=== PATIENT | female | born 1970 | race Caucasian/White ===

== ENCOUNTER 2018-06-03 12:01 | Emergency (ER) | payer MEDICAID ==
[2018-06-03] MEDS ORDERED: DEXALANT (12:20)
[2018-06-03] MEDS ORDERED: FLUO-177 PO (12:24)
[2018-06-03] MEDS ORDERED: GABA-549 PO (12:24)
[2018-06-03] MEDS ORDERED: TIZA2CAP3 PO (12:24)
[2018-06-03] MEDS ORDERED: PROM-110 PO (12:24)
[2018-06-03] MEDS ORDERED: ONDA4TAB9 PO (12:24)
[2018-06-03] MEDS ORDERED: SUMA50TA35 PO (12:24)
[2018-06-03] MEDS ORDERED: ABILIF5PT PO (12:24)
[2018-06-03] MEDS ORDERED: PRAV20TA65 PO (12:24)
[2018-06-03] MEDS ORDERED: ROPI0.2530 PO (12:24)
[2018-06-03] MEDS ORDERED: TRIA-20 PO (12:24)
[2018-06-03] MEDS ORDERED: KETOROLAC 15 MG/ML VIAL IVP ONE (12:25)
[2018-06-03] MEDS ORDERED: METOCLOPRAMIDE 10 MG/2 ML SDV IVP ONE (12:25)
[2018-06-03] MEDS ORDERED: diphenhydrAMINE 50 MG/ML VIAL IVP ONE (12:25)
--- NOTE | 2018-06-03 12:26 | ER Report ---
History and Physical Time Seen By MD: 12:22 Hx. of Stated Complaint: PT WOKE UP WITH MIGRAINE, NAUSEA, SUMATRIPTAN NOT HELPING HPI/ROS CHIEF COMPLAINT: Headache with nausea. HISTORY OF PRESENT ILLNESS: Patient is a 48-year-old female who presents emergency Department with migraine began this morning. She took her prescribed sumatriptan and now feels worse. She reports a severe headache at 8 out of 10 in intensity although this is not the worst headache she's ever had. She does feel nauseous with it. She denies fevers but reports hot flashes. The patient is from [place] but he is here [place] going to school. She denies any neck pain or neck stiffness. She denies chest pain or shortness of breath. She denies abdominal pain. REVIEW OF SYSTEMS: Respiratory: No cough, no dyspnea. Cardiovascular: No chest pain, no palpitations. Gastrointestinal: No vomiting, no abdominal pain. Musculoskeletal: No back pain. Neuro: Headache Allergies: Coded Allergies: lamotrigine (Verified Allergy, Severe, 06/03/18) Penicillins (Verified Allergy, Unknown, 06/03/18) amoxicillin (Verified Allergy, Unknown, 06/03/18) cephalexin (Verified Allergy, Unknown, 06/03/18) clavulanic acid (Verified Allergy, Unknown, 06/03/18) fluticasone (Verified Allergy, Unknown, 06/03/18) ibuprofen (Verified Allergy, Unknown, 06/03/18) nicotine (Verified Allergy, Unknown, 06/03/18) salmeterol (Verified Allergy, Unknown, 06/03/18) Uncoded Allergies: SULFA DRUGS (Allergy, Unknown, 06/03/18) Home Meds Reported Medications Ondansetron 4 Mg Odt (ONDANSETRON 4 MG ODT) 4 Mg Tab.rapdis, 4 MG PO ONCE, TAB 06/03/18 Sumatriptan Succinate (SUMATRIPTAN SUCCINATE) 50 Mg Tablet, 50 MG PO ONCE, #5 TAB 06/03/18 Promethazine Hcl (PROMETHAZINE HCL) 25 Mg Tablet, 25 MG PO Q8H, TAB 06/03/18 Tizanidine Hcl (TIZANIDINE HCL) 2 Mg Capsule, 2 MG PO TID, CAPSULE 06/03/18 Gabapentin (GABAPENTIN) 300 Mg Capsule, 300 MG PO TID, CAPSULE 06/03/18 Triamterene/Hydrochlorothiazid (TRIAMTERENE-HCTZ 37.5-25 MG TB) 1 Each Tablet, 1 EACH PO 06/03/18 Ropinirole Hcl (ROPINIROLE HCL) 0.25 Mg Tablet, 0.25 MG PO TID 06/03/18 Fluoxetine Hcl (FLUOXETINE HCL) 20 Mg Capsule, 20 MG PO QDAY, CAPSULE 06/03/18 Pravastatin Sodium (PRAVACHOL) 20 Mg Tablet, 20 MG PO QDAY, TAB 06/03/18 Aripiprazole (ABILIFY) 5 Mg Tablet, 5 MG PO QDAY, #10 TAB 06/03/18 [Dexalant] No Conflict Check 06/03/18 Past Medical/Surgical History History of migraine headaches and reactive airways disease Hx Substance Use Disorder: No Hx Alcohol Use: No Constitutional Vital Sign - Last 24 Hours 06/03/18 12:09 Temp 97.9 Pulse 73 Resp 20 B/P (MAP) 148/78 Pulse Ox 90 O2 Delivery Room Air Physical Exam General/Constitutional: Patient is awake, alert, nontoxic and in no acute respiratory distress. Head: Normocephalic and atraumatic. Eyes: Conjunctival clear, Pupils are equal and reactive to light. Extraocular muscles are intact and symmetrical. positive for photophobia Ears:External canals are clear. Tympanic membranes are clear with normal landmarks and light reflex. Nares: No rhinorrhea or bleeding. Turbinates are pink and moist. Oropharyngeal: Mucous membranes are moist. There is no pharyngeal erythema or exudate. There are no palatal petechiae. Uvula is midline and symmetrical. Neck: Supple, no adenopathy. Cardiovascular: Heart is regular rate and rhythm without audible murmurs, rubs or gallops. Pulmonary: Lungs are clear to auscultation bilaterally. There are no wheezes, rales, or rhonchi. Chest rise is symmetrical Abdomen: Soft, nontender, no guarding or peritoneal signs. Extremities: No gross deformities, No peripheral cyanosis. Able to move all 4 extremities. Neuro: Alert and oriented X3, Cranial nerves 2 thru 12 are intact and symmetrical. Skin: No rashes, skin is warm dry and well perfused. Medical Decision Making ED Course/Re-evaluation ED Course This time will be to start IV given normal saline we will give IV Toradol, IV Reglan and IV Benadryl. Patient feeling markedly improved will discharge home at this time. Decision to Disposition Date: Jun 03, 2018 Decision to Disposition Time: 13:25 Depart Departure Latest Vital Signs Vital Signs Date Time Temp Pulse Resp B/P (MAP) Pulse Ox O2 Delivery O2 Flow Rate FiO2 06/03/18 12:09 97.9 73 20 148/78 90 Room Air Impression: Primary Impression: Migraine Condition: Improved Disposition: HOME OR SELF-CARE New Scripts Hydrocodone Bit/Acetaminophen (HYDROCODON-ACETAMINOPHEN 5-325) 1 Each Tablet 1 EACH PO Q4-6H PRN for PAIN, #12 TAB 0 Refills TAKE ONE TABLET BY MOUTH EVERY 4-6 HOURS NEEDED FOR PAIN Prov: JOSE KIMBALL MD 06/03/18 Ondansetron Hcl (ZOFRAN) 4 Mg Tablet 4 MG PO Q8H for Nausea, #15 TAB 0 Refills Prov: JOSE KIMBALL MD 06/03/18 Departure Forms: ER Transition Record, Medications Reconciliation, Off Work/School Form, School or Work Release?: School Number of days to be released: 1 Patient Portal Information Patient Instructions: Migraine Headache (ED) Problem Qualifiers Primary Impression: Migraine Migraine type: unspecified Status migrainosus presence: without status migrainosus Intractability: not intractable Qualified Codes: G43.909 - Migraine, unspecified, not intractable, without status migrainosus JOSE KIMBALL MD Jun 03, 2018 12:26
[2018-06-03] MEDS ORDERED: NS(*) 0.9% 1000 ML BAG 1,000 ML IV ONE (12:30)
[2018-06-03 13:00] VITALS: BP 132/61
[2018-06-03] MEDS ORDERED: LANI SUBQ (13:25)
[2018-06-03] MEDS ORDERED: PROC10TA4 (13:25)
[2018-06-03] MEDS ORDERED: INSU100I35 SQ (13:25)
[2018-06-03] MEDS ORDERED: METO10I PO (13:25)
[2018-06-03] MEDS ORDERED: LOR5/325 PO (13:27)
[2018-06-03] MEDS ORDERED: ONDA4TAB97 PO (13:27)
== END 2018-06-03 13:33 | disposition home or self-care (01) ==
LOC: ER 12:14
DX: G43.909 Migraine, unspecified, not intractable, without status migrainosus (principal)
CPT/HCPCS: 96374; 96375; 99284; J1200; J1885; J2765; J7030

== ENCOUNTER 2018-06-08 14:41 | Emergency (ER) | payer MEDICAID ==
[~2018-06-08 14:41] MED LIST: ABILIF5PT PO; DEXALANT; FLUO-177 PO; GABA-549 PO; INSU100I35 SQ; LANI SUBQ; LOR5/325 PO; METO10I PO; ONDA4TAB9 PO; ONDA4TAB97 PO; PRAV20TA65 PO; PROC10TA4; PROM-110 PO; ROPI0.2530 PO; SUMA50TA35 PO; TIZA2CAP3 PO; TRIA-20 PO
--- NOTE | 2018-06-08 14:54 | ER Report ---
History and Physical Time Seen By MD: 14:50 Hx. of Stated Complaint: patient is out of dexalent she uses for acid reflux since having gastric bypass. Now has severe abdominal pain and nausea HPI/ROS CHIEF COMPLAINT: Acid reflux HISTORY OF PRESENT ILLNESS: This is a 48-year-old female presents to the em ergency department for acid reflux per patient states that she had gastric bypass about 4 years ago, has been on excellent since then which has helped with her acid reflux. She states that a few days ago she ran out, contacted her pharmacy for refill, Medicaid said that they needed a prior authorization on the medication, patient states that she's been without this since and it is causing increased abdominal pain and acid reflux. Patient denies chest pain or shortness of breath. Patient is declining a cardiac workup at this time. She has no other complaints. No fevers or chills. REVIEW OF SYSTEMS: Respiratory: No cough, no dyspnea. Cardiovascular: No chest pain, no palpitations. Gastrointestinal: As above. Musculoskeletal: No back pain. Allergies: Coded Allergies: lamotrigine (Verified Allergy, Severe, 06/03/18) Penicillins (Verified Allergy, Unknown, 06/03/18) amoxicillin (Verified Allergy, Unknown, 06/03/18) cephalexin (Verified Allergy, Unknown, 06/03/18) clavulanic acid (Verified Allergy, Unknown, 06/03/18) fluticasone (Verified Allergy, Unknown, 06/03/18) ibuprofen (Verified Allergy, Unknown, 06/03/18) nicotine (Verified Allergy, Unknown, 06/03/18) salmeterol (Verified Allergy, Unknown, 06/03/18) Uncoded Allergies: SULFA DRUGS (Allergy, Unknown, 06/03/18) Home Meds Active Scripts Ondansetron Hcl (ZOFRAN) 4 Mg Tablet, 4 MG PO Q8H for Nausea, #15 TAB 0 Refills Prov:JOSE KIMBALL MD 06/03/18 Reported Medications Insulin Aspart 100 Un/Ml Pen (NOVOLOG FLEXPEN) 100 Unit/1 Ml Insuln.pen, 10 UNIT SQ HS, ML 06/03/18 Insulin Glargine (LANTUS) 100 Unit/Ml Soln, 30 UNIT SUBQ BID, ML 06/03/18 Prochlorperazine Maleate (Compazine) 10 Mg Tablet 06/03/18 Metoclopramide Hcl 10 Mg Vial (REGLAN 10 MG VIAL) 10 Mg/2 Ml Injs, 10 MG PO NOW, VIAL 06/03/18 Ondansetron 4 Mg Odt (ONDANSETRON 4 MG ODT) 4 Mg Tab.rapdis, 4 MG PO ONCE, TAB 06/03/18 Sumatriptan Succinate (SUMATRIPTAN SUCCINATE) 50 Mg Tablet, 50 MG PO ONCE, #5 TAB 06/03/18 Promethazine Hcl (PROMETHAZINE HCL) 25 Mg Tablet, 25 MG PO Q8H, TAB 06/03/18 Tizanidine Hcl (TIZANIDINE HCL) 2 Mg Capsule, 2 MG PO TID, CAPSULE 06/03/18 Gabapentin (GABAPENTIN) 300 Mg Capsule, 300 MG PO TID, CAPSULE 06/03/18 Triamterene/Hydrochlorothiazid (TRIAMTERENE-HCTZ 37.5-25 MG TB) 1 Each Tablet, 1 EACH PO 06/03/18 Fluoxetine Hcl (FLUOXETINE HCL) 20 Mg Capsule, 20 MG PO QDAY, CAPSULE 06/03/18 Pravastatin Sodium (PRAVACHOL) 20 Mg Tablet, 20 MG PO QDAY, TAB 06/03/18 Aripiprazole (ABILIFY) 5 Mg Tablet, 5 MG PO QDAY, #10 TAB 06/03/18 [Dexalant] No Conflict Check 06/03/18 Discontinued Reported Medications Ropinirole Hcl (ROPINIROLE HCL) 0.25 Mg Tablet, 0.25 MG PO TID 06/03/18 Discontinued Scripts Hydrocodone Bit/Acetaminophen (HYDROCODON-ACETAMINOPHEN 5-325) 1 Each Tablet, 1 EACH PO Q4-6H PRN for PAIN, #12 TAB 0 Refills TAKE ONE TABLET BY MOUTH EVERY 4-6 HOURS NEEDED FOR PAIN Prov:JOSE KIMBALL MD 06/03/18 Past Medical/Surgical History Patient has a past medical surgical history of headaches, hypertension, hypercholesterolemia, asthma, COPD, gastric bypass, severe acid reflux, arthritis, wears glasses, type II diabetes, depression, anxiety, cervical cancer in remission, appendectomy, cholecystectomy, hysterectomy, ankle and shoulder surgery, tonsillectomy. Reviewed Nurses Notes: Yes Old Medical Records Reviewed: Yes Hx Substance Use Disorder: No Hx Alcohol Use: No Constitutional Vital Sign - Last 24 Hours 06/08/18 06/08/18 14:44 15:38 Temp 98.5 Pulse 92 88 Resp 16 16 B/P (MAP) 133/68 138/82 (100) Pulse Ox 95 95 O2 Delivery Room Air Room Air Physical Exam General Appearance: The patient is alert, has no immediate need for airway protection and no current signs of toxicity. Eyes: Pupils equal and round no injection. Respiratory: Chest is non tender, lungs are clear to auscultation. Cardiac: regular rate and rhythm, no murmurs, clicks or rubs. Gastrointestinal: Abdomen is, round, soft and non tender, no masses, bowel sounds normal. Musculoskeletal: Neck: Neck is supple and non tender. Extremities have full range of motion and are non tender. Skin: No rashes or lesions. DIFFERENTIAL DIAGNOSIS: After history and physical exam differential diagnosis was considered for abdominal pain including but not limited to appendicitis, cholecystitis, gastritis and urinary tract infection. Medical Decision Making ED Course/Re-evaluation ED Course The patient was admitted to room. A history and physical obtained. Differential diagnoses were considered. A patient has been complaining of epigastric discomfort, she states that is her as reflux, I did tell her that I still would recommend a cardiac workup to ensure that its only her acid reflex, patient declined. We do not have excellent as a medication and the pharmacy, I did substitute with 40 mg of Protonix once a day for the next 3 days, she will follow-up with her pharmacy and primary care provider on , she'll see if they can approve the medication refill. She was given a GI cocktail with significant relief of her symptoms today. Patient had no other questions or concerns at this time and was discharged home. Decision to Disposition Date: Jun 08, 2018 Decision to Disposition Time: 15:30 Depart Departure Latest Vital Signs Vital Signs Date Time Temp Pulse Resp B/P (MAP) Pulse Ox O2 Delivery O2 Flow Rate FiO2 06/08/18 15:38 88 16 138/82 (100) 95 Room Air 06/08/18 14:44 98.5 Impression: Primary Impression: Medication refill Additional Impression: Acid reflux disease Condition: Improved Disposition: HOME OR SELF-CARE Patient Instructions: Gastroesophageal Reflux Disease (ED) Additional Instructions: Take 40 mg of Protonix once a day for the next 3 days. Follow-up with your primary care provider as scheduled this coming Saturday. Follow-up with the pharmacy on Saturday to see if they can help with the prior authorization. Return to the ER for any other concerns or worsening symptoms. Drink plenty of water. Get plenty of rest. Problem Qualifiers Additional Impression: Acid reflux disease Esophagitis presence: esophagitis presence not specified Qualified Codes: K21.9 - Gastro-esophageal reflux disease without esophagitis TALIA HOWARD [employer] PL[employer]NER-BC Jun 08, 2018 14:54
[2018-06-08] MEDS ORDERED: LIDOCAINE 2% VISC SLN 15ML UDC PO ONE (15:05)
[2018-06-08] MEDS ORDERED: MAG HYD/AL HYD/SIMETH 30ML UDC PO ONE (15:05)
[2018-06-08 15:38] VITALS: BP 138/82
[2018-06-08] MEDS ORDERED: PANTOPRAZOLE SOD 40 MG TABEC PO ONE (15:40)
[2018-06-08] MEDS ORDERED: PANTOPRAZOLE SOD 40 MG TABEC PO SCH (16:00)
[2018-06-09] MEDS ORDERED: PANTOPRAZOLE SOD 40 MG TABEC PO SCH (09:00)
== END 2018-06-08 15:42 | disposition home or self-care (01) ==
LOC: ER 15:14
DX: K21.9 Gastro-esophageal reflux disease without esophagitis (principal)
CPT/HCPCS: 99283

== ENCOUNTER 2018-06-15 14:38 | Emergency (ER) | payer MEDICAID ==
[~2018-06-15 14:38] MED LIST changes: +DEXL60CA6 PO; +MELA10TA7; +METO-224 PO; +NYST15PO4 TP
--- NOTE | 2018-06-15 16:17 | ER Report ---
History and Physical Time Seen By MD: 16:17 Hx. of Stated Complaint: L SHOULDER PAIN FROM ARTHRITIS HPI/ROS CHIEF COMPLAINT: Chronic left shoulder pain HISTORY OF PRESENT ILLNESS: This is a 48-year-old female presents to the emergency department for chronic left shoulder pain. Patient states that she's h ad chronic left shoulder pain for a number of years, she is trying to follow-up with [facility], she states she knows she needs a total shoulder, she has arthritis. Patient takes cyclobenzaprine at home, I did ask the patient if she's had an acute injury, falls or anything of the like, patient denies any sort of acute injury. She has no other complaints, no chest pain or shortness of breath. No heat or warmth over the shoulder. REVIEW OF SYSTEMS: Respiratory: No cough, no dyspnea. Cardiovascular: No chest pain, no palpitations. Gastrointestinal: No vomiting, no abdominal pain. Musculoskeletal: As above. Allergies: Coded Allergies: lamotrigine (Verified Allergy, Severe, 06/03/18) Penicillins (Verified Allergy, Unknown, 06/03/18) amoxicillin (Verified Allergy, Unknown, 06/03/18) cephalexin (Verified Allergy, Unknown, 06/03/18) clavulanic acid (Verified Allergy, Unknown, 06/03/18) fluticasone (Verified Allergy, Unknown, 06/03/18) ibuprofen (Verified Allergy, Unknown, 06/03/18) nicotine (Verified Allergy, Unknown, 06/03/18) salmeterol (Verified Allergy, Unknown, 06/03/18) Uncoded Allergies: SULFA DRUGS (Allergy, Unknown, 06/03/18) Home Meds Active Scripts Prednisone (PREDNISONE) 20 Mg Tablet, 20 MG PO BID, #10 TAB Prov:TALIA HOWARD RENAL NURSE-BC 06/15/18 Ondansetron Hcl (ZOFRAN) 4 Mg Tablet, 4 MG PO Q8H for Nausea, #15 TAB 0 Refills Prov:JOSE KIMBALL MD 06/03/18 Reported Medications Dexlansoprazole (DEXILANT) 60 Mg Cap., 60 MG PO BID 06/12/18 Metoclopramide Hcl (METOCLOPRAMIDE HCL) 10 Mg Tablet, 10 MG PO TID PRN for nausea 06/12/18 Melatonin (Melatonin) 10 Mg Tab.rapdis, HS 06/12/18 Nystatin 100,000 Unit/Gm Top Powder (NYSTATIN 100,000 UNIT/GM TOP POWDER) Un known Strength Powder, TP PRN, TUBE 06/12/18 Insulin Aspart 100 Un/Ml Pen (NOVOLOG FLEXPEN) 100 Unit/1 Ml Insuln.pen, 10 UNIT SQ HS, ML 06/03/18 Insulin Glargine (LANTUS) 100 Unit/Ml Soln, 30 UNIT SUBQ BID, ML 06/03/18 Prochlorperazine Maleate (Compazine) 10 Mg Tablet 06/03/18 Ondansetron 4 Mg Odt (ONDANSETRON 4 MG ODT) 4 Mg Tab.rapdis, 4 MG PO ONCE, TAB 06/03/18 Sumatriptan Succinate (SUMATRIPTAN SUCCINATE) 50 Mg Tablet, 50 MG PO ONCE, #5 TAB 06/03/18 Promethazine Hcl (PROMETHAZINE HCL) 25 Mg Tablet, 25 MG PO Q8H, TAB 06/03/18 Tizanidine Hcl (TIZANIDINE HCL) 2 Mg Capsule, 2 MG PO TID, CAPSULE 06/03/18 Gabapentin (GABAPENTIN) 300 Mg Capsule, 300 MG PO TID, CAPSULE 06/03/18 Triamterene/Hydrochlorothiazid (TRIAMTERENE-HCTZ 37.5-25 MG TB) 1 Each Tablet, 1 EACH PO 06/03/18 Fluoxetine Hcl (FLUOXETINE HCL) 20 Mg Capsule, 20 MG PO QDAY, CAPSULE 06/03/18 Pravastatin Sodium (PRAVACHOL) 20 Mg Tablet, 20 MG PO QDAY, TAB 06/03/18 Aripiprazole (ABILIFY) 5 Mg Tablet, 5 MG PO QDAY, #10 TAB 06/03/18 Discontinued Reported Medications Metoclopramide Hcl 10 Mg Vial (REGLAN 10 MG VIAL) 10 Mg/2 Ml Injs, 10 MG PO NOW, VIAL 06/03/18 [Dexalant] No Conflict Check 06/03/18 Ropinirole Hcl (ROPINIROLE HCL) 0.25 Mg Tablet, 0.25 MG PO TID 06/03/18 Discontinued Scripts Hydrocodone Bit/Acetaminophen (HYDROCODON-ACETAMINOPHEN 5-325) 1 Each Tablet, 1 EACH PO Q4-6H PRN for PAIN, #12 TAB 0 Refills TAKE ONE TABLET BY MOUTH EVERY 4-6 HOURS NEEDED FOR PAIN Prov:JOSE KIMBALL MD 06/03/18 Past Medical/Surgical History The patient has a past medical and surgical history of headaches, hypertension, hypercholesterolemia, asthma, COPD, gastric bypass, severe acid reflux, left shoulder arthritis, severe left shoulder degenerative joint disease, knees have arthritis, wears glasses, type II diabetic however uses insulin, bipolar, PTSD, depression, anxiety, suicide attempt, cervical cancer, appendectomy, cholecystectomy, hysterectomy, right ankle and shoulder surgery, tonsillectomy. Reviewed Nurses Notes: Yes Smoking Status: Former Smoker Hx Substance Use Disorder: No Hx Alcohol Use: No Constitutional Vital Sign - Last 24 Hours 06/15/18 06/15/18 06/15/18 06/15/18 14:56 15:47 15:53 16:00 Temp 99.0 Pulse 90 87 Resp 18 B/P (MAP) 130/78 138/75 (96) ???/??? (1665) Pulse Ox 95 92 O2 Delivery Room Air 06/15/18 06/15/18 06/15/18 06/15/18 16:08 16:23 16:30 16:35 Pulse 72 94 86 B/P (MAP) ???/??? (1665) Pulse Ox 91 92 93 06/15/18 06/15/18 16:40 16:42 Pulse 92 B/P (MAP) 133/75 (94) Pulse Ox 96 Physical Exam General Appearance: The patient is alert, has no immediate need for airway protection and no current signs of toxicity. Eyes: Pupils equal and round no injection. Respiratory: Chest is non tender, lungs are clear to auscultation. Cardiac: regular rate and rhythm. Gastrointestinal: Abdomen is soft and non tender, no masses, bowel sounds normal. Musculoskeletal: Neck: Neck is supple and non tender. Extremities Decreased left shoulder ROM, abduction painful, no crepitus, no deformity, no injury, no bruising. CMS intact. Skin: No rashes or lesions. DIFFERENTIAL DIAGNOSIS: After history and physical exam differential diagnosis was considered for bursitis, chronic shoulder pain, arthritis. Medical Decision Making ED Course/Re-evaluation ED Course The patient was admitted to room. A history and physical were obtained. Differential diagnoses were considered. As there was no acute injury of the left shoulder, this is chronic in nature, no x-rays were indicated at this time, I did review this with the patient. I did also review that its our hospital policy not to treat chronic pain with narcotics. Patient was given a prescription for prednisone she is unable to take NSAIDs due to her gastric bypass. She states she does well with prednisone. She states that she will follow up with [facility] again tomorrow to see if they have her paperwork and imaging from her previous hospital, I did offer her a sling, she declined she states she has couple slings at home however she did not wear them today. Patient was also requesting a note from work. Patient was also instructed to follow-up with her primary care provider next week and she has any other concerns for chronic pain management. Patient expressed understanding and was discharged home. Decision to Disposition Date: Jun 15, 2018 Decision to Disposition Time: 16:45 Depart Departure Latest Vital Signs Vital Signs Date Time Temp Pulse Resp B/P (MAP) Pulse Ox O2 Delivery O2 Flow Rate FiO2 06/15/18 16:42 133/75 (94) 06/15/18 16:40 92 96 06/15/18 14:56 99.0 18 Room Air Impression: Primary Impression: Chronic pain in left shoulder Condition: Improved Disposition: HOME OR SELF-CARE Referrals: LEILA CA MD (PCP) 5 Days [facility] New Scripts Prednisone (PREDNISONE) 20 Mg Tablet 20 MG PO BID, #10 TAB Prov: TALIA HOWARD-BC 06/15/18 Departure Forms: ER Transition Record, Medications Reconciliation, Off Work/School Form, Number of days to be released: 2 Patient Portal Information Patient Instructions: Shoulder Pain (ED) Additional Instructions: Unfortunately we're not able to treat chronic pain with narcotics in the emergency department. History of been taking it Flexeril for chronic pain, unable to take NSAIDs we have elected to try prednisone. Please call [facility] 1st thing tomorrow morning. If unable to get in with [facility] please call your primary care provider for reevaluation. Drink plenty of water. Get plenty of rest. Return to the emergency department for any other concerns or worsening symptoms. TALIA HOWARD RENAL NURSE-BC Jun 15, 2018 16:17
[2018-06-15 16:42] VITALS: BP 133/75
[2018-06-15] MEDS ORDERED: predniSONE 20 MG TAB PO ONE (16:45)
[2018-06-15] MEDS ORDERED: PRED20TA6 PO (16:46)
== END 2018-06-15 16:53 | disposition home or self-care (01) ==
LOC: ER 16:05
DX: M25.512 Pain in left shoulder (principal); G89.29 Other chronic pain
CPT/HCPCS: 99283; J7512

== ENCOUNTER 2018-06-21 08:26 | Emergency (ER) | payer MEDICAID ==
[~2018-06-21 08:26] MED LIST changes: +PRED20TA6 PO
--- NOTE | 2018-06-21 08:32 | ER Report ---
History and Physical Time Seen By MD: 08:32 HPI/ROS CHIEF COMPLAINT: Right-sided abdominal pain HISTORY OF PRESENT ILLNESS: Patient is a 48-year-old female here with complaints of right-sided abdominal pain which started in the back and now radiates to the right lower quadrant of the abdomen. Patient reports that her symptoms started on Saturday and more intermittent but are now constant since yesterday. Patient reports having polyuria and increased frequency of urination. Patient also reports decreased appetite. Patient has a history of gastric bypass however denies having an appendectomy. Patient denies melena, sore throat, sneezing, rhinorrhea, cough. REVIEW OF SYSTEMS: Constitutional: No fever, no chills. Eyes: No discharge. ENT: No sore throat. Cardiovascular: No chest pain, no palpitations. Respiratory: No cough, no shortness of breath. Gastrointestinal: + Right-sided abdominal pain and flank pain Genitourinary: No hematuria. + Polyuria Musculoskeletal: + Right-sided flank pain Skin: No rashes. Neurological: No headache. Allergies: Coded Allergies: Sulfa (Sulfonamide Antibiotics) (Verified Allergy, Severe, NAUSEA/VOMITING, 06/25/18) lamotrigine (Verified Allergy, Severe, 06/25/18) onion (Verified Allergy, Severe, NAUSEA/VOMITING, 06/25/18) Penicillins (Verified Allergy, Unknown, 06/25/18) amoxicillin (Verified Allergy, Unknown, 06/25/18) cephalexin (Verified Allergy, Unknown, 06/25/18) clavulanic acid (Verified Allergy, Unknown, 06/25/18) fluticasone (Verified Allergy, Unknown, 06/25/18) ibuprofen (Verified Allergy, Unknown, 06/25/18) nicotine (Verified Allergy, Unknown, 06/25/18) salmeterol (Verified Allergy, Unknown, 06/25/18) Home Meds Active Scripts Blood Sugar Diagnostic (GLUCOSE TEST STRIP) 1 Each Strip, 1 EACH MC TID, #100 STRIP 5 Refills Prov:LEILA HERNANDEZ MD 06/23/18 Blood-Glucose Meter (BLOOD GLUCOSE METER) 1 Each Each, EACH MC ONCE, #1 Prov:LEILA HERNANDEZ MD 06/23/18 Dexlansoprazole (DEXILANT) 60 Mg Bala., 60 MG PO BID, #60 TAB 6 Refills Prov:LEILA HERNANDEZ MD 06/23/18 Hydrocodone Bit/Acetaminophen (HYDROCODON-ACETAMINOPHEN 5-325) 1 Each Tablet, 1 EACH PO Q4-6H PRN for PAIN, #6 TAB Prov:MICHELLE CHRISTIAN [facility] 06/22/18 Sucralfate (CARAFATE) 1 Gm Tablet, 1 GM PO QID, #60 TAB Take before meals and at bedtime. Crush the tablet and mix with water before taking. Prov:MICHELLE CHRISTIAN BELLMAN 06/22/18 Ondansetron 4 Mg Odt (ONDANSETRON 4 MG ODT) 4 Mg Tab.rapdis, 4 MG PO ONCE, #20 TAB Prov:CAROLE MARIE S DO 06/21/18 Tramadol Hcl (TRAMADOL HCL) 50 Mg Tablet, 50 MG PO Q6H PRN for PAIN, #12 TAB 0 Refills Prov:MARIECAROLE Trent S DO 06/21/18 Ondansetron Hcl (ZOFRAN) 4 Mg Tablet, 4 MG PO Q8H for Nausea, #15 TAB 0 Refills Prov:JOSE KIMBALL MD 06/03/18 Reported Medications Metoclopramide Hcl (METOCLOPRAMIDE HCL) 10 Mg Tablet, 10 MG PO TID PRN for nausea 06/12/18 Melatonin (Melatonin) 10 Mg Tab.rapdis, HS 06/12/18 Nystatin 100,000 Unit/Gm Top Powder (NYSTATIN 100,000 UNIT/GM TOP POWDER) Unknown Strength Powder, TP PRN, TUBE 06/12/18 Insulin Aspart 100 Un/Ml Pen (NOVOLOG FLEXPEN) 100 Unit/1 Ml Insuln.pen, 10 UNIT SQ HS, ML 06/03/18 Insulin Glargine (LANTUS) 100 Unit/Ml Soln, 30 UNIT SUBQ BID, ML 06/03/18 Prochlorperazine Maleate (Compazine) 10 Mg Tablet 06/03/18 Ondansetron 4 Mg Odt (ONDANSETRON 4 MG ODT) 4 Mg Tab.rapdis, 4 MG PO ONCE, TAB 06/03/18 Sumatriptan Succinate (SUMATRIPTAN SUCCINATE) 50 Mg Tablet, 50 MG PO ONCE, #5 TAB 06/03/18 Promethazine Hcl (PROMETHAZINE HCL) 25 Mg Tablet, 25 MG PO Q8H, TAB 06/03/18 Tizanidine Hcl (TIZANIDINE HCL) 2 Mg Capsule, 2 MG PO TID, CAPSULE 06/03/18 Gabapentin (GABAPENTIN) 300 Mg Capsule, 300 MG PO TID, CAPSULE 06/03/18 Triamterene/Hydrochlorothiazid (TRIAMTERENE-HCTZ 37.5-25 MG TB) 1 Each Tablet, 1 EACH PO 06/03/18 Fluoxetine Hcl (FLUOXETINE HCL) 20 Mg Capsule, 20 MG PO QDAY, CAPSULE 06/03/18 Pravastatin Sodium (PRAVACHOL) 20 Mg Tablet, 20 MG PO QDAY, TAB 06/03/18 Aripiprazole (ABILIFY) 5 Mg Tablet, 5 MG PO QDAY, #10 TAB 06/03/18 Smoking Status: Former Smoker Hx Substance Use Disorder: No Hx Alcohol Use: No Constitutional Physical Exam General Appearance: The patient is alert, has no immediate need for airway protection and no signs of toxicity. No acute distress Eyes: Pupils equal and round no pallor or injection. ENT, Mouth: Mucous membranes are moist. Respiratory: There are no retractions, lungs are clear to auscultation. Cardiovascular: Regular rate and rhythm. Gastrointestinal: + Right-sided abdominal pain and right flank pain Neurological: No focal neurological findings Skin: Warm and dry, no rashes. Musculoskeletal: Neck is supple non tender. Extremities are nontender, nonswollen and have full range of motion. DIFFERENTIAL DIAGNOSIS: After history and physical exam differential diagnosis was considered for abdominal pain including but not limited to appendicitis, cholecystitis, gastritis and urinary tract infection. Medical Decision Making Data Points Laboratory Hematology Test 06/21/18 08:34 06/21/18 08:51 06/21/18 09:01 Urine Color Yellow Urine Clarity Slightly-cloudy Urine pH 5.0 pH (4.8-9.5) Urine Specific [place] 1.026 Urine Protein Negative mg/dL (NEGATIVE) Urine Glucose (UA) 500 mg/dL (NEGATIVE) Urine Ketones Trace mg/dL (NEGATIVE) Urine Blood Negative (NEGATIVE) Urine Nitrite Negative (NEGATIVE) Urine Bilirubin Negative (NEGATIVE) Urine Urobilinogen Negative mg/dL (0.2-1.9) Urine Leukocyte Esterase Negative (NEGATIVE) Urine RBC <1 /HPF (0-2/HPF) Urine WBC 1 /HPF (0-5/HPF) Urine Squamous Epithelial Cells Many /LPF (</=FEW) Urine Bacteria Negative /HPF (NONE-FEW) Urine Mucus Few /HPF (NONE-FEW) Influenza Virus Type A (PCR) Negative (NEGATIVE) Influenza Virus Type B (PCR) Negative (NEGATIVE) Red Blood Count 5.31 M/uL (4.17-5.56) Mean Corpuscular Volume 84.6 fL (80.0-96.0) Mean Corpuscular Hemoglobin 28.2 pg (26.0-33.0) Mean Corpuscular Hemoglobin Concent 33.4 g/dL (32.0-36.0) Red Cell Distribution Width 14.4 % (11.5-14.5) Mean Platelet Volume 8.0 fL (7.2-11.1) Neutrophils (%) (Auto) 62.5 % (39.4-72.5) Lymphocytes (%) (Auto) 28.5 % (17.6-49.6) Monocytes (%) (Auto) 8.1 % (4.1-12.4) Eosinophils (%) (Auto) 0.5 % (0.4-6.7) Basophils (%) (Auto) 0.4 % (0.3-1.4) Nucleated RBC Relative Count (auto) 0.0 /100WBC Neutrophils # (Auto) 10.2 K/uL (2.0-7.4) Lymphocytes # (Auto) 4.7 K/uL (1.3-3.6) Monocytes # (Auto) 1.3 K/uL (0.3-1.0) Eosinophils # (Auto) 0.1 K/uL (0.0-0.5) Basophils # (Auto) 0.1 K/uL (0.0-0.1) Nucleated RBC Absolute Count (auto) 0.00 K/uL Peripheral Blood Smear No Y/N Sodium Level 139 mmol/L (137-145) Potassium Level 3.4 mmol/L (3.5-5.0) Chloride Level 102 mmol/L (98-107) Carbon Dioxide Level 24 mmol/L (22-31) Blood Urea Nitrogen 17 mg/dl (7-18) Creatinine 0.40 mg/dl (0.52-1.04) Glomerular Filtration Rate Calc > 60.0 Random Glucose 146 mg/dl (75-110) Lactate 1.7 mmol/L (0.7-2.1) Calcium Level 9.4 mg/dl (8.4-10.2) Total Bilirubin 0.7 mg/dl (0.2-1.3) Aspartate Amino Transf (AST/SGOT) 24 U/L (0-35) Alanine Aminotransferase (ALT/SGPT) 38 U/L (0-56) Alkaline Phosphatase 88 U/L (0-126) Total Protein 7.2 g/dl (6.3-8.2) Albumin 4.4 g/dl (3.5-5.0) Lipase 32 U/L (23-300) Chemistry Test 06/21/18 08:34 06/21/18 08:51 06/21/18 09:01 Urine Color Yellow Urine Clarity Slightly-cloudy Urine pH 5.0 pH (4.8-9.5) Urine Specific [place] 1.026 Urine Protein Negative mg/dL (NEGATIVE) Urine Glucose (UA) 500 mg/dL (NEGATIVE) Urine Ketones Trace mg/dL (NEGATIVE) Urine Blood Negative (NEGATIVE) Urine Nitrite Negative (NEGATIVE) Urine Bilirubin Negative (NEGATIVE) Urine Urobilinogen Negative mg/dL (0.2-1.9) Urine Leukocyte Esterase Negative (NEGATIVE) Urine RBC <1 /HPF (0-2/HPF) Urine WBC 1 /HPF (0-5/HPF) Urine Squamous Epithelial Cells Many /LPF (</=FEW) Urine Bacteria Negative /HPF (NONE-FEW) Urine Mucus Few /HPF (NONE-FEW) Influenza Virus Type A (PCR) Negative (NEGATIVE) Influenza Virus Type B (PCR) Negative (NEGATIVE) White Blood Count 16.4 k/uL (4.5-11.0) Red Blood Count 5.31 M/uL (4.17-5.56) Hemoglobin 15.0 g/dL (12.0-16.0) Hematocrit 44.9 % (34.0-47.0) Mean Corpuscular Volume 84.6 fL (80.0-96.0) Mean Corpuscular Hemoglobin 28.2 pg (26.0-33.0) Mean Corpuscular Hemoglobin Concent 33.4 g/dL (32.0-36.0) Red Cell Distribution Width 14.4 % (11.5-14.5) Platelet Count 217 K/uL (150-450) Mean Platelet Volume 8.0 fL (7.2-11.1) Neutrophils (%) (Auto) 62.5 % (39.4-72.5) Lymphocytes (%) (Auto) 28.5 % (17.6-49.6) Monocytes (%) (Auto) 8.1 % (4.1-12.4) Eosinophils (%) (Auto) 0.5 % (0.4-6.7) Basophils (%) (Auto) 0.4 % (0.3-1.4) Nucleated RBC Relative Count (auto) 0.0 /100WBC Neutrophils # (Auto) 10.2 K/uL (2.0-7.4) Lymphocytes # (Auto) 4.7 K/uL (1.3-3.6) Monocytes # (Auto) 1.3 K/uL (0.3-1.0) Eosinophils # (Auto) 0.1 K/uL (0.0-0.5) Basophils # (Auto) 0.1 K/uL (0.0-0.1) Nucleated RBC Absolute Count (auto) 0.00 K/uL Peripheral Blood Smear No Y/N Glomerular Filtration Rate Calc > 60.0 Lactate 1.7 mmol/L (0.7-2.1) Calcium Level 9.4 mg/dl (8.4-10.2) Total Bilirubin 0.7 mg/dl (0.2-1.3) Aspartate Amino Transf (AST/SGOT) 24 U/L (0-35) Alanine Aminotransferase (ALT/SGPT) 38 U/L (0-56) Alkaline Phosphatase 88 U/L (0-126) Total Protein 7.2 g/dl (6.3-8.2) Albumin 4.4 g/dl (3.5-5.0) Lipase 32 U/L (23-300) Urinalysis Test 06/21/18 08:34 Urine Color Yellow Urine Clarity Slightly-cloudy Urine pH 5.0 pH (4.8-9.5) Urine Specific [place] 1.026 Urine Protein Negative mg/dL (NEGATIVE) Urine Glucose (UA) 500 mg/dL (NEGATIVE) Urine Ketones Trace mg/dL (NEGATIVE) Urine Blood Negative (NEGATIVE) Urine Nitrite Negative (NEGATIVE) Urine Bilirubin Negative (NEGATIVE) Urine Urobilinogen Negative mg/dL (0.2-1.9) Urine Leukocyte Esterase Negative (NEGATIVE) Urine RBC <1 /HPF (0-2/HPF) Urine WBC 1 /HPF (0-5/HPF) Urine Squamous Epithelial Cells Many /LPF (</=FEW) Urine Bacteria Negative /HPF (NONE-FEW) Urine Mucus Few /HPF (NONE-FEW) EKG/Im[place] [facility] [place] Zain Sim[place] : 1970 Visit/Account:[id number] Date of Sevice: 06/21/2018 CT scan of the abdomen and pelvis without contrast. HISTORY: Right flank pain and right lower quadrant abdominal tenderness. COMPARISON: None. 3 mm thick and [address] images were obtained of the abdomen and pelvis. No intravenous or oral contrast. One of the following dose optimization techniques was utilized in the performance of this exam: Automated exposure control; adjustment of the mA and/or kV according to the patient's size; or use of an iterative reconstruction technique. Specific details can be referenced in the facility's radiology CT exam operational policy. The study is limited to the urinary tract for evaluation of stone disease. FINDINGS: The lung bases are clear. Pericardial fluid is borderline increased. The liver and spleen are normal in size. Several small low-density lesions probably representing cysts measuring less than 1.2 cm in diameter are scattered in the liver. The gallbladder is absent. Surgical clips are present in the gallbladder fossa. The pancreas is normal in size. Surgical leni are present along the stomach and upper abdominal small bowel loops consistent with previous gastric bypass surgery. A small direct hiatal hernia is present. Unopacified bowel loops are scattered in the abdomen and pelvis. The appendix is not visualized. The uterus is absent. The ovaries are not visualized. The urinary bladder is incompletely distended. Lateral amounts of stool are scattered in the colon and rectum. A few phleboliths are present in the ovarian veins bilaterally. The kidneys are normal in size. The right adrenal gland is normal in size. A 1.4 cm low-density lesion is present in the left adrenal gland. The ureters take a normal course of the urinary bladder. No acute bony abnormalities. IMPRESSION: Absent gallbladder. A few small liver cysts. Postsurgical changes following gastric bypass procedure. Negative for evidence of renal stone or obstruction. Absent gallbladder. Borderline pericardial effusion. 1.4 cm left adrenal adenoma. Nonvisualization of the appendix. ED Course/Re-evaluation ED Course Patient is a 48-year-old female here with complaints of right-sided flank pain with radiation to the groin since Saturday which was intermittent initially however is now constant. Patient also reports having increased frequency of urination, urgency. Due to the patient's symptoms, noncontrasted CT study was completed. Patient was given IV fluids, Zofran, fentanyl for symptom management. Flu swab was collected. CT imaging scan was unremarkable. Labs were unremarkable aside from a mild leukocytosis. Recommend follow up with PCP on Saturday as scheduled. Return precautions provided. Patient was tolerating oral intake with out issues.. Decision to Disposition Date: Jun 21, 2018 Decision to Disposition Time: 11:07 Depart Departure Latest Vital Signs Impression: Primary Impression: Abdominal pain Condition: Improved Disposition: HOME OR SELF-CARE Referrals: LEILA HERNANDEZ MD (PCP) New Scripts Ondansetron 4 Mg Odt (ONDANSETRON 4 MG ODT) 4 Mg Tab.rapdis 4 MG PO ONCE, #20 TAB Prov: CAROLE MARIE DO 06/21/18 Tramadol Hcl (TRAMADOL HCL) 50 Mg Tablet 50 MG PO Q6H PRN for PAIN, #12 TAB 0 Refills Prov: CAROLE MARIE DO 06/21/18 Departure Forms: ER Transition Record, Medications Reconciliation, Off Work/School Form, School or Work Release?: Work Number of days to be released: 3 Patient Portal Information Patient Instructions: Abdominal Pain (ED) Additional Instructions: Please drink plenty of water. Please follow-up with Dr. Hernandez on Saturday for an outpatient reevaluation. Your provided with scripts for Zofran and tramadol for symptom management. He may take Zofran 1 tablet every 4-6 hours as needed for nausea and vomiting. You may take 1 tramadol every 6-8 hours as needed for pain control. Please return immediately to the emergency department if you develop worsening pain, fevers, inability to keep down food or fluids, blood in stools or urine. CAROLE MARIE DO Jun 21, 2018 08:32
[2018-06-21] MEDS ORDERED: ONDANSETRON 4 MG/2 ML VIAL IVP ONE (08:40)
[2018-06-21] MEDS ORDERED: fentaNYL CITR 100 MCG/2 ML AMP IVP ONE (08:40)
[2018-06-21 09:12] LABS: PLATELET COUNT, AUTOMATED 217 K/uL (150-450)
--- NOTE | 2018-06-21 09:58 | RADIOLOGY IMAGING REPORT ---
FACILITY: PATIENT NAME: Zain Simons : 1970 MR: [id number] V: [id number] EXAM DATE: ORDERING PHYSICIAN: CAROLE MARIE TECHNOLOGIST: Location: [facility] Patient: Zain Simons : 1970 Visit/Account:[id number] Date of Sevice: 06/21/2018 CT scan of the abdomen and pelvis without contrast. HISTORY: Right flank pain and right lower quadrant abdominal tenderness. COMPARISON: None. 3 mm thick and [address] images were obtained of the abdomen and pelvis. No intravenous or oral contrast. One of the following dose optimization techniques was utilized in the performance of t his exam: Automated exposure control; adjustment of the mA and/or kV according to the patient's size; or use of an iterative reconstruction technique. Specific details can be referenced in the [facility]'s radiology CT exam operational policy. The study is limited to the urinary tract for evaluation of stone disease. FINDINGS: The lung bases are clear. Pericardial fluid is borderline increased. The liver and spleen are normal in size. Several small low-density lesions probably representing cyst s measuring less than 1.2 cm in diameter are scattered in the liver. The gallbladder is absent. Surgi mauri clips are present in the gallbladder fossa. The pancreas is normal in size. Surgical leni are present along the stomach and upper abdominal small bowel loops consistent with previous gastric bypa ss surgery. A small direct hiatal hernia is present. Unopacified bowel loops are scattered in the abd omen and pelvis. The appendix is not visualized. The uterus is absent. The ovaries are not visualized. The urinary job dder is incompletely distended. Lateral amounts of stool are scattered in the colon and rectum. A few phleboliths are present in the ovarian veins bilaterally. The kidneys are normal in size. The right adrenal gland is normal in size. A 1.4 cm low-density lesion is present in the left adrenal gland. Th e ureters take a normal course of the urinary bladder. No acute bony abnormalities. IMPRESSION: Absent gallbladder. A few small liver cysts. Postsurgical changes following gastric bypass procedure. Negative for evidence of renal stone or obstruction. Absent gallbladder. Borderline pericardial effusion. 1.4 cm left adrenal adenoma. Nonvisualization of the appendix. Report Dictated By: Lam Jones MD at 06/21/2018 9:44 AM Report E-Signed By: Lam Jones MD at 06/21/2018 9:54 AM WSN:[id number]
[2018-06-21] MEDS ORDERED: HYDROMORPHONE HCL 1 MG/ML SYRINGE IVP ONE (10:00)
[2018-06-21 11:00] VITALS: BP 99/53
[2018-06-21] MEDS ORDERED: ONDA4TAB9 PO (11:11)
[2018-06-21] MEDS ORDERED: TRAM-420 PO (11:11)
[2018-06-22] MEDS ORDERED: SUCR1TAB85 PO (14:29)
[2018-06-22] MEDS ORDERED: OMEP40CA48 PO (14:29)
[2018-06-22] MEDS ORDERED: HYDR-385 PO (14:29)
[2018-06-23] MEDS ORDERED: DEXL60CA6 PO (15:31)
[2018-06-23] MEDS ORDERED: BLOO-960 MC (15:44)
[2018-06-23] MEDS ORDERED: BLOO-1511 MC (15:48)
== END 2018-06-21 11:32 | disposition home or self-care (01) ==
LOC: ER 08:37
DX: R10.31 Right lower quadrant pain (principal)
CPT/HCPCS: 74176; 81001; 83605; 83690; 85025; 87502; 96374; 96375; 99284; J1170; J2405; J3010; 82040; 82247; 82310; 82374; 82435; 82565; 82947; 84075; 84132; 84155; 84295; 84450; 84460; 84520

== ENCOUNTER 2018-06-22 12:42 | Emergency (ER) | payer MEDICAID ==
[~2018-06-22 12:42] MED LIST changes: +TRAM-420 PO
[2018-06-22] MEDS ORDERED: NS(*) 0.9% 1000 ML BAG 1,000 ML IV ONE (13:11)
[2018-06-22] MEDS ORDERED: PANTOPRAZOLE SOD 40 MG IV VIAL IVP ONE (13:15)
[2018-06-22] MEDS ORDERED: ONDANSETRON 4 MG/2 ML VIAL IVP ONE (13:15)
--- NOTE | 2018-06-22 13:33 | ER Report ---
History and Physical Time Seen By MD: 12:52 Hx. of Stated Complaint: patient seen in the ED yesterday. was told she has viral gastroenteritis. patient reports not being able to keep anything down and the pain is worse. was unable to get tramadol prescription HPI/ROS CHIEF COMPLAINT: Epigastric abdominal pain HISTORY OF PRESENT ILLNESS: 48-year-old female patient presents to emergency room with complaint of epigastric abdominal pain. Patient states the pain has been persistent for quite some time. She states that stabs through to the back. She states that today she is not been able to eat or drink anything. She states that she is on an acid reducing medication due to her gastric bypass, however she's not been able get that filled as she has a prior authorization this required for that. Patient states that she has not been able keep down any food or drink today. She states that the pain is persistent. She denies having any fevers or chills. She states that she did have a bowel movement today and denies having any diarrhea. REVIEW OF SYSTEMS: Respiratory: No cough, no dyspnea. Cardiovascular: No chest pain, no palpitations. Gastrointestinal: As noted above Musculoskeletal: No back pain. Allergies: Coded Allergies: Sulfa (Sulfonamide Antibiotics) (Verified Allergy, Severe, NAUSEA/VOMITING, 06/21/18) lamotrigine (Verified Allergy, Severe, 06/21/18) onion (Verified Allergy, Severe, NAUSEA/VOMITING, 06/21/18) Penicillins (Verified Allergy, Unknown, 06/21/18) amoxicillin (Verified Allergy, Unknown, 06/21/18) cephalexin (Verified Allergy, Unknown, 06/21/18) clavulanic acid (Verified Allergy, Unknown, 06/21/18) fluticasone (Verified Allergy, Unknown, 06/21/18) ibuprofen (Verified Allergy, Unknown, 06/21/18) nicotine (Verified Allergy, Unknown, 06/21/18) salmeterol (Verified Allergy, Unknown, 06/21/18) Home Meds Active Scripts Hydrocodone Bit/Acetaminophen (HYDROCODON-ACETAMINOPHEN 5-325) 1 Each Tablet, 1 EACH PO Q4-6H PRN for PAIN, #6 TAB Prov:MICHELLE CHRISTIAN CIRCULAR SAW FILER 06/22/18 Sucralfate (CARAFATE) 1 Gm Tablet, 1 GM PO QID, #60 TAB Take before meals and at bedtime. Crush the tablet and mix with water before taking. Prov:MICHELLE CHRISTIAN CIRCULAR SAW FILER 06/22/18 Omeprazole (OMEPRAZOLE) 40 Mg Capsule.dr, 40 MG PO BID, #60 CAP Prov:MICHELLE CHRISTIAN CIRCULAR SAW FILER 06/22/18 Ondansetron 4 Mg Odt (ONDANSETRON 4 MG ODT) 4 Mg Tab.rapdis, 4 MG PO ONCE, #20 TAB Prov:CAROLE MARIE S DO 06/21/18 Tramadol Hcl (TRAMADOL HCL) 50 Mg Tablet, 50 MG PO Q6H PRN for PAIN, #12 TAB 0 Refills Prov:MARIECAROLE Trent S DO 06/21/18 Ondansetron Hcl (ZOFRAN) 4 Mg Tablet, 4 MG PO Q8H for Nausea, #15 TAB 0 Refills Prov:JOSE KIMBALL MD 06/03/18 Reported Medications Dexlansoprazole (DEXILANT) 60 Mg Cap.mp, 60 MG PO BID 06/12/18 Metoclopramide Hcl (METOCLOPRAMIDE HCL) 10 Mg Tablet, 10 MG PO TID PRN for nausea 06/12/18 Melatonin (Melatonin) 10 Mg Tab.rapdis, HS 06/12/18 Nystatin 100,000 Unit/Gm Top Powder (NYSTATIN 100,000 UNIT/GM TOP POWDER) Unknown Strength Powder, TP PRN, TUBE 06/12/18 Insulin Aspart 100 Un/Ml Pen (NOVOLOG FLEXPEN) 100 Unit/1 Ml Insuln.pen, 10 UNIT SQ HS, ML 06/03/18 Insulin Glargine (LANTUS) 100 Unit/Ml Soln, 30 UNIT SUBQ BID, ML 06/03/18 Prochlorperazine Maleate (Compazine) 10 Mg Tablet 06/03/18 Ondansetron 4 Mg Odt (ONDANSETRON 4 MG ODT) 4 Mg Tab.rapdis, 4 MG PO ONCE, TAB 06/03/18 Sumatriptan Succinate (SUMATRIPTAN SUCCINATE) 50 Mg Tablet, 50 MG PO ONCE, #5 TAB 06/03/18 Promethazine Hcl (PROMETHAZINE HCL) 25 Mg Tablet, 25 MG PO Q8H, TAB 06/03/18 Tizanidine Hcl (TIZANIDINE HCL) 2 Mg Capsule, 2 MG PO TID, CAPSULE 06/03/18 Gabapentin (GABAPENTIN) 300 Mg Capsule, 300 MG PO TID, CAPSULE 06/03/18 Triamterene/Hydrochlorothiazid (TRIAMTERENE-HCTZ 37.5-25 MG TB) 1 Each Tablet, 1 EACH PO 06/03/18 Fluoxetine Hcl (FLUOXETINE HCL) 20 Mg Capsule, 20 MG PO QDAY, CAPSULE 06/03/18 Pravastatin Sodium (PRAVACHOL) 20 Mg Tablet, 20 MG PO QDAY, TAB 06/03/18 Aripiprazole (ABILIFY) 5 Mg Tablet, 5 MG PO QDAY, #10 TAB 06/03/18 Discontinued Scripts Prednisone (PREDNISONE) 20 Mg Tablet, 20 MG PO BID, #10 TAB Prov:TALIA HOWARD Timothy CIRCULAR SAW FILER-BC 06/15/18 Past Medical/Surgical History Patient has a past medical history of migraines, hypertension, hyperlipidemia, asthma, COPD, reflux, arthritis, type 2 diabetes, bipolar, PTSD, depression, anxiety, cervical cancer, lymphoma. Patient has a surgical history of gastric bypass, appendectomy, cholecystectomy, hysterectomy, right ankle surgery, left shoulder surgery, tonsillectomy. Reviewed Nurses Notes: Yes Smoking Status: Former Smoker Hx Substance Use Disorder: No Hx Alcohol Use: No Constitutional Vital Sign - Last 24 Hours 06/22/18 06/22/18 06/22/18 06/22/18 12:42 12:47 12:49 12:57 Temp 98.2 Pulse ??? 93 92 Resp 16 B/P (MAP) 129/60 (83) 129/90 Pulse Ox 93 91 O2 Delivery Room Air 06/22/18 06/22/18 06/22/18 06/22/18 13:12 13:27 13:32 13:42 Pulse 86 87 85 Pulse Ox 91 89 92 O2 Flow Rate 2.0 06/22/18 06/22/18 06/22/18 06/22/18 13:52 14:12 14:32 14:35 Pulse 92 79 77 B/P (MAP) 107/56 (73) Pulse Ox 92 94 Physical Exam General Appearance: The patient is alert, has no immediate need for airway protection and no current signs of toxicity. Respiratory: Chest is non tender, lungs are clear to auscultation. Cardiac: regular rate and rhythm Gastrointestinal: Abdomen is soft and tender in the epigastric region, no masses, bowel sounds normal. Musculoskeletal: Neck: Neck is supple and non tender. Extremities have full range of motion and are non tender. Skin: No rashes or lesions. DIFFERENTIAL DIAGNOSIS: After history and physical exam differential diagnosis was considered for abdominal pain including but not limited to appendicitis, cholecystitis, gastritis and urinary tract infection. Medical Decision Making Data Points Result Diagram: 06/22/18 1334 06/22/18 1334 Laboratory Hematology Test 06/22/18 12:53 06/22/18 13:34 Urine Color Yellow Urine Clarity Slightly-cloudy Urine pH 5.0 pH (4.8-9.5) Urine Specific [place] 1.027 Urine Protein Negative mg/dL (NEGATIVE) Urine Glucose (UA) 50 mg/dL (NEGATIVE) Urine Ketones Negative mg/dL (NEGATIVE) Urine Blood Negative (NEGATIVE) Urine Nitrite Negative (NEGATIVE) Urine Bilirubin Negative (NEGATIVE) Urine Urobilinogen Negative mg/dL (0.2-1.9) Urine Leukocyte Esterase Negative (NEGATIVE) Urine RBC <1 /HPF (0-2/HPF) Urine WBC 2 /HPF (0-5/HPF) Urine Squamous Epithelial Cells Many /LPF (</=FEW) Urine Bacteria Few /HPF (NONE-FEW) Urine Hyaline Casts Many /LPF (NONE-FEW) Urine Mucus Few /HPF (NONE-FEW) Red Blood Count 5.07 M/uL (4.17-5.56) Mean Corpuscular Volume 85.0 fL (80.0-96.0) Mean Corpuscular Hemoglobin 28.7 pg (26.0-33.0) Mean Corpuscular Hemoglobin Concent 33.7 g/dL (32.0-36.0) Red Cell Distribution Width 14.3 % (11.5-14.5) Mean Platelet Volume 7.9 fL (7.2-11.1) Neutrophils (%) (Auto) 64.7 % (39.4-72.5) Lymphocytes (%) (Auto) 24.8 % (17.6-49.6) Monocytes (%) (Auto) 6.8 % (4.1-12.4) Eosinophils (%) (Auto) 2.0 % (0.4-6.7) Basophils (%) (Auto) 1.7 % (0.3-1.4) Nucleated RBC Relative Count (auto) 0.0 /100WBC Neutrophils # (Auto) 7.1 K/uL (2.0-7.4) Lymphocytes # (Auto) 2.7 K/uL (1.3-3.6) Monocytes # (Auto) 0.8 K/uL (0.3-1.0) Eosinophils # (Auto) 0.2 K/uL (0.0-0.5) Basophils # (Auto) 0.2 K/uL (0.0-0.1) Nucleated RBC Absolute Count (auto) 0.00 K/uL Sodium Level 139 mmol/L (137-145) Potassium Level 3.4 mmol/L (3.5-5.0) Chloride Level 103 mmol/L (98-107) Carbon Dioxide Level 25 mmol/L (22-31) Blood Urea Nitrogen 15 mg/dl (7-18) Creatinine 0.50 mg/dl (0.52-1.04) Glomerular Filtration Rate Calc > 60.0 Random Glucose 257 mg/dl (75-110) Calcium Level 8.8 mg/dl (8.4-10.2) Total Bilirubin 0.7 mg/dl (0.2-1.3) Aspartate Amino Transf (AST/SGOT) 19 U/L (0-35) Alanine Aminotransferase (ALT/SGPT) 40 U/L (0-56) Alkaline Phosphatase 86 U/L (0-126) Total Protein 6.6 g/dl (6.3-8.2) Albumin 4.0 g/dl (3.5-5.0) Amylase Level 72 U/L (0-110) Lipase 36 U/L (23-300) Helicobacter pylori IgG Antibody Negative (NEGATIVE) Chemistry Test 06/22/18 12:53 06/22/18 13:34 Urine Color Yellow Urine Clarity Slightly-cloudy Urine pH 5.0 pH (4.8-9.5) Urine Specific [place] 1.027 Urine Protein Negative mg/dL (NEGATIVE) Urine Glucose (UA) 50 mg/dL (NEGATIVE) Urine Ketones Negative mg/dL (NEGATIVE) Urine Blood Negative (NEGATIVE) Urine Nitrite Negative (NEGATIVE) Urine Bilirubin Negative (NEGATIVE) Urine Urobilinogen Negative mg/dL (0.2-1.9) Urine Leukocyte Esterase Negative (NEGATIVE) Urine RBC <1 /HPF (0-2/HPF) Urine WBC 2 /HPF (0-5/HPF) Urine Squamous Epithelial Cells Many /LPF (</=FEW) Urine Bacteria Few /HPF (NONE-FEW) Urine Hyaline Casts Many /LPF (NONE-FEW) Urine Mucus Few /HPF (NONE-FEW) White Blood Count 11.0 k/uL (4.5-11.0) Red Blood Count 5.07 M/uL (4.17-5.56) Hemoglobin 14.5 g/dL (12.0-16.0) Hematocrit 43.1 % (34.0-47.0) Mean Corpuscular Volume 85.0 fL (80.0-96.0) Mean Corpuscular Hemoglobin 28.7 pg (26.0-33.0) Mean Corpuscular Hemoglobin Concent 33.7 g/dL (32.0-36.0) Red Cell Distribution Width 14.3 % (11.5-14.5) Platelet Count 207 K/uL (150-450) Mean Platelet Volume 7.9 fL (7.2-11.1) Neutrophils (%) (Auto) 64.7 % (39.4-72.5) Lymphocytes (%) (Auto) 24.8 % (17.6-49.6) Monocytes (%) (Auto) 6.8 % (4.1-12.4) Eosinophils (%) (Auto) 2.0 % (0.4-6.7) Basophils (%) (Auto) 1.7 % (0.3-1.4) Nucleated RBC Relative Count (auto) 0.0 /100WBC Neutrophils # (Auto) 7.1 K/uL (2.0-7.4) Lymphocytes # (Auto) 2.7 K/uL (1.3-3.6) Monocytes # (Auto) 0.8 K/uL (0.3-1.0) Eosinophils # (Auto) 0.2 K/uL (0.0-0.5) Basophils # (Auto) 0.2 K/uL (0.0-0.1) Nucleated RBC Absolute Count (auto) 0.00 K/uL Glomerular Filtration Rate Calc > 60.0 Calcium Level 8.8 mg/dl (8.4-10.2) Total Bilirubin 0.7 mg/dl (0.2-1.3) Aspartate Amino Transf (AST/SGOT) 19 U/L (0-35) Alanine Aminotransferase (ALT/SGPT) 40 U/L (0-56) Alkaline Phosphatase 86 U/L (0-126) Total Protein 6.6 g/dl (6.3-8.2) Albumin 4.0 g/dl (3.5-5.0) Amylase Level 72 U/L (0-110) Lipase 36 U/L (23-300) Helicobacter pylori IgG Antibody Negative (NEGATIVE) Urinalysis Test 06/22/18 12:53 Urine Color Yellow Urine Clarity Slightly-cloudy Urine pH 5.0 pH (4.8-9.5) Urine Specific [place] 1.027 Urine Protein Negative mg/dL (NEGATIVE) Urine Glucose (UA) 50 mg/dL (NEGATIVE) Urine Ketones Negative mg/dL (NEGATIVE) Urine Blood Negative (NEGATIVE) Urine Nitrite Negative (NEGATIVE) Urine Bilirubin Negative (NEGATIVE) Urine Urobilinogen Negative mg/dL (0.2-1.9) Urine Leukocyte Esterase Negative (NEGATIVE) Urine RBC <1 /HPF (0-2/HPF) Urine WBC 2 /HPF (0-5/HPF) Urine Squamous Epithelial Cells Many /LPF (</=FEW) Urine Bacteria Few /HPF (NONE-FEW) Urine Hyaline Casts Many /LPF (NONE-FEW) Urine Mucus Few /HPF (NONE-FEW) EKG/Imaging Imaging EXAMINATION: Frontal chest with 2 views of the abdomen HISTORY: Abdominal pain. COMPARISON: CT abdomen/pelvis performed yesterday. FINDINGS: The lungs are clear. No focal consolidation or pleural fluid. Normal heart size and pulmonary vascularity, with normal cardiomediastinal contours. Normal bowel gas pattern, with air scattered throughout normal-caliber loops of small bowel and colon. No radiographic evidence of obstruction. No free intraperitoneal air. Cholecystectomy clips in the right upper abdomen. There are surgical changes in the left upper abdomen related to gastric bypass. No evidence of organomegaly or abnormal calcification. Visualized osseous structures are unremarkable. IMPRESSION: 1. No evidence of acute cardiopulmonary disease. 2. Normal bowel gas pattern. Report Dictated By: Renny Almazan MD at 06/22/2018 2:09 PM Report E-Signed By: Renny Almazan MD at 06/22/2018 2:13 PM ED Course/Re-evaluation ED Course Patient was admitted to an exam room, history and physical were obtained. Differential diagnoses were considered. On examination lungs are clear, heart is regular, abdomen is soft and tender in the epigastric region. A CBC, CMP, urinalysis, acute abdominal x-rays were done. Labs were compared with yesterday and looked significantly improved, patient did have a slightly elevated blood sugar today of 254. However white count gone back down to normal. I discussed the findings of the lab work as well as negative x-rays. I discussed with patient we will go ahead and discharge patient home. Is my belief that the fe mccullough is having horrible reflux secondary to not taking her proton pump inhibitor. As a result we will go ahead and have her start taking omeprazole 40 mg twice a day. We will then have her take Carafate as well. I will like her to follow-up with Dr. Rocha tomorrow. She states she is planning on making a phone call tomorrow. I discussed the patient and she felt like she needs something for pain. 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 Patient verbalized understanding and agreement with plan. Decision to Disposition Date: Jun 22, 2018 Decision to Disposition Time: 14:32 Depart Departure Latest Vital Signs Vital Signs Date Time Temp Pulse Resp B/P (MAP) Pulse Ox O2 Delivery O2 Flow Rate FiO2 06/22/18 14:35 107/56 (73) 06/22/18 14:32 77 94 06/22/18 13:42 2.0 06/22/18 12:49 98.2 16 Room Air Impression: Primary Impression: Abdominal pain Additional Impression: Anxiety and depression Condition: Improved Disposition: HOME OR SELF-CARE Referrals: LEILA CA MD (PCP) New Scripts Hydrocodone Bit/Acetaminophen (HYDROCODON-ACETAMINOPHEN 5-325) 1 Each Tablet 1 EACH PO Q4-6H PRN for PAIN, #6 TAB Prov: MICHELLE CHRISTIAN 06/22/18 Sucralfate (CARAFATE) 1 Gm Tablet 1 GM PO QID, #60 TAB Take before meals and at bedtime. Crush the tablet and mix with water before taking. Prov: MICHELLE CHRISTIAN 06/22/18 Omeprazole (OMEPRAZOLE) 40 Mg Capsule. 40 MG PO BID, #60 CAP Prov: MICHELLE CHRISTIAN 06/22/18 Patient Instructions: Abdominal Pain (ED) Additional Instructions: I believe that this is related to your reflux. Increase fluid intake. Take the Zofran for the nausea. Return to the ER if condition worsens. Crush the Carafate and mix with water to make a slurry. Follow up with Dr. Rocha tomorrow. Limit activity by pain. Problem Qualifiers Primary Impression: Abdominal pain Abdominal location: epigastric Qualified Codes: R10.13 - Epigastric pain MICHELLE CHRISTIAN Jun 22, 2018 13:33
[2018-06-22 13:47] LABS: PLATELET COUNT, AUTOMATED 207 K/uL (150-450)
[2018-06-22] MEDS ORDERED: LIDOCAINE 2% VISC SLN 15ML UDC PO ONE (14:00)
[2018-06-22] MEDS ORDERED: MAG HYD/AL HYD/SIMETH 30ML UDC PO ONE (14:00)
--- NOTE | 2018-06-22 14:17 | RADIOLOGY IMAGING REPORT ---
FACILITY: [facility] PATIENT NAME: Zain Simons : 1970 MR: [id number] V: [id number] EXAM DATE: ORDERING PHYSICIAN: MICHELLE CHRISTIAN TECHNOLOGIST: Location: [facility] [place] Patient: Zain Simons : 1970 Visit/Account:[id number] Date of Sevice: 06/22/2018 EXAMINATION: Frontal chest with 2 views of the abdomen HISTORY: Abdominal pain. COMPARISON: CT abdomen/pelvis performed yesterday. FINDINGS: The lungs are clear. No focal consolidation or pleural fluid. Normal heart size and pulmonary vascula rity, with normal cardiomediastinal contours. Normal bowel gas pattern, with air scattered throughout normal-caliber loops of small bowel and colon . No radiographic evidence of obstruction. No free intraperitoneal air. Cholecystectomy clips in the right upper abdomen. There are surgical changes in the left upper abdome n related to gastric bypass. No evidence of organomegaly or abnormal calcification. Visualized osseous structures are unremarkable . IMPRESSION: 1. No evidence of acute cardiopulmonary disease. 2. Normal bowel gas pattern. Report Dictated By: Renny Almazan MD at 06/22/2018 2:09 PM Report E-Signed By: Renny Almazan MD at 06/22/2018 2:13 PM WSN:[id number]
[2018-06-22] MEDS ORDERED: HYDR-385 PO (14:29)
[2018-06-22] MEDS ORDERED: OMEP40CA48 PO (14:29)
[2018-06-22] MEDS ORDERED: SUCR1TAB85 PO (14:29)
[2018-06-22 14:35] VITALS: BP 107/56
[2018-06-23] MEDS ORDERED: DEXL60CA6 PO (15:31)
[2018-06-23] MEDS ORDERED: BLOO-960 MC (15:44)
[2018-06-23] MEDS ORDERED: BLOO-1511 MC (15:48)
== END 2018-06-22 14:53 | disposition home or self-care (01) ==
LOC: ER 13:00
DX: R10.13 Epigastric pain (principal); F41.9 Anxiety disorder, unspecified; F32.9 Major depressive disorder, single episode, unspecified
CPT/HCPCS: 74022; 81001; 82150; 83690; 85025; 86677; 96361; 96374; 96375; 99284; C9113; J2405; J7030; 82040; 82247; 82310; 82374; 82435; 82565; 82947; 84075; 84132; 84155; 84295; 84450; 84460; 84520

== ENCOUNTER → 2018-06-24 | Outpatient (CLI) | payer MEDICAID ==
[~2018-06-24] MED LIST changes: +BLOO-1511 MC; +BLOO-960 MC; +HYDR-385 PO; +OMEP40CA48 PO; +SUCR1TAB85 PO
[2018-06-24 07:27] LABS: INR 0.92
== END ==
LOC: LAB 06:39
PROVIDERS: ATTEND Nurse Practitioner Family
DX: K21.9 Gastro-esophageal reflux disease without esophagitis (principal); R68.81 Early satiety; R19.7 Diarrhea, unspecified; D12.6 Benign neoplasm of colon, unspecified; K76.0 Fatty (change of) liver, not elsewhere classified; K86.1 Other chronic pancreatitis; G47.33 Obstructive sleep apnea (adult) (pediatric)
CPT/HCPCS: 82105; 85610

== ENCOUNTER → 2018-06-24 | Outpatient (CLI) | payer MEDICAID ==
[2018-06-24 07:28] LABS: PLATELET COUNT, AUTOMATED 217 K/uL (150-450)
[2018-06-24 11:27] LABS: LDL CHOLESTEROL 59 mg/dl
== END ==
LOC: LAB 06:38
PROVIDERS: ATTEND Internal Medicine
DX: K22.70 Barrett's esophagus without dysplasia (principal); I10 Essential (primary) hypertension; E11.9 Type 2 diabetes mellitus without complications; E78.5 Hyperlipidemia, unspecified; G47.33 Obstructive sleep apnea (adult) (pediatric); Z98.84 Bariatric surgery status; Z86.39 Personal history of other endocrine, nutritional and metabolic disease; E55.9 Vitamin D deficiency, unspecified
CPT/HCPCS: 36415; 81001; 82040; 82043; 82150; 82247; 82306; 82310; 82374; 82435; 82465; 82565; 82607; 82728; 82746; 82947; 83036; 83540; 83550; 83690; 83718; 84075; 84132; 84155; 84295; 84443; 84450; 84460; 84478; 84520; 85025

== ENCOUNTER 2018-06-25 19:16 | Emergency (ER) | payer MEDICAID ==
--- NOTE | 2018-06-25 19:28 | ER Report ---
History and Physical Time Seen By MD: 19:27 HPI/ROS CHIEF COMPLAINT: Abdominal pain HISTORY OF PRESENT ILLNESS: This is a 48-year-old female who returns to the emergency department for recurrent abdominal pain. The patient has a history of gastric bypass, acid reflux, has been seen and evaluated in the emergency department multiple times, was recently started on Prilosec and Carafate, states the medications were working however last night she began to develop recurrent epigastric pain with nausea and some bilious vomiting. Negative influenza 3 days ago. No rashes. No headaches. No chest pain or shortness breath. No meningismus. REVIEW OF SYSTEMS: Constitutional: As above. Eyes: No discharge. ENT: No sore throat. Cardiovascular: No chest pain, no palpitations. Respiratory: No cough, no shortness of breath. Gastrointestinal: As above. Genitourinary: No hematuria. Musculoskeletal: No back pain. Skin: No rashes. Neurological: No headache. Allergies: Coded Allergies: Sulfa (Sulfonamide Antibiotics) (Verified Allergy, Severe, NAUSEA/VOMITING, 06/25/18) lamotrigine (Verified Allergy, Severe, 06/25/18) onion (Verified Allergy, Severe, NAUSEA/VOMITING, 06/25/18) Penicillins (Verified Allergy, Unknown, 06/25/18) amoxicillin (Verified Allergy, Unknown, 06/25/18) cephalexin (Verified Allergy, Unknown, 06/25/18) clavulanic acid (Verified Allergy, Unknown, 06/25/18) fluticasone (Verified Allergy, Unknown, 06/25/18) ibuprofen (Verified Allergy, Unknown, 06/25/18) nicotine (Verified Allergy, Unknown, 06/25/18) salmeterol (Verified Allergy, Unknown, 06/25/18) Home Meds Active Scripts Blood Sugar Diagnostic (GLUCOSE TEST STRIP) 1 Each Strip, 1 EACH MC TID, #100 STRIP 5 Refills Prov:LEILA CA MD 06/23/18 Blood-Glucose Meter (BLOOD GLUCOSE METER) 1 Each Each, EACH MC ONCE, #1 Prov:LEILA CA MD 06/23/18 Dexlansoprazole (DEXILANT) 60 Mg Bala., 60 MG PO BID, #60 TAB 6 Refills Prov:LEILA CA MD 06/23/18 Hydrocodone Bit/Acetaminophen (HYDROCODON-ACETAMINOPHEN 5-325) 1 Each Tablet, 1 EACH PO Q4-6H PRN for PAIN, #6 TAB Prov:GINOMICHELLE MEDICAL BILLING REPRESENTATIVE 06/22/18 Sucralfate (CARAFATE) 1 Gm Tablet, 1 GM PO QID, #60 TAB Take before meals and at bedtime. Crush the tablet and mix with water before taking. Prov:MICHELLE CHRISTIAN MEDICAL BILLING REPRESENTATIVE 06/22/18 Ondansetron 4 Mg Odt (ONDANSETRON 4 MG ODT) 4 Mg Tab.rapdis, 4 MG PO ONCE, #20 TAB Prov:CAROLE MARIE S DO 06/21/18 Tramadol Hcl (TRAMADOL HCL) 50 Mg Tablet, 50 MG PO Q6H PRN for PAIN, #12 TAB 0 Refills Prov:CAROLE MARIE S DO 06/21/18 Ondansetron Hcl (ZOFRAN) 4 Mg Tablet, 4 MG PO Q8H for Nausea, #15 TAB 0 Refills Prov:JOSE KIMBALL MD 06/03/18 Reported Medications Metoclopramide Hcl (METOCLOPRAMIDE HCL) 10 Mg Tablet, 10 MG PO TID PRN for nausea 06/12/18 Melatonin (Melatonin) 10 Mg Tab.rapdis, HS 06/12/18 Nystatin 100,000 Unit/Gm Top Powder (NYSTATIN 100,000 UNIT/GM TOP POWDER) Unknown Strength Powder, TP PRN, TUBE 06/12/18 Insulin Aspart 100 Un/Ml Pen (NOVOLOG FLEXPEN) 100 Unit/1 Ml Insuln.pen, 10 UNIT SQ HS, ML 06/03/18 Insulin Glargine (LANTUS) 100 Unit/Ml Soln, 30 UNIT SUBQ BID, ML 06/03/18 Prochlorperazine Maleate (Compazine) 10 Mg Tablet 06/03/18 Ondansetron 4 Mg Odt (ONDANSETRON 4 MG ODT) 4 Mg Tab.rapdis, 4 MG PO ONCE, TAB 06/03/18 Sumatriptan Succinate (SUMATRIPTAN SUCCINATE) 50 Mg Tablet, 50 MG PO ONCE, #5 TAB 06/03/18 Promethazine Hcl (PROMETHAZINE HCL) 25 Mg Tablet, 25 MG PO Q8H, TAB 06/03/18 Tizanidine Hcl (TIZANIDINE HCL) 2 Mg Capsule, 2 MG PO TID, CAPSULE 06/03/18 Gabapentin (GABAPENTIN) 300 Mg Capsule, 300 MG PO TID, CAPSULE 06/03/18 Triamterene/Hydrochlorothiazid (TRIAMTERENE-HCTZ 37.5-25 MG TB) 1 Each Tablet, 1 EACH PO 06/03/18 Fluoxetine Hcl (FLUOXETINE HCL) 20 Mg Capsule, 20 MG PO QDAY, CAPSULE 06/03/18 Pravastatin Sodium (PRAVACHOL) 20 Mg Tablet, 20 MG PO QDAY, TAB 06/03/18 Aripiprazole (ABILIFY) 5 Mg Tablet, 5 MG PO QDAY, #10 TAB 06/03/18 Discontinued Reported Medications Dexlansoprazole (DEXILANT) 60 Mg Cap., 60 MG PO BID 06/12/18 Discontinued Scripts Omeprazole (OMEPRAZOLE) 40 Mg Capsule., 40 MG PO BID, #60 CAP Prov:MICHELLE CHRISTIAN MEDICAL BILLING REPRESENTATIVE 06/22/18 Past Medical/Surgical History The patient has a past medical and surgical history of headaches, hypertension, hypercholesterolemia, asthma, COPD, gastric bypass, severe acid reflux, left shoulder and knee arthritis, wears glasses, type II diabetes, insulin-dependent, bipolar, PTSD, depression, cervical cancer in remission, gastric bypass, appendectomy, cholecystectomy, hysterectomy, right ankle and left shoulder surgery, tonsillectomy. Reviewed Nurses Notes: Yes Smoking Status: Former Smoker Hx Substance Use Disorder: No Hx Alcohol Use: No Constitutional Vital Sign - Last 24 Hours 06/25/18 06/25/18 06/25/18 06/25/18 19:23 19:30 19:38 19:46 Temp 98.6 Pulse 95 91 Resp 19 B/P (MAP) 142/89 (106) 127/79 (95) 142/89 Pulse Ox 91 93 O2 Delivery Room Air 06/25/18 06/25/18 06/25/18 06/25/18 20:00 20:30 20:35 21:03 Pulse 99 B/P (MAP) 119/79 (92) 121/69 (86) 117/74 (88) Pulse Ox 88 06/25/18 06/25/18 06/25/18 06/25/18 21:05 21:30 21:35 22:00 Pulse 81 76 B/P (MAP) 126/74 (91) 116/66 (83) Pulse Ox 94 96 06/25/18 22:05 Pulse 78 Pulse Ox 97 Physical Exam General Appearance: The patient is alert, has no immediate need for airway protection and no signs of toxicity. Eyes: Pupils equal and round no pallor or injection. ENT, Mouth: Mucous membranes are moist. Respiratory: There are no retractions, lungs are clear to auscultation. Cardiovascular: Regular rate and rhythm, no murmurs, clicks or rubs. Gastrointestinal: Abdomen is round, soft tenderness to the epigastrium, otherwise unremarkable, normoactive bowel sounds, no masses, no abdominal bruits. Neurological: Alert and oriented 4. Moving all cavities. Following. No focal neuro deficits. Skin: Warm and dry, no rashes. Musculoskeletal: Neck is supple non tender. Extremities are nontender, nonswollen and have full range of motion. DIFFERENTIAL DIAGNOSIS: After history and physical exam differential diagnosis was considered for abdominal pain in a female including but not limited to ovarian cyst, pelvic inflammatory disease, ovarian torsion, urinary tract infection, and appendicitis. Medical Decision Making Data Points Result Diagram: 06/25/18201906/25/182019 Laboratory Hematology Test 06/25/18 19:21 06/25/18 20:20 Urine Color Yellow Urine Clarity Clear Urine pH 5.0 pH (4.8-9.5) Urine Specific [place] 1.017 Urine Protein Negative mg/dL (NEGATIVE) Urine Glucose (UA) 500 mg/dL (NEGATIVE) Urine Ketones Trace mg/dL (NEGATIVE) Urine Blood Negative (NEGATIVE) Urine Nitrite Negative (NEGATIVE) Urine Bilirubin Negative (NEGATIVE) Urine Urobilinogen Negative mg/dL (0.2-1.9) Urine Leukocyte Esterase Negative (NEGATIVE) Urine RBC None /HPF (0-2/HPF) Urine WBC 2 /HPF (0-5/HPF) Urine Squamous Epithelial Cells Many /LPF (</=FEW) Urine Bacteria Negative /HPF (NONE-FEW) Urine Mucus Few /HPF (NONE-FEW) Red Blood Count 5.06 M/uL (4.17-5.56) Mean Corpuscular Volume 83.6 fL (80.0-96.0) Mean Corpuscular Hemoglobin 28.3 pg (26.0-33.0) Mean Corpuscular Hemoglobin Concent 33.8 g/dL (32.0-36.0) Red Cell Distribution Width 14.1 % (11.5-14.5) Mean Platelet Volume 7.8 fL (7.2-11.1) Neutrophils (%) (Auto) 65.8 % (39.4-72.5) Lymphocytes (%) (Auto) 25.0 % (17.6-49.6) Monocytes (%) (Auto) 6.5 % (4.1-12.4) Eosinophils (%) (Auto) 1.6 % (0.4-6.7) Basophils (%) (Auto) 1.1 % (0.3-1.4) Nucleated RBC Relative Count (auto) 0.0 /100WBC Neutrophils # (Auto) 8.9 K/uL (2.0-7.4) Lymphocytes # (Auto) 3.4 K/uL (1.3-3.6) Monocytes # (Auto) 0.9 K/uL (0.3-1.0) Eosinophils # (Auto) 0.2 K/uL (0.0-0.5) Basophils # (Auto) 0.2 K/uL (0.0-0.1) Nucleated RBC Absolute Count (auto) 0.00 K/uL Sodium Level 139 mmol/L (137-145) Potassium Level 3.2 mmol/L (3.5-5.0) Chloride Level 104 mmol/L (98-107) Carbon Dioxide Level 26 mmol/L (22-31) Blood Urea Nitrogen 12 mg/dl (7-18) Creatinine 0.40 mg/dl (0.52-1.04) Glomerular Filtration Rate Calc > 60.0 Random Glucose 197 mg/dl (75-110) Calcium Level 9.0 mg/dl (8.4-10.2) Total Bilirubin 0.3 mg/dl (0.2-1.3) Aspartate Amino Transf (AST/SGOT) 19 U/L (0-35) Alanine Aminotransferase (ALT/SGPT) 32 U/L (0-56) Alkaline Phosphatase 98 U/L (0-126) Total Protein 6.7 g/dl (6.3-8.2) Albumin 4.0 g/dl (3.5-5.0) Lipase 49 U/L (23-300) Helicobacter pylori IgG Antibody Negative (NEGATIVE) Chemistry Test 06/25/18 19:21 06/25/18 20:20 Urine Color Yellow Urine Clarity Clear Urine pH 5.0 pH (4.8-9.5) Urine Specific [place] 1.017 Urine Protein Negative mg/dL (NEGATIVE) Urine Glucose (UA) 500 mg/dL (NEGATIVE) Urine Ketones Trace mg/dL (NEGATIVE) Urine Blood Negative (NEGATIVE) Urine Nitrite Negative (NEGATIVE) Urine Bilirubin Negative (NEGATIVE) Urine Urobilinogen Negative mg/dL (0.2-1.9) Urine Leukocyte Esterase Negative (NEGATIVE) Urine RBC None /HPF (0-2/HPF) Urine WBC 2 /HPF (0-5/HPF) Urine Squamous Epithelial Cells Many /LPF (</=FEW) Urine Bacteria Negative /HPF (NONE-FEW) Urine Mucus Few /HPF (NONE-FEW) White Blood Count 13.5 k/uL (4.5-11.0) Red Blood Count 5.06 M/uL (4.17-5.56) Hemoglobin 14.3 g/dL (12.0-16.0) Hematocrit 42.4 % (34.0-47.0) Mean Corpuscular Volume 83.6 fL (80.0-96.0) Mean Corpuscular Hemoglobin 28.3 pg (26.0-33.0) Mean Corpuscular Hemoglobin Concent 33.8 g/dL (32.0-36.0) Red Cell Distribution Width 14.1 % (11.5-14.5) Platelet Count 229 K/uL (150-450) Mean Platelet Volume 7.8 fL (7.2-11.1) Neutrophils (%) (Auto) 65.8 % (39.4-72.5) Lymphocytes (%) (Auto) 25.0 % (17.6-49.6) Monocytes (%) (Auto) 6.5 % (4.1-12.4) Eosinophils (%) (Auto) 1.6 % (0.4-6.7) Basophils (%) (Auto) 1.1 % (0.3-1.4) Nucleated RBC Relative Count (auto) 0.0 /100WBC Neutrophils # (Auto) 8.9 K/uL (2.0-7.4) Lymphocytes # (Auto) 3.4 K/uL (1.3-3.6) Monocytes # (Auto) 0.9 K/uL (0.3-1.0) Eosinophils # (Auto) 0.2 K/uL (0.0-0.5) Basophils # (Auto) 0.2 K/uL (0.0-0.1) Nucleated RBC Absolute Count (auto) 0.00 K/uL Glomerular Filtration Rate Calc > 60.0 Calcium Level 9.0 mg/dl (8.4-10.2) Total Bilirubin 0.3 mg/dl (0.2-1.3) Aspartate Amino Transf (AST/SGOT) 19 U/L (0-35) Alanine Aminotransferase (ALT/SGPT) 32 U/L (0-56) Alkaline Phosphatase 98 U/L (0-126) Total Protein 6.7 g/dl (6.3-8.2) Albumin 4.0 g/dl (3.5-5.0) Lipase 49 U/L (23-300) Helicobacter pylori IgG Antibody Negative (NEGATIVE) Urinalysis Test 06/25/18 19:21 Urine Color Yellow Urine Clarity Clear Urine pH 5.0 pH (4.8-9.5) Urine Specific [place] 1.017 Urine Protein Negative mg/dL (NEGATIVE) Urine Glucose (UA) 500 mg/dL (NEGATIVE) Urine Ketones Trace mg/dL (NEGATIVE) Urine Blood Negative (NEGATIVE) Urine Nitrite Negative (NEGATIVE) Urine Bilirubin Negative (NEGATIVE) Urine Urobilinogen Negative mg/dL (0.2-1.9) Urine Leukocyte Esterase Negative (NEGATIVE) Urine RBC None /HPF (0-2/HPF) Urine WBC 2 /HPF (0-5/HPF) Urine Squamous Epithelial Cells Many /LPF (</=FEW) Urine Bacteria Negative /HPF (NONE-FEW) Urine Mucus Few /HPF (NONE-FEW) [place] [facility] [place] Zain [place] : 1970 Visit/Account:[id number] Date of Sevice: 06/25/2018 CT ABDOMEN PELVIS W/ CON COMPARISONS: CT abdomen pelvis without contrast dated June 21, 2018 ADDITIONAL PERTINENT HISTORY: Recurrent epigastric pain TECHNIQUE: Multiple axial images were obtained from the lung bases through the lesser trochanters after the IV administration of IV contrast. One of the following dose optimization techniques was utilized in the performance of this exam: Automated exposure control; adjustment of the mA and/or kV according to the patient's size; or use of an iterative reconstruction technique. Specific details can be referenced in the facility's radiology CT exam operational policy. CONTRAST: 95 ml of Isovue-300 FINDINGS: Lung bases: Negative. Free air and free fluid: None. Liver: Few small scattered low-attenuation lesions within the right lobe of the liver most consistent with underlying simple cyst. Spleen: Negative. Kidneys, ureters and urinary bladder: Negative. Adrenal glands: Stable small lesion involving the left adrenal gland compatible with a small adrenal adenoma. The right adrenal gland has a normal appearance. Pancreas: Negative. Gallbladder: Surgically absent. Bowel and mesentery: Patient status post previous gastric bypass surgery. Small hiatal hernia.. Pelvic contents: Patient status post hysterectomy. Lymph node assessment: Negative. Retroperitoneum: Negative. Abdominal vasculature: Minimal atherosclerotic disease of the abdominal aorta. Surrounding soft tissues: Negative. Osseous structures: Negative. IMPRESSION: 1. Postoperative changes as discussed above. 2. No acute intra-abdominal or intrapelvic process. Report Dictated By: Darryn Sharma MD at 06/25/2018 9:40 PM Report E-Signed By: Darryn Sharma MD at 06/25/2018 9:47 PM WSN:[id number] ED Course/Re-evaluation Clinical Indication for ER IV: Hydration, IV Access ED Course The patient was admitted to room. A history and physical were obtained. Differential diagnoses were considered. IV was started. A CBC, CMP were obtained. An amylase, H. pylori and UA were collected. A 1 L normal saline bolus was given. Pulse 0.5 mg IV Phenergan and a GI cocktail were given.CBC showing white count of 13.5, this is from yesterday's 10.3, however down from 06/21/2018 of 16.4, I suspect the elevation in white blood cell count is secondary to acute vomiting. Patient did have some relief of her symptoms after the GI cocktail and nausea medication. Chemistries showing potassium 3.2, glucose 197, consistent with the historical data, negative UA, consistent with previous urine specimens. I did review the information with the patient, she has had difficulties getting in to see her GI specialist, I did recommend following up with Dr. Benson for a discussion on possible endoscopy. I also recommended following up with her primary care provider for reevaluation within the next 2 days. Patient was agreeable with this plan of care and discharged home. Decision to Disposition Date: Jun 25, 2018 Decision to Disposition Time: 21:57 Depart Departure Latest Vital Signs Vital Signs Date Time Temp Pulse Resp B/P (MAP) Pulse Ox O2 Delivery O2 Flow Rate FiO2 06/25/18 22:05 78 97 06/25/18 22:00 116/66 (83) 06/25/18 19:38 98.6 19 Room Air Impression: Primary Impression: GERD (gastroesophageal reflux disease) Additional Impression: Abdominal pain Condition: Improved Disposition: HOME OR SELF-CARE Referrals: LEILA CA MD (PCP) 2 Days JOAN BENSON Patient Instructions: Gastroesophageal Reflux Disease (DC) Additional Instructions: There were no concerning findings on your CT, or blood work today. Please continue taking your medications as prescribed, including the carafate and prilosec. Please contact Dr. Araujo office within the next two days for reevaluation. I would also recommend following up with Dr. Benson, for a discussion on repeat endoscopy, as you are unable to get in to see your GI doctor. Be sure to drink plenty of fluids. Avoid foods that are known to cause you GI irritation. Get plenty of rest. Return to the ED for any other concerns or worsening symptoms. Problem Qualifiers Primary Impression: GERD (gastroesophageal reflux disease) Esophagitis presence: esophagitis presence not specified Qualified Codes: K21.9 - Gastro-esophageal reflux disease without esophagitis Additional Impression: Abdominal pain Abdominal location: epigastric Qualified Codes: R10.13 - Epigastric pain TALIA HOWARDP-BC Jun 25, 2018 19:28
[2018-06-25] MEDS ORDERED: NS(*) 0.9% 1000 ML BAG 1,000 ML IV ONE (19:53)
[2018-06-25] MEDS ORDERED: ATRO/SCOPOL/HYOSCY/PB 5 ML ELX PO ONE (19:55)
[2018-06-25] MEDS ORDERED: LIDOCAINE 2% VISC SLN 15ML UDC PO ONE (19:55)
[2018-06-25] MEDS ORDERED: PROMETHAZINE 25 MG/ML 1 ML AMP IVP ONE (19:55)
[2018-06-25] MEDS ORDERED: MAG HYD/AL HYD/SIMETH 30ML UDC PO ONE (19:55)
[2018-06-25 20:29] LABS: PLATELET COUNT, AUTOMATED 229 K/uL (150-450)
--- NOTE | 2018-06-25 21:53 | RADIOLOGY IMAGING REPORT ---
FACILITY: [facility] - [place] PATIENT NAME: Zain Simons : 1970 MR: [id number] V: [id number] EXAM DATE: ORDERING PHYSICIAN: TALIA HOWARD TECHNOLOGIST: Location: [facility] Patient: Zain Simons : 1970 Visit/Account:[id number] Date of Sevice: 06/25/2018 CT ABDOMEN PELVIS W/ CON COMPARISONS: CT abdomen pelvis without contrast dated June 21, 2018 ADDITIONAL PERTINENT HISTORY: Recurrent epigastric pain TECHNIQUE: Multiple axial images were obtained from the lung bases through the lesser trochanters aft er the IV administration of IV contrast. One of the following dose optimization techniques was utili zed in the performance of this exam: Automated exposure control; adjustment of the mA and/or kV accor ding to the patient's size; or use of an iterative reconstruction technique. Specific details can b e referenced in the facility's radiology CT exam operational policy. CONTRAST: 95 ml of Isovue-300 FINDINGS: Lung bases: Negative. Free air and free fluid: None. Liver: Few small scattered low-attenuation lesions within the right lobe of the liver most consistent with underlying simple cyst. Spleen: Negative. Kidneys, ureters and urinary bladder: Negative. Adrenal glands: Stable small lesion involving the left adrenal gland compatible with a small adrenal adenoma. The right adrenal gland has a normal appearance. Pancreas: Negative. Gallbladder: Surgically absent. Bowel and mesentery: Patient status post previous gastric bypass surgery. Small hiatal hernia.. Pelvic contents: Patient status post hysterectomy. Lymph node assessment: Negative. Retroperitoneum: Negative. Abdominal vasculature: Minimal atherosclerotic disease of the abdominal aorta. Surrounding soft tissues: Negative. Osseous structures: Negative. IMPRESSION: 1. Postoperative changes as discussed above. 2. No acute intra-abdominal or intrapelvic process. Report Dictated By: Darryn Sharma MD at 06/25/2018 9:40 PM Report E-Signed By: Darryn Sharma MD at 06/25/2018 9:47 PM WSN:[id number]
[2018-06-25 22:00] VITALS: BP 116/66
== END 2018-06-25 22:20 | disposition home or self-care (01) ==
LOC: ER 20:04
DX: K21.9 Gastro-esophageal reflux disease without esophagitis (principal); R10.13 Epigastric pain
CPT/HCPCS: 74177; 81001; 83690; 85025; 86677; 96361; 96374; 99284; J2550; J7030; Q9967; 82040; 82247; 82310; 82374; 82435; 82565; 82947; 84075; 84132; 84155; 84295; 84450; 84460; 84520

== ENCOUNTER → 2018-06-30 | Outpatient (CLI) | payer MEDICAID ==
[~2018-06-30] MED LIST changes: +DEXTROSE 5%(*) 100 ML BAG 100 ML IVPB PRN; +LIDOCAINE/SOD BICARB 8.4% SYR ID PRN; +NS(*) 0.9% 100 ML BAG 100 ML IVPB PRN; +NS(*) 0.9% 1000 ML BAG 1,000 ML IV ONE; +PROMETHAZINE 25 MG/ML 1 ML AMP IVP ONE
[2018-06-30 10:39] VITALS: BP 131/79
[2018-06-30 11:19] LABS: PLATELET COUNT, AUTOMATED 243 K/uL (150-450)
== END ==
LOC: SPU 10:26
PROVIDERS: ATTEND Nurse Practitioner Primary Care
DX: R11.2 Nausea with vomiting, unspecified (principal)
CPT/HCPCS: 36415; 85025; 96361; 96374; 96376; J2550; J7030; 82040; 82247; 82310; 82374; 82435; 82565; 82947; 84075; 84132; 84155; 84295; 84450; 84460; 84520

== ENCOUNTER 2018-07-04 08:20 | Emergency (ER) | payer MEDICAID ==
[~2018-07-04 08:20] MED LIST changes: -DEXTROSE 5%(*) 100 ML BAG 100 ML IVPB PRN; -LIDOCAINE/SOD BICARB 8.4% SYR ID PRN; -NS(*) 0.9% 100 ML BAG 100 ML IVPB PRN; -NS(*) 0.9% 1000 ML BAG 1,000 ML IV ONE; -PROMETHAZINE 25 MG/ML 1 ML AMP IVP ONE
--- NOTE | 2018-07-04 08:21 | ER Report ---
History and Physical Time Seen By : 08:21 HPI/ROS This is a 48-year-old female who frequents healthcare providers for various complaints. She has a long-standing history of GERD. She presents to the emergency department today stating that she has ongoing symptoms of GERD to include nausea. Today she was told at the urgent care yesterday that she "has acid in my lungs." Her complaint is chronic nausea and mild shortness of breath. No abdominal pain or chest pain. No fever/chills. Allergies: Coded Allergies: Sulfa (Sulfonamide Antibiotics) (Verified Allergy, Severe, NAUSEA/VOMITING, 06/25/18) lamotrigine (Verified Allergy, Severe, 06/25/18) onion (Verified Allergy, Severe, NAUSEA/VOMITING, 06/25/18) Penicillins (Verified Allergy, Unknown, 06/25/18) amoxicillin (Verified Allergy, Unknown, 06/25/18) cephalexin (Verified Allergy, Unknown, 06/25/18) clavulanic acid (Verified Allergy, Unknown, 06/25/18) fluticasone (Verified Allergy, Unknown, 06/25/18) ibuprofen (Verified Allergy, Unknown, 06/25/18) nicotine (Verified Allergy, Unknown, 06/25/18) salmeterol (Verified Allergy, Unknown, 06/25/18) Home Meds Active Scripts Blood Sugar Diagnostic (GLUCOSE TEST STRIP) 1 Each Strip, 1 EACH MC TID, #100 STRIP 5 Refills Prov:LEILA CA MD 06/23/18 Blood-Glucose Meter (BLOOD GLUCOSE METER) 1 Each Each, EACH MC ONCE, #1 Prov:LEILA CA MD 06/23/18 Dexlansoprazole (DEXILANT) 60 Mg Cap., 60 MG PO BID, #60 TAB 6 Refills Prov:LEILA CA MD 06/23/18 Hydrocodone Bit/Acetaminophen (HYDROCODON-ACETAMINOPHEN 5-325) 1 Each Tablet, 1 EACH PO Q4-6H PRN for PAIN, #6 TAB Prov:MICHELLE CHRISTIAN 06/22/18 Sucralfate (CARAFATE) 1 Gm Tablet, 1 GM PO QID, #60 TAB Take before meals and at bedtime. Crush the tablet and mix with water before taking. Prov:MICHELLE CHRISTIAN 06/22/18 Ondansetron 4 Mg Odt (ONDANSETRON 4 MG ODT) 4 Mg Tab.rapdis, 4 MG PO ONCE, #20 TAB Prov:MARIECAROLE S DO 06/21/18 Tramadol Hcl (TRAMADOL HCL) 50 Mg Tablet, 50 MG PO Q6H PRN for PAIN, #12 TAB 0 Refills Prov:MARIE,CAROLE S DO 06/21/18 Ondansetron Hcl (ZOFRAN) 4 Mg Tablet, 4 MG PO Q8H for Nausea, #15 TAB 0 Refills Prov:JOSE KIMBALL MD 06/03/18 Reported Medications Metoclopramide Hcl (METOCLOPRAMIDE HCL) 10 Mg Tablet, 10 MG PO TID PRN for nausea 06/12/18 Melatonin (Melatonin) 10 Mg Tab.rapdis, HS 06/12/18 Nystatin 100,000 Unit/Gm Top Powder (NYSTATIN 100,000 UNIT/GM TOP POWDER) Unknown Strength Powder, TP PRN, TUBE 06/12/18 Insulin Aspart 100 Un/Ml Pen (NOVOLOG FLEXPEN) 100 Unit/1 Ml Insuln.pen, 10 UNIT SQ HS, ML 06/03/18 Insulin Glargine (LANTUS) 100 Unit/Ml Soln, 30 UNIT SUBQ BID, ML 06/03/18 Prochlorperazine Maleate (Compazine) 10 Mg Tablet 06/03/18 Ondansetron 4 Mg Odt (ONDANSETRON 4 MG ODT) 4 Mg Tab.rapdis, 4 MG PO ONCE, TAB 06/03/18 Sumatriptan Succinate (SUMATRIPTAN SUCCINATE) 50 Mg Tablet, 50 MG PO ONCE, #5 TAB 06/03/18 Promethazine Hcl (PROMETHAZINE HCL) 25 Mg Tablet, 25 MG PO Q8H, TAB 06/03/18 Tizanidine Hcl (TIZANIDINE HCL) 2 Mg Capsule, 2 MG PO TID, CAPSULE 06/03/18 Gabapentin (GABAPENTIN) 300 Mg Capsule, 300 MG PO TID, CAPSULE 06/03/18 Triamterene/Hydrochlorothiazid (TRIAMTERENE-HCTZ 37.5-25 MG TB) 1 Each Tablet, 1 EACH PO 06/03/18 Fluoxetine Hcl (FLUOXETINE HCL) 20 Mg Capsule, 20 MG PO QDAY, CAPSULE 06/03/18 Pravastatin Sodium (PRAVACHOL) 20 Mg Tablet, 20 MG PO QDAY, TAB 06/03/18 Aripiprazole (ABILIFY) 5 Mg Tablet, 5 MG PO QDAY, #10 TAB 06/03/18 Reviewed Nurses Notes: Yes Old Medical Records Reviewed: Yes Hx Smoking: Yes Smoking Status: Former Smoker Hx Substance Use Disorder: No Hx Alcohol Use: No Constitutional Vital Sign - Last 24 Hours 07/04/18 07/04/18 07/04/18 07/04/18 08:24 08:26 08:40 08:53 Temp 98.2 Pulse 79 79 Resp 18 B/P (MAP) 138/71 (93) 138/71 Pulse Ox 91 93 92 O2 Delivery Room Air Room Air 07/04/18 07/04/18 07/04/18 07/04/18 08:53 09:00 09:00 09:20 Pulse 73 80 84 90 Resp 18 18 Pulse Ox 96 89 Physical Exam General Appearance: The patient is alert, has no immediate need for airway protection and no current signs of toxicity. Eyes: Pupils equal and round no injection. Respiratory: Chest is non tender, there is diffuse wheezing in her lungs throughout Cardiac: regular rate and rhythm Gastrointestinal: Abdomen is soft and non tender, no masses, bowel sounds normal. Skin: No rashes or lesions. Medical Decision Making Data Points Laboratory Hematology Test 07/04/18 09:28 Whole Blood Glucose 233 mg/DL (75-110) Chemistry Test 07/04/18 09:28 Whole Blood Glucose 233 mg/DL (75-110) ED Course/Re-evaluation ED Course Obtain copies of chest x-ray taken yesterday at the urgent care. Chest x-ray shows no evidence of aspiration pna. Given duoneb for wheezing with relief. Will follow up with her PCM as far as her reflux. Decision to Disposition Date: Jul 04, 2018 Decision to Disposition Time: 09:33 Depart Departure Latest Vital Signs Vital Signs Date Time Temp Pulse Resp B/P (MAP) Pulse Ox O2 Delivery O2 Flow Rate FiO2 07/04/18 09:20 90 89 07/04/18 09:00 18 07/04/18 08:53 Room Air 07/04/18 08:26 98.2 138/71 Impression: Primary Impression: Wheezing Condition: Improved Disposition: HOME OR SELF-CARE Referrals: LEILA CA MD (PCP) Patient Instructions: Wheezing (ED) SAMSON HUGO MD Jul 04, 2018 08:21
[2018-07-04 08:26] VITALS: BP 138/71
[2018-07-04] MEDS ORDERED: ALBUTEROL/IPRATROPIUM 3 ML NEB NEB ONE (08:45)
== END 2018-07-04 09:50 | disposition home or self-care (01) ==
LOC: ER 08:26
DX: R06.2 Wheezing (principal)
CPT/HCPCS: 36416; 82948; 94640; 99283; J7620

== ENCOUNTER 2018-07-04 16:55 | Emergency (ER) | payer MEDICAID ==
--- NOTE | 2018-07-04 17:31 | ER Report ---
History and Physical Time Seen By MD: 17:31 Hx. of Stated Complaint: PT SEEN IN ED EARLIER. PT REPORTS SHE "DOESN'T FEEL WORSE BUT DOESN'T FEEL BETTER". VITALS WNL. PT REPORTS SHE "DOESN'T HAVE MONEY TO PURCHASE ANY OTC MEDS AT THIS TIME" HPI/ROS Has been seen in the ED and by multiple providers multiple times since moving to [place] from [place] one month ago. Has severe GERD, and states that Dexilant bid was the only medication she has found controls her reflux. She has not been able to get the medication due to insurance issues. She is now complaining of worsening chest pain and SOB that she attributes to her GERD, but also says she thinks she is aspirating. She has not been sleeping well due to her pain. This has been constant, ongoing and worsening for weeks. She tearful and says she has been admitted to the house previously for GERD. Remainder of the 14 system rev: Yes Allergies: Coded Allergies: Sulfa (Sulfonamide Antibiotics) (Verified Allergy, Severe, NAUSEA/VOMITING, 06/25/18) lamotrigine (Verified Allergy, Severe, 06/25/18) onion (Verified Allergy, Severe, NAUSEA/VOMITING, 06/25/18) Penicillins (Verified Allergy, Unknown, 06/25/18) amoxicillin (Verified Allergy, Unknown, 06/25/18) cephalexin (Verified Allergy, Unknown, 06/25/18) clavulanic acid (Verified Allergy, Unknown, 06/25/18) fluticasone (Verified Allergy, Unknown, 06/25/18) ibuprofen (Verified Allergy, Unknown, 06/25/18) nicotine (Verified Allergy, Unknown, 06/25/18) salmeterol (Verified Allergy, Unknown, 06/25/18) Home Meds Active Scripts Blood Sugar Diagnostic (GLUCOSE TEST STRIP) 1 Each Strip, 1 EACH MC TID, #100 STRIP 5 Refills Prov:LEILA CA MD 06/23/18 Blood-Glucose Meter (BLOOD GLUCOSE METER) 1 Each Each, EACH MC ONCE, #1 Prov:LEILA CA MD 06/23/18 Dexlansoprazole (DEXILANT) 60 Mg Cap., 60 MG PO BID, #60 TAB 6 Refills Prov:LEILA CA MD 06/23/18 Hydrocodone Bit/Acetaminophen (HYDROCODON-ACETAMINOPHEN 5-325) 1 Each Tablet, 1 EACH PO Q4-6H PRN for PAIN, #6 TAB Prov:MICHELLE CHRISTIAN WHARF TENDER HELPER 06/22/18 Sucralfate (CARAFATE) 1 Gm Tablet, 1 GM PO QID, #60 TAB Take before meals and at bedtime. Crush the tablet and mix with water before taking. Prov:ZACH CHRISTIANSSE WHARF TENDER HELPER 06/22/18 Ondansetron 4 Mg Odt (ONDANSETRON 4 MG ODT) 4 Mg Tab.rapdis, 4 MG PO ONCE, #20 TAB Prov:MARIECAROLE BILLS S DO 06/21/18 Tramadol Hcl (TRAMADOL HCL) 50 Mg Tablet, 50 MG PO Q6H PRN for PAIN, #12 TAB 0 Refills Prov:CAROLE MARIE S DO 06/21/18 Ondansetron Hcl (ZOFRAN) 4 Mg Tablet, 4 MG PO Q8H for Nausea, #15 TAB 0 Refills Prov:JOSE KIMBALL MD 06/03/18 Reported Medications Metoclopramide Hcl (METOCLOPRAMIDE HCL) 10 Mg Tablet, 10 MG PO TID PRN for nausea 06/12/18 Melatonin (Melatonin) 10 Mg Tab.rapdis, HS 06/12/18 Nystatin 100,000 Unit/Gm Top Powder (NYSTATIN 100,000 UNIT/GM TOP POWDER) Unknown Strength Powder, TP PRN, TUBE 06/12/18 Insulin Aspart 100 Un/Ml Pen (NOVOLOG FLEXPEN) 100 Unit/1 Ml Insuln.pen, 10 UNIT SQ HS, ML 06/03/18 Insulin Glargine (LANTUS) 100 Unit/Ml Soln, 30 UNIT SUBQ BID, ML 06/03/18 Prochlorperazine Maleate (Compazine) 10 Mg Tablet 06/03/18 Ondansetron 4 Mg Odt (ONDANSETRON 4 MG ODT) 4 Mg Tab.rapdis, 4 MG PO ONCE, TAB 06/03/18 Sumatriptan Succinate (SUMATRIPTAN SUCCINATE) 50 Mg Tablet, 50 MG PO ONCE, #5 TAB 06/03/18 Promethazine Hcl (PROMETHAZINE HCL) 25 Mg Tablet, 25 MG PO Q8H, TAB 06/03/18 Tizanidine Hcl (TIZANIDINE HCL) 2 Mg Capsule, 2 MG PO TID, CAPSULE 06/03/18 Gabapentin (GABAPENTIN) 300 Mg Capsule, 300 MG PO TID, CAPSULE 06/03/18 Triamterene/Hydrochlorothiazid (TRIAMTERENE-HCTZ 37.5-25 MG TB) 1 Each Tablet, 1 EACH PO 06/03/18 Fluoxetine Hcl (FLUOXETINE HCL) 20 Mg Capsule, 20 MG PO QDAY, CAPSULE 06/03/18 Pravastatin Sodium (PRAVACHOL) 20 Mg Tablet, 20 MG PO QDAY, TAB 06/03/18 Aripiprazole (ABILIFY) 5 Mg Tablet, 5 MG PO QDAY, #10 TAB 06/03/18 Reviewed Nurses Notes: Yes Old Medical Records Reviewed: Yes Hx Smoking: Yes Smoking Status: Former Smoker Hx Substance Use Disorder: No Hx Alcohol Use: No Constitutional Vital Sign - Last 24 Hours 07/04/18 07/04/18 07/04/18 07/04/18 17:01 17:30 18:00 18:00 Temp 97.4 Pulse 113 91 92 Resp 18 B/P (MAP) 145/75 130/62 (84) 125/82 (96) Pulse Ox 90 88 91 91 O2 Delivery Room Air Room Air 07/04/18 07/04/18 07/04/18 07/04/18 18:00 18:08 18:30 18:45 Pulse 91 103 95 Resp 18 18 B/P (MAP) 124/74 (91) Pulse Ox 89 90 Physical Exam General Appearance: The patient is alert, has no immediate need for airway protection and no current signs of toxicity. Eyes: Pupils equal and round no injection. Respiratory: Chest is non tender, lungs have diffuse scant wheezing Cardiac: regular rate and rhythm Gastrointestinal: Abdomen is soft and non tender, no masses, bowel sounds normal. Skin: No rashes or lesions. DIFFERENTIAL DIAGNOSIS: After history and physical exam differential diagnosis was considered for chest pain including but not limited to myocardial ischemia, pericarditis pulmonary embolus, chest wall pain, pleural inflammation and pulmonary infectious causes. Medical Decision Making Data Points Result Diagram: 07/04/18 1750 07/04/18 1750 Laboratory Hematology Test 07/04/18 17:50 Red Blood Count 5.37 M/uL (4.17-5.56) Mean Corpuscular Volume 83.9 fL (80.0-96.0) Mean Corpuscular Hemoglobin 28.6 pg (26.0-33.0) Mean Corpuscular Hemoglobin Concent 34.0 g/dL (32.0-36.0) Red Cell Distribution Width 14.4 % (11.5-14.5) Mean Platelet Volume 8.0 fL (7.2-11.1) Neutrophils (%) (Auto) 64.0 % (39.4-72.5) Lymphocytes (%) (Auto) 26.0 % (17.6-49.6) Monocytes (%) (Auto) 7.3 % (4.1-12.4) Eosinophils (%) (Auto) 2.0 % (0.4-6.7) Basophils (%) (Auto) 0.7 % (0.3-1.4) Nucleated RBC Relative Count (auto) 0.0 /100WBC Neutrophils # (Auto) 6.6 K/uL (2.0-7.4) Lymphocytes # (Auto) 2.7 K/uL (1.3-3.6) Monocytes # (Auto) 0.8 K/uL (0.3-1.0) Eosinophils # (Auto) 0.2 K/uL (0.0-0.5) Basophils # (Auto) 0.1 K/uL (0.0-0.1) Nucleated RBC Absolute Count (auto) 0.00 K/uL D-Dimer Quantitative (PE/DVT) 1.45 ug/ml (0-0.50) Sodium Level 142 mmol/L (137-145) Potassium Level 3.5 mmol/L (3.5-5.0) Chloride Level 105 mmol/L (98-107) Carbon Dioxide Level 23 mmol/L (22-31) Blood Urea Nitrogen 14 mg/dl (7-18) Creatinine 0.50 mg/dl (0.52-1.04) Glomerular Filtration Rate Calc > 60.0 Random Glucose 237 mg/dl (75-110) Calcium Level 9.6 mg/dl (8.4-10.2) Total Bilirubin 0.4 mg/dl (0.2-1.3) Aspartate Amino Transf (AST/SGOT) 26 U/L (0-35) Alanine Aminotransferase (ALT/SGPT) 35 U/L (0-56) Alkaline Phosphatase 104 U/L (0-126) Troponin I < 0.012 ng/ml Total Protein 7.5 g/dl (6.3-8.2) Albumin 4.6 g/dl (3.5-5.0) Lipase 83 U/L (23-300) Chemistry Test 07/04/18 17:50 White Blood Count 10.4 k/uL (4.5-11.0) Red Blood Count 5.37 M/uL (4.17-5.56) Hemoglobin 15.3 g/dL (12.0-16.0) Hematocrit 45.1 % (34.0-47.0) Mean Corpuscular Volume 83.9 fL (80.0-96.0) Mean Corpuscular Hemoglobin 28.6 pg (26.0-33.0) Mean Corpuscular Hemoglobin Concent 34.0 g/dL (32.0-36.0) Red Cell Distribution Width 14.4 % (11.5-14.5) Platelet Count 232 K/uL (150-450) Mean Platelet Volume 8.0 fL (7.2-11.1) Neutrophils (%) (Auto) 64.0 % (39.4-72.5) Lymphocytes (%) (Auto) 26.0 % (17.6-49.6) Monocytes (%) (Auto) 7.3 % (4.1-12.4) Eosinophils (%) (Auto) 2.0 % (0.4-6.7) Basophils (%) (Auto) 0.7 % (0.3-1.4) Nucleated RBC Relative Count (auto) 0.0 /100WBC Neutrophils # (Auto) 6.6 K/uL (2.0-7.4) Lymphocytes # (Auto) 2.7 K/uL (1.3-3.6) Monocytes # (Auto) 0.8 K/uL (0.3-1.0) Eosinophils # (Auto) 0.2 K/uL (0.0-0.5) Basophils # (Auto) 0.1 K/uL (0.0-0.1) Nucleated RBC Absolute Count (auto) 0.00 K/uL D-Dimer Quantitative (PE/DVT) 1.45 ug/ml (0-0.50) Glomerular Filtration Rate Calc > 60.0 Calcium Level 9.6 mg/dl (8.4-10.2) Total Bilirubin 0.4 mg/dl (0.2-1.3) Aspartate Amino Transf (AST/SGOT) 26 U/L (0-35) Alanine Aminotransferase (ALT/SGPT) 35 U/L (0-56) Alkaline Phosphatase 104 U/L (0-126) Troponin I < 0.012 ng/ml Total Protein 7.5 g/dl (6.3-8.2) Albumin 4.6 g/dl (3.5-5.0) Lipase 83 U/L (23-300) Coagulation Test 07/04/18 17:50 D-Dimer Quantitative (PE/DVT) 1.45 ug/ml ED Course/Re-evaluation ED Course Improved after IV Protonix and GI cocktail. NO PE or pna on CTA. Normal trop after weeks of constant pain. Spoke with Natasha who was able to find out from Medicaid that Dr. Bojorquez was able to get pre-authorization for her PPI. She [facility] an RX [facility] for [facility]. She is going to try to make it through the weekend without the medication. She will follow up with Dr. Bojorquez next week. Decision to Disposition Date: Jul 04, 2018 Decision to Disposition Time: 19:57 Depart Departure Latest Vital Signs Vital Signs Date Time Temp Pulse Resp B/P (MAP) Pulse Ox O2 Delivery O2 Flow Rate FiO2 07/04/18 18:45 124/74 (91) 90 07/04/18 18:30 95 07/04/18 18:08 18 07/04/18 18:00 Room Air 07/04/18 17:01 97.4 Impression: Primary Impression: Chest pain Condition: Improved Disposition: HOME OR SELF-CARE Referrals: LEILA CA MD (PCP) Patient Instructions: Chest Pain (ED) Problem Qualifiers Primary Impression: Chest pain Chest pain type: other chest pain Qualified Codes: R07.89 - Other chest pain SAMSON HUGO MD Jul 04, 2018 17:31
[2018-07-04] MEDS ORDERED: NS(*) 0.9% 1000 ML BAG 1,000 ML IV ONE (17:35)
[2018-07-04] MEDS ORDERED: ALBUTEROL/IPRATROPIUM 3 ML NEB NEB ONE (17:35)
[2018-07-04] MEDS ORDERED: LORazepam 2 MG/ML VIAL IVP ONE (17:35)
[2018-07-04] MEDS ORDERED: PANTOPRAZOLE SOD(*)40 MG VIAL 80 MG in NS(*) 0.9% 100 ML BAG 100 ML IVPB ONE (17:35)
[2018-07-04] MEDS ORDERED: LIDOCAINE 2% VISC SLN 15ML UDC PO ONE (17:35)
[2018-07-04] MEDS ORDERED: DEXAMETHASONE SOD PHOS 10MG/ML IVP ONE (17:35)
[2018-07-04] MEDS ORDERED: MAGNESIUM HYDROXIDE* 30ML UDCP PO ONE (17:35)
[2018-07-04 18:07] LABS: PLATELET COUNT, AUTOMATED 232 K/uL (150-450)
--- NOTE | 2018-07-04 18:41 | RADIOLOGY IMAGING REPORT ---
FACILITY: [facility] PATIENT NAME: Zain Simons : 1970 MR: [id number] V: [id number] EXAM DATE: ORDERING PHYSICIAN: SAMSON HUGO TECHNOLOGIST: Location: [facility] Patient: Zain Simons : 1970 Visit/Account:[id number] Date of Sevice: 07/04/2018 EXAMINATION: Chest 2 Views HISTORY: Chest pain, reflux COMPARISON: None. FINDINGS: The lungs are clear. No focal consolidation or pleural fluid. No pneumothorax. Normal cardiomedias tinal silhouette, with normal heart size and pulmonary vascularity. Visualized osseous structures ar e unremarkable. IMPRESSION: No evidence of acute cardiopulmonary disease. Report Dictated By: Renny Almazan MD at 07/04/2018 6:37 PM Report E-Signed By: Renny Almazan MD at 07/04/2018 6:38 PM WSN:[id number]
[2018-07-04] MEDS ORDERED: NS(*) 0.9% 50 ML BAG 50 ML ONE (18:54)
[2018-07-04] MEDS ORDERED: IOPAMIDOL 76% 100 ML INFUS BTL 100 ML ONE (18:54)
--- NOTE | 2018-07-04 19:09 | EKG ---
FACILITY: [facility] [place] PATIENT NAME: LEILANI VALENTINE : [id number] MR: [id number] V: [id number] EXAM DATE: ORDERING PHYSICIAN: SAMSON HUGO TECHNOLOGIST: Test Reason : chest pain Blood Pressure : / mmHG Vent. Rate : 098 BPM Atrial Rate : 098 BPM P-R Int : 160 ms QRS Dur : 080 ms QT Int : 364 ms P-R-T Axes : 041 057 038 degrees QTc Int : 464 ms Normal sinus rhythm Normal ECG No previous ECGs available Confirmed by STEPHENIE AVILA ([id number]) on 07/04/2018 11:14:51 PM Referred By: Confirmed By:STEPHENIE AVILA
[2018-07-04 19:30] VITALS: BP 120/72
--- NOTE | 2018-07-04 19:46 | RADIOLOGY IMAGING REPORT ---
FACILITY: [facility] PATIENT NAME: Zain Simons : 1970 MR: [id number] V: [id number] EXAM DATE: ORDERING PHYSICIAN: SAMSON HUGO TECHNOLOGIST: Location: [facility] [place] Patient: Zain Simons : 1970 Visit/Account:[id number] Date of Sevice: 07/04/2018 EXAMINATION: CTA of the chest with IV contrast HISTORY: Chest pain. Elevated d-dimer. TECHNIQUE: Pulmonary embolus protocol - Thin axial CT images of the chest were obtained with IV con trast during maximal pulmonary arterial opacification. Reconstruction of the source data includes mul tiplanar 2D coronal and sagittal reconstructed images, and 3D coronal and sagittal MIP images. Repres entative images have been stored on PACS. One of the following dose optimization techniques was utilized in the performance of this exam: Autom ated exposure control; adjustment of the mA and/or kV according to the patient's size; or use of an i terative reconstruction technique. Specific details can be referenced in the facility's radiology C T exam operational policy. Contrast: 90 mL of IV Isovue-[id number]. COMPARISON: None. FINDINGS: Pulmonary arteries: The pulmonary arteries are moderately well opacified, without suspicious filling defect. Heart, aorta, and great vessels: Normal caliber thoracic aorta, without aneurysm or dissection. Norm al heart size. No pericardial effusion. Lungs and pleura: The lungs are clear. No focal consolidation. No pleural effusion or pneumothorax. The central airways are patent. Mediastinum and pascale: Small hiatal hernia. 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 Cystectomy. Chest wall: Negative. Bones: Negative. IMPRESSION: 1. No evidence of pulmonary embolism. 2. No other acute findings in the chest. The lungs are clear. Report Dictated By: Renny Almazan MD at 07/04/2018 7:35 PM Report E-Signed By: Renny Almazan MD at 07/04/2018 7:43 PM WSN:[id number]
== END 2018-07-04 20:05 | disposition home or self-care (01) ==
LOC: ER 17:02
DX: R07.89 Other chest pain (principal)
CPT/HCPCS: 71046; 71275; 83690; 84484; 85025; 85379; 93005; 94640; 96361; 96365; 96375; 99284; C9113; J1100; J2060; J7030; J7050; J7620; Q9967; 82040; 82247; 82310; 82374; 82435; 82565; 82947; 84075; 84132; 84155; 84295; 84450; 84460; 84520

== ENCOUNTER 2018-07-05 07:59 | Emergency (ER) | payer MEDICAID ==
--- NOTE | 2018-07-05 08:17 | ER Report ---
History and Physical Time Seen By MD: 08:17 Hx. of Stated Complaint: my acid reflux is back HPI/ROS Seen more than 11 times by health care providers in the past month for symptoms related to her GERD. Moved to [place] one month ago from [place] to go to . Seen twice yesterday by me during one shift. [place] improved last night, but now back again complaining of GERD. Evaluated last night for ACS, PE. Denies abdominal pain. No fever/chills. No cough. Was given IV Protonix last night with relief of symptoms. She perseverates on one medication that relieves her GERD symptoms. Dr. Hernandez has prescribed her, and the med is waiting for her to picker and sorter load and unload at [facility]. By the time she realized the med was there, the pharmacy was closed for the weekend. She presents again this morning stating her "GERD is back." Remainder of the 14 system rev: Yes Allergies: Coded Allergies: Sulfa (Sulfonamide Antibiotics) (Verified Allergy, Severe, NAUSEA/VOMITING, 07/05/18) lamotrigine (Verified Allergy, Severe, 07/05/18) onion (Verified Allergy, Severe, NAUSEA/VOMITING, 07/05/18) Penicillins (Verified Allergy, Unknown, 07/05/18) amoxicillin (Verified Allergy, Unknown, 07/05/18) cephalexin (Verified Allergy, Unknown, 07/05/18) clavulanic acid (Verified Allergy, Unknown, 07/05/18) fluticasone (Verified Allergy, Unknown, 07/05/18) ibuprofen (Verified Allergy, Unknown, 07/05/18) nicotine (Verified Allergy, Unknown, 07/05/18) salmeterol (Verified Allergy, Unknown, 07/05/18) Home Meds Active Scripts Blood Sugar Diagnostic (GLUCOSE TEST STRIP) 1 Each Strip, 1 EACH MC TID, #100 STRIP 5 Refills Prov:LEILA HERNANDEZ MD 06/23/18 Blood-Glucose Meter (BLOOD GLUCOSE METER) 1 Each Each, EACH MC ONCE, #1 Prov:LEILA HERNANDEZ MD 06/23/18 Dexlansoprazole (DEXILANT) 60 Mg Cap., 60 MG PO BID, #60 TAB 6 Refills Prov:LEILA HERNANDEZ MD 06/23/18 Hydrocodone Bit/Acetaminophen (HYDROCODON-ACETAMINOPHEN 5-325) 1 Each Tablet, 1 EACH PO Q4-6H PRN for PAIN, #6 TAB Prov:MICHELLE CHRISTIAN UTILITY AIRCREWMAN 06/22/18 Sucralfate (CARAFATE) 1 Gm Tablet, 1 GM PO QID, #60 TAB Take before meals and at bedtime. Crush the tablet and mix with water before taking. Prov:MICHELLE CHRISTIAN UTILITY AIRCREWMAN 06/22/18 Ondansetron 4 Mg Odt (ONDANSETRON 4 MG ODT) 4 Mg Tab.rapdis, 4 MG PO ONCE, #20 TAB Prov:CAROLE MARIE S DO 06/21/18 Tramadol Hcl (TRAMADOL HCL) 50 Mg Tablet, 50 MG PO Q6H PRN for PAIN, #12 TAB 0 Refills Prov:CAROLE MARIE S DO 06/21/18 Ondansetron Hcl (ZOFRAN) 4 Mg Tablet, 4 MG PO Q8H for Nausea, #15 TAB 0 Refills Prov:JOSE KIMBALL MD 06/03/18 Reported Medications Metoclopramide Hcl (METOCLOPRAMIDE HCL) 10 Mg Tablet, 10 MG PO TID PRN for nausea 06/12/18 Melatonin (Melatonin) 10 Mg Tab.rapdis, HS 06/12/18 Nystatin 100,000 Unit/Gm Top Powder (NYSTATIN 100,000 UNIT/GM TOP POWDER) Unknown Strength Powder, TP PRN, TUBE 06/12/18 Insulin Aspart 100 Un/Ml Pen (NOVOLOG FLEXPEN) 100 Unit/1 Ml Insuln.pen, 10 UNIT SQ HS, ML 06/03/18 Insulin Glargine (LANTUS) 100 Unit/Ml Soln, 30 UNIT SUBQ BID, ML 06/03/18 Prochlorperazine Maleate (Compazine) 10 Mg Tablet 06/03/18 Ondansetron 4 Mg Odt (ONDANSETRON 4 MG ODT) 4 Mg Tab.rapdis, 4 MG PO ONCE, TAB 06/03/18 Sumatriptan Succinate (SUMATRIPTAN SUCCINATE) 50 Mg Tablet, 50 MG PO ONCE, #5 TA B 06/03/18 Promethazine Hcl (PROMETHAZINE HCL) 25 Mg Tablet, 25 MG PO Q8H, TAB 06/03/18 Tizanidine Hcl (TIZANIDINE HCL) 2 Mg Capsule, 2 MG PO TID, CAPSULE 06/03/18 Gabapentin (GABAPENTIN) 300 Mg Capsule, 300 MG PO TID, CAPSULE 06/03/18 Triamterene/Hydrochlorothiazid (TRIAMTERENE-HCTZ 37.5-25 MG TB) 1 Each Tablet, 1 EACH PO 06/03/18 Fluoxetine Hcl (FLUOXETINE HCL) 20 Mg Capsule, 20 MG PO QDAY, CAPSULE 06/03/18 Pravastatin Sodium (PRAVACHOL) 20 Mg Tablet, 20 MG PO QDAY, TAB 06/03/18 Aripiprazole (ABILIFY) 5 Mg Tablet, 5 MG PO QDAY, #10 TAB 06/03/18 Reviewed Nurses Notes: Yes Old Medical Records Reviewed: Yes Hx Smoking: Yes Smoking Status: Former Smoker Hx Substance Use Disorder: No Hx Alcohol Use: No Constitutional Vital Sign - Last 24 Hours 07/05/18 07/05/18 07/05/18 07/05/18 07:59 08:04 08:05 08:29 Temp 97.6 Pulse 88 89 89 Resp 12 B/P (MAP) 140/78 (98) 140/78 Pulse Ox 91 91 92 O2 Delivery Room Air 07/05/18 07/05/18 07/05/18 08:30 08:59 09:00 Pulse 91 B/P (MAP) 121/76 (91) 120/61 (80) Pulse Ox 92 Physical Exam General Appearance: The patient is alert, has no immediate need for airway protection and no current signs of toxicity. Eyes: Pupils equal and round no injection. Respiratory: Chest is non tender, lungs are clear to auscultation. Cardiac: regular rate and rhythm Gastrointestinal: Abdomen is soft and non tender, no masses, bowel sounds normal. Medical Decision Making ED Course/Re-evaluation ED Course States symptoms are same as GERD exacerbations. I had the [facility] pharmacist speak with the patient aboyt the PPI medications, and how we can find a regimen to get her feeling better this until she can picker and sorter load and unload her med on Saturday. The pt. received maximum dose of protonix, maalox, and crushed carafate as recommended by the hospital pharmacist. She will continue this regimen and picker and sorter load and unload her Dexilant on Saturday. On her multiple visits to the ED the past 2 days, she has continued to deny abdominal pain or TTP. She has known Hill's Esophagus, and says the symptoms she is complaining of is GERD. I do not think she needs any imaging of her abdomen at this time. I do not think this is a complication of her bypass surgery. Has appointment with Dr. Benson this week, and will also follow up with Dr. Hernandez Decision to Disposition Date: Jul 05, 2018 Decision to Disposition Time: 09:25 Depart Departure Latest Vital Signs Vital Signs Date Time Temp Pulse Resp B/P (MAP) Pulse Ox O2 Delivery O2 Flow Rate FiO2 07/05/18 09:00 120/61 (80) 07/05/18 08:59 91 92 07/05/18 08:05 97.6 12 Room Air Impression: Primary Impression: GERD (gastroesophageal reflux disease) Condition: Improved Disposition: HOME OR SELF-CARE Referrals: LEILA HERNANDEZ MD (PCP) Patient Instructions: Gastroesophageal Reflux Disease (ED) Problem Qualifiers Primary Impression: GERD (gastroesophageal reflux disease) Esophagitis presence: with esophagitis Qualified Codes: K21.0 - Gastro- esophageal reflux disease with esophagitis SAMSON HUGO MD Jul 05, 2018 08:17
[2018-07-05] MEDS ORDERED: SUCRALFATE 1 GM TAB PO ONE (08:20)
[2018-07-05] MEDS ORDERED: PANTOPRAZOLE SOD 40 MG TABEC PO ONE (08:20)
[2018-07-05] MEDS ORDERED: MAG HYD/AL HYD/SIMETH 30ML UDC PO ONE (08:20)
[2018-07-05 09:00] VITALS: BP 120/61
== END 2018-07-05 09:39 | disposition home or self-care (01) ==
LOC: ER 08:21
DX: K21.0 Gastro-esophageal reflux disease with esophagitis (principal)
CPT/HCPCS: 99283

== ENCOUNTER 2018-07-14 14:25 | Emergency (ER) | payer MEDICAID ==
--- NOTE | 2018-07-14 17:36 | ER Report ---
History and Physical Time Seen By MD: 17:29 Hx. of Stated Complaint: crying and sleeping . 2 of her friends in the last 2 weeks. HPI/ROS CHIEF COMPLAINT: Depression with suicidal thoughts HISTORY OF PRESENT ILLNESS: Patient is a 48-year-old female with past mental history significant for COPD, anxiety depression, bipolar disorder prior suicide attempt in 2008 by adrienne broussard who presents to emergency department with worsening depression over the past week or so. Patient states that she recently found out that 2 of her friends unexpectedly 1 within the last week who was reported to be a lifelong friend. 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 She is feeling suicidal and unsafe at home. She does not have access to firearms. She lives in the [facility] dormitory. She states that she is arranging for outpatient services to repeat wellness because her symptoms have worsened she was brought to the emergency department for further evaluation and possible inpatient treatment for which she is willing to voluntarily undergo. REVIEW OF SYSTEMS: Constitutional: No fever, no chills. Eyes: No discharge. ENT: No sore throat. Cardiovascular: No chest pain, no palpitations. Respiratory: No cough, no shortness of breath. Gastrointestinal: No abdominal pain, no vomiting. Genitourinary: No hematuria. Musculoskeletal: No back pain. Skin: No rashes. Neurological: No headache. Psych: depression, suicidal thoughts without active plan Allergies: Coded Allergies: Sulfa (Sulfonamide Antibiotics) (Verified Allergy, Severe, NAUSEA/VOMITI NG, 07/14/18) lamotrigine (Verified Allergy, Severe, 07/14/18) onion (Verified Allergy, Severe, NAUSEA/VOMITING, 07/14/18) Penicillins (Verified Allergy, Unknown, 07/14/18) amoxicillin (Verified Allergy, Unknown, 07/14/18) cephalexin (Verified Allergy, Unknown, 07/14/18) clavulanic acid (Verified Allergy, Unknown, 07/14/18) fluticasone (Verified Allergy, Unknown, 07/14/18) ibuprofen (Verified Allergy, Unknown, 07/14/18) nicotine (Verified Allergy, Unknown, 07/14/18) salmeterol (Verified Allergy, Unknown, 07/14/18) Home Meds Active Scripts Dexlansoprazole (DEXILANT) 60 Mg Cap., 60 MG PO BID, #60 TAB 6 Refills Prov:LEILA CA MD 06/23/18 Sucralfate (CARAFATE) 1 Gm Tablet, 1 GM PO QID, #60 TAB Take before meals and at bedtime. Crush the tablet and mix with water before taking. Prov:MICHELLE CHRISTIAN CELLOPHANE CASTING MACHINE REPAIRER 06/22/18 Ondansetron 4 Mg Odt (ONDANSETRON 4 MG ODT) 4 Mg Tab.rapdis, 4 MG PO ONCE, #20 TAB Prov:CAROLE MARIE DO 06/21/18 Reported Medications Metoclopramide Hcl (METOCLOPRAMIDE HCL) 10 Mg Tablet, 10 MG PO TID PRN for nausea 06/12/18 Melatonin (Melatonin) 10 Mg Tab.rapdis, HS 06/12/18 Nystatin 100,000 Unit/Gm Top Powder (NYSTATIN 100,000 UNIT/GM TOP POWDER) Unknown Strength Powder, TP PRN, TUBE 06/12/18 Insulin Aspart 100 Un/Ml Pen (NOVOLOG FLEXPEN) 100 Unit/1 Ml Insuln.pen, 10 UNIT SQ HS, ML 06/03/18 Insulin Glargine (LANTUS) 100 Unit/Ml Soln, 30 UNIT SUBQ BID, ML 06/03/18 Prochlorperazine Maleate (Compazine) 10 Mg Tablet 06/03/18 Ondansetron 4 Mg Odt (ONDANSETRON 4 MG ODT) 4 Mg Tab.rapdis, 4 MG PO ONCE, TAB 06/03/18 Sumatriptan Succinate (SUMATRIPTAN SUCCINATE) 50 Mg Tablet, 50 MG PO ONCE, #5 TAB 06/03/18 Promethazine Hcl (PROMETHAZINE HCL) 25 Mg Tablet, 25 MG PO Q8H, TAB 06/03/18 Tizanidine Hcl (TIZANIDINE HCL) 2 Mg Capsule, 2 MG PO TID, CAPSULE 06/03/18 Gabapentin (GABAPENTIN) 300 Mg Capsule, 300 MG PO TID, CAPSULE 06/03/18 Triamterene/Hydrochlorothiazid (TRIAMTERENE-HCTZ 37.5-25 MG TB) 1 Each Tablet, 1 EACH PO 06/03/18 Fluoxetine Hcl (FLUOXETINE HCL) 20 Mg Capsule, 20 MG PO QDAY, CAPSULE 06/03/18 Pravastatin Sodium (PRAVACHOL) 20 Mg Tablet, 20 MG PO QDAY, TAB 06/03/18 Aripiprazole (ABILIFY) 5 Mg Tablet, 5 MG PO QDAY, #10 TAB 06/03/18 Discontinued Scripts Blood Sugar Diagnostic (GLUCOSE TEST STRIP) 1 Each Strip, 1 EACH MC TID, #100 STRIP 5 Refills Prov:LEILA CA MD 06/23/18 Blood-Glucose Meter (BLOOD GLUCOSE METER) 1 Each Each, EACH MC ONCE, #1 Prov:LEILA CA MD 06/23/18 Hydrocodone Bit/Acetaminophen (HYDROCODON-ACETAMINOPHEN 5-325) 1 Each Tablet, 1 EACH PO Q4-6H PRN for PAIN, #6 TAB Prov:MICHELLE CHRISTIAN [employer]LLOPH[employer] CASTING MACHINE REPAIRER 06/22/18 Tramadol Hcl (TRAMADOL HCL) 50 Mg Tablet, 50 MG PO Q6H PRN for PAIN, #12 TAB 0 Refills Prov:CAROLE MARIE DO 06/21/18 Ondansetron Hcl (ZOFRAN) 4 Mg Tablet, 4 MG PO Q8H for Nausea, #15 TAB 0 Refills Prov:JOSE KIMBALL MD 06/03/18 Past Medical/Surgical History Past medical history for GERD, insulin-dependent diabetes, elevated BMI, hypercholesterolemia, depression, bipolar disorder Hx Smoking: Yes Smoking Status: Former Smoker Hx Substance Use Disorder: No Hx Alcohol Use: No Constitutional Vital Sign - Last 24 Hours 07/14/18 07/14/18 07/14/18 07/14/18 14:42 17:00 17:30 18:00 Temp 99.2 Pulse 79 69 69 74 Resp 20 B/P (MAP) 136/85 148/76 (100) Pulse Ox 94 94 94 92 O2 Delivery Room Air 07/14/18 07/14/18 07/14/18 18:30 19:00 19:30 Pulse 84 74 80 B/P (MAP) 136/70 (92) Pulse Ox 93 92 92 Physical Exam General Appearance: The patient is alert, has no immediate need for airway protection and no signs of toxicity. Eyes: Pupils equal and round no pallor or injection. ENT, Mouth: Mucous membranes are moist. Respiratory: There are no retractions, lungs are clear to auscultation. Cardiovascular: Regular rate and rhythm. [ ] Gastrointestinal: Abdomen is soft and non tender, no masses, bowel sounds normal. Neurological: Awake and alert Skin: Warm and dry, no rashes. Musculoskeletal: Neck is supple non tender. Extremities are nontender, nonswollen and have full range of motion. Psychiatric: Patient depressed with sad affect which is congruent with mood. Patient is tearful. Patient has a history of bipolar disorder and states when she is depressed she feels some suicidal ideation although she has no specific plan. Process is logical and goal-directed. Patient also with particularly feel sad she works in the [employer] and now that she is on spring break. There are no students around and she is feeling lonely. [DIFFERENTIAL DIAGNOSIS: After history and physical exam differential diagnosis was considered for] [ ] Medical Decision Making Data Points Result Diagram: 07/14/18 1741 07/14/18 1741 Laboratory Hematology Test 07/14/18 17:41 07/14/18 18:30 Red Blood Count 4.89 M/uL (4.17-5.56) Mean Corpuscular Volume 83.5 fL (80.0-96.0) Mean Corpuscular Hemoglobin 28.3 pg (26.0-33.0) Mean Corpuscular Hemoglobin Concent 33.9 g/dL (32.0-36.0) Red Cell Distribution Width 14.5 % (11.5-14.5) Mean Platelet Volume 8.2 fL (7.2-11.1) Neutrophils (%) (Auto) 63.5 % (39.4-72.5) Lymphocytes (%) (Auto) 26.8 % (17.6-49.6) Monocytes (%) (Auto) 7.0 % (4.1-12.4) Eosinophils (%) (Auto) 2.0 % (0.4-6.7) Basophils (%) (Auto) 0.7 % (0.3-1.4) Nucleated RBC Relative Count (auto) 0.0 /100WBC Neutrophils # (Auto) 6.9 K/uL (2.0-7.4) Lymphocytes # (Auto) 2.9 K/uL (1.3-3.6) Monocytes # (Auto) 0.8 K/uL (0.3-1.0) Eosinophils # (Auto) 0.2 K/uL (0.0-0.5) Basophils # (Auto) 0.1 K/uL (0.0-0.1) Nucleated RBC Absolute Count (auto) 0.00 K/uL Sodium Level 142 mmol/L (137-145) Potassium Level 3.4 mmol/L (3.5-5.0) Chloride Level 105 mmol/L (98-107) Carbon Dioxide Level 24 mmol/L (22-31) Blood Urea Nitrogen 11 mg/dl (7-18) Creatinine 0.50 mg/dl (0.52-1.04) Glomerular Filtration Rate Calc > 60.0 Random Glucose 137 mg/dl (75-110) Calcium Level 9.3 mg/dl (8.4-10.2) Magnesium Level 1.9 mg/dl (1.7-2.2) Total Bilirubin 0.4 mg/dl (0.2-1.3) Aspartate Amino Transf (AST/SGOT) 21 U/L (0-35) Alanine Aminotransferase (ALT/SGPT) 39 U/L (0-56) Alkaline Phosphatase 85 U/L (0-126) Total Protein 6.4 g/dl (6.3-8.2) Albumin 4.1 g/dl (3.5-5.0) Salicylates Level < 10 mg/L Salicylate Last Dose Date unk Acetaminophen Level < 10 ug/ml Serum Alcohol < 10 mg/dl Urine Color Yellow Urine Clarity Cloudy Urine pH 5.0 pH (4.8-9.5) Urine Specific [place] 1.010 Urine Protein Negative mg/dL (NEGATIVE) Urine Glucose (UA) 50 mg/dL (NEGATIVE) Urine Ketones Negative mg/dL (NEGATIVE) Urine Blood Small (NEGATIVE) Urine Nitrite Negative (NEGATIVE) Urine Bilirubin Negative (NEGATIVE) Urine Urobilinogen Negative mg/dL (0.2-1.9) Urine Leukocyte Esterase Small (NEGATIVE) Urine RBC 8 /HPF (0-2/HPF) Urine WBC 15 /HPF (0-5/HPF) Urine Squamous Epithelial Cells Many /LPF (</=FEW) Urine Amorphous Crystals Few /HPF Urine Bacteria Many /HPF (NONE-FEW) Urine Mucus Few /HPF (NONE-FEW) Urine HCG, Qualitative Negative (NEGATIVE) Urine Opiates Screen Negative Urine Barbiturates Screen Negative Ur Tricyclic Antidepressants Screen Negative Urine Phencyclidine Screen Negative Urine Amphetamines Screen Negative Urine Benzodiazepines Screen Negative Urine Cocaine Screen Negative Urine Cannabinoids Screen Negative Chemistry Test 07/14/18 17:41 07/14/18 18:30 White Blood Count 10.8 k/uL (4.5-11.0) Red Blood Count 4.89 M/uL (4.17-5.56) Hemoglobin 13.9 g/dL (12.0-16.0) Hematocrit 40.9 % (34.0-47.0) Mean Corpuscular Volume 83.5 fL (80.0-96.0) Mean Corpuscular Hemoglobin 28.3 pg (26.0-33.0) Mean Corpuscular Hemoglobin Concent 33.9 g/dL (32.0-36.0) Red Cell Distribution Width 14.5 % (11.5-14.5) Platelet Count 197 K/uL (150-450) Mean Platelet Volume 8.2 fL (7.2-11.1) Neutrophils (%) (Auto) 63.5 % (39.4-72.5) Lymphocytes (%) (Auto) 26.8 % (17.6-49.6) Monocytes (%) (Auto) 7.0 % (4.1-12.4) Eosinophils (%) (Auto) 2.0 % (0.4-6.7) Basophils (%) (Auto) 0.7 % (0.3-1.4) Nucleated RBC Relative Count (auto) 0.0 /100WBC Neutrophils # (Auto) 6.9 K/uL (2.0-7.4) Lymphocytes # (Auto) 2.9 K/uL (1.3-3.6) Monocytes # (Auto) 0.8 K/uL (0.3-1.0) Eosinophils # (Auto) 0.2 K/uL (0.0-0.5) Basophils # (Auto) 0.1 K/uL (0.0-0.1) Nucleated RBC Absolute Count (auto) 0.00 K/uL Glomerular Filtration Rate Calc > 60.0 Calcium Level 9.3 mg/dl (8.4-10.2) Magnesium Level 1.9 mg/dl (1.7-2.2) Total Bilirubin 0.4 mg/dl (0.2-1.3) Aspartate Amino Transf (AST/SGOT) 21 U/L (0-35) Alanine Aminotransferase (ALT/SGPT) 39 U/L (0-56) Alkaline Phosphatase 85 U/L (0-126) Total Protein 6.4 g/dl (6.3-8.2) Albumin 4.1 g/dl (3.5-5.0) Salicylates Level < 10 mg/L Salicylate Last Dose Date unk Acetaminophen Level < 10 ug/ml Serum Alcohol < 10 mg/dl Urine Color Yellow Urine Clarity Cloudy Urine pH 5.0 pH (4.8-9.5) Urine Specific [place] 1.010 Urine Protein Negative mg/dL (NEGATIVE) Urine Glucose (UA) 50 mg/dL (NEGATIVE) Urine Ketones Negative mg/dL (NEGATIVE) Urine Blood Small (NEGATIVE) Urine Nitrite Negative (NEGATIVE) Urine Bilirubin Negative (NEGATIVE) Urine Urobilinogen Negative mg/dL (0.2-1.9) Urine Leukocyte Esterase Small (NEGATIVE) Urine RBC 8 /HPF (0-2/HPF) Urine WBC 15 /HPF (0-5/HPF) Urine Squamous Epithelial Cells Many /LPF (</=FEW) Urine Amorphous Crystals Few /HPF Urine Bacteria Many /HPF (NONE-FEW) Urine Mucus Few /HPF (NONE-FEW) Urine HCG, Qualitative Negative (NEGATIVE) Urine Opiates Screen Negative Urine Barbiturates Screen Negative Ur Tricyclic Antidepressants Screen Negative Urine Phencyclidine Screen Negative Urine Amphetamines Screen Negative Urine Benzodiazepines Screen Negative Urine Cocaine Screen Negative Urine Cannabinoids Screen Negative Toxicology Test 07/14/18 17:41 07/14/18 18:30 Salicylates Level < 10 mg/L Salicylate Last Dose Date unk Acetaminophen Level < 10 ug/ml Serum Alcohol < 10 mg/dl Urine Opiates Screen Negative Urine Barbiturates Screen Negative Ur Tricyclic Antidepressants Screen Negative Urine Phencyclidine Screen Negative Urine Amphetamines Screen Negative Urine Benzodiazepines Screen Negative Urine Cocaine Screen Negative Urine Cannabinoids Screen Negative Urinalysis Test 07/14/18 18:30 Urine Color Yellow Urine Clarity Cloudy Urine pH 5.0 pH (4.8-9.5) Urine Specific [place] 1.010 Urine Protein Negative mg/dL (NEGATIVE) Urine Glucose (UA) 50 mg/dL (NEGATIVE) Urine Ketones Negative mg/dL (NEGATIVE) Urine Blood Small (NEGATIVE) Urine Nitrite Negative (NEGATIVE) Urine Bilirubin Negative (NEGATIVE) Urine Urobilinogen Negative mg/dL (0.2-1.9) Urine Leukocyte Esterase Small (NEGATIVE) Urine RBC 8 /HPF (0-2/HPF) Urine WBC 15 /HPF (0-5/HPF) Urine Squamous Epithelial Cells Many /LPF (</=FEW) Urine Amorphous Crystals Few /HPF Urine Bacteria Many /HPF (NONE-FEW) Urine Mucus Few /HPF (NONE-FEW) Urine HCG, Qualitative Negative (NEGATIVE) ED Course/Re-evaluation ED Course Patient will have medical screening exam followed by psychiatric evaluation Decision to Disposition Date: Jul 15, 2018 Decision to Disposition Time: 19:00 Depart Departure Latest Vital Signs Vital Signs Date Time Temp Pulse Resp B/P (MAP) Pulse Ox O2 Delivery O2 Flow Rate FiO2 07/14/18 19:30 80 92 07/14/18 18:30 136/70 (92) 07/14/18 14:42 99.2 20 Room Air Impression: Primary Impression: Anxiety and depression Additional Impression: Suicidal ideations Condition: Improved Disposition: XFER TO [facility] (to [facility]; Dr Akins) Referrals: LEILA CA MD (PCP) Problem Qualifiers JOSE KIMBALL MD Jul 14, 2018 17:36
[2018-07-14 18:01] LABS: PLATELET COUNT, AUTOMATED 197 K/uL (150-450)
[2018-07-14 18:30] VITALS: BP 136/70
== END 2018-07-14 21:30 ==
LOC: ER 17:17
DX: F41.9 Anxiety disorder, unspecified (principal); F32.9 Major depressive disorder, single episode, unspecified; R45.851 Suicidal ideations
CPT/HCPCS: 36415; 80305; 81001; 81025; 83735; 84443; 85025; 87088; 99284; G0480; 80320; 80329; 82040; 82247; 82310; 82374; 82435; 82565; 82947; 84075; 84132; 84155; 84295; 84450; 84460; 84520

== ENCOUNTER 2018-07-14 20:23 | Inpatient (IN) | payer MEDICAID ==
[~2018-07-14] VITALS: Ht 165.1 cm; Wt 112.9 kg
[2018-07-14 21:58] VITALS: BP 139/81
[2018-07-14] MEDS ORDERED: SUMAtriptan SUCC 25MG TAB PO SCH (22:30)
[2018-07-14] MEDS: PANTOPRAZOLE SOD 40 MG TABEC PO SCH (22:30)
[2018-07-14] MEDS: INSULIN GLARGINE 100 U/ML 3 ML PEN SUBQ SCH (22:30)
[2018-07-14] MEDS: ARIPiprazole 10 MG TAB PO SCH (22:30)
[2018-07-14] MEDS: INSULIN ASPART 100 U/ML 3 ML PEN SUBQ SCH ×2 (22:30)
[2018-07-14] MEDS: GABAPENTIN 300 MG CAP PO SCH (22:30)
[2018-07-14] MEDS: PRAVASTATIN SOD 20 MG TAB PO SCH (22:30)
[2018-07-14] MEDS ORDERED: ACETAMINOPHEN 325 MG TAB PO PRN (23:15)
[2018-07-14] MEDS ORDERED: MAG HYD/AL HYD/SIMETH 30ML UDC PO PRN (23:15)
[2018-07-15] MEDS ORDERED: MELATONIN 3 MG TAB ONE (00:11)
[2018-07-15] MEDS: MELATONIN 3 MG TAB PO SCH ×2 (00:26→21:19)
[2018-07-15 06:12] VITALS: BP 96/58
[2018-07-15] MEDS: INSULIN ASPART 100 U/ML 3 ML PEN SUBQ SCH ×7 (08:09→21:55)
[2018-07-15] MEDS: INSULIN GLARGINE 100 U/ML 3 ML PEN SUBQ SCH ×2 (08:12→21:18)
[2018-07-15] MEDS: TRIAMTERENE/HCTZ 37.5-25MG CAPSULE PO SCH (08:48)
[2018-07-15] MEDS: PANTOPRAZOLE SOD 40 MG TABEC PO SCH ×2 (08:48→21:20)
[2018-07-15] MEDS: GABAPENTIN 300 MG CAP PO SCH ×2 (08:48→21:20)
[2018-07-15] MEDS: MULTIVITAMINS TAB PO SCH (08:49)
[2018-07-15] MEDS: FLUoxetine HCL 20 MG CAP PO SCH (08:53)
[2018-07-15 11:45] VITALS: BP 95/70
[2018-07-15] MEDS: ARIPiprazole 10 MG TAB PO SCH (21:19)
[2018-07-15] MEDS: PRAVASTATIN SOD 20 MG TAB PO SCH (21:19)
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
[2018-07-15 21:57] VITALS: BP 124/89
[2018-07-16 05:40] VITALS: BP 99/61
[2018-07-16] MEDS: INSULIN ASPART 100 U/ML 3 ML PEN SUBQ SCH ×7 (07:30→21:00)
[2018-07-16] MEDS: INSULIN GLARGINE 100 U/ML 3 ML PEN SUBQ SCH ×2 (08:13→20:52)
[2018-07-16] MEDS: TRIAMTERENE/HCTZ 37.5-25MG CAPSULE PO SCH (08:15)
[2018-07-16] MEDS: PANTOPRAZOLE SOD 40 MG TABEC PO SCH ×2 (08:15→20:49)
[2018-07-16] MEDS: GABAPENTIN 300 MG CAP PO SCH ×2 (08:15→20:50)
[2018-07-16] MEDS: MULTIVITAMINS TAB PO SCH (08:16)
[2018-07-16] MEDS: FLUoxetine HCL 20 MG CAP PO SCH (08:16)
--- NOTE | 2018-07-16 12:07 | NUR ---
SLIDING SCALE NOT GIVEN AT LUNCH 3.20.19 - BLOOD SUGAR = 88
--- NOTE | 2018-07-16 13:33 | BHS Progress Note ---
BHS - Subjective Progress Notes Subjective Pt seen in treatment team, then later we spoke with her case worker from [facility], Marguerite. Pt is doing a little better today, still overall depressed but says she is feeling more hopeful, and not having sudden intrusive thoughts of killing herself. Tolerating meds well without side effects (other than tardive dyskinesia movements of mouth). Working on healthy coping skills, and participating in [place] activities. Continue current tx plan. Suicidal Ideation: Resolving Homicidal Ideation: None S - Objective Physical Exam Vital Signs Vital Signs 07/16/18 05:40 Temp 98.3 Pulse 64 Resp 15 B/P (MAP) 99/61 (74) Pulse Ox 93 O2 Delivery Room Air Muscle Strength and Tone: WNL Gait and Station: Steady [facility] Medications Reviewed: Side Effects, Benefits of Medication Allergies Reviewed: Yes Mental Status Exam General Appearance: Casual, Well Groomed, Good Eye Contact, Cooperative, Polite, Good Interaction, Other (orrobuccal movements c/w tardive dyskinesia) Speech: Clear, Spontaneous, Normal Rate, Normal Rhythm, Normal Volume, Normal Tone Mood: Dysthmic/Depressed Affect: Calm, Sad Thought Process: Organized, Logical, Goal Directed Thought Content: No Suicidal Ideation, No Homicidal Ideation, No Delusions, No Auditory Halllucinations, No Visual Hallucinations, No Thought Broadcasting, No Ideas of Reference, No Obsessions, No Compulsions, No Other Sensorium: Clear Cognition: Alert & Oriented-Person, Alert & Oriented-Place, Alert & Oriented- Time, Qfhlp-Khakguxq-Vuarahlfe Memory: Immediate, Recent, Remote Intelligence: Average Insight Judgment: Fair [facility] Assessment and Plan [id number] Encounter Date: Jul 16, 2018 [id number] Encounter Time: 09:30 [facility] Plan: Necessary Precautions, Individual/Group Therapy, Admin/Titrate Meds, Educate Patient Tobacco Medications: Not Appropriate Condition Multpiple Antipsychotics Used: No Problems: (1) Bipolar disorder with psychotic features Status: Chronic (2) Posttraumatic stress disorder Status: Chronic MARC DAWN MD Jul 16, 2018 13:33
[2018-07-16 14:40] VITALS: BP 123/63
[2018-07-16] MEDS ORDERED: OMEP40CA48 PO (15:11)
[2018-07-16] MEDS ORDERED: DEXL60CA6 PO (15:11)
[2018-07-16] MEDS ORDERED: HYDR-385 PO (15:11)
[2018-07-16] MEDS ORDERED: CYCL10TA29 PO (15:11)
[2018-07-16] MEDS ORDERED: RANI-366 PO (15:11)
[2018-07-16] MEDS ORDERED: INSU100I16 INJ (15:34)
[2018-07-16] MEDS: MELATONIN 3 MG TAB PO SCH (20:49)
[2018-07-16] MEDS: PRAVASTATIN SOD 20 MG TAB PO SCH (20:50)
[2018-07-16] MEDS: ARIPiprazole 10 MG TAB PO SCH (20:50)
[2018-07-16 22:32] VITALS: BP 109/51
[2018-07-17 06:14] VITALS: BP 114/59
[2018-07-17] MEDS: INSULIN ASPART 100 U/ML 3 ML PEN SUBQ SCH ×2 (07:30→07:58)
[2018-07-17] MEDS: INSULIN GLARGINE 100 U/ML 3 ML PEN SUBQ SCH (07:58)
[2018-07-17] MEDS: FLUoxetine HCL 20 MG CAP PO SCH (08:02)
[2018-07-17] MEDS: MULTIVITAMINS TAB PO SCH (08:02)
[2018-07-17] MEDS: GABAPENTIN 300 MG CAP PO SCH (08:02)
[2018-07-17] MEDS: PANTOPRAZOLE SOD 40 MG TABEC PO SCH (08:02)
[2018-07-17] MEDS: TRIAMTERENE/HCTZ 37.5-25MG CAPSULE PO SCH (08:02)
--- NOTE | 2018-07-17 09:22 | NUR ---
SLIDING SCALE NOT GIVEN AT BREAKFAST 3.21.19 - BLOOD SUGAR = 143
--- NOTE | 2018-07-17 09:26 | NUR ---
DOSE OF NOVOLOG SCHEDULED FOR 07.16.18 @ 2100 WAS NOT DOCUMENTED BY EVENING SHIFT RN.
--- NOTE | 2018-07-17 13:09 | BHS Discharge Summary ---
[facility] Discharge Summary Cepm-vr-Tavo Encounter Date: Jul 17, 2018 Nfxr-[id number]-[id number] Encounter Time: 09:00 Reason-Hosp/Final Diag (DSM-V): (1) Bipolar disorder with psychotic features Status: Chronic Hospital Course & Plan: CHIEF COMPLAINT "I found out two weeks ago that a friend of mine , and I've been really depressed." HISTORY OF PRESENT ILLNESS This is one of multiple inpatient psychiatric admissions for this 48-year-old female who has a history of bipolar disorder with psychosis and PTSD, who is here on a voluntary basis. The patient reports that she found out two weeks ago that a very close friend of hers had back in March. She also had another friend of hers pass in February. She has noticed over the past two weeks increasing depression. 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 She has been having difficulty concentrating, difficulty sleeping, and a lot of "what if" thoughts, like driving her car into a tree or taking or taking an overdose. Her motivation is down, and her energy level is d own. 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 PAST PSYCHIATRIC HISTORY The patient has had numerous inpatient admissions over the years including several admissions to the [facility] psychiatric unit, one admission to the [facility], one admission to the [facility], one admission to [facility] in 2005. The 2005 admission was her most recent admission. After that, she went to live in [place] where she was a patient with [facility] for 10 years. She lived in their assisted a couple of times and also attended the [facility] day program in [place]. She describes a history of former substance abuse, symptoms of borderline personality disorder, and also psychotic and bipolar symptoms. She has experienced auditory hallucinations when her mood is particularly manic or depressed, and these hallucinations include derogatory voices and command hallucinations to end her life. She has had some visual hallucinations in the past. She has had episodes of jaya kenji with euphoria prominent. She has had a history of significant depression with cutting behaviors, but never a suicide attempt. She has participated in a couple of rounds of DBT therapy and says that that helped her tremendously. HOSPITAL COURSE Pt was admitted to [facility] and maintained on suicide precautions. She was pleasant and cooperative and highly motivated to engage in treatment, attending all groups and mileau activities. We did not make any changes to her medications. We discussed her tardive dyskinesia, and she did not want to make any changes to her meds, reasoning that she has done well on Abilify and would not want to risk psychiatric decompensation. She was initially depressed in affect but did brighten considerably over her hospital stay, responding well to supportive therapy. We contacted her outpatient case making machine operator Marguerite to arrange aftercare at [facility], and Marguerite is going to work on getting pt into [facility], where she will be more comfortable than in the dorms at where she is much older than most peers. She understands this may take a few months, but she was much relieved knowing it was a possibility. She did not have any suicidal ideation during her stay, and by 07/17 she was stable for discharge, with Marguerite from [facility] picking her up. She will meet with grinder brake lining office today at 1:30 pm, and will follow up at [facility]. (2) Posttraumatic stress disorder Status: Chronic Mental Status Exam General Appearance: Casual, Well Groomed, Good Eye Contact, Cooperative, Polite, Good Interaction, Other (orrobuccal movements c/w tardive dyskinesia) Speech: Clear, Spontaneous, Normal Rate, Normal Rhythm, Normal Volume, Normal Tone Mood: Euthymic Affect: Full and Appropriate, Calm Thought Process: Organized, Logical, Goal Directed Thought Content: No Suicidal Ideation, No Homicidal Ideation, No Delusions, No Auditory Halllucinations, No Visual Hallucinations, No Thought Broadcasting, No Ideas of Reference, No Obsessions, No Compulsions, No Other Sensorium: Clear Cognition: Alert & Oriented-Person, Alert & Oriented-Place, Alert & Oriented- Time, Rngol-Lktqbmor-Ycybzhakf Memory: Immediate, Recent, Remote Intelligence: Average Insight Judgment: Good Departure Item Value Date Time Whole Blood Glucose 152 mg/DL H 07/16/18 0758 Whole Blood Glucose 88 mg/DL 07/16/18 1146 Whole Blood Glucose 103 mg/DL 07/16/18 1649 Whole Blood Glucose 150 mg/DL H 07/16/182004 Whole Blood Glucose 143 mg/DL H 07/17/18 0748 White Blood Count 10.8 k/uL 07/14/18 1741 Red Blood Count 4.89 M/uL 07/14/18 1741 Hemoglobin 13.9 g/dL 07/14/18 1741 Hematocrit 40.9 % 07/14/18 1741 Mean Corpuscular Volume 83.5 fL 07/14/18 1741 Mean Corpuscular Hemoglobin 28.3 pg 07/14/18 1741 Mean Corpuscular Hemoglobin Concent 33.9 g/dL 07/14/18 1741 Red Cell Distribution Width 14.5 % 07/14/18 1741 Platelet Count 197 K/uL 07/14/18 1741 Sodium Level 142 mmol/L 07/14/18 1741 Potassium Level 3.4 mmol/L L 07/14/18 1741 Chloride Level 105 mmol/L 07/14/18 1741 Carbon Dioxide Level 24 mmol/L 07/14/18 1741 Blood Urea Nitrogen 11 mg/dl 07/14/18 1741 Creatinine 0.50 mg/dl L 07/14/18 1741 Glomerular Filtration Rate Calc > 60.0 07/14/18 1741 Calcium Level 9.3 mg/dl 07/14/18 1741 Magnesium Level 1.9 mg/dl 07/14/18 1741 Total Bilirubin 0.4 mg/dl 07/14/18 1741 Aspartate Amino Transf (AST/SGOT) 21 U/L 07/14/18 1741 Alanine Aminotransferase (ALT/SGPT) 39 U/L 07/14/18 1741 Alkaline Phosphatase 85 U/L 07/14/18 1741 Total Protein 6.4 g/dl 07/14/18 1741 Albumin 4.1 g/dl 07/14/18 1741 Thyroid Stimulating Hormone (TSH) 0.83 uIU/ml 07/14/18 1741 Triglycerides Level 221 mg/dl 06/24/18 0709 Cholesterol Level 132 mg/dl 06/24/18 0709 LDL Cholesterol 59 mg/dl 06/24/18 0709 VLDL Cholesterol 44 mg/dl 06/24/18 0709 HDL Cholesterol 29 mg/dl 06/24/18 0709 Percent HDL Cholesterol 21.0 % 06/24/18 0709 Cholesterol Ratio (LDL/HDL) 2.03 06/24/18 0709 Cholesterol/HDL Ratio 4.6 06/24/18 0709 Urine Color Yellow 07/14/18 1830 Urine Clarity Cloudy 07/14/18 1830 Urine pH 5.0 pH 07/14/18 1830 Urine Specific Pillow 1.010 07/14/18 1830 Urine Protein Negative mg/dL 07/14/18 1830 Urine Glucose (UA) 50 mg/dL H 07/14/18 1830 Urine Ketones Negative mg/dL 07/14/18 1830 Urine Blood Small 07/14/18 1830 Urine Nitrite Negative 07/14/18 1830 Urine Bilirubin Negative 07/14/18 1830 Urine Urobilinogen Negative mg/dL 07/14/18 1830 Urine Leukocyte Esterase Small H 07/14/18 1830 Urine RBC 8 /HPF 07/14/18 1830 Urine WBC 15 /HPF 07/14/18 1830 Urine Squamous Epithelial Cells Many /LPF H 07/14/18 1830 Urine Amorphous Crystals Few /HPF 07/14/18 1830 Urine Bacteria Many /HPF H 07/14/18 1830 Salicylates Level < 10 mg/L 07/14/18 1741 Salicylate Last Dose Date unk 07/14/18 1741 Urine Opiates Screen Negative 07/14/18 1830 Acetaminophen Level < 10 ug/ml 07/14/18 1741 Urine Barbiturates Screen Negative 07/14/18 1830 Ur Tricyclic Antidepressants Screen Negative 07/14/18 1830 Urine Phencyclidine Screen Negative 07/14/18 1830 Urine Amphetamines Screen Negative 07/14/18 1830 Urine Benzodiazepines Screen Negative 07/14/18 1830 Urine Cocaine Screen Negative 07/14/18 1830 Urine Cannabinoids Screen Negative 07/14/18 1830 Serum Alcohol < 10 mg/dl 07/14/18 1741 Condition: Improved Discharge to: Home Discharge Instructions Home Meds Active Scripts Dexlansoprazole (DEXILANT) 60 Mg Bala., 60 MG PO BID, #60 TAB 6 Refills Prov:LEILA CA MD 06/23/18 Sucralfate (CARAFATE) 1 Gm Tablet, 1 GM PO QID, #60 TAB Take before meals and at bedtime. Crush the tablet and mix with water before taking. Prov:MICHELLE CHRISTIAN 06/22/18 Reported Medications Metoclopramide Hcl (METOCLOPRAMIDE HCL) 10 Mg Tablet, 10 MG PO TID PRN for nausea 06/12/18 Melatonin (Melatonin) 10 Mg Tab.rapdis, HS 06/12/18 Nystatin 100,000 Unit/Gm Top Powder (NYSTATIN 100,000 UNIT/GM TOP POWDER) Unknown Strength Powder, TP PRN, TUBE 06/12/18 Insulin Aspart 100 Un/Ml Pen (NOVOLOG FLEXPEN) 100 Unit/1 Ml Insuln.pen, 10 UNIT SQ HS, ML 06/03/18 Insulin Glargine (LANTUS) 100 Unit/Ml Soln, 30 UNIT SUBQ BID, ML 06/03/18 Sumatriptan Succinate (SUMATRIPTAN SUCCINATE) 50 Mg Tablet, 50 MG PO ONCE, #5 TAB 06/03/18 Promethazine Hcl (PROMETHAZINE HCL) 25 Mg Tablet, 25 MG PO Q8H, TAB 06/03/18 Tizanidine Hcl (TIZANIDINE HCL) 2 Mg Capsule, 2 MG PO TID, CAPSULE 06/03/18 Gabapentin (GABAPENTIN) 300 Mg Capsule, 300 MG PO BID, CAPSULE TAKES ONE CAP AM AND TWO CAPS PM 06/03/18 Triamterene/Hydrochlorothiazid (TRIAMTERENE-HCTZ 37.5-25 MG TB) 1 Each Tablet, 1 EACH PO 06/03/18 Fluoxetine Hcl (FLUOXETINE HCL) 20 Mg Capsule, 20 MG PO QDAY, CAPSULE 06/03/18 Pravastatin Sodium (PRAVACHOL) 20 Mg Tablet, 20 MG PO QDAY, TAB 06/03/18 Aripiprazole (ABILIFY) 5 Mg Tablet, 5 MG PO QDAY, #10 TAB 06/03/18 Discontinued Reported Medications Hydrocodone Bit/Acetaminophen (HYDROCODON-ACETAMINOPHEN 5-325) 1 Each Tablet, 1 EACH PO Q4-6H, TAB 07/16/18 Prochlorperazine Maleate (Compazine) 10 Mg Tablet 06/03/18 Insulin Aspart (Niacinamide) (Fiasp 100 Unit/ml Flextouch) 100 Unit/Ml (3 Ml) Insuln.pen, 10 UNIT INJ QDAY 07/16/18 Dexlansoprazole (DEXILANT) 60 Mg Cap., 60 MG PO BID 07/16/18 Cyclobenzaprine Hcl (CYCLOBENZAPRINE HCL) 10 Mg Tablet, 10 MG PO TID PRN for SPASMS, #9 TAB 07/16/18 Ranitidine Hcl (ZANTAC) 150 Mg Tablet, 150 MG PO BID, TAB 07/16/18 Omeprazole (OMEPRAZOLE) 40 Mg Capsule.dr, 40 MG PO BID, CAP 07/16/18 Ondansetron 4 Mg Odt (ONDANSETRON 4 MG ODT) 4 Mg Tab.rapdis, 4 MG PO ONCE, TAB 06/03/18 Discontinued Scripts Ondansetron 4 Mg Odt (ONDANSETRON 4 MG ODT) 4 Mg Tab.rapdis, 4 MG PO ONCE, #20 TAB Prov:CAROLE MARIE DO 06/21/18 Blood Sugar Diagnostic (GLUCOSE TEST STRIP) 1 Each Strip, 1 EACH MC TID, #100 STRIP 5 Refills Prov:LEILA CA MD 06/23/18 Blood-Glucose Meter (BLOOD GLUCOSE METER) 1 Each Each, EACH MC ONCE, #1 Prov:LEILA CA MD 06/23/18 Hydrocodone Bit/Acetaminophen (HYDROCODON-ACETAMINOPHEN 5-325) 1 Each Tablet, 1 EACH PO Q4-6H PRN for PAIN, #6 TAB Prov:MICHELLE CHRISTIAN 06/22/18 Tramadol Hcl (TRAMADOL HCL) 50 Mg Tablet, 50 MG PO Q6H PRN for PAIN, #12 TAB 0 Refills Prov:CAROLE MARIE DO 06/21/18 Ondansetron Hcl (ZOFRAN) 4 Mg Tablet, 4 MG PO Q8H for Nausea, #15 TAB 0 Refills Prov:JOSE KIMBALL MD 06/03/18 Multpiple Antipsychotics Used: No Diet: Regular Activity: As Tolerated Special Instructions: Take medications as prescribed. Follow up with outpatient provider for medication management. Follow up with outpatient therapy. Call Crisis Line should symptoms return. Copies to: LEILA CA MD ; MARC DAWN MD Jul 17, 2018 13:09
== END 2018-07-17 11:26 | disposition home or self-care (01) | DRG 885 ==
LOC: BHS 20:23
PROVIDERS: ADMIT Psychiatry & Neurology Psychiatry; ATTEND Psychiatry & Neurology Psychiatry
DX: F31.2 Bipolar disorder, current episode manic severe with psychotic features (principal); Z68.41 Body mass index [BMI] 40.0-44.9, adult; F43.12 Post-traumatic stress disorder, chronic; I10 Essential (primary) hypertension; G47.33 Obstructive sleep apnea (adult) (pediatric); E11.65 Type 2 diabetes mellitus with hyperglycemia; E78.5 Hyperlipidemia, unspecified; E66.9 Obesity, unspecified; Z91.5 Personal history of self-harm; Z98.84 Bariatric surgery status; Z88.0 Allergy status to penicillin; Z88.2 Allergy status to sulfonamides; Z88.8 Allergy status to other drugs, medicaments and biological substances; Z79.4 Long term (current) use of insulin; Z62.811 Personal history of psychological abuse in childhood; Z62.810 Personal history of physical and sexual abuse in childhood
CPT/HCPCS: 36415; 36416; 80305; 80320; 80329; 81001; 81025; 82040; 82247; 82310; 82374; 82435; 82565; 82947; 82948; 83735; 84075; 84132; 84155; 84295; 84443; 84450; 84460; 84520; 85025; 87077; 87088; 87186; 99284; J1815

== ENCOUNTER 2018-08-02 12:03 | Emergency (ER) | payer MEDICAID ==
[~2018-08-02 12:03] MED LIST changes: +BLOO-1037 MC; +CYCL10TA29 PO; +INSU100I16 INJ; +MELA5TAB6 PO; +NEED-653 TOP; +RANI-366 PO; +[UNRECOGNIZED DRUG - CODE] TOP
--- NOTE | 2018-08-02 12:07 | ER Report ---
History and Physical Time Seen By MD: 12:21 HPI/ROS CHIEF COMPLAINT: Right lower quadrant abdominal pain HISTORY OF PRESENT ILLNESS: Patient is a 38-year-old female with multiple medical problems including history of gastric bypass, appendectomy and cholecystectomy as well as total hysterectomy. She presents today with sudden onset of right lower quadrant abdominal pain that began around 9 AM and she asked she states that it was fairly insidious in onset however her pain is currently 8 out of 10 in intensity. Nothing seems to make it better or worse. She had a normal bowel movement this morning and complains of no dysuria or urinary frequency. She denies any vaginal discharge. She denies chest pain or shortness of breath. She denies fevers. She reports no nausea or vomiting. This might feel similar to her prior kidney stones. REVIEW OF SYSTEMS: Constitutional: No fever, no chills. Eyes: No discharge. ENT: No sore throat. Cardiovascular: No chest pain, no palpitations. Respiratory: No cough, no shortness of breath. Gastrointestinal: Lower quadrant abdominal pain, no nausea, no vomiting Genitourinary: No hematuria. Musculoskeletal: No back pain. Skin: No rashes. Neurological: No headache. Allergies: Coded Allergies: Sulfa (Sulfonamide Antibiotics) (Verified Allergy, Severe, NAUSEA/VOMITING, 07/14/18) lamotrigine (Verified Allergy, Severe, 07/14/18) onion (Verified Allergy, Severe, NAUSEA/VOMITING, 07/14/18) Penicillins (Verified Allergy, Unknown, 07/14/18) amoxicillin (Verified Allergy, Unknown, 07/14/18) cephalexin (Verified Allergy, Unknown, 07/14/18) clavulanic acid (Verified Allergy, Unknown, 07/14/18) fluticasone (Verified Allergy, Unknown, 07/14/18) ibuprofen (Verified Allergy, Unknown, 07/14/18) nicotine (Verified Allergy, Unknown, 07/14/18) salmeterol (Verified Allergy, Unknown, 07/14/18) Home Meds Active Scripts Ondansetron Hcl (ZOFRAN) 4 Mg Tablet, 4 MG PO Q8H for Nausea, #15 TAB 0 Refills Prov:JOSE KIMBALL MD 08/02/18 Hydrocodone Bit/Acetaminophen (HYDROCODON-ACETAMINOPHEN 5-325) 1 Each Tablet, 1 EACH PO Q4H for PAIN, #6 TAB 0 Refills Prov:JOSE KIMBALL MD 08/02/18 Blood Sugar Diagnostic (BLOOD GLUCOSE TEST STRIP) 1 Each Strip, 1 EACH MC TID, #100 STRIP 5 Refills patient to check blood glucose TID Prov:LEILA CA MD 07/29/18 Syringe and Needle,Insulin,1Ml (Insulin Syringe) 31 Gauge X 1/4" Disp.syrin, UNIT TOP DIRECTED, #100 5 Refills patient to use as directed to inject insulin Prov:LEILA CA MD 07/29/18 [place], Insulin Disposable (Bd Ultra-Fine Pen Needle) 1 Each Dis.needle, UNITS TOP DIRECTED, #100 5 Refills Patient to use up to three times daily to inject insulin Prov:LEILA CA MD 07/29/18 Insulin Aspart 100 Un/Ml Pen (NOVOLOG FLEXPEN) 100 Unit/1 Ml Insuln.pen, 10 UNIT SQ 2-3XD, #2 BOX 6 Refills with each meal, MAX 40 U/24 hours Prov:LEILA CA MD 07/29/18 Insulin Glargine (LANTUS) 100 Unit/Ml Soln, 30 UNIT SUBQ BID, #4 VIAL 6 Refills Prov:LEILA CA MD 07/29/18 Promethazine Hcl (PROMETHAZINE HCL) 25 Mg Tablet, 25 MG PO Q8H PRN for nausea,vomiting, #30 TAB 2 Refills Prov:LEILA CA MD 07/29/18 Tizanidine Hcl (TIZANIDINE HCL) 2 Mg Capsule, 2 MG PO QHS PRN for neck pain, #30 CAPSULE 6 Refills Prov:LEILA CA MD 07/29/18 Gabapentin (GABAPENTIN) 300 Mg Capsule, 300 MG PO TID, #90 CAPSULE 6 Refills TAKES ONE CAP AM AND TWO CAPS PM Prov:LEILA CA MD 07/29/18 Triamterene/Hydrochlorothiazid (TRIAMTERENE-HCTZ 37.5-25 MG TB) 1 Each Tablet, 1 EACH PO QDAY, #30 TAB 6 Refills Prov:LEILA CA MD 07/29/18 Fluoxetine Hcl (FLUOXETINE HCL) 20 Mg Capsule, 20 MG PO QDAY for 30 Days, #30 CAPSULE 1 Refill Prov:LEILA CA MD 07/29/18 Pravastatin Sodium (PRAVACHOL) 20 Mg Tablet, 20 MG PO QDAY, #30 TAB 1 Refill Prov:LEILA CA MD 07/29/18 Aripiprazole (ABILIFY) 5 Mg Tablet, 5 MG PO QDAY, #30 TAB 1 Refill Prov:LEILA CA MD 07/29/18 Dexlansoprazole (DEXILANT) 60 Mg Bala., 60 MG PO BID, #60 TAB 6 Refills Prov:LEILA CA MD 06/23/18 Reported Medications Melatonin (MELATONIN) 5 Mg Tablet, 5 MG PO HS PRN for diff sleeping 07/29/18 Discontinued Reported Medications Metoclopramide Hcl (METOCLOPRAMIDE HCL) 10 Mg Tablet, 10 MG PO TID PRN for nausea 06/12/18 Melatonin (Melatonin) 10 Mg Tab.rapdis, HS 06/12/18 Nystatin 100,000 Unit/Gm Top Powder (NYSTATIN 100,000 UNIT/GM TOP POWDER) Unknown Strength Powder, TP PRN, TUBE 06/12/18 Sumatriptan Succinate (SUMATRIPTAN SUCCINATE) 50 Mg Tablet, 50 MG PO ONCE, #5 TAB 06/03/18 Discontinued Scripts Sucralfate (CARAFATE) 1 Gm Tablet, 1 GM PO QID, #60 TAB Take before meals and at bedtime. Crush the tablet and mix with water before taking. Prov:MICHELLE CHRISTIAN DIRECTOR OF LOGISTICS 06/22/18 Past Medical/Surgical History Past medical history for GERD, insulin-dependent diabetes, elevated BMI, hypercholesterolemia, depression, bipolar disorder, history of kidney stones Hx Smoking: Yes Smoking Status: Former Smoker Hx Substance Use Disorder: No Hx Alcohol Use: Yes Constitutional Vital Sign - Last 24 Hours 08/02/18 08/02/18 12:07 13:20 Temp 97.4 Pulse 98 Resp 18 Pulse Ox 90 O2 Delivery Room Air O2 Flow Rate 2.0 Physical Exam General Appearance: The patient is alert, has no immediate need for airway protection and no signs of toxicity. Elevated BMI in Eyes: Pupils equal and round no pallor or injection. ENT, Mouth: Mucous membranes are moist. Respiratory: There are no retractions, lungs are clear to auscultation. Cardiovascular: Regular rate and rhythm. [ ] Gastrointestinal: Abdomen is noted right lower quadrant tenderness. No guarding or rebound tenderness was elicited on exam. Neurological: Awake and alert Skin: Warm and dry, no rashes. Musculoskeletal: Neck is supple non tender. Extremities are nontender, nonswollen and have full range of motion. Medical Decision Making Data Points Result Diagram: 08/02/18 1214 08/02/18 1214 Laboratory Hematology Test 08/02/18 12:11 08/02/18 12:14 Urine Color Yellow Urine Clarity Slightly-cloudy Urine pH 5.0 pH (4.8-9.5) Urine Specific Point 1.016 Urine Protein Negative mg/dL (NEGATIVE) Urine Glucose (UA) Negative mg/dL (NEGATIVE) Urine Ketones Negative mg/dL (NEGATIVE) Urine Blood Negative (NEGATIVE) Urine Nitrite Negative (NEGATIVE) Urine Bilirubin Negative (NEGATIVE) Urine Urobilinogen Negative mg/dL (0.2-1.9) Urine Leukocyte Esterase Negative (NEGATIVE) Urine RBC None /HPF (0-2/HPF) Urine WBC 1 /HPF (0-5/HPF) Urine Squamous Epithelial Cells Many /LPF (</=FEW) Urine Bacteria Few /HPF (NONE-FEW) Urine Mucus None /HPF (NONE-FEW) Red Blood Count 5.47 M/uL (4.17-5.56) Mean Corpuscular Volume 85.1 fL (80.0-96.0) Mean Corpuscular Hemoglobin 28.4 pg (26.0-33.0) Mean Corpuscular Hemoglobin Concent 33.4 g/dL (32.0-36.0) Red Cell Distribution Width 15.1 % (11.5-14.5) Mean Platelet Volume 8.1 fL (7.2-11.1) Neutrophils (%) (Auto) 65.7 % (39.4-72.5) Lymphocytes (%) (Auto) 25.3 % (17.6-49.6) Monocytes (%) (Auto) 6.8 % (4.1-12.4) Eosinophils (%) (Auto) 1.9 % (0.4-6.7) Basophils (%) (Auto) 0.3 % (0.3-1.4) Nucleated RBC Relative Count (auto) 0.0 /100WBC Neutrophils # (Auto) 7.2 K/uL (2.0-7.4) Lymphocytes # (Auto) 2.8 K/uL (1.3-3.6) Monocytes # (Auto) 0.7 K/uL (0.3-1.0) Eosinophils # (Auto) 0.2 K/uL (0.0-0.5) Basophils # (Auto) 0.0 K/uL (0.0-0.1) Nucleated RBC Absolute Count (auto) 0.00 K/uL Sodium Level 142 mmol/L (137-145) Potassium Level 3.9 mmol/L (3.5-5.0) Chloride Level 105 mmol/L (98-107) Carbon Dioxide Level 25 mmol/L (22-31) Blood Urea Nitrogen 11 mg/dl (7-18) Creatinine 0.60 mg/dl (0.52-1.04) Glomerular Filtration Rate Calc > 60.0 Random Glucose 237 mg/dl (75-110) Calcium Level 10.0 mg/dl (8.4-10.2) Total Bilirubin 0.7 mg/dl (0.2-1.3) Aspartate Amino Transf (AST/SGOT) 35 U/L (0-35) Alanine Aminotransferase (ALT/SGPT) 33 U/L (0-56) Alkaline Phosphatase 88 U/L (0-126) Total Protein 7.8 g/dl (6.3-8.2) Albumin 4.8 g/dl (3.5-5.0) Amylase Level 82 U/L (0-110) Lipase 44 U/L (23-300) Chemistry Test 08/02/18 12:11 08/02/18 12:14 Urine Color Yellow Urine Clarity Slightly-cloudy Urine pH 5.0 pH (4.8-9.5) Urine Specific Point 1.016 Urine Protein Negative mg/dL (NEGATIVE) Urine Glucose (UA) Negative mg/dL (NEGATIVE) Urine Ketones Negative mg/dL (NEGATIVE) Urine Blood Negative (NEGATIVE) Urine Nitrite Negative (NEGATIVE) Urine Bilirubin Negative (NEGATIVE) Urine Urobilinogen Negative mg/dL (0.2-1.9) Urine Leukocyte Esterase Negative (NEGATIVE) Urine RBC None /HPF (0-2/HPF) Urine WBC 1 /HPF (0-5/HPF) Urine Squamous Epithelial Cells Many /LPF (</=FEW) Urine Bacteria Few /HPF (NONE-FEW) Urine Mucus None /HPF (NONE-FEW) White Blood Count 10.9 k/uL (4.5-11.0) Red Blood Count 5.47 M/uL (4.17-5.56) Hemoglobin 15.6 g/dL (12.0-16.0) Hematocrit 46.6 % (34.0-47.0) Mean Corpuscular Volume 85.1 fL (80.0-96.0) Mean Corpuscular Hemoglobin 28.4 pg (26.0-33.0) Mean Corpuscular Hemoglobin Concent 33.4 g/dL (32.0-36.0) Red Cell Distribution Width 15.1 % (11.5-14.5) Platelet Count 220 K/uL (150-450) Mean Platelet Volume 8.1 fL (7.2-11.1) Neutrophils (%) (Auto) 65.7 % (39.4-72.5) Lymphocytes (%) (Auto) 25.3 % (17.6-49.6) Monocytes (%) (Auto) 6.8 % (4.1-12.4) Eosinophils (%) (Auto) 1.9 % (0.4-6.7) Basophils (%) (Auto) 0.3 % (0.3-1.4) Nucleated RBC Relative Count (auto) 0.0 /100WBC Neutrophils # (Auto) 7.2 K/uL (2.0-7.4) Lymphocytes # (Auto) 2.8 K/uL (1.3-3.6) Monocytes # (Auto) 0.7 K/uL (0.3-1.0) Eosinophils # (Auto) 0.2 K/uL (0.0-0.5) Basophils # (Auto) 0.0 K/uL (0.0-0.1) Nucleated RBC Absolute Count (auto) 0.00 K/uL Glomerular Filtration Rate Calc > 60.0 Calcium Level 10.0 mg/dl (8.4-10.2) Total Bilirubin 0.7 mg/dl (0.2-1.3) Aspartate Amino Transf (AST/SGOT) 35 U/L (0-35) Alanine Aminotransferase (ALT/SGPT) 33 U/L (0-56) Alkaline Phosphatase 88 U/L (0-126) Total Protein 7.8 g/dl (6.3-8.2) Albumin 4.8 g/dl (3.5-5.0) Amylase Level 82 U/L (0-110) Lipase 44 U/L (23-300) Urinalysis Test 08/02/18 12:11 Urine Color Yellow Urine Clarity Slightly-cloudy Urine pH 5.0 pH (4.8-9.5) Urine Specific Point 1.016 Urine Protein Negative mg/dL (NEGATIVE) Urine Glucose (UA) Negative mg/dL (NEGATIVE) Urine Ketones Negative mg/dL (NEGATIVE) Urine Blood Negative (NEGATIVE) Urine Nitrite Negative (NEGATIVE) Urine Bilirubin Negative (NEGATIVE) Urine Urobilinogen Negative mg/dL (0.2-1.9) Urine Leukocyte Esterase Negative (NEGATIVE) Urine RBC None /HPF (0-2/HPF) Urine WBC 1 /HPF (0-5/HPF) Urine Squamous Epithelial Cells Many /LPF (</=FEW) Urine Bacteria Few /HPF (NONE-FEW) Urine Mucus None /HPF (NONE-FEW) EKG/Imaging Imaging 08/02/2018 12:23:37 pm bedside ultrasound shows a degree of mild to moderate hydronephrosis of the right kidney there also appears to be a simple renal cyst we will obtain a noncontrast CT of the abdomen and pelvis to investigate this further. FACILITY: [facility] PATIENT NAME: Zain Simons : 1970 MR: [id number] V: [id number] EXAM DATE: ORDERING PHYSICIAN: JOSE KIMBALL TECHNOLOGIST: Location: [facility] - [place] Patient: Zain Simons : 1970 Visit/Account:[id number] Date of Sevice: 08/02/2018 CT ABDOMEN PELVIS W/O CON HISTORY: Mild right hydronephrosis, abnormal ultrasound TECHNIQUE: CT abdomen and pelvis without intravenous contrast. Contiguous axial images of the abdomen and pelvis was performed from the lung bases to the symphysis pubis. One of the following dose optimization techniques was utilized in the performance of this exam: Automated exposure control; adjustment of the mA and/or kV according to the patient's size; or use of an iterative reconstruction technique. Specific details can be referenced in the facility's radiology CT exam operational policy. CONTRAST: None. COMPARISON: CT scan 06/25/2018 FINDINGS: Visualized lung bases: 4 mm left upper lobe micronodule is stable from prior exams. Hepatobiliary: Liver measures 19.5 cm in craniocaudal length with geographic areas of fatty infiltration. Subtle hypodensity dome of liver may represent a cyst measures 7 mm and is stable from prior exam. Contour of liver is slightly nodular. Gallbladder is absent. Spleen: Negative. Adrenals: Left adrenal adenoma measures 13 mm with Hounsfield units of -10. Kidneys/: Fullness of the right renal pelvis is stable from prior examinations but there are no visible renal or ureteral stones. Finding may reflect an extrarenal pelvis. Pancreas: Negative. GI: Postoperative changes are noted from gastric bypass procedure. Vessels/spaces/nodes: Small retroperitoneal and pelvic lymph nodes are noted. Bones/soft tissues: Degenerative changes are noted L4-5. IMPRESSION: 1. No acute pathology in the abdomen or pelvis. 2. Mild fullness of the right renal collecting system is stable from prior examinations could reflect a small right extrarenal pelvis. No visualized renal or ureteral stones. Right ureter is nonobstructed. 3. Postoperative changes are noted from prior gastric bypass. Report Dictated By: Dawit Carmichael MD at 08/02/2018 12:58 PM Report E-Signed By: Dawit Carmichael MD at 08/02/2018 1:07 PM WSN:[email or web address] ED Course/Re-evaluation Clinical Indication for ER IV: IV Access ED Course 08/02/2018 1:51:58 pm no acute or concerning cause for abdominal pain could be found in this patient. We'll discharge home on short course of pain medicine Zofran. We'll instruct patient to follow-up if symptoms worsen or progress. Decision to Disposition Date: Aug 02, 2018 Decision to Disposition Time: 13:46 Depart Departure Latest Vital Signs Vital Signs Date Time Temp Pulse Resp B/P (MAP) Pulse Ox O2 Delivery O2 Flow Rate FiO2 08/02/18 13:20 2.0 08/02/18 12:07 97.4 98 18 90 Room Air Impression: Primary Impression: Abdominal pain Condition: Improved Disposition: HOME OR SELF-CARE Referrals: LEILA CA MD (PCP) New Scripts Ondansetron Hcl (ZOFRAN) 4 Mg Tablet 4 MG PO Q8H for Nausea, #15 TAB 0 Refills Prov: JOSE KIMBALL MD 08/02/18 Hydrocodone Bit/Acetaminophen (HYDROCODON-ACETAMINOPHEN 5-325) 1 Each Tablet 1 EACH PO Q4H for PAIN, #6 TAB 0 Refills Prov: JOSE KIMBALL MD 08/02/18 Patient Instructions: Abdominal Pain (ED) Problem Qualifiers Primary Impression: Abdominal pain Abdominal location: right lower quadrant Qualified Codes: R10.31 - Right lower quadrant pain JOSE KIMBALL MD Aug 02, 2018 12:07
[2018-08-02] MEDS ORDERED: NS(*) 0.9% 1000 ML BAG 1,000 ML IV ONE (12:24)
[2018-08-02] MEDS ORDERED: KETOROLAC 30 MG/ML VIAL IVP ONE (12:25)
[2018-08-02] MEDS ORDERED: ONDANSETRON 4 MG/2 ML VIAL IVP ONE (12:25)
[2018-08-02 12:38] LABS: PLATELET COUNT, AUTOMATED 220 K/uL (150-450)
[2018-08-02] MEDS ORDERED: ACETAMINOPHEN(*)1000 MG/100 ML 100 ML IVPB ONE (13:10)
--- NOTE | 2018-08-02 13:11 | RADIOLOGY IMAGING REPORT ---
FACILITY: [facility] PATIENT NAME: Zain Simons : 1970 MR: [id number] V: [id number] EXAM DATE: ORDERING PHYSICIAN: JOSE KIMBALL TECHNOLOGIST: Location: [facility] - [place] Patient: Zain Simons : 1970 Visit/Account:[id number] Date of Sevice: 08/02/2018 CT ABDOMEN PELVIS W/O CON HISTORY: Mild right hydronephrosis, abnormal ultrasound TECHNIQUE: CT abdomen and pelvis without intravenous contrast. Contiguous axial images of the abdom en and pelvis was performed from the lung bases to the symphysis pubis. One of the following dose optimization techniques was utilized in the performance of this exam: Autom ated exposure control; adjustment of the mA and/or kV according to the patient's size; or use of an i terative reconstruction technique. Specific details can be referenced in the facility's radiology C T exam operational policy. CONTRAST: None. COMPARISON: CT scan 06/25/2018 FINDINGS: Visualized lung bases: 4 mm left upper lobe micronodule is stable from prior exams. Hepatobiliary: Liver measures 19.5 cm in craniocaudal length with geographic areas of fatty infiltra tion. Subtle hypodensity dome of liver may represent a cyst measures 7 mm and is stable from prior e xam. Contour of liver is slightly nodular. Gallbladder is absent. Spleen: Negative. Adrenals: Left adrenal adenoma measures 13 mm with Hounsfield units of -10. Kidneys/: Fullness of the right renal pelvis is stable from prior examinations but there are no vi sible renal or ureteral stones. Finding may reflect an extrarenal pelvis. Pancreas: Negative. GI: Postoperative changes are noted from gastric bypass procedure. Vessels/spaces/nodes: Small retroperitoneal and pelvic lymph nodes are noted. Bones/soft tissues: Degenerative changes are noted L4-5. IMPRESSION: 1. No acute pathology in the abdomen or pelvis. 2. Mild fullness of the right renal collecting system is stable from prior examinations could reflec t a small right extrarenal pelvis. No visualized renal or ureteral stones. Right ureter is nonobstr ucted. 3. Postoperative changes are noted from prior gastric bypass. Report Dictated By: Dawit Carmichael MD at 08/02/2018 12:58 PM Report E-Signed By: Dawit Carmichael MD at 08/02/2018 1:07 PM [id number]
[2018-08-02] MEDS ORDERED: ONDA4TAB97 PO ×2 (13:28→13:48)
[2018-08-02] MEDS ORDERED: HYDR-385 PO ×2 (13:28→13:48)
[2018-08-02 13:54] VITALS: BP 132/85
== END 2018-08-02 13:55 | disposition home or self-care (01) ==
LOC: ER 12:07
DX: R10.31 Right lower quadrant pain (principal)
CPT/HCPCS: 74176; 81001; 82150; 83690; 85025; 96361; 96374; 96375; 99284; J0131; J1885; J2405; J7030; 82040; 82247; 82310; 82374; 82435; 82565; 82947; 84075; 84132; 84155; 84295; 84450; 84460; 84520

== ENCOUNTER 2018-08-03 18:40 | Emergency (ER) | payer MEDICAID ==
--- NOTE | 2018-08-03 18:48 | ER Report ---
History and Physical Time Seen By MD: 18:48 HPI/ROS CHIEF COMPLAINT: Abdominal pain HISTORY OF PRESENT ILLNESS: This is a 48 year old female. She is having continued abdominal pain. Was seen yesterday for the same complaint. Workup including labs, ultrasound and CT scan of the abdomen and pelvis were negative. She says that the pain is still in the right abdomen. It worsens when she eats. No nausea with this today, but not eating or drinking because of the pain. Hurts even when she takes her medicine. Lortab is not helping with the pain. No increased reflux. Had a normal bowel movement today, no blood or melena. Less urination today, but no dysuria. Not eating and she feels like her blood glucose is low. No fevers or chills. Movement makes the pain worse. Taking her regular medicines, but skipping meal-time insulin. Still taking her Lantus. Allergies: Coded Allergies: Sulfa (Sulfonamide Antibiotics) (Verified Allergy, Severe, NAUSEA/VOMITING, 08/03/18) lamotrigine (Verified Allergy, Severe, 08/03/18) onion (Verified Allergy, Severe, NAUSEA/VOMITING, 08/03/18) Penicillins (Verified Allergy, Unknown, 08/03/18) amoxicillin (Verified Allergy, Unknown, 08/03/18) cephalexin (Verified Allergy, Unknown, 08/03/18) clavulanic acid (Verified Allergy, Unknown, 08/03/18) fluticasone (Verified Allergy, Unknown, 08/03/18) ibuprofen (Verified Allergy, Unknown, 08/03/18) nicotine (Verified Allergy, Unknown, 08/03/18) salmeterol (Verified Allergy, Unknown, 08/03/18) Home Meds Active Scripts Ondansetron Hcl (ZOFRAN) 4 Mg Tablet, 4 MG PO Q8H for Nausea, #15 TAB 0 Refills Prov:JOSE KIMBALL MD 08/02/18 Hydrocodone Bit/Acetaminophen (HYDROCODON-ACETAMINOPHEN 5-325) 1 Each Tablet, 1 EACH PO Q4H for PAIN, #6 TAB 0 Refills Prov:JOSE KIMBALL MD 08/02/18 Blood Sugar Diagnostic (BLOOD GLUCOSE TEST STRIP) 1 Each Strip, 1 EACH MC TID, #100 STRIP 5 Refills patient to check blood glucose TID Prov:LEILA CA MD 07/29/18 Syringe and Needle,Insulin,1Ml (Insulin Syringe) 31 Gauge X 1/4" Disp.syrin, UNIT TOP DIRECTED, #100 5 Refills patient to use as directed to inject insulin Prov:LEILA CA MD 07/29/18 [place], Insulin Disposable (Bd Ultra-Fine Pen Needle) 1 Each Dis.needle, UNITS TOP DIRECTED, #100 5 Refills Patient to use up to three times daily to inject insulin Prov:LEILA CA MD 07/29/18 Insulin Aspart 100 Un/Ml Pen (NOVOLOG FLEXPEN) 100 Unit/1 Ml Insuln.pen, 10 UNIT SQ 2-3XD, #2 BOX 6 Refills with each meal, MAX 40 U/24 hours Prov:LEILA CA MD 07/29/18 Insulin Glargine (LANTUS) 100 Unit/Ml Soln, 30 UNIT SUBQ BID, #4 VIAL 6 Refills Prov:LEILA CA MD 07/29/18 Promethazine Hcl (PROMETHAZINE HCL) 25 Mg Tablet, 25 MG PO Q8H PRN for nausea,vomiting, #30 TAB 2 Refills Prov:LEILA CA MD 07/29/18 Tizanidine Hcl (TIZANIDINE HCL) 2 Mg Capsule, 2 MG PO QHS PRN for neck pain, #30 CAPSULE 6 Refills Prov:LEILA CA MD 07/29/18 Gabapentin (GABAPENTIN) 300 Mg Capsule, 300 MG PO TID, #90 CAPSULE 6 Refills TAKES ONE CAP AM AND TWO CAPS PM Prov:LEILA CA MD 07/29/18 Triamterene/Hydrochlorothiazid (TRIAMTERENE-HCTZ 37.5-25 MG TB) 1 Each Tablet, 1 EACH PO QDAY, #30 TAB 6 Refills Prov:LEILA CA MD 07/29/18 Fluoxetine Hcl (FLUOXETINE HCL) 20 Mg Capsule, 20 MG PO QDAY for 30 Days, #30 CAPSULE 1 Refill Prov:LEILA CA MD 07/29/18 Pravastatin Sodium (PRAVACHOL) 20 Mg Tablet, 20 MG PO QDAY, #30 TAB 1 Refill Prov:LEILA CA MD 07/29/18 Aripiprazole (ABILIFY) 5 Mg Tablet, 5 MG PO QDAY, #30 TAB 1 Refill Prov:LEILA CA MD 07/29/18 Dexlansoprazole (DEXILANT) 60 Mg Cap., 60 MG PO BID, #60 TAB 6 Refills Prov:LEILA CA MD 06/23/18 Reported Medications Melatonin (MELATONIN) 5 Mg Tablet, 5 MG PO HS PRN for diff sleeping 07/29/18 Discontinued Reported Medications Metoclopramide Hcl (METOCLOPRAMIDE HCL) 10 Mg Tablet, 10 MG PO TID PRN for nausea 06/12/18 Melatonin (Melatonin) 10 Mg Tab.rapdis, HS 06/12/18 Nystatin 100,000 Unit/Gm Top Powder (NYSTATIN 100,000 UNIT/GM TOP POWDER) Unknown Strength Powder, TP PRN, TUBE 06/12/18 Sumatriptan Succinate (SUMATRIPTAN SUCCINATE) 50 Mg Tablet, 50 MG PO ONCE, #5 TAB 06/03/18 Discontinued Scripts Ondansetron Hcl (ZOFRAN) 4 Mg Tablet, 4 MG PO Q8H for Nausea, #15 TAB 0 Refills Prov:JOSE KIMBALL MD 08/02/18 Hydrocodone Bit/Acetaminophen (HYDROCODON-ACETAMINOPHEN 5-325) 1 Each Tablet, 1 EACH PO Q4H for PAIN, #6 TAB 0 Refills Prov:JOSE KIMBALL MD 08/02/18 Sucralfate (CARAFATE) 1 Gm Tablet, 1 GM PO QID, #60 TAB Take before meals and at bedtime. Crush the tablet and mix with water before taking. Prov:MICHELLE CHRISTIAN 06/22/18 Reviewed Nurses Notes: Yes Hx Smoking: Yes Smoking Status: Former Smoker Hx Substance Use Disorder: No Hx Alcohol Use: Yes Constitutional Vital Sign - Last 24 Hours 08/03/18 08/03/18 08/03/18 08/03/18 18:47 18:49 18:55 19:00 Temp 97.5 Pulse 84 82 Resp 18 B/P (MAP) 127/69 127/69 (88) 126/66 (86) Pulse Ox 94 95 O2 Delivery Room Air 08/03/18 08/03/18 08/03/18 08/03/18 19:10 19:25 19:30 19:35 Pulse 86 90 69 B/P (MAP) 126/88 (101) Pulse Ox 93 92 91 08/03/18 08/03/18 08/03/18 08/03/18 20:00 20:05 20:20 20:25 Pulse 61 67 64 B/P (MAP) 102/60 (74) Pulse Ox 89 89 88 08/03/18 20:50 B/P (MAP) 108/66 (80) Intake and Output 08/03/18 08/03/18 08/04/18 15:00 23:00 07:00 Intake Total 1000 ml Balance 1000 ml Physical Exam General Appearance: The patient is alert. Acute distress and crying because of pain. Eyes: Pupils are equal, round. No pallor, injection or icterus. ENT: Mucous membranes are a little dry. Normal oral mucosa. Posterior oropharynx is normal. Neck: Supple and non tender. Respiratory: Lungs are clear to auscultation. Cardiovascular: Regular rate and rhythm. No murmurs, gallops or rubs. Normal capillary refill. Gastrointestinal: Abdomen is soft, tender right mid abdomen, the rest of the abdomen is non-tender. Guarding present, but no rebound. No masses or organomegaly. Hyperactive bowel sounds. No costovertebral angle tenderness with percussion. Neurological: Alert and oriented x3. Skin: Warm and dry. Musculoskeletal: No pain with palpation throughout back/spine, no pain in chest wall or ribs. No pain in the right hip. DIFFERENTIAL DIAGNOSIS: After history and physical exam, differential diagnosis was considered for abdominal pain including but not limited to colitis, gastroenteritis, gas pains, functional bowel pain and urinary tract infection. Will recheck labs and simple abdominal 3-view. Toradol 30mg IV and Morphine 4mg IV given initially with IV fluids (1000cc NS). Fingerstick blood glucose was no rmal. Medical Decision Making Data Points Result Diagram: 08/03/18 1900 08/03/181899 Laboratory Hematology Test 08/03/18 18:46 08/03/18 19:00 Urine Color Yellow Urine Clarity Clear Urine pH 5.0 pH (4.8-9.5) Urine Specific [place] 1.016 Urine Protein Negative mg/dL (NEGATIVE) Urine Glucose (UA) Negative mg/dL (NEGATIVE) Urine Ketones Negative mg/dL (NEGATIVE) Urine Blood Negative (NEGATIVE) Urine Nitrite Negative (NEGATIVE) Urine Bilirubin Negative (NEGATIVE) Urine Urobilinogen Negative mg/dL (0.2-1.9) Urine Leukocyte Esterase Negative (NEGATIVE) Urine RBC <1 /HPF (0-2/HPF) Urine WBC 1 /HPF (0-5/HPF) Urine Squamous Epithelial Cells Many /LPF (</=FEW) Urine Bacteria Few /HPF (NONE-FEW) Urine Mucus Few /HPF (NONE-FEW) Red Blood Count 5.01 M/uL (4.17-5.56) Mean Corpuscular Volume 85.0 fL (80.0-96.0) Mean Corpuscular Hemoglobin 28.3 pg (26.0-33.0) Mean Corpuscular Hemoglobin Concent 33.2 g/dL (32.0-36.0) Red Cell Distribution Width 14.5 % (11.5-14.5) Mean Platelet Volume 8.0 fL (7.2-11.1) Neutrophils (%) (Auto) 63.7 % (39.4-72.5) Lymphocytes (%) (Auto) 25.2 % (17.6-49.6) Monocytes (%) (Auto) 6.1 % (4.1-12.4) Eosinophils (%) (Auto) 3.2 % (0.4-6.7) Basophils (%) (Auto) 1.8 % (0.3-1.4) Nucleated RBC Relative Count (auto) 0.0 /100WBC Neutrophils # (Auto) 6.7 K/uL (2.0-7.4) Lymphocytes # (Auto) 2.7 K/uL (1.3-3.6) Monocytes # (Auto) 0.6 K/uL (0.3-1.0) Eosinophils # (Auto) 0.3 K/uL (0.0-0.5) Basophils # (Auto) 0.2 K/uL (0.0-0.1) Nucleated RBC Absolute Count (auto) 0.00 K/uL Sodium Level 139 mmol/L (137-145) Potassium Level 3.9 mmol/L (3.5-5.0) Chloride Level 104 mmol/L (98-107) Carbon Dioxide Level 27 mmol/L (22-31) Blood Urea Nitrogen 9 mg/dl (7-18) Creatinine 0.50 mg/dl (0.52-1.04) Glomerular Filtration Rate Calc > 60.0 Random Glucose 136 mg/dl (75-110) Calcium Level 9.2 mg/dl (8.4-10.2) Total Bilirubin 0.3 mg/dl (0.2-1.3) Aspartate Amino Transf (AST/SGOT) 43 U/L (0-35) Alanine Aminotransferase (ALT/SGPT) 35 U/L (0-56) Alkaline Phosphatase 87 U/L (0-126) C-Reactive Protein 1.5 mg/dl (<1.0) Total Protein 7.4 g/dl (6.3-8.2) Albumin 4.5 g/dl (3.5-5.0) Amylase Level 97 U/L (0-110) Lipase 100 U/L (23-300) Chemistry Test 08/03/18 18:46 08/03/18 19:00 Urine Color Yellow Urine Clarity Clear Urine pH 5.0 pH (4.8-9.5) Urine Specific [place] 1.016 Urine Protein Negative mg/dL (NEGATIVE) Urine Glucose (UA) Negative mg/dL (NEGATIVE) Urine Ketones Negative mg/dL (NEGATIVE) Urine Blood Negative (NEGATIVE) Urine Nitrite Negative (NEGATIVE) Urine Bilirubin Negative (NEGATIVE) Urine Urobilinogen Negative mg/dL (0.2-1.9) Urine Leukocyte Esterase Negative (NEGATIVE) Urine RBC <1 /HPF (0-2/HPF) Urine WBC 1 /HPF (0-5/HPF) Urine Squamous Epithelial Cells Many /LPF (</=FEW) Urine Bacteria Few /HPF (NONE-FEW) Urine Mucus Few /HPF (NONE-FEW) White Blood Count 10.5 k/uL (4.5-11.0) Red Blood Count 5.01 M/uL (4.17-5.56) Hemoglobin 14.2 g/dL (12.0-16.0) Hematocrit 42.6 % (34.0-47.0) Mean Corpuscular Volume 85.0 fL (80.0-96.0) Mean Corpuscular Hemoglobin 28.3 pg (26.0-33.0) Mean Corpuscular Hemoglobin Concent 33.2 g/dL (32.0-36.0) Red Cell Distribution Width 14.5 % (11.5-14.5) Platelet Count 213 K/uL (150-450) Mean Platelet Volume 8.0 fL (7.2-11.1) Neutrophils (%) (Auto) 63.7 % (39.4-72.5) Lymphocytes (%) (Auto) 25.2 % (17.6-49.6) Monocytes (%) (Auto) 6.1 % (4.1-12.4) Eosinophils (%) (Auto) 3.2 % (0.4-6.7) Basophils (%) (Auto) 1.8 % (0.3-1.4) Nucleated RBC Relative Count (auto) 0.0 /100WBC Neutrophils # (Auto) 6.7 K/uL (2.0-7.4) Lymphocytes # (Auto) 2.7 K/uL (1.3-3.6) Monocytes # (Auto) 0.6 K/uL (0.3-1.0) Eosinophils # (Auto) 0.3 K/uL (0.0-0.5) Basophils # (Auto) 0.2 K/uL (0.0-0.1) Nucleated RBC Absolute Count (auto) 0.00 K/uL Glomerular Filtration Rate Calc > 60.0 Calcium Level 9.2 mg/dl (8.4-10.2) Total Bilirubin 0.3 mg/dl (0.2-1.3) Aspartate Amino Transf (AST/SGOT) 43 U/L (0-35) Alanine Aminotransferase (ALT/SGPT) 35 U/L (0-56) Alkaline Phosphatase 87 U/L (0-126) C-Reactive Protein 1.5 mg/dl (<1.0) Total Protein 7.4 g/dl (6.3-8.2) Albumin 4.5 g/dl (3.5-5.0) Amylase Level 97 U/L (0-110) Lipase 100 U/L (23-300) Urinalysis Test 08/03/18 18:46 Urine Color Yellow Urine Clarity Clear Urine pH 5.0 pH (4.8-9.5) Urine Specific [place] 1.016 Urine Protein Negative mg/dL (NEGATIVE) Urine Glucose (UA) Negative mg/dL (NEGATIVE) Urine Ketones Negative mg/dL (NEGATIVE) Urine Blood Negative (NEGATIVE) Urine Nitrite Negative (NEGATIVE) Urine Bilirubin Negative (NEGATIVE) Urine Urobilinogen Negative mg/dL (0.2-1.9) Urine Leukocyte Esterase Negative (NEGATIVE) Urine RBC <1 /HPF (0-2/HPF) Urine WBC 1 /HPF (0-5/HPF) Urine Squamous Epithelial Cells Many /LPF (</=FEW) Urine Bacteria Few /HPF (NONE-FEW) Urine Mucus Few /HPF (NONE-FEW) EKG/Imaging Imaging Examination: ACUTE ABDOMEN SERIES 3 VIEW Comparison: CT 08/02/2018 and earlier. Radiographs 06/22/2018 and earlier. History: Right-sided abdominal pain for 2 days. Findings: Cardiac and hilar contour size is within normal limits. No new or enlarging consolidation, nodule, or evidence of acute peribronchial i nflammation. No pneumothorax, edema, or effusion. No pneumoperitoneum. Small bowel gas pattern is unremarkable. Moderate amount of stool in the colon. Given differences in modality this has increased since yesterday's CT. Numerous surgical clips are present in the upper abdomen. No suspicious soft tissue calcifications. Multifocal mild degenerative change. IMPRESSION: 1. No findings of acute cardiopulmonary disease. 2. Nonobstructive bowel gas pattern. Report Dictated By: Bolivar Nguyen MD at 08/03/2018 8:18 PM ED Course/Re-evaluation Clinical Indication for ER IV: Hydration, IV Access ED Course Initial evaluation reveals unremarkable labs. X-ray shows constipation to be the most likely cause of pain. Dulcolax 10mg [place] and Milk of Magnesia with prune juice PO. Good results with resolution of pain. Recommended use of Mag Citrate at home tonight. Decision to Disposition Date: Aug 03, 2018 Decision to Disposition Time: 20:51 Depart Departure Latest Vital Signs Vital Signs Date Time Temp Pulse Resp B/P (MAP) Pulse Ox O2 Delivery O2 Flow Rate FiO2 08/03/18 20:50 108/66 (80) 08/03/18 20:25 64 88 08/03/18 18:47 97.5 18 Room Air Impression: Primary Impression: Constipation Condition: Improved Disposition: HOME OR SELF-CARE Referrals: LEILA CA MD (PCP) Patient Instructions: Constipation (ED) Additional Instructions: Take the 300ml bottle of magnesium citrate tonight. It should stimulate movement of the bowel to help clean out the constipation. This can cause some stomach cramps. You can keep taking the Lortab prescribed earlier today as needed for pain. Problem Qualifiers Primary Impression: Constipation Constipation type: drug induced constipation Qualified Codes: K59.03 - Drug induced constipation MAYUR IQBAL MD Aug 03, 2018 18:48
[2018-08-03] MEDS ORDERED: KETOROLAC 30 MG/ML VIAL IVP ONE (19:10)
[2018-08-03] MEDS ORDERED: MORPHINE 4 MG/ML SDV IVP ONE (19:10)
[2018-08-03] MEDS ORDERED: NS(*) 0.9% 1000 ML BAG 1,000 ML IV ONE (19:10)
[2018-08-03 19:39] LABS: PLATELET COUNT, AUTOMATED 213 K/uL (150-450)
[2018-08-03] MEDS ORDERED: BISACODYL 10 MG SUPP PR ONE (20:20)
[2018-08-03] MEDS ORDERED: MAGNESIUM HYDROXIDE* 30ML UDCP PO ONE (20:20)
--- NOTE | 2018-08-03 20:26 | RADIOLOGY IMAGING REPORT ---
FACILITY: [facility] PATIENT NAME: Zain Simons : 1970 MR: [id number] V: [id number] EXAM DATE: ORDERING PHYSICIAN: MAYUR IQBAL TECHNOLOGIST: Location: [facility] [place] Patient: Zain Simons : 1970 Visit/Account:[id number] Date of Sevice: 08/03/2018 Examination: ACUTE ABDOMEN SERIES 3 VIEW Comparison: CT 08/02/2018 and earlier. Radiographs 06/22/2018 and earlier. History: Right-sided abdominal pain for 2 days. Findings: Cardiac and hilar contour size is within normal limits. No new or enlarging consolidation, nodule, or evidence of acute peribronchial inflammation. No pneumothorax, edema, or effusion. No pneumoperitoneum. Small bowel gas pattern is unremarkable. Moderate amount of stool in the colon. Given differences in modality this has increased since yesterday's CT. Numerous surgical clips are pr esent in the upper abdomen. No suspicious soft tissue calcifications. Multifocal mild degenerative change. IMPRESSION: 1. No findings of acute cardiopulmonary disease. 2. Nonobstructive bowel gas pattern. Report Dictated By: Bolivar Nguyen MD at 08/03/2018 8:18 PM Report E-Signed By: Bolivar Nguyen MD at 08/03/2018 8:22 PM WSN:[id number]
[2018-08-03 20:50] VITALS: BP 108/66
[2018-08-03] MEDS ORDERED: MAGNESIUM CITRATE 300 ML BTL PO ONE (20:50)
== END 2018-08-03 21:04 | disposition home or self-care (01) ==
LOC: ER 18:52
DX: K59.03 Drug induced constipation (principal)
CPT/HCPCS: 74022; 81001; 82150; 83690; 85025; 86140; 96361; 96374; 96375; 99284; J1885; J2270; J7030; 82040; 82247; 82310; 82374; 82435; 82565; 82947; 84075; 84132; 84155; 84295; 84450; 84460; 84520

== ENCOUNTER 2018-08-09 13:33 | Emergency (ER) | payer MEDICAID ==
--- NOTE | 2018-08-09 13:48 | ER Report ---
History and Physical Time Seen By MD: 13:47 Hx. of Stated Complaint: PATIENT STATES SHE WAS HERE LAST WEEKEND FOR CONSTIPATION-HAD A SUPPOSITORY AND WENT HOME. NOW HAS HAD DIARRHEA EVER SINCE. STATES "MY FOOD GOES RIGHT THROUGH ME". STATES HER BLOOD SUGAR WAS 60 THIS MORNING. WAS 176 UPON ARRIVAL. STATES DIZZINESS AND WEAKNESS HPI/ROS CHIEF COMPLAINT: Diarrhea HISTORY OF PRESENT ILLNESS: This is a 48-year-old female presents emergency department for diarrhea. Patient states she was here roughly 1 week ago for con stipation, was given some prune juice and a suppository that would help her go to the bathroom, she states that since then she's had diarrhea, she took Imodium yesterday which did seem to slow the diarrhea briefly however today she is having recurrent diarrhea. Yellowish in color, no foul odors, no blood. She does have a history of gastric bypass and does have some absorption concerns, she states that she feels very weak today, her blood sugar was noted to be 68 this morning 70 later on and she had a lightheaded spell after she checked it was around 150, she states she just feels globally weak from the week of diarrhea. She denies fevers or chills. No chest pain or shortness of breath. No abdominal pain. No rashes or meningismus. REVIEW OF SYSTEMS: Constitutional: No fever, no chills. Eyes: No discharge. ENT: No sore throat. Cardiovascular: No chest pain, no palpitations. Respiratory: No cough, no shortness of breath. Gastrointestinal: As above. Genitourinary: No hematuria. Musculoskeletal: No back pain. Skin: No rashes. Neurological: No headache. Allergies: Coded Allergies: Sulfa (Sulfonamide Antibiotics) (Verified Allergy, Severe, NAUSEA/VOMITING, 08/09/18) lamotrigine (Verified Allergy, Severe, 08/09/18) onion (Verified Allergy, Severe, NAUSEA/VOMITING, 08/09/18) Penicillins (Verified Allergy, Unknown, 08/09/18) amoxicillin (Verified Allergy, Unknown, 08/09/18) cephalexin (Verified Allergy, Unknown, 08/09/18) clavulanic acid (Verified Allergy, Unknown, 08/09/18) fluticasone (Verified Allergy, Unknown, 08/09/18) ibuprofen (Verified Allergy, Unknown, 08/09/18) nicotine (Verified Allergy, Unknown, 08/09/18) salmeterol (Verified Allergy, Unknown, 08/09/18) Home Meds Active Scripts Ondansetron Hcl (ZOFRAN) 4 Mg Tablet, 4 MG PO Q8H for Nausea, #15 TAB 0 Refills Prov:JOSE KIMBALL MD 08/02/18 Hydrocodone Bit/Acetaminophen (HYDROCODON-ACETAMINOPHEN 5-325) 1 Each Tablet, 1 EACH PO Q4H for PAIN, #6 TAB 0 Refills Prov:JOSE KIMBALL MD 08/02/18 Blood Sugar Diagnostic (BLOOD GLUCOSE TEST STRIP) 1 Each Strip, 1 EACH MC TID, #100 STRIP 5 Refills patient to check blood glucose TID Prov:LEILA HERNANDEZ MD 07/29/18 Syringe and Needle,Insulin,1Ml (Insulin Syringe) 31 Gauge X 1/4" Disp.syrin, UNIT TOP DIRECTED, #100 5 Refills patient to use as directed to inject insulin Prov:LEILA HERNANDEZ MD 07/29/18 [place], Insulin Disposable (Bd Ultra-Fine Pen Needle) 1 Each Dis.needle, UNITS TOP DIRECTED, #100 5 Refills Patient to use up to three times daily to inject insulin Prov:LEILA HERNANDEZ MD 07/29/18 Insulin Aspart 100 Un/Ml Pen (NOVOLOG FLEXPEN) 100 Unit/1 Ml Insuln.pen, 10 UNIT SQ 2-3XD, #2 BOX 6 Refills with each meal, MAX 40 U/24 hours Prov:LEILA HERNANDEZ MD 07/29/18 Insulin Glargine (LANTUS) 100 Unit/Ml Soln, 30 UNIT SUBQ BID, #4 VIAL 6 Refills Prov:LEILA HERNANDEZ MD 07/29/18 Promethazine Hcl (PROMETHAZINE HCL) 25 Mg Tablet, 25 MG PO Q8H PRN for nausea,vomiting, #30 TAB 2 Refills Prov:LEILA HERNANDEZ MD 07/29/18 Tizanidine Hcl (TIZANIDINE HCL) 2 Mg Capsule, 2 MG PO QHS PRN for neck pain, #30 CAPSULE 6 Refills Prov:LEILA HERNANDEZ MD 07/29/18 Gabapentin (GABAPENTIN) 300 Mg Capsule, 300 MG PO TID, #90 CAPSULE 6 Refills TAKES ONE CAP AM AND TWO CAPS PM Prov:LEILA HERNANDEZ MD 07/29/18 Triamterene/Hydrochlorothiazid (TRIAMTERENE-HCTZ 37.5-25 MG TB) 1 Each Tablet, 1 EACH PO QDAY, #30 TAB 6 Refills Prov:LEILA HERNANDEZ MD 07/29/18 Fluoxetine Hcl (FLUOXETINE HCL) 20 Mg Capsule, 20 MG PO QDAY for 30 Days, #30 CAPSULE 1 Refill Prov:LEILA HERNANDEZ MD 07/29/18 Pravastatin Sodium (PRAVACHOL) 20 Mg Tablet, 20 MG PO QDAY, #30 TAB 1 Refill Prov:LEILA HERNANDEZ MD 07/29/18 Aripiprazole (ABILIFY) 5 Mg Tablet, 5 MG PO QDAY, #30 TAB 1 Refill Prov:LEILA HERNANDEZ MD 07/29/18 Dexlansoprazole (DEXILANT) 60 Mg Cap.mp, 60 MG PO BID, #60 TAB 6 Refills Prov:LEILA HERNANDEZ MD 06/23/18 Reported Medications Melatonin (MELATONIN) 5 Mg Tablet, 5 MG PO HS PRN for diff sleeping 07/29/18 Discontinued Scripts Ondansetron Hcl (ZOFRAN) 4 Mg Tablet, 4 MG PO Q8H for Nausea, #15 TAB 0 Refills Prov:JOSE KIMBALL MD 08/02/18 Hydrocodone Bit/Acetaminophen (HYDROCODON-ACETAMINOPHEN 5-325) 1 Each Tablet, 1 EACH PO Q4H for PAIN, #6 TAB 0 Refills Prov:JOSE KIMBALL MD 08/02/18 Sucralfate (CARAFATE) 1 Gm Tablet, 1 GM PO QID, #60 TAB Take before meals and at bedtime. Crush the tablet and mix with water before taking. Prov:MICHELLE CHRISTIAN 06/22/18 Past Medical/Surgical History he patient has a past medical and surgical history of headaches, hypertension, hypercholesterolemia, asthma, COPD, gastric bypass, severe acid reflux, left shoulder and knee arthritis, wears glasses, type II diabetes, insulin-dependent, bipolar, PTSD, depression, cervical cancer in remission, gastric bypass, appendectomy, cholecystectomy, hysterectomy, right ankle and left shoulder surgery, tonsillectomy. Reviewed Nurses Notes: Yes Hx Smoking: Yes Smoking Status: Former Smoker Hx Substance Use Disorder: No Hx Alcohol Use: Yes Constitutional Vital Sign - Last 24 Hours 08/09/18 08/09/18 08/09/18 13:41 14:02 15:04 Temp 98.2 Pulse 80 71 84 96 Resp 20 B/P (MAP) 138/77 113/66 (82) 116/75 (89) 116/74 (88) Pulse Ox 91 O2 Delivery Room Air O2 Flow Rate 2.0 Physical Exam General Appearance: The patient is alert, has no immediate need for airway protection and no signs of toxicity. Eyes: Pupils equal and round no pallor or injection. ENT, Mouth: Mucous membranes are dry. Respiratory: There are no retractions, lungs are clear to auscultation. Cardiovascular: Regular rate and rhythm, no murmurs, clicks or rubs. Gastrointestinal: Abdomen is round, soft and non tender, no masses, bowel sounds normal. Neurological: Alert and oriented 4. Moving all extremities. Following all commands. No focal neuro deficits. Skin: Warm and dry, no rashes. Musculoskeletal: Neck is supple non tender. Extremities are nontender, nonswollen and have full range of motion. DIFFERENTIAL DIAGNOSIS: After history and physical exam differential diagnosis was considered for infectious colitis, malabsorption disease, diverticulitis, diverticulosis, food poisoning, gastroenteritis, viral syndrome. Medical Decision Making Data Points Result Diagram: 08/09/18 1352 08/09/18 1352 Laboratory Hematology Test 08/09/18 13:52 08/09/18 14:02 Red Blood Count 5.33 M/uL (4.17-5.56) Mean Corpuscular Volume 85.0 fL (80.0-96.0) Mean Corpuscular Hemoglobin 27.7 pg (26.0-33.0) Mean Corpuscular Hemoglobin Concent 32.6 g/dL (32.0-36.0) Red Cell Distribution Width 14.7 % (11.5-14.5) Mean Platelet Volume 8.0 fL (7.2-11.1) Neutrophils (%) (Auto) 65.6 % (39.4-72.5) Lymphocytes (%) (Auto) 24.8 % (17.6-49.6) Monocytes (%) (Auto) 6.8 % (4.1-12.4) Eosinophils (%) (Auto) 2.2 % (0.4-6.7) Basophils (%) (Auto) 0.6 % (0.3-1.4) Nucleated RBC Relative Count (auto) 0.0 /100WBC Neutrophils # (Auto) 7.4 K/uL (2.0-7.4) Lymphocytes # (Auto) 2.8 K/uL (1.3-3.6) Monocytes # (Auto) 0.8 K/uL (0.3-1.0) Eosinophils # (Auto) 0.2 K/uL (0.0-0.5) Basophils # (Auto) 0.1 K/uL (0.0-0.1) Nucleated RBC Absolute Count (auto) 0.01 K/uL Peripheral Blood Smear No Y/N Sodium Level 139 mmol/L (137-145) Potassium Level 3.6 mmol/L (3.5-5.0) Chloride Level 105 mmol/L (98-107) Carbon Dioxide Level 24 mmol/L (22-31) Blood Urea Nitrogen 14 mg/dl (7-18) Creatinine 0.50 mg/dl (0.52-1.04) Glomerular Filtration Rate Calc > 60.0 Random Glucose 175 mg/dl (75-110) Calcium Level 9.5 mg/dl (8.4-10.2) Total Bilirubin 0.4 mg/dl (0.2-1.3) Aspartate Amino Transf (AST/SGOT) 29 U/L (0-35) Alanine Aminotransferase (ALT/SGPT) 31 U/L (0-56) Alkaline Phosphatase 91 U/L (0-126) Total Protein 7.4 g/dl (6.3-8.2) Albumin 4.6 g/dl (3.5-5.0) Urine Color Yellow Urine Clarity Clear Urine pH 5.0 pH (4.8-9.5) Urine Specific [place] 1.014 Urine Protein Negative mg/dL (NEGATIVE) Urine Glucose (UA) 50 mg/dL (NEGATIVE) Urine Ketones Negative mg/dL (NEGATIVE) Urine Blood Negative (NEGATIVE) Urine Nitrite Negative (NEGATIVE) Urine Bilirubin Negative (NEGATIVE) Urine Urobilinogen Negative mg/dL (0.2-1.9) Urine Leukocyte Esterase Negative (NEGATIVE) Urine RBC <1 /HPF (0-2/HPF) Urine WBC 2 /HPF (0-5/HPF) Urine Squamous Epithelial Cells Many /LPF (</=FEW) Urine Bacteria Negative /HPF (NONE-FEW) Urine Mucus None /HPF (NONE-FEW) Chemistry Test 08/09/18 13:52 08/09/18 14:02 White Blood Count 11.3 k/uL (4.5-11.0) Red Blood Count 5.33 M/uL (4.17-5.56) Hemoglobin 14.7 g/dL (12.0-16.0) Hematocrit 45.3 % (34.0-47.0) Mean Corpuscular Volume 85.0 fL (80.0-96.0) Mean Corpuscular Hemoglobin 27.7 pg (26.0-33.0) Mean Corpuscular Hemoglobin Concent 32.6 g/dL (32.0-36.0) Red Cell Distribution Width 14.7 % (11.5-14.5) Platelet Count 236 K/uL (150-450) Mean Platelet Volume 8.0 fL (7.2-11.1) Neutrophils (%) (Auto) 65.6 % (39.4-72.5) Lymphocytes (%) (Auto) 24.8 % (17.6-49.6) Monocytes (%) (Auto) 6.8 % (4.1-12.4) Eosinophils (%) (Auto) 2.2 % (0.4-6.7) Basophils (%) (Auto) 0.6 % (0.3-1.4) Nucleated RBC Relative Count (auto) 0.0 /100WBC Neutrophils # (Auto) 7.4 K/uL (2.0-7.4) Lymphocytes # (Auto) 2.8 K/uL (1.3-3.6) Monocytes # (Auto) 0.8 K/uL (0.3-1.0) Eosinophils # (Auto) 0.2 K/uL (0.0-0.5) Basophils # (Auto) 0.1 K/uL (0.0-0.1) Nucleated RBC Absolute Count (auto) 0.01 K/uL Peripheral Blood Smear No Y/N Glomerular Filtration Rate Calc > 60.0 Calcium Level 9.5 mg/dl (8.4-10.2) Total Bilirubin 0.4 mg/dl (0.2-1.3) Aspartate Amino Transf (AST/SGOT) 29 U/L (0-35) Alanine Aminotransferase (ALT/SGPT) 31 U/L (0-56) Alkaline Phosphatase 91 U/L (0-126) Total Protein 7.4 g/dl (6.3-8.2) Albumin 4.6 g/dl (3.5-5.0) Urine Color Yellow Urine Clarity Clear Urine pH 5.0 pH (4.8-9.5) Urine Specific [place] 1.014 Urine Protein Negative mg/dL (NEGATIVE) Urine Glucose (UA) 50 mg/dL (NEGATIVE) Urine Ketones Negative mg/dL (NEGATIVE) Urine Blood Negative (NEGATIVE) Urine Nitrite Negative (NEGATIVE) Urine Bilirubin Negative (NEGATIVE) Urine Urobilinogen Negative mg/dL (0.2-1.9) Urine Leukocyte Esterase Negative (NEGATIVE) Urine RBC <1 /HPF (0-2/HPF) Urine WBC 2 /HPF (0-5/HPF) Urine Squamous Epithelial Cells Many /LPF (</=FEW) Urine Bacteria Negative /HPF (NONE-FEW) Urine Mucus None /HPF (NONE-FEW) Urinalysis Test 08/09/18 14:02 Urine Color Yellow Urine Clarity Clear Urine pH 5.0 pH (4.8-9.5) Urine Specific [place] 1.014 Urine Protein Negative mg/dL (NEGATIVE) Urine Glucose (UA) 50 mg/dL (NEGATIVE) Urine Ketones Negative mg/dL (NEGATIVE) Urine Blood Negative (NEGATIVE) Urine Nitrite Negative (NEGATIVE) Urine Bilirubin Negative (NEGATIVE) Urine Urobilinogen Negative mg/dL (0.2-1.9) Urine Leukocyte Esterase Negative (NEGATIVE) Urine RBC <1 /HPF (0-2/HPF) Urine WBC 2 /HPF (0-5/HPF) Urine Squamous Epithelial Cells Many /LPF (</=FEW) Urine Bacteria Negative /HPF (NONE-FEW) Urine Mucus None /HPF (NONE-FEW) ED Course/Re-evaluation Clinical Indication for ER IV: Hydration, IV Access ED Course The patient was admitted to room. A history and physical obtained. Differential diagnoses were considered. An IV was started. A CBC, CMP is all studies were ordered. A 1 L normal saline bolus was given. CBC unremarkable, chemistry showing glucose 175, negative UA, patient states having improvement of her lightheadedness after the fluid bolus was administered, negative orthostatic vital signs after the fluid bolus she was not dizzy during the orthostatic vital signs. She was unable to produce a stool sample while in the ER, I did send her home with a prescription and a collection kit, did recommend returning with a stool sample, if positive for infection we will start her on antibiotics. Patient expressed understanding and was discharged home. Decision to Disposition Date: Aug 09, 2018 Decision to Disposition Time: 15:19 Depart Departure Latest Vital Signs Vital Signs Date Time Temp Pulse Resp B/P (MAP) Pulse Ox O2 Delivery O2 Flow Rate FiO2 08/09/18 15:04 71 113/66 (82) 84 116/75 (89) 96 116/74 (88) 08/09/18 14:02 2.0 08/09/18 13:41 98.2 20 91 Room Air Impression: Primary Impression: Diarrhea Condition: Improved Disposition: HOME OR SELF-CARE Referrals: LEILA HERNANDEZ MD (PCP) 1 Week Patient Instructions: Acute Diarrhea (ED) Additional Instructions: No concerning findings on her laboratory studies today. Please take the stool collection device home, if she were able to collect some stool please return it to the admitting area and they will direct you to the laboratory, be sure to bring the prescription for stool studies. Please continue drinking plenty of fluids. Follow-up with Dr. Hernandez next week for reevaluation, or one of the partners. Get plenty of rest. Take 2 tablets to start, then 1 after each diarrhea attack no more than 4 tablets in 24 hours. If you need to do this for the next 2-3 days you can try this, just be aware that this can result in constipation. If you notice sure stool starting to slow down, decrease the amount of Imodium you are taking. Return to the ER for any other concerns or worsening symptoms. Problem Qualifiers Primary Impression: Diarrhea Diarrhea type: unspecified type Qualified Codes: R19.7 - Diarrhea, unspecified TALIA HOWARD ROLL TESTER-BC Aug 09, 2018 13:48
[2018-08-09] MEDS ORDERED: NS(*) 0.9% 1000 ML BAG 1,000 ML IV ONE (13:58)
[2018-08-09 14:15] LABS: PLATELET COUNT, AUTOMATED 236 K/uL (150-450)
[2018-08-09 15:04] VITALS: BP 116/74
== END 2018-08-09 15:23 | disposition home or self-care (01) ==
LOC: ER 13:44
DX: R19.7 Diarrhea, unspecified (principal)
CPT/HCPCS: 81001; 85025; 96360; 99283; J7030; 82040; 82247; 82310; 82374; 82435; 82565; 82947; 84075; 84132; 84155; 84295; 84450; 84460; 84520

== ENCOUNTER 2018-08-10 13:24 | Emergency (ER) | payer MEDICAID ==
[2018-08-10] MEDS ORDERED: NS(*) 0.9% 1000 ML BAG 1,000 ML IV ONE (13:28)
--- NOTE | 2018-08-10 13:37 | ER Report ---
History and Physical Time Seen By MD: 13:31 Hx. of Stated Complaint: PATIENT STATES THAT TODAY SHE IS STILL NOT FEELING WELL; STATES THAT SHE HAS AN "REALLY BAD HEAD ACHE" AND "CAN NOT SEE VERY WELL" STATES THAT SHE IS ALSO DIZZY WHEN SHE LAYS DOWN; STATES THAT SHE HAS NOT HAD DIARRHEA SINCE SHE LEFT YESTERDAY HPI/ROS CHIEF COMPLAINT: Headache and lightheadedness HISTORY OF PRESENT ILLNESS: This is a 48-year-old female who presents to the emergency department for lightheadedness. Patient was seen and evaluated in the ER yesterday for diarrhea and lightheadedness, was given fluids, no significant findings on her exam yesterday, her symptoms including the dizziness did improve yesterday. Patient states however today she has increased headache, dizziness, lightheadedness, states she has not had a bowel movement, no diarrhea since her discharge yesterday. She did not take any no EM or any other antidiarrheal agents. She does have a history of migraines, she states this feels similar to previous migraine headaches however she is concerned with the lightheadedness. She has photophobic as well. Intermittent nausea no vomiting. No chest pain or shortness of breath. She does state however she is feeling "hungry all the time, even after eating". She does have a history of gastric bypass, however no complications. REVIEW OF SYSTEMS: Constitutional: No fever, no chills. Eyes: No discharge. ENT: No sore throat. Cardiovascular: No chest pain, no palpitations. Respiratory: No cough, no shortness of breath. Gastrointestinal: As above. Genitourinary: No hematuria. Musculoskeletal: No back pain. Skin: No rashes. Neurological: As above. Allergies: Coded Allergies: Sulfa (Sulfonamide Antibiotics) (Verified Allergy, Severe, NAUSEA/VOMITING, 08/09/18) lamotrigine (Verified Allergy, Severe, 08/09/18) onion (Verified Allergy, Severe, NAUSEA/VOMITING, 08/09/18) Penicillins (Verified Allergy, Unknown, 08/09/18) amoxicillin (Verified Allergy, Unknown, 08/09/18) cephalexin (Verified Allergy, Unknown, 08/09/18) clavulanic acid (Verified Allergy, Unknown, 08/09/18) fluticasone (Verified Allergy, Unknown, 08/09/18) ibuprofen (Verified Allergy, Unknown, 08/09/18) nicotine (Verified Allergy, Unknown, 08/09/18) salmeterol (Verified Allergy, Unknown, 08/09/18) Home Meds Active Scripts Ondansetron Hcl (ZOFRAN) 4 Mg Tablet, 4 MG PO Q8H for Nausea, #15 TAB 0 Refills Prov:JOSE KIMBALL MD 08/02/18 Hydrocodone Bit/Acetaminophen (HYDROCODON-ACETAMINOPHEN 5-325) 1 Each Tablet, 1 EACH PO Q4H for PAIN, #6 TAB 0 Refills Prov:JOSE KIMBALL MD 08/02/18 Blood Sugar Diagnostic (BLOOD GLUCOSE TEST STRIP) 1 Each Strip, 1 EACH MC TID, #100 STRIP 5 Refills patient to check blood glucose TID Prov:LEILA CA MD 07/29/18 Syringe and Needle,Insulin,1Ml (Insulin Syringe) 31 Gauge X 1/4" Disp.syrin, UNIT TOP DIRECTED, #100 5 Refills patient to use as directed to inject insulin Prov:LEILA CA MD 07/29/18 [place], Insulin Disposable (Bd Ultra-Fine Pen Needle) 1 Each Dis.needle, UNITS TOP DIRECTED, #100 5 Refills Patient to use up to three times daily to inject insulin Prov:LEILA CA MD 07/29/18 Insulin Aspart 100 Un/Ml Pen (NOVOLOG FLEXPEN) 100 Unit/1 Ml Insuln.pen, 10 UNIT SQ 2-3XD, #2 BOX 6 Refills with each meal, MAX 40 U/24 hours Prov:LEILA CA MD 07/29/18 Insulin Glargine (LANTUS) 100 Unit/Ml Soln, 30 UNIT SUBQ BID, #4 VIAL 6 Refills Prov:LEILA CA MD 07/29/18 Promethazine Hcl (PROMETHAZINE HCL) 25 Mg Tablet, 25 MG PO Q8H PRN for nausea,vomiting, #30 TAB 2 Refills Prov:LEILA CA MD 07/29/18 Tizanidine Hcl (TIZANIDINE HCL) 2 Mg Capsule, 2 MG PO QHS PRN for neck pain, #30 CAPSULE 6 Refills Prov:LEILA CA MD 07/29/18 Gabapentin (GABAPENTIN) 300 Mg Capsule, 300 MG PO TID, #90 CAPSULE 6 Refills TAKES ONE CAP AM AND TWO CAPS PM Prov:LEILA CA MD 07/29/18 Triamterene/Hydrochlorothiazid (TRIAMTERENE-HCTZ 37.5-25 MG TB) 1 Each Tablet, 1 EACH PO QDAY, #30 TAB 6 Refills Prov:LEILA CA MD 07/29/18 Fluoxetine Hcl (FLUOXETINE HCL) 20 Mg Capsule, 20 MG PO QDAY for 30 Days, #30 CAPSULE 1 Refill Prov:LEILA CA MD 07/29/18 Pravastatin Sodium (PRAVACHOL) 20 Mg Tablet, 20 MG PO QDAY, #30 TAB 1 Refill Prov:LEILA CA MD 07/29/18 Aripiprazole (ABILIFY) 5 Mg Tablet, 5 MG PO QDAY, #30 TAB 1 Refill Prov:LEILA CA MD 07/29/18 Dexlansoprazole (DEXILANT) 60 Mg Cap., 60 MG PO BID, #60 TAB 6 Refills Prov:LEILA CA MD 06/23/18 Reported Medications Melatonin (MELATONIN) 5 Mg Tablet, 5 MG PO HS PRN for diff sleeping 07/29/18 Past Medical/Surgical History The patient has a past medical and surgical history of headaches, hypertension, hypercholesterolemia, asthma, COPD, gastric bypass, severe acid reflux, left shoulder and knee arthritis, wears glasses, type II diabetes, insulin-dependent, bipolar, PTSD, depression, cervical cancer in remission, gastric bypass, appendectomy, cholecystectomy, hysterectomy, right ankle and left shoulder surgery, tonsillectomy. Reviewed Nurses Notes: Yes Hx Smoking: Yes Smoking Status: Former Smoker Hx Substance Use Disorder: No Hx Alcohol Use: Yes Constitutional Vital Sign - Last 24 Hours 08/10/18 08/10/18 08/10/18 08/10/18 13:30 14:00 14:30 14:56 Temp 98.6 Pulse 64 58 64 Resp 17 18 11 B/P (MAP) 120/65 119/69 (86) 128/83 (98) 138/75 (96) Pulse Ox 94 91 94 O2 Delivery Room Air 08/10/18 08/10/18 15:00 16:00 Pulse 58 58 Resp 13 17 B/P (MAP) 125/72 (89) 108/64 (79) Pulse Ox 98 97 Physical Exam General Appearance: The patient is alert, has no immediate need for airway protection and no signs of toxicity, tearful. Eyes: Pupils equal and round no pallor or injection. ENT, Mouth: Mucous membranes are moist. Respiratory: There are no retractions, lungs are clear to auscultation. Cardiovascular: Regular rate and rhythm, no murmurs, clicks or rubs. Gastrointestinal: Abdomen is round, soft and non tender, no masses, bowel sounds normal. Neurological: Alert and oriented 4. Moving all extremities. Following all commands. No focal neuro deficits., Negative HINTS exam. Skin: Warm and dry, no rashes. Musculoskeletal: Neck is supple non tender. Extremities are nontender, nonswollen and have full range of motion. DIFFERENTIAL DIAGNOSIS: After history and physical exam differential diagnosis was considered for dizziness including but not limited to peripheral and central causes of vertigo, orthostatic causes including dehydration, and blood loss. Medical Decision Making Data Points Result Diagram: 08/10/18 1343 08/10/18 1343 Laboratory Hematology Test 08/10/18 13:30 08/10/18 13:43 08/10/18 13:47 08/10/18 14:33 Urine Color Yellow Urine Clarity Clear Urine pH 6.0 pH (4.8-9.5) Urine Specific [place] 1.010 Urine Protein Negative mg/dL (NEGATIVE) Urine Glucose (UA) Negative mg/dL (NEGATIVE) Urine Ketones Negative mg/dL (NEGATIVE) Urine Blood Negative (NEGATIVE) Urine Nitrite Negative (NEGATIVE) Urine Bilirubin Negative (NEGATIVE) Urine Urobilinogen Negative mg/dL (0.2-1.9) Urine Leukocyte Esterase Negative (NEGATIVE) Urine RBC None /HPF (0-2/HPF) Urine WBC <1 /HPF (0-5/HPF) Urine Squamous Epithelial Cells Few /LPF (</=FEW) Urine Bacteria Negative /HPF (NONE-FEW) Urine Mucus None /HPF (NONE-FEW) Red Blood Count 5.17 M/uL (4.17-5.56) Mean Corpuscular Volume 84.8 fL (80.0-96.0) Mean Corpuscular Hemoglobin 28.2 pg (26.0-33.0) Mean Corpuscular Hemoglobin Concent 33.3 g/dL (32.0-36.0) Red Cell Distribution Width 14.5 % (11.5-14.5) Mean Platelet Volume 7.8 fL (7.2-11.1) Neutrophils (%) (Auto) 62.7 % (39.4-72.5) Lymphocytes (%) (Auto) 26.6 % (17.6-49.6) Monocytes (%) (Auto) 8.3 % (4.1-12.4) Eosinophils (%) (Auto) 1.9 % (0.4-6.7) Basophils (%) (Auto) 0.5 % (0.3-1.4) Nucleated RBC Relative Count (auto) 0.0 /100WBC Neutrophils # (Auto) 6.2 K/uL (2.0-7.4) Lymphocytes # (Auto) 2.6 K/uL (1.3-3.6) Monocytes # (Auto) 0.8 K/uL (0.3-1.0) Eosinophils # (Auto) 0.2 K/uL (0.0-0.5) Basophils # (Auto) 0.0 K/uL (0.0-0.1) Nucleated RBC Absolute Count (auto) 0.00 K/uL Peripheral Blood Smear No Y/N Sodium Level 137 mmol/L (137-145) Potassium Level 4.1 mmol/L (3.5-5.0) Chloride Level 103 mmol/L (98-107) Carbon Dioxide Level 27 mmol/L (22-31) Blood Urea Nitrogen 9 mg/dl (7-18) Creatinine 0.50 mg/dl (0.52-1.04) Glomerular Filtration Rate Calc > 60.0 Random Glucose 156 mg/dl (75-110) Calcium Level 9.8 mg/dl (8.4-10.2) Total Bilirubin 0.4 mg/dl (0.2-1.3) Aspartate Amino Transf (AST/SGOT) 23 U/L (0-35) Alanine Aminotransferase (ALT/SGPT) 34 U/L (0-56) Alkaline Phosphatase 85 U/L (0-126) Total Protein 7.3 g/dl (6.3-8.2) Albumin 4.4 g/dl (3.5-5.0) Whole Blood Glucose 154 mg/DL (75-110) Carboxyhemoglobin 2.3 % (< 5.0) Chemistry Test 08/10/18 13:30 08/10/18 13:43 08/10/18 13:47 08/10/18 14:33 Urine Color Yellow Urine Clarity Clear Urine pH 6.0 pH (4.8-9.5) Urine Specific [place] 1.010 Urine Protein Negative mg/dL (NEGATIVE) Urine Glucose (UA) Negative mg/dL (NEGATIVE) Urine Ketones Negative mg/dL (NEGATIVE) Urine Blood Negative (NEGATIVE) Urine Nitrite Negative (NEGATIVE) Urine Bilirubin Negative (NEGATIVE) Urine Urobilinogen Negative mg/dL (0.2-1.9) Urine Leukocyte Esterase Negative (NEGATIVE) Urine RBC None /HPF (0-2/HPF) Urine WBC <1 /HPF (0-5/HPF) Urine Squamous Epithelial Cells Few /LPF (</=FEW) Urine Bacteria Negative /HPF (NONE-FEW) Urine Mucus None /HPF (NONE-FEW) White Blood Count 9.9 k/uL (4.5-11.0) Red Blood Count 5.17 M/uL (4.17-5.56) Hemoglobin 14.6 g/dL (12.0-16.0) Hematocrit 43.9 % (34.0-47.0) Mean Corpuscular Volume 84.8 fL (80.0-96.0) Mean Corpuscular Hemoglobin 28.2 pg (26.0-33.0) Mean Corpuscular Hemoglobin Concent 33.3 g/dL (32.0-36.0) Red Cell Distribution Width 14.5 % (11.5-14.5) Platelet Count 227 K/uL (150-450) Mean Platelet Volume 7.8 fL (7.2-11.1) Neutrophils (%) (Auto) 62.7 % (39.4-72.5) Lymphocytes (%) (Auto) 26.6 % (17.6-49.6) Monocytes (%) (Auto) 8.3 % (4.1-12.4) Eosinophils (%) (Auto) 1.9 % (0.4-6.7) Basophils (%) (Auto) 0.5 % (0.3-1.4) Nucleated RBC Relative Count (auto) 0.0 /100WBC Neutrophils # (Auto) 6.2 K/uL (2.0-7.4) Lymphocytes # (Auto) 2.6 K/uL (1.3-3.6) Monocytes # (Auto) 0.8 K/uL (0.3-1.0) Eosinophils # (Auto) 0.2 K/uL (0.0-0.5) Basophils # (Auto) 0.0 K/uL (0.0-0.1) Nucleated RBC Absolute Count (auto) 0.00 K/uL Peripheral Blood Smear No Y/N Glomerular Filtration Rate Calc > 60.0 Calcium Level 9.8 mg/dl (8.4-10.2) Total Bilirubin 0.4 mg/dl (0.2-1.3) Aspartate Amino Transf (AST/SGOT) 23 U/L (0-35) Alanine Aminotransferase (ALT/SGPT) 34 U/L (0-56) Alkaline Phosphatase 85 U/L (0-126) Total Protein 7.3 g/dl (6.3-8.2) Albumin 4.4 g/dl (3.5-5.0) Whole Blood Glucose 154 mg/DL (75-110) Carboxyhemoglobin 2.3 % (< 5.0) Urinalysis Test 08/10/18 13:30 Urine Color Yellow Urine Clarity Clear Urine pH 6.0 pH (4.8-9.5) Urine Specific [place] 1.010 Urine Protein Negative mg/dL (NEGATIVE) Urine Glucose (UA) Negative mg/dL (NEGATIVE) Urine Ketones Negative mg/dL (NEGATIVE) Urine Blood Negative (NEGATIVE) Urine Nitrite Negative (NEGATIVE) Urine Bilirubin Negative (NEGATIVE) Urine Urobilinogen Negative mg/dL (0.2-1.9) Urine Leukocyte Esterase Negative (NEGATIVE) Urine RBC None /HPF (0-2/HPF) Urine WBC <1 /HPF (0-5/HPF) Urine Squamous Epithelial Cells Few /LPF (</=FEW) Urine Bacteria Negative /HPF (NONE-FEW) Urine Mucus None /HPF (NONE-FEW) EKG/Imaging EKG Interpretation 12 lead EKG: Time of EKG 1354. Rhythm: Normal sinus rhythm, ventricular rate 66 bpm. [place]: normal QRS: normal ST segments: No ST depression or elevation identified. Low voltage EKG. Skin changes from the 07/04/2018 EKG. [place] [facility] [place]ain [place] : 1970 Visit/Account:[id number] Date of Sevice: 08/10/2018 CT Head without contrast Indication: Headache. Comparison: None available Technique: Axial CT images were obtained through the brain from the skull base to the vertex without administration of IV contrast. Reformatted coronal and sagittal images were also obtained. One of the following dose optimization techniques was utilized in the performance of this exam: automated exposure control; adjustment of the mA and/or kV according to the patient's size; or use of an iterative reconstruction technique. Specific details can be referenced in the facility's radiology CT exam operational policy. Findings: No evidence of mass, mass effect, or midline shift. No acute intracranial hemorrhage or acute territorial infarction. No extra-axial fluid collection or hydrocephalus. No abnormal density. Last/w anyi matter differentiation appears normal. Bony structures show no fractures or lesions. The visualized paranasal sinuses and mastoid air cells are clear. IMPRESSION: 1. Negative unenhanced CT of the head. Report Dictated By: Dawit Beltre at 08/10/2018 2:29 PM Report E-Signed By: Dawit Beltre at 08/10/2018 2:34 PM WSN:[id number] ED Course/Re-evaluation Clinical Indication for ER IV: Hydration, IV Access ED Course The patient was in his room. A history of square obtained. Differential diagnoses were considered. IV was started. A CBC, CMP were obtained. A 1 L normal saline bolus was given.CBC unremarkable, chemistry unremarkable, negative carbon monoxide. Negative UA. CT of the head was normal. I reviewed the results with the patient. She continues to have complaints of lightheadedness, however when she was ambulating she did very well. She was tearful, she stated that she was unsure if she could take care of herself at home. I did speak with the hospitalist, we did review the case, I did offer the patient's an MRI of the b rain, she declined at this time, I did tell her that at this time I don't have any admittable criteria, patient expressed understanding, she will go home continue drinking fluids, I did tell her that this is likely malabsorption from her gastric bypass and the diarrhea she had this last week. This could've exacerbated her Mnire's disease. Patient expressed understanding, she will contact her primary care provider tomorrow for follow-up. Patient had no other questions or concerns at this time and was discharged home. Decision to Disposition Date: Aug 10, 2018 Decision to Disposition Time: 16:00 Depart Departure Latest Vital Signs Vital Signs Date Time Temp Pulse Resp B/P (MAP) Pulse Ox O2 Delivery O2 Flow Rate FiO2 08/10/18 16:00 58 17 108/64 (79) 97 08/10/18 13:30 98.6 Room Air Impression: Primary Impression: Lightheadedness Additional Impression: Migraine headache Condition: Improved Disposition: HOME OR SELF-CARE Referrals: LEILA CA MD (PCP) 1 Week Patient Instructions: Lightheadedness (ED), Meniere Disease (ED) Additional Instructions: Your lab studies, EKG and brain CT do not show anything concerning. As we discussed, the dizziness/lightheadedness could be an exacerbation of your meniers disease due to malabsorption of fluid and a weeks worth of diarrhea. Please keep drinking water. Drink plenty of water. You can try diluted sports drinks too. Please call Dr. Araujo office tomorrow for a follow up as soon as possible. Return to the ED for any other concerns or worsening symptoms. You can Try the inhaler ever 4-6 hours, this may help your allergy symptoms. Continue taking your regular medications. Problem Qualifiers Additional Impression: Migraine headache Migraine type: unspecified Status migrainosus presence: without status migrainosus Intractability: not intractable Qualified Codes: G43.909 - M igraine, unspecified, not intractable, without status migrainosus TALIA HOWARD QUANTITATIVE STRATEGY ANALYST-BC Aug 10, 2018 13:37
[2018-08-10 13:59] LABS: PLATELET COUNT, AUTOMATED 227 K/uL (150-450)
--- NOTE | 2018-08-10 14:37 | RADIOLOGY IMAGING REPORT ---
FACILITY: [facility] - [place] PATIENT NAME: Zain Simons : 1970 MR: [id number] V: [id number] EXAM DATE: ORDERING PHYSICIAN: TALIA HOWARD TECHNOLOGIST: Location: [facility] Patient: Zain Simons : 1970 Visit/Account:[id number] Date of Sevice: 08/10/2018 CT Head without contrast Indication: Headache. Comparison: None available Technique: Axial CT images were obtained through the brain from the skull base to the vertex without administration of IV contrast. Reformatted coronal and sagittal images were also obtained. One of the following dose optimization techniques was utilized in the performance of this exam: autom ated exposure control; adjustment of the mA and/or kV according to the patient's size; or use of an i terative reconstruction technique. Specific details can be referenced in the facility's radiology CT exam operational policy. Findings: No evidence of mass, mass effect, or midline shift. No acute intracranial hemorrhage or acute territorial infarction. No extra-axial fluid collection or hydrocephalus. No abnormal density. Last/white matter differentiat ion appears normal. Bony structures show no fractures or lesions. The visualized paranasal sinuses and mastoid air cells are clear. IMPRESSION: 1. Negative unenhanced CT of the head. Report Dictated By: Dawit Beltre at 08/10/2018 2:29 PM Report E-Signed By: Dawit Beltre at 08/10/2018 2:34 PM WSN:[id number]
--- NOTE | 2018-08-10 15:11 | EKG ---
[place] [facility] [place] LEILANI VALENTINE : [id number] MR: [id number] V: [id number] EXAM DATE: ORDERING PHYSICIAN: TALIA HOWARD TECHNOLOGIST: ELADIO Test Reason : DIZZINESS Blood Pressure : / mmHG Vent. Rate : 066 BPM Atrial Rate : 066 BPM P-R Int : 152 ms QRS Dur : 086 ms QT Int : 436 ms P-R-T Axes : 023 056 042 degrees QTc Int : 457 ms Sinus rhythm No acute appearing findings Artifact in several leads - repeat if needed Confirmed by VIKKI MORENO ([id number]) on 08/10/2018 9:33:01 PM Referred By: TALIA Confirmed By:VIKKI MORENO
[2018-08-10] MEDS ORDERED: ALBUTEROL 8 GM INHALER INH ONE (15:40)
[2018-08-10] MEDS ORDERED: ACETAMINOPHEN 500 MG TAB PO ONE (15:55)
[2018-08-10 16:00] VITALS: BP 108/64
[2018-08-12] MEDS ORDERED: [UNRECOGNIZED DRUG - OTHER] PO (12:20)
[2018-08-12] MEDS ORDERED: DIAZ2TAB72 PO (13:10)
== END 2018-08-10 16:16 | disposition home or self-care (01) ==
LOC: ER 13:43
DX: G43.909 Migraine, unspecified, not intractable, without status migrainosus (principal); I10 Essential (primary) hypertension; J44.9 Chronic obstructive pulmonary disease, unspecified; E11.9 Type 2 diabetes mellitus without complications; Z87.891 Personal history of nicotine dependence
CPT/HCPCS: 36415; 36416; 70450; 81001; 82375; 82948; 85025; 93005; 94640; 96360; 96361; 99284; J7030; 82040; 82247; 82310; 82374; 82435; 82565; 82947; 84075; 84132; 84155; 84295; 84450; 84460; 84520

== ENCOUNTER → 2018-08-14 | Outpatient (CLI) | payer MEDICAID ==
[~2018-08-14] MED LIST changes: +DIAZ2TAB72 PO; +GADOBENATE 529MG/1ML 15ML VIAL IVP ONE; +[UNRECOGNIZED DRUG - OTHER] PO
--- NOTE | 2018-08-14 12:40 | RADIOLOGY IMAGING REPORT ---
FACILITY: [facility] PATIENT NAME: Zain Simons : 1970 MR: [id number] V: [id number] EXAM DATE: ORDERING PHYSICIAN: ANALILIA HAJI TECHNOLOGIST: Location: Patient: Zain Simons : 1970 Visit/Account:[id number] Date of Sevice: 08/14/2018 Examination: Internal auditory canal MR without and with contrast History: Asymmetric left-sided hearing loss Comparison: Head CT August 10, 2018 Technique: Multiplane pre and postcontrast MR imaging performed through the internal auditory canal r egions. Sagittal T1, axial FLAIR, coronal T2, and axial diffusion acquisitions obtained through the brain. 15 mL MultiHance injected. Findings: No diffusion restriction, hydrocephalus or midline shift. Normal parenchymal signal. Partially empt y sella noted. The midline craniocervical structures are otherwise unremarkable. Normal CP angle and internal auditory canal regions without pathologic enhancement. Expected fluid s ignal within the inner ear structures. No vestibular aqueduct enlargement. IMPRESSION: Normal internal auditory canal MR without and with contrast. No abnormality seen to explain the hear ing loss. Report Dictated By: Cliff Gipson MD at 08/14/2018 12:30 PM Report E-Signed By: Cliff Gipson MD at 08/14/2018 12:36 PM WSN:[id number]
== END ==
LOC: MRI 07:02
PROVIDERS: ATTEND Physician Assistant
DX: H91.8X2 Other specified hearing loss, left ear (principal)
CPT/HCPCS: 70553; A9577

== ENCOUNTER 2018-08-15 20:37 | Emergency (ER) | payer MEDICAID ==
[~2018-08-15 20:37] MED LIST changes: -GADOBENATE 529MG/1ML 15ML VIAL IVP ONE
--- NOTE | 2018-08-15 20:40 | ER Report ---
History and Physical Time Seen By MD: 20:43 HPI/ROS CHIEF COMPLAINT: Chest tightness and difficulty breathing HISTORY OF PRESENT ILLNESS: This is a 48-year-old female. Patient's had chest tightness for several hours. She has had a lot of problems with asthma in the past so wanted to get this checked out. Denies any radiating pain. Does not wo rsen with exertion. Seems to worsen with deep breaths. Denies any fevers or chills. Has chronic cough which does not seem worse. Said similar problems when she's had asthma problems in the past but usually is been on the right side of her chest. Denies any back pain. No nausea or vomiting with this. Has little bit of epigastric pain and felt like she might have a little heartburn tonight as well. No problem with bowel or bladder function recently. REVIEW OF SYSTEMS: As above. Allergies: Coded Allergies: Sulfa (Sulfonamide Antibiotics) (Verified Allergy, Severe, NAUSEA/VOMITING, 08/15/18) lamotrigine (Verified Allergy, Severe, 08/15/18) onion (Verified Allergy, Severe, NAUSEA/VOMITING, 08/09/18) Penicillins (Verified Allergy, Unknown, 08/15/18) amoxicillin (Verified Allergy, Unknown, 08/15/18) cephalexin (Verified Allergy, Unknown, 08/15/18) clavulanic acid (Verified Allergy, Unknown, 08/15/18) fluticasone (Verified Allergy, Unknown, 08/15/18) gemfibrozil (Unverified Allergy, Unknown, 08/15/18) ibuprofen (Verified Allergy, Unknown, 08/15/18) nicotine (Verified Allergy, Unknown, 08/15/18) salmeterol (Verified Allergy, Unknown, 08/15/18) Home Meds Active Scripts Prednisone (PREDNISONE) 20 Mg Tablet, 60 MG PO QDAY, #12 TAB 0 Refills Prov:MAYUR IQBAL MD 08/16/18 Diazepam (VALIUM) 2 Mg Tablet, 2 MG PO TID PRN for DIZZINESS, #10 TAB 0 Refills Prov:ANALILIA HAJI PA-C 08/12/18 Ondansetron Hcl (ZOFRAN) 4 Mg Tablet, 4 MG PO Q8H for Nausea, #15 TAB 0 Refills Prov:JOSE KIMBALL MD 08/02/18 Blood Sugar Diagnostic (BLOOD GLUCOSE TEST STRIP) 1 Each Strip, 1 EACH MC TID, #100 STRIP 5 Refills patient to check blood glucose TID Prov:LEILA CA MD 07/29/18 Syringe and Needle,Insulin,1Ml (Insulin Syringe) 31 Gauge X 1/4" Disp.syrin, UNIT TOP DIRECTED, #100 5 Refills patient to use as directed to inject insulin Prov:LELIA CA MD 07/29/18 Rescue, Insulin Disposable (Bd Ultra-Fine Pen Needle) 1 Each Dis.needle, UNITS TOP DIRECTED, #100 5 Refills Patient to use up to three times daily to inject insulin Prov:LEILA CA MD 07/29/18 Insulin Aspart 100 Un/Ml Pen (NOVOLOG FLEXPEN) 100 Unit/1 Ml Insuln.pen, 10 UNIT SQ 2-3XD, #2 BOX 6 Refills with each meal, MAX 40 U/24 hours Prov:LEILA CA MD 07/29/18 Insulin Glargine (LANTUS) 100 Unit/Ml Soln, 30 UNIT SUBQ BID, #4 VIAL 6 Refills Prov:LEILA CA MD 07/29/18 Promethazine Hcl (PROMETHAZINE HCL) 25 Mg Tablet, 25 MG PO Q8H PRN for nausea,vomiting, #30 TAB 2 Refills Prov:LEILA CA MD 07/29/18 Tizanidine Hcl (TIZANIDINE HCL) 2 Mg Capsule, 2 MG PO QHS PRN for neck pain, #30 CAPSULE 6 Refills Prov:LEILA CA MD 07/29/18 Gabapentin (GABAPENTIN) 300 Mg Capsule, 300 MG PO TID, #90 CAPSULE 6 Refills TAKES ONE CAP AM AND TWO CAPS PM Prov:LEILA CA MD 07/29/18 Triamterene/Hydrochlorothiazid (TRIAMTERENE-HCTZ 37.5-25 MG TB) 1 Each Tablet, 1 EACH PO QDAY, #30 TAB 6 Refills Prov:LEILA CA MD 07/29/18 Fluoxetine Hcl (FLUOXETINE HCL) 20 Mg Capsule, 20 MG PO QDAY for 30 Days, #30 CAPSULE 1 Refill Prov:LEILA CA MD 07/29/18 Pravastatin Sodium (PRAVACHOL) 20 Mg Tablet, 20 MG PO QDAY, #30 TAB 1 Refill Prov:LEILA CA MD 07/29/18 Aripiprazole (ABILIFY) 5 Mg Tablet, 5 MG PO QDAY, #30 TAB 1 Refill Prov:LEILA CA MD 07/29/18 Dexlansoprazole (DEXILANT) 60 Mg Bala., 60 MG PO BID, #60 TAB 6 Refills Prov:LEILA CA MD 06/23/18 Reported Medications Melatonin (MELATONIN) 5 Mg Tablet, 5 MG PO HS PRN for diff sleeping 07/29/18 Discontinued Scripts Hydrocodone Bit/Acetaminophen (HYDROCODON-ACETAMINOPHEN 5-325) 1 Each Tablet, 1 EACH PO Q4H for PAIN, #6 TAB 0 Refills Prov:JOSE KIMBALL MD 08/02/18 Reviewed Nurses Notes: Yes Hx Smoking: Yes Smoking Status: Former Smoker Hx Substance Use Disorder: No Hx Alcohol Use: Yes Constitutional Vital Sign - Last 24 Hours 08/15/18 08/15/18 08/15/18 08/15/18 20:41 20:43 21:00 21:01 Temp 98.0 Pulse 77 82 Resp 22 16 B/P (MAP) 124/78 124/78 (93) 125/77 (93) Pulse Ox 96 O2 Delivery Room Air 08/15/18 08/15/18 08/15/18 08/15/18 21:01 21:07 21:11 21:30 Pulse 80 80 Resp 8 16 B/P (MAP) 132/69 (90) Pulse Ox 92 100 O2 Delivery Room Air 08/15/18 08/15/18 08/15/18 08/15/18 21:37 21:42 21:57 22:00 Pulse 85 88 81 Resp 12 32 17 B/P (MAP) 110/59 (76) Pulse Ox 89 90 89 08/15/18 08/15/18 08/15/18 08/15/18 22:12 22:17 22:30 22:32 Pulse 85 ??? 81 Resp 42 17 23 B/P (MAP) 125/59 (81) Pulse Ox 88 90 90 08/15/18 08/15/18 08/15/18 08/15/18 22:47 23:00 23:02 23:17 Pulse 83 84 74 Resp 37 30 71 B/P (MAP) 122/78 (93) Pulse Ox 89 92 92 08/15/18 08/15/18 08/15/18 08/16/18 23:30 23:32 23:47 00:00 Pulse 87 78 Resp 26 24 B/P (MAP) 119/69 (86) 115/58 (77) Pulse Ox 90 90 08/16/18 08/16/18 08/16/18 08/16/18 00:02 00:07 00:22 00:30 Pulse 86 82 84 Resp 22 18 14 B/P (MAP) 118/65 (82) Pulse Ox 93 93 91 08/16/18 08/16/18 08/16/18 08/16/18 00:37 00:52 01:00 01:07 Pulse 73 78 77 Resp 18 20 20 B/P (MAP) 96/76 (83) Pulse Ox 91 92 89 08/16/18 08/16/18 08/16/18 08/16/18 01:22 01:30 01:37 01:52 Pulse 75 80 73 Resp 11 15 7 B/P (MAP) 109/64 (79) Pulse Ox 91 92 93 08/16/18 08/16/18 02:00 02:05 Pulse 77 Resp 13 B/P (MAP) 118/87 (97) Pulse Ox 93 Physical Exam General Appearance: The patient is alert. No acute distress. Eyes: Pupils are equal, round. No pallor, injection or icterus. ENT: Mucous membranes are moist. Normal oral mucosa. Posterior oropharynx is normal. Neck: Supple and non tender. Respiratory: Lungs with a little bit of wheezing, otherwise no rales or rhonchi There are no retractions or accessory muscle use. Cardiovascular: Regular rate and rhythm. No murmurs, gallops or rubs. Normal cap illary refill. Gastrointestinal: Abdomen is soft, some discomfort in the epigastric area. Nondistended. Normal active bowel sounds. Neurological: Alert and oriented x3. No focal neurologic deficits Skin: Warm and dry. Musculoskeletal: Extremities are nontender. DIFFERENTIAL DIAGNOSIS: After history and physical exam, differential diagnosis was considered for shortness of breath and chest tightness, likely due to her asthma but we'll look for cardiac causes as well as other pulmonary infectious causes and pulmonary embolism. Medical Decision Making Data Points Result Diagram: 08/15/18205408/15/182054 Laboratory Hematology Test 08/15/18 20:55 Red Blood Count 5.24 M/uL (4.17-5.56) Mean Corpuscular Volume 84.1 fL (80.0-96.0) Mean Corpuscular Hemoglobin 27.9 pg (26.0-33.0) Mean Corpuscular Hemoglobin Concent 33.2 g/dL (32.0-36.0) Red Cell Distribution Width 14.4 % (11.5-14.5) Mean Platelet Volume 8.2 fL (7.2-11.1) Neutrophils (%) (Auto) 58.0 % (39.4-72.5) Lymphocytes (%) (Auto) 31.0 % (17.6-49.6) Monocytes (%) (Auto) 8.4 % (4.1-12.4) Eosinophils (%) (Auto) 2.1 % (0.4-6.7) Basophils (%) (Auto) 0.5 % (0.3-1.4) Nucleated RBC Relative Count (auto) 0.0 /100WBC Neutrophils # (Auto) 7.0 K/uL (2.0-7.4) Lymphocytes # (Auto) 3.7 K/uL (1.3-3.6) Monocytes # (Auto) 1.0 K/uL (0.3-1.0) Eosinophils # (Auto) 0.3 K/uL (0.0-0.5) Basophils # (Auto) 0.1 K/uL (0.0-0.1) Nucleated RBC Absolute Count (auto) 0.00 K/uL D-Dimer Quantitative (PE/DVT) 1.57 ug/ml (0-0.50) Sodium Level 142 mmol/L (137-145) Potassium Level 3.5 mmol/L (3.5-5.0) Chloride Level 105 mmol/L (98-107) Carbon Dioxide Level 27 mmol/L (22-31) Blood Urea Nitrogen 15 mg/dl (7-18) Creatinine 0.50 mg/dl (0.52-1.04) Glomerular Filtration Rate Calc > 60.0 Random Glucose 174 mg/dl (75-110) Calcium Level 9.4 mg/dl (8.4-10.2) Total Bilirubin 0.4 mg/dl (0.2-1.3) Aspartate Amino Transf (AST/SGOT) 29 U/L (0-35) Alanine Aminotransferase (ALT/SGPT) 33 U/L (0-56) Alkaline Phosphatase 92 U/L (0-126) Troponin I < 0.012 ng/ml B-Type Natriuretic Peptide < 5 pg/ml (0-100) Total Protein 7.6 g/dl (6.3-8.2) Albumin 4.6 g/dl (3.5-5.0) Chemistry Test 08/15/18 20:55 White Blood Count 12.1 k/uL (4.5-11.0) Red Blood Count 5.24 M/uL (4.17-5.56) Hemoglobin 14.6 g/dL (12.0-16.0) Hematocrit 44.1 % (34.0-47.0) Mean Corpuscular Volume 84.1 fL (80.0-96.0) Mean Corpuscular Hemoglobin 27.9 pg (26.0-33.0) Mean Corpuscular Hemoglobin Concent 33.2 g/dL (32.0-36.0) Red Cell Distribution Width 14.4 % (11.5-14.5) Platelet Count 235 K/uL (150-450) Mean Platelet Volume 8.2 fL (7.2-11.1) Neutrophils (%) (Auto) 58.0 % (39.4-72.5) Lymphocytes (%) (Auto) 31.0 % (17.6-49.6) Monocytes (%) (Auto) 8.4 % (4.1-12.4) Eosinophils (%) (Auto) 2.1 % (0.4-6.7) Basophils (%) (Auto) 0.5 % (0.3-1.4) Nucleated RBC Relative Count (auto) 0.0 /100WBC Neutrophils # (Auto) 7.0 K/uL (2.0-7.4) Lymphocytes # (Auto) 3.7 K/uL (1.3-3.6) Monocytes # (Auto) 1.0 K/uL (0.3-1.0) Eosinophils # (Auto) 0.3 K/uL (0.0-0.5) Basophils # (Auto) 0.1 K/uL (0.0-0.1) Nucleated RBC Absolute Count (auto) 0.00 K/uL D-Dimer Quantitative (PE/DVT) 1.57 ug/ml (0-0.50) Glomerular Filtration Rate Calc > 60.0 Calcium Level 9.4 mg/dl (8.4-10.2) Total Bilirubin 0.4 mg/dl (0.2-1.3) Aspartate Amino Transf (AST/SGOT) 29 U/L (0-35) Alanine Aminotransferase (ALT/SGPT) 33 U/L (0-56) Alkaline Phosphatase 92 U/L (0-126) Troponin I < 0.012 ng/ml B-Type Natriuretic Peptide < 5 pg/ml (0-100) Total Protein 7.6 g/dl (6.3-8.2) Albumin 4.6 g/dl (3.5-5.0) Coagulation Test 08/15/18 20:55 D-Dimer Quantitative (PE/DVT) 1.57 ug/ml EKG/Imaging EKG Interpretation 12 lead EKG: Rhythm: normal sinus rhythm, rate 74 [place]: normal QRS: normal ST segments: normal Imaging Examination: CHEST SINGLE AP Comparison: 07/04/2018 History: Chest pain for one day. Findings: Cardiac and hilar contour size is within normal limits and unchanged. No new or enlarging consolidation or definite evidence of acute peribronchial inflammation. No pneumothorax, edema, or effusion. Osseous structures are intact. IMPRESSION: No findings of acute cardiopulmonary disease. Report Dictated By: Bolivar Nguyen MD at 08/15/2018 9:[address] angiogram of the chest: Indication: Chest pain and dyspnea. Technique: Helical CT was performed through the chest following IV contrast enhancement with 75 cc of Isovue 370. Multiplanar reconstructions and MIP images are reviewed. One of the following dose optimization techniques was utilized in the performance of this exam: Automated exposure control; adjustment of the mA and/or kV according to the patient's size; or use of an iterative reconstruction technique. Specific details can be referenced in the facility's radiology CT exam operational policy. Comparison: 07/04/2018 Pulmonary arteries: There is uniform contrast enhancement. There are no signs of pulmonary emboli. Aorta and great vessels: There is uniform contrast enhancement. There is no evidence of dissection, aneurysm, or significant atherosclerosis. Heart and pericardial soft tissues: Unremarkable and unchanged. Mediastinal soft tissues: Unremarkable. Lung subramanian: Well-expanded. No focal consolidation or volume loss is identified. Pleural spaces: No evidence of effusion, focal pleural thickening, or pneumothorax. Skeletal structures: There are stable mild degenerative changes in the spine. No acute skeletal deformity is clearly identified. Upper abdomen: There are stable postoperative changes around the stomach and gallbladder fossa. IMPRESSION: No evidence of pulmonary emboli. No acute parenchymal process is identified. Report Dictated By: Jhon Ross MD at 08/15/2018 10:44 PM ED Course/Re-evaluation Clinical Indication for ER IV: IV Access ED Course Initial evaluation with normal oxygen. EKG negative. Chest x-ray negative. Troponin negative. Minimal improvement with DuoNeb. CTA negative after seeing elevated d-dimer. No pneumonia or embolism. Tried a GI cocktail, no improvement in chest tightness. This is most likely related to her asthma. Will start Prednisone burst and continued inhalers at home. Decision to Disposition Date: Aug 16, 2018 Decision to Disposition Time: 01:40 Depart Departure Latest Vital Signs Vital Signs Date Time Temp Pulse Resp B/P (MAP) Pulse Ox O2 Delivery O2 Flow Rate FiO2 08/16/18 02:05 77 13 93 08/16/18 02:00 118/87 (97) 08/15/18 21:01 Room Air 08/15/18 20:41 98.0 Impression: Primary Impression: Shortness of breath Additional Impression: Asthma Condition: Improved Disposition: HOME OR SELF-CARE Referrals: LEILA CA MD (PCP) New Scripts Prednisone (PREDNISONE) 20 Mg Tablet 60 MG PO QDAY, #12 TAB 0 Refills Prov: MAYUR IQBAL MD 08/16/18 Patient Instructions: Asthma (ED) Additional Instructions: Your shortness of breath and chest pressure appear likely due to your asthma. Your oxygen levels are normal. Keep using your inhalers. Start Prednisone 20mg, 3 tablets once a day for 4 more days. Problem Qualifiers Additional Impression: Asthma Asthma severity: moderate Asthma persistence: persistent Asthma complication type: unspecified Qualified Codes: J45.40 - Moderate persistent asthma, uncomplicated MAYUR IQBAL MD Aug 15, 2018 20:40
[2018-08-15] MEDS ORDERED: ASPIRIN 81 MG CHEW PO ONE (21:00)
[2018-08-15] MEDS ORDERED: ALBUTEROL/IPRATROPIUM 3 ML NEB NEB ONE (21:00)
[2018-08-15 21:14] LABS: PLATELET COUNT, AUTOMATED 235 K/uL (150-450)
--- NOTE | 2018-08-15 21:32 | RADIOLOGY IMAGING REPORT ---
FACILITY: [facility] [place] PATIENT NAME: Zain Simons : 1970 MR: [id number] V: [id number] EXAM DATE: ORDERING PHYSICIAN: MAYUR IQBAL TECHNOLOGIST: Location: [facility] [place] Patient: Zain Simons : 1970 Visit/Account:[id number] Date of Sevice: 08/15/2018 Examination: CHEST SINGLE AP Comparison: 07/04/2018 History: Chest pain for one day. Findings: Cardiac and hilar contour size is within normal limits and unchanged. No new or enlarging c onsolidation or definite evidence of acute peribronchial inflammation. No pneumothorax, edema, or eff usion. Osseous structures are intact. IMPRESSION: No findings of acute cardiopulmonary disease. Report Dictated By: Bolivar Nguyen MD at 08/15/2018 9:26 PM Report E-Signed By: Bolivar Nguyen MD at 08/15/2018 9:28 PM WSN:[id number]
[2018-08-15] MEDS ORDERED: NS(*) 0.9% 50 ML BAG 50 ML ONE (22:21)
[2018-08-15] MEDS ORDERED: IOPAMIDOL 76% 150 ML INFUS BTL 150 ML ONE (22:21)
--- NOTE | 2018-08-15 22:40 | EKG ---
[place]AC[place] [facility] [place]IENT NAME: LEILANI VALENTINE : [id number] MR: [id number] V: [id number] EXAM DATE: ORDERING PHYSICIAN: MAYUR IQBAL TECHNOLOGIST: KEVIN Test Reason : CHEST PAIN Blood Pressure : / mmHG Vent. Rate : 074 BPM Atrial Rate : 074 BPM P-R Int : 162 ms QRS Dur : 086 ms QT Int : 416 ms P-R-T Axes : 027 042 054 degrees QTc Int : 461 ms Normal sinus rhythm Normal ECG When compared with ECG of 10-AUG-2018 13:54, No significant change was found Confirmed by Kevin Madrigal ([id number]) on 08/16/2018 6:29:05 AM Referred By: Confirmed By:Kevin Crook
--- NOTE | 2018-08-15 23:03 | RADIOLOGY IMAGING REPORT ---
FACILITY: [facility] PATIENT NAME: Zain Simons : 1970 MR: [id number] V: [id number] EXAM DATE: [id number] ORDERING PHYSICIAN: MAYUR IQBAL TECHNOLOGIST: Location: [facility] Patient: Zain Simons : 1970 Visit/Account:[id number] Date of Sevice: 08/15/2018 CT angiogram of the chest: Indication: Chest pain and dyspnea. Technique: Helical CT was performed through the chest following IV contrast enhancement with 75 cc of Isovue 370. Multiplanar reconstructions and MIP images are reviewed. One of the following dose optimization techniques was utilized in the performance of this exam: Autom ated exposure control; adjustment of the mA and/or kV according to the patient's size; or use of an i terative reconstruction technique. Specific details can be referenced in the facility's radiology CT exam operational policy. Comparison: 07/04/2018 Pulmonary arteries: There is uniform contrast enhancement. There are no signs of pulmonary emboli. Aorta and great vessels: There is uniform contrast enhancement. There is no evidence of dissection, a neurysm, or significant atherosclerosis. Heart and pericardial soft tissues: Unremarkable and unchanged. Mediastinal soft tissues: Unremarkable. Lung subramanian: Well-expanded. No focal consolidation or volume loss is identified. Pleural spaces: No evidence of effusion, focal pleural thickening, or pneumothorax. Skeletal structures: There are stable mild degenerative changes in the spine. No acute skeletal defor mity is clearly identified. Upper abdomen: There are stable postoperative changes around the stomach and gallbladder fossa. IMPRESSION: No evidence of pulmonary emboli. No acute parenchymal process is identified. Report Dictated By: Jhon Ross MD at 08/15/2018 10:44 PM Report E-Signed By: Jhon Ross MD at 08/15/2018 10:59 PM WSN:[id number]
[2018-08-16] MEDS ORDERED: ATRO/SCOPOL/HYOSCY/PB 5 ML ELX PO ONE (00:05)
[2018-08-16] MEDS ORDERED: MAG HYD/AL HYD/SIMETH 30ML UDC PO ONE (00:05)
[2018-08-16] MEDS ORDERED: LIDOCAINE 2% VISC SLN 15ML UDC PO ONE (00:05)
[2018-08-16] MEDS ORDERED: predniSONE 20 MG TAB PO ONE (01:40)
[2018-08-16] MEDS ORDERED: PRED20TA6 PO (01:42)
[2018-08-16 02:00] VITALS: BP 118/87
== END 2018-08-16 02:18 | disposition home or self-care (01) ==
LOC: ER 20:42
DX: J45.40 Moderate persistent asthma, uncomplicated (principal)
CPT/HCPCS: 71045; 71275; 83880; 84484; 85025; 85379; 93005; 94640; 99284; J7050; J7512; J7620; Q9967; 82040; 82247; 82310; 82374; 82435; 82565; 82947; 84075; 84132; 84155; 84295; 84450; 84460; 84520

== ENCOUNTER → 2018-08-21 | Outpatient (CLI) | payer MEDICAID ==
[~2018-08-21] MED LIST changes: +KET10 PO; +LEVO750T44 PO
== END ==
LOC: AUD 10:00
PROVIDERS: ATTEND Otolaryngology
DX: H91.8X2 Other specified hearing loss, left ear (principal)
CPT/HCPCS: 92557; 92570

== ENCOUNTER 2018-08-22 18:14 | Emergency (ER) | payer MEDICAID ==
--- NOTE | 2018-08-22 18:17 | ER Report ---
History and Physical Time Seen By : 18:17 HPI/ROS CHIEF COMPLAINT: Stuffed up, runny nose, body aches HISTORY OF PRESENT ILLNESS: 48-year-old female with a complex medical history type II diabetes on insulin, gastric bypass with chronic diarrhea, hypertension followed by Dr. Hernandez, was just seen yesterday in clinic. Diagnostic stool studies were performed on the diarrhea. Patient has chronic diarrhea since her gastric bypass. It is become much worse, not responding to [id number] medications. Os. Diagnostic studies have returned and are unremarkable. Patient now complaining of cold symptoms and flu symptoms for 24 hours was stuffed up nose, body aches. She denies fever, but notes some chills. She notes occasional cough has a history of COPD and asthma. She recently was seen here on 08/15/18 and was given a course of prednisone for asthma exacerbation. She has subsequently finished that. Patient has not tried any [id number] medication. She does take [place] daily. She notes no purulent drainage, nonproductive cough. REVIEW OF SYSTEMS: Respiratory: No cough, no dyspnea. Cardiovascular: No chest pain, no palpitations. Gastrointestinal: No vomiting, no abdominal pain. Musculoskeletal: No back pain. Allergies: Coded Allergies: Sulfa (Sulfonamide Antibiotics) (Verified Allergy, Severe, NAUSEA/VOMITING, 08/15/18) lamotrigine (Verified Allergy, Severe, 08/15/18) onion (Verified Allergy, Severe, NAUSEA/VOMITING, 08/09/18) Penicillins (Verified Allergy, Unknown, 08/15/18) amoxicillin (Verified Allergy, Unknown, 08/15/18) cephalexin (Verified Allergy, Unknown, 08/15/18) clavulanic acid (Verified Allergy, Unknown, 08/15/18) fluticasone (Verified Allergy, Unknown, 08/15/18) gemfibrozil (Unverified Allergy, Unknown, 08/15/18) ibuprofen (Verified Allergy, Unknown, 08/15/18) nicotine (Verified Allergy, Unknown, 08/15/18) salmeterol (Verified Allergy, Unknown, 08/15/18) Home Meds Active Scripts Ondansetron Hcl (ZOFRAN) 4 Mg Tablet, 4 MG PO Q8H for Nausea, #15 TAB 0 Refills Prov:JOSE KIMBALL MD 08/02/18 Blood Sugar Diagnostic (BLOOD GLUCOSE TEST STRIP) 1 Each Strip, 1 EACH MC TID, #100 STRIP 5 Refills patient to check blood glucose TID Prov:LEILA HERNANDEZ MD 07/29/18 Syringe and Needle,Insulin,1Ml (Insulin Syringe) 31 Gauge X 1/4" Disp.syrin, UNIT TOP DIRECTED, #100 5 Refills patient to use as directed to inject insulin Prov:LEILA HERNANDEZ MD 07/29/18 [place], Insulin Disposable (Bd Ultra-Fine Pen Needle) 1 Each Dis.needle, UNITS TOP DIRECTED, #100 5 Refills Patient to use up to three times daily to inject insulin Prov:LEILA HERNANDEZ MD 07/29/18 Insulin Aspart 100 Un/Ml Pen (NOVOLOG FLEXPEN) 100 Unit/1 Ml Insuln.pen, 10 UNIT SQ 2-3XD, #2 BOX 6 Refills with each meal, MAX 40 U/24 hours Prov:LEILA HERNANDEZ MD 07/29/18 Insulin Glargine (LANTUS) 100 Unit/Ml Soln, 30 UNIT SUBQ BID, #4 VIAL 6 Refills Prov:LEILA HERNANDEZ MD 07/29/18 Promethazine Hcl (PROMETHAZINE HCL) 25 Mg Tablet, 25 MG PO Q8H PRN for nausea,vomiting, #30 TAB 2 Refills Prov:LEILA HERNANDEZ MD 07/29/18 Tizanidine Hcl (TIZANIDINE HCL) 2 Mg Capsule, 2 MG PO QHS PRN for neck pain, #30 CAPSULE 6 Refills Prov:LEILA HERNANDEZ MD 07/29/18 Gabapentin (GABAPENTIN) 300 Mg Capsule, 300 MG PO TID, #90 CAPSULE 6 Refills TAKES ONE CAP AM AND TWO CAPS PM Prov:LEILA HERNANDEZ MD 07/29/18 Triamterene/Hydrochlorothiazid (TRIAMTERENE-HCTZ 37.5-25 MG TB) 1 Each Tablet, 1 EACH PO QDAY, #30 TAB 6 Refills Prov:LEILA HERNANDEZ MD 07/29/18 Fluoxetine Hcl (FLUOXETINE HCL) 20 Mg Capsule, 20 MG PO QDAY for 30 Days, #30 CAPSULE 1 Refill Prov:LEILA HERNANDEZ MD 07/29/18 Pravastatin Sodium (PRAVACHOL) 20 Mg Tablet, 20 MG PO QDAY, #30 TAB 1 Refill Prov:LEILA HERNANDEZ MD 07/29/18 Aripiprazole (ABILIFY) 5 Mg Tablet, 5 MG PO QDAY, #30 TAB 1 Refill Prov:LEILA HERNANDEZ MD 07/29/18 Dexlansoprazole (DEXILANT) 60 Mg Cap., 60 MG PO BID, #60 TAB 6 Refills Prov:LEILA HERNANDEZ MD 06/23/18 Reported Medications Melatonin (MELATONIN) 5 Mg Tablet, 5 MG PO HS PRN for diff sleeping 07/29/18 Discontinued Scripts Prednisone (PREDNISONE) 20 Mg Tablet, 60 MG PO QDAY, #12 TAB 0 Refills Prov:MAYUR IQBAL MD 08/16/18 Diazepam (VALIUM) 2 Mg Tablet, 2 MG PO TID PRN for DIZZINESS, #10 TAB 0 Refills Prov:ANALILIA HAJI PA-C 08/12/18 Past Medical/Surgical History Below information is copied from internal medicine note on 08/21/18 This patient is a 48-year-old female with multiple medical problems who came in today to see me for the chief complaint that her diarrhea is getting worse guarding the patient she has chronic diarrhea seems to be getting worse to the point that she is becoming incontinent sometimes she denies any lower abdominal pain. He denies any blood in the stools she usually uses OTC antidiarrheal medications that help. She is having 2-3 bowel movements a day which is usually loose she has no weight loss patient is currently following up with a associate program manager also has history of gastric bypass surgery according to patient her diarrhea started after the surgery Patient has been following up with associate program manager and recently saw Dr. Sage on 06/19/2018 patient was seen by his partner in the past patient has been diagnosed with GERD/Hill's esophagus she was on Dexilant 60 mg twice a day to mention that her reflux symptoms are controlled Past medical history significant for morbid obesity and has undergone gastric bypass surgery in July/2014 according to patient she has lost at least 200 pounds since then Medical history significant for insulin-requiring diabetes mellitus she is currently on Lantus insulin at 30 units twice a day and NovoLog according to sliding scale which includes 10 units before meals along with a correction factor for high blood sugars high blood sugar appears to be stable at this time Past medical history significant for diabetic neuropathy Past medical history significant for hyperlipidemia for which she is currently on pravastatin Past medical history significant for depression and anxiety, PTSD and bipolar disorder and is currently on Abilify and fluoxetine Past medical history significant for obstructive sleep apnea and is using CPAP Past Family Social History Reviewed Reviewed by: Dr. 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 2013.2017) Reviewed Nurses Notes: Yes Old Medical Records Reviewed: Yes Hx Smoking: Yes Smoking Status: Former Smoker Hx Substance Use Disorder: No Hx Alcohol Use: No Constitutional Vital Sign - Last 24 Hours 08/22/18 08/22/18 08/22/18 08/22/18 18:26 18:29 18:44 18:59 Temp 98.8 Pulse 82 81 81 85 Resp 20 B/P (MAP) 134/82 Pulse Ox 90 93 91 90 O2 Delivery Room Air 08/22/18 08/22/18 08/22/18 08/22/18 19:14 19:29 19:34 19:39 Pulse 78 78 76 80 Pulse Ox 90 90 91 92 Physical Exam General Appearance: The patient is alert, has no immediate need for airway protection and no current signs of toxicity. Vital signs stable, afebrile, pulse ox normal HEENT: Pupils equal and round no injection. TMs normal, oropharynx with mild er ythema, nasal passages with mild erythema, no congestion or obstruction. No purulent drainage noted Respiratory: Chest is non tender, lungs are clear to auscultation. No wheezing or rails Cardiac: regular rate and rhythm, though with that Gastrointestinal: Abdomen is soft and non tender, no masses, bowel sounds normal. Musculoskeletal: Neck: Neck is supple and non tender. No lymphadenopathy Extremities have full range of motion and are non tender. No edema, no calf tenderness Skin: No rashes or lesions. [ ] DIFFERENTIAL DIAGNOSIS: After history and physical exam differential diagnosis was considered for adult fever including but not limited to viral syndromes including influenza, urinary tract infection, pneumonia and sepsis. Medical Decision Making Data Points Laboratory Hematology Test 08/22/18 18:45 Influenza Virus Type A (PCR) Negative (NEGATIVE) Influenza Virus Type B (PCR) Negative (NEGATIVE) Chemistry Test 08/22/18 18:45 Influenza Virus Type A (PCR) Negative (NEGATIVE) Influenza Virus Type B (PCR) Negative (NEGATIVE) ED Course/Re-evaluation ED Course Patient was admitted to an examination room. H&P was done. The differential diagnoses was considered. Patient with nasal congestion. She's having fever and body aches. A rapid influenza was performed which was negative. Patient's only had symptoms for barely 24 hours. She is advised conservative management, treatment of her symptoms. Follow-up with primary care if unimproved in 3-5 days. Decision to Disposition Date: Aug 22, 2018 Decision to Disposition Time: 19:31 Depart Departure Latest Vital Signs Vital Signs Date Time Temp Pulse Resp B/P (MAP) Pulse Ox O2 Delivery O2 Flow Rate FiO2 08/22/18 19:39 80 92 08/22/18 18:26 98.8 20 134/82 Room Air Impression: Primary Impression: Viral upper respiratory infection Additional Impression: Nasal congestion Condition: Improved Disposition: HOME OR SELF-CARE Referrals: LEILA HERNANDEZ MD (PCP) Patient Instructions: Viral Syndrome (ED) Additional Instructions: Use Benadryl as needed to dry up cough and runny nose Use DayQuil as needed for daytime relief Follow-up with primary care Dr Hernandez if unimproved in 3-5 days Problem Qualifiers CHRISTA ANDRADE DO Aug 22, 2018 18:17
[2018-08-22 18:26] VITALS: BP 134/82
== END 2018-08-22 19:42 | disposition home or self-care (01) ==
LOC: ER 18:22
DX: J06.9 Acute upper respiratory infection, unspecified (principal)
CPT/HCPCS: 87502; 99282

== ENCOUNTER → 2018-08-22 | Outpatient (CLI) | payer MEDICAID ==
[~2018-08-22] MED LIST changes: -KET10 PO; -LEVO750T44 PO
== END ==
LOC: LAB 08:27
PROVIDERS: ATTEND Internal Medicine
DX: R19.7 Diarrhea, unspecified (principal); K21.9 Gastro-esophageal reflux disease without esophagitis; K22.70 Barrett's esophagus without dysplasia; Z98.84 Bariatric surgery status
CPT/HCPCS: 81001; 82274; 83630; 87045; 87205

== ENCOUNTER 2018-09-02 17:19 | Emergency (ER) | payer MEDICAID ==
[~2018-09-02 17:19] MED LIST changes: +LEVO750T44 PO
[2018-09-02 19:07] VITALS: BP 111/63
--- NOTE | 2018-09-02 19:10 | ER Report ---
History and Physical Time Seen By MD: 19:09 Hx. of Stated Complaint: PATIENT STATES THAT SHE STARTED HAVING ABD. PAIN AROUND 1230 TODAY; STATES SHE TOOK SOME TYLENOL AND IT HAS NOT GOTTEN BETTER; STATES LIKE THE PAIN IS BAD WHEN SHE HAD A KIDNEY STONE HPI/ROS CHIEF COMPLAINT: Right lower quadrant abdominal pain HISTORY OF PRESENT ILLNESS: 48-year-old female patient presents to emergency room with complaint of right lower quadrant abdominal pain. Patient states she's been having pain since 12:30 this afternoon. She states the pain came on suddenly. She states that she has had diarrhea, she did have diarrhea prior to the pain. Patient states she's also been nauseated and vomited. Patient states pain feels very similar to when she had a kidney stone a few years back. Patient states that she is not taking any medication for this. She denies any fevers or chills. Patient states pain just came on very suddenly. REVIEW OF SYSTEMS: Respiratory: No cough, no dyspnea. Cardiovascular: No chest pain, no palpitations. Gastrointestinal: As noted above Musculoskeletal: No back pain. Allergies: Coded Allergies: Sulfa (Sulfonamide Antibiotics) (Verified Allergy, Severe, NAUSEA/VO MITING, 09/02/18) lamotrigine (Verified Allergy, Severe, 09/02/18) onion (Verified Allergy, Severe, NAUSEA/VOMITING, 09/02/18) Penicillins (Verified Allergy, Unknown, 09/02/18) amoxicillin (Verified Allergy, Unknown, 09/02/18) cephalexin (Verified Allergy, Unknown, 09/02/18) clavulanic acid (Verified Allergy, Unknown, 09/02/18) fluticasone (Verified Allergy, Unknown, 09/02/18) gemfibrozil (Unverified Allergy, Unknown, 09/02/18) ibuprofen (Verified Allergy, Unknown, 09/02/18) nicotine (Verified Allergy, Unknown, 09/02/18) salmeterol (Verified Allergy, Unknown, 09/02/18) Home Meds Active Scripts Ketorolac Tromethamine (KETOROLAC TROMETHAMINE) 10 Mg Tab, 10 MG PO Q6H, #20 TAB Prov:GINOMICHELLE NEUROLOGY PHYSICIAN 09/02/18 Levofloxacin 750 Mg Tab (LEVAQUIN 750 MG TAB) 750 Mg Tablet, 1 TAB PO QDAY for 7 Days, #7 TAB 0 Refills Prov:NAHED GUERRA DNP, NEUROLOGY PHYSICIAN-BC 08/29/18 Ondansetron Hcl (ZOFRAN) 4 Mg Tablet, 4 MG PO Q8H for Nausea, #15 TAB 0 Refills Prov:JOSE KIMBALL MD 08/02/18 Blood Sugar Diagnostic (BLOOD GLUCOSE TEST STRIP) 1 Each Strip, 1 EACH MC TID, #100 STRIP 5 Refills patient to check blood glucose TID Prov:LEILA HERNANDEZ MD 07/29/18 Syringe and Needle,Insulin,1Ml (Insulin Syringe) 31 Gauge X 1/4" Disp.syrin, UNIT TOP DIRECTED, #100 5 Refills patient to use as directed to inject insulin Prov:LEILA HERNANDEZ MD 07/29/18 [place], Insulin Disposable (Bd Ultra-Fine Pen Needle) 1 Each Dis.needle, UNITS TOP DIRECTED, #100 5 Refills Patient to use up to three times daily to inject insulin Prov:LEILA HERNANDEZ MD 07/29/18 Insulin Aspart 100 Un/Ml Pen (NOVOLOG FLEXPEN) 100 Unit/1 Ml Insuln.pen, 10 UNIT SQ 2-3XD, #2 BOX 6 Refills with each meal, MAX 40 U/24 hours Prov:LEILA HERNANDEZ MD 07/29/18 Insulin Glargine (LANTUS) 100 Unit/Ml Soln, 30 UNIT SUBQ BID, #4 VIAL 6 Refills Prov:LEILA HERNANDEZ MD 07/29/18 Promethazine Hcl (PROMETHAZINE HCL) 25 Mg Tablet, 25 MG PO Q8H PRN for nausea,vomiting, #30 TAB 2 Refills Prov:LEILA HERNANDEZ MD 07/29/18 Tizanidine Hcl (TIZANIDINE HCL) 2 Mg Capsule, 2 MG PO QHS PRN for neck pain, #30 CAPSULE 6 Refills Prov:LEILA HERNANDEZ MD 07/29/18 Gabapentin (GABAPENTIN) 300 Mg Capsule, 300 MG PO TID, #90 CAPSULE 6 Refills TAKES ONE CAP AM AND TWO CAPS PM Prov:LEILA HERNANDEZ MD 07/29/18 Triamterene/Hydrochlorothiazid (TRIAMTERENE-HCTZ 37.5-25 MG TB) 1 Each Tablet, 1 EACH PO QDAY, #30 TAB 6 Refills Prov:LEILA HERNANDEZ MD 07/29/18 Fluoxetine Hcl (FLUOXETINE HCL) 20 Mg Capsule, 20 MG PO QDAY for 30 Days, #30 CAPSULE 1 Refill Prov:LEILA HERNANDEZ MD 07/29/18 Pravastatin Sodium (PRAVACHOL) 20 Mg Tablet, 20 MG PO QDAY, #30 TAB 1 Refill Prov:LEILA HERNANDEZ MD 07/29/18 Aripiprazole (ABILIFY) 5 Mg Tablet, 5 MG PO QDAY, #30 TAB 1 Refill Prov:LEILA HERNANDEZ MD 07/29/18 Dexlansoprazole (DEXILANT) 60 Mg Bala., 60 MG PO BID, #60 TAB 6 Refills Prov:LEILA HERNANDEZ MD 06/23/18 Reported Medications Melatonin (MELATONIN) 5 Mg Tablet, 5 MG PO HS PRN for diff sleeping 07/29/18 Past Medical/Surgical History Patient has a past medical history of Mnire's, migraines, hypertension, hyperlipidemia, obstructive sleep apnea, asthma, COPD, reflux, urinary incontinence, bowel incontinence, arthritis, right ankle fracture, type 2 diabetes, depression, cervical cancer, lymphoma. Patient has a surgical history of appendectomy, cholecystectomy, hysterectomy, right ankle surgery, left shoulder surgery, tonsillectomy, bilateral carpal tunnel release. Reviewed Nurses Notes: Yes Hx Smoking: Yes Smoking Status: Former Smoker Hx Substance Use Disorder: No Hx Alcohol Use: No Constitutional Vital Sign - Last 24 Hours 09/02/18 09/02/18 17:28 19:07 Temp 97.6 97.7 Pulse 94 83 Resp 18 22 B/P (MAP) 132/79 111/63 Pulse Ox 93 91 O2 Delivery Room Air Room Air Physical Exam General Appearance: The patient is alert, has no immediate need for airway protection and no current signs of toxicity. Respiratory: Chest is non tender, lungs are clear to auscultation. Cardiac: regular rate and rhythm Gastrointestinal: Abdomen is soft and tender in the right lower quadrant, no masses, bowel sounds normal. Musculoskeletal: Neck: Neck is supple and non tender. Extremities have full range of motion and are non tender. Skin: No rashes or lesions. DIFFERENTIAL DIAGNOSIS: After history and physical exam differential diagnosis was considered for abdominal pain including but not limited to appendicitis, cholecystitis, gastritis and urinary tract infection. Medical Decision Making Data Points Result Diagram: 09/02/18192609/02/181926 Laboratory Hematology Test 09/02/18 19:05 09/02/18 19:27 Urine Color Yellow Urine Clarity Clear Urine pH 5.0 pH (4.8-9.5) Urine Specific [place] 1.017 Urine Protein Negative mg/dL (NEGATIVE) Urine Glucose (UA) 150 mg/dL (NEGATIVE) Urine Ketones Negative mg/dL (NEGATIVE) Urine Blood Negative (NEGATIVE) Urine Nitrite Negative (NEGATIVE) Urine Bilirubin Negative (NEGATIVE) Urine Urobilinogen Negative mg/dL (0.2-1.9) Urine Leukocyte Esterase Negative (NEGATIVE) Urine RBC <1 /HPF (0-2/HPF) Urine WBC 1 /HPF (0-5/HPF) Urine Squamous Epithelial Cells Many /LPF (</=FEW) Urine Bacteria Few /HPF (NONE-FEW) Urine Mucus None /HPF (NONE-FEW) Red Blood Count 5.38 M/uL (4.17-5.56) Mean Corpuscular Volume 83.0 fL (80.0-96.0) Mean Corpuscular Hemoglobin 28.4 pg (26.0-33.0) Mean Corpuscular Hemoglobin Concent 34.2 g/dL (32.0-36.0) Red Cell Distribution Width 14.0 % (11.5-14.5) Mean Platelet Volume 8.5 fL (7.2-11.1) Neutrophils (%) (Auto) 60.4 % (39.4-72.5) Lymphocytes (%) (Auto) 29.0 % (17.6-49.6) Monocytes (%) (Auto) 8.5 % (4.1-12.4) Eosinophils (%) (Auto) 1.6 % (0.4-6.7) Basophils (%) (Auto) 0.5 % (0.3-1.4) Nucleated RBC Relative Count (auto) 0.0 /100WBC Neutrophils # (Auto) 6.7 K/uL (2.0-7.4) Lymphocytes # (Auto) 3.2 K/uL (1.3-3.6) Monocytes # (Auto) 0.9 K/uL (0.3-1.0) Eosinophils # (Auto) 0.2 K/uL (0.0-0.5) Basophils # (Auto) 0.1 K/uL (0.0-0.1) Nucleated RBC Absolute Count (auto) 0.00 K/uL Sodium Level 141 mmol/L (137-145) Potassium Level 3.7 mmol/L (3.5-5.0) Chloride Level 103 mmol/L (98-107) Carbon Dioxide Level 27 mmol/L (22-31) Blood Urea Nitrogen 12 mg/dl (7-18) Creatinine 0.60 mg/dl (0.52-1.04) Glomerular Filtration Rate Calc > 60.0 Random Glucose 205 mg/dl (75-110) Calcium Level 9.6 mg/dl (8.4-10.2) Total Bilirubin 0.4 mg/dl (0.2-1.3) Aspartate Amino Transf (AST/SGOT) 37 U/L (0-35) Alanine Aminotransferase (ALT/SGPT) 29 U/L (0-56) Alkaline Phosphatase 131 U/L (0-126) Total Protein 7.5 g/dl (6.3-8.2) Albumin 4.5 g/dl (3.5-5.0) Amylase Level 82 U/L (0-110) Lipase 62 U/L (23-300) Chemistry Test 09/02/18 19:05 09/02/18 19:27 Urine Color Yellow Urine Clarity Clear Urine pH 5.0 pH (4.8-9.5) Urine Specific [place] 1.017 Urine Protein Negative mg/dL (NEGATIVE) Urine Glucose (UA) 150 mg/dL (NEGATIVE) Urine Ketones Negative mg/dL (NEGATIVE) Urine Blood Negative (NEGATIVE) Urine Nitrite Negative (NEGATIVE) Urine Bilirubin Negative (NEGATIVE) Urine Urobilinogen Negative mg/dL (0.2-1.9) Urine Leukocyte Esterase Negative (NEGATIVE) Urine RBC <1 /HPF (0-2/HPF) Urine WBC 1 /HPF (0-5/HPF) Urine Squamous Epithelial Cells Many /LPF (</=FEW) Urine Bacteria Few /HPF (NONE-FEW) Urine Mucus None /HPF (NONE-FEW) White Blood Count 11.0 k/uL (4.5-11.0) Red Blood Count 5.38 M/uL (4.17-5.56) Hemoglobin 15.3 g/dL (12.0-16.0) Hematocrit 44.7 % (34.0-47.0) Mean Corpuscular Volume 83.0 fL (80.0-96.0) Mean Corpuscular Hemoglobin 28.4 pg (26.0-33.0) Mean Corpuscular Hemoglobin Concent 34.2 g/dL (32.0-36.0) Red Cell Distribution Width 14.0 % (11.5-14.5) Platelet Count 224 K/uL (150-450) Mean Platelet Volume 8.5 fL (7.2-11.1) Neutrophils (%) (Auto) 60.4 % (39.4-72.5) Lymphocytes (%) (Auto) 29.0 % (17.6-49.6) Monocytes (%) (Auto) 8.5 % (4.1-12.4) Eosinophils (%) (Auto) 1.6 % (0.4-6.7) Basophils (%) (Auto) 0.5 % (0.3-1.4) Nucleated RBC Relative Count (auto) 0.0 /100WBC Neutrophils # (Auto) 6.7 K/uL (2.0-7.4) Lymphocytes # (Auto) 3.2 K/uL (1.3-3.6) Monocytes # (Auto) 0.9 K/uL (0.3-1.0) Eosinophils # (Auto) 0.2 K/uL (0.0-0.5) Basophils # (Auto) 0.1 K/uL (0.0-0.1) Nucleated RBC Absolute Count (auto) 0.00 K/uL Glomerular Filtration Rate Calc > 60.0 Calcium Level 9.6 mg/dl (8.4-10.2) Total Bilirubin 0.4 mg/dl (0.2-1.3) Aspartate Amino Transf (AST/SGOT) 37 U/L (0-35) Alanine Aminotransferase (ALT/SGPT) 29 U/L (0-56) Alkaline Phosphatase 131 U/L (0-126) Total Protein 7.5 g/dl (6.3-8.2) Albumin 4.5 g/dl (3.5-5.0) Amylase Level 82 U/L (0-110) Lipase 62 U/L (23-300) Urinalysis Test 09/02/18 19:05 Urine Color Yellow Urine Clarity Clear Urine pH 5.0 pH (4.8-9.5) Urine Specific [place] 1.017 Urine Protein Negative mg/dL (NEGATIVE) Urine Glucose (UA) 150 mg/dL (NEGATIVE) Urine Ketones Negative mg/dL (NEGATIVE) Urine Blood Negative (NEGATIVE) Urine Nitrite Negative (NEGATIVE) Urine Bilirubin Negative (NEGATIVE) Urine Urobilinogen Negative mg/dL (0.2-1.9) Urine Leukocyte Esterase Negative (NEGATIVE) Urine RBC <1 /HPF (0-2/HPF) Urine WBC 1 /HPF (0-5/HPF) Urine Squamous Epithelial Cells Many /LPF (</=FEW) Urine Bacteria Few /HPF (NONE-FEW) Urine Mucus None /HPF (NONE-FEW) EKG/Imaging Imaging CT ABDOMEN PELVIS W/ CON Additional pertinent History: Right-sided abdominal pain. One of the following dose optimization techniques was utilized in the performance of this exam: Automated exposure control; adjustment of the mA and/or kV according to the patient's size; or use of an iterative reconstruction technique. Specific details can be referenced in the facility's radiology CT exam operational policy. TECHNIQUE: Spiral scan was through the abdomen and pelvis during injection of nonionic iodinated intravenous contrast. Contrast: 75 mL of IV [id number] COMPARISON STUDIES: Comparison is made to a previous study of 08/02/2017 FINDINGS: Liver / biliary: Fatty infiltrative changes within the liver. Minimal nodularity noted respect to the liver contour. No focal liver lesion other than a small hypoattenuated lesion in the dome of the right lobe of the liver likely representing a small cyst.. Status post cholecystectomy. Pancreas: negative Spleen: Spleen at the upper limits of normal. Adrenal glands: negative Kidneys / retroperitoneum: Mildly prominent right extrarenal pelvis similar to the previous examination. No obstructive change noted. Pelvic structures: negative Bowel / peritoneum / mesenteries: Status post gastric bypass surgery. Anastomosis well-maintained. No evidence of any obstructive change. The biliary/ pancreatic limb is well-maintained. Vessels: negative Musculoskeletal / Body wall: negative Lymph node assessment: negative Lower chest: negative IMPRESSION: 1. No acute intra-abdominal or pelvic pathology. 2. Stable gastric bypass surgery. 3. Fatty infiltrative changes within the liver. Report Dictated By: Yannick Early MD at 09/02/2018 8:40 PM Report E-Signed By: Yannick Early MD at 09/02/2018 8:47 PM ED Course/Re-evaluation ED Course Patient was examined, history and physical were obtained. Differential diagnoses were considered. On examination lungs were clear, heart was regular, abdomen was soft and tender to palpation especially in the right lower quadrant. An IV was started, CBC, CMP, urinalysis were obtained. Lab results were unremarkable. Patient did have an elevated blood sugar of 205. A CT scan of the abdomen and pelvis was done which showed no acute findings. He did note that there was some increasing fatty infiltrates in the liver. I discussed the findings with the patient. We will go ahead and discharge patient home at this time. Patient did have significant improvement in her abdominal pain with Toradol here in the emergency room. We will go ahead and discharge her home with 2 pills of Toradol and sent a prescription. She is to take that medication food. Patient is to return to emergency room if condition worsens. She is to follow-up with her primary care provider, Dr. Hernandez, in the next week. Patient verbalized understanding and agreement with plan. Decision to Disposition Date: September 02, 2018 Decision to Disposition Time: 21:05 Depart Departure Latest Vital Signs Vital Signs Date Time Temp Pulse Resp B/P (MAP) Pulse Ox O2 Delivery O2 Flow Rate FiO2 09/02/18 19:07 97.7 83 22 111/63 91 Room Air Impression: Primary Impression: Abdominal pain Condition: Improved Disposition: HOME OR SELF-CARE Referrals: LEILA HERNANDEZ MD (PCP) New Scripts Ketorolac Tromethamine (KETOROLAC TROMETHAMINE) 10 Mg Tab 10 MG PO Q6H, #20 TAB Prov: MICHELLE CHRISTIAN 09/02/18 Patient Instructions: Abdominal Pain (ED) Additional Instructions: Increase fluid intake. Get plenty of rest. Follow up with your primary care provider, [facility] by the end of this week or early next week. Return to the ER if condition worsens. Take medication as prescribed. Use the Zofran as needed for Nausea or Vomiting. Problem Qualifiers Primary Impression: Abdominal pain Abdominal location: right lower quadrant Qualified Codes: R10.31 - Right lower quadrant pain MICHELLE CHRISTIAN September 02, 2018 19:10
[2018-09-02] MEDS ORDERED: NS(*) 0.9% 1000 ML BAG 1,000 ML IV ONE (19:16)
[2018-09-02] MEDS ORDERED: KETOROLAC 15 MG/ML VIAL IVP ONE ×2 (19:20→20:30)
[2018-09-02] MEDS ORDERED: IOPAMIDOL 76% 150 ML INFUS BTL 150 ML ONE (19:31)
[2018-09-02 20:15] LABS: PLATELET COUNT, AUTOMATED 224 K/uL (150-450)
--- NOTE | 2018-09-02 20:51 | RADIOLOGY IMAGING REPORT ---
FACILITY: [facility] PATIENT NAME: Zain Simons : 1970 MR: [id number] V: [id number] EXAM DATE: ORDERING PHYSICIAN: MICHELLE CHRISTIAN TECHNOLOGIST: Location: [facility] Patient: Zain Simons : 1970 Visit/Account:[id number] Date of Sevice: 09/02/2018 CT ABDOMEN PELVIS W/ CON Additional pertinent History: Right-sided abdominal pain. One of the following dose optimization techniques was utilized in the performance of this exam: Autom ated exposure control; adjustment of the mA and/or kV according to the patient's size; or use of an i terative reconstruction technique. Specific details can be referenced in the facility's radiology C T exam operational policy. TECHNIQUE: Spiral scan was through the abdomen and pelvis during injection of nonionic iodinated in travenous contrast. Contrast: 75 mL of IV Isovue-370 COMPARISON STUDIES: Comparison is made to a previous study of 08/02/2017 FINDINGS: Liver / biliary: Fatty infiltrative changes within the liver. Minimal nodularity noted respect to th e liver contour. No focal liver lesion other than a small hypoattenuated lesion in the dome of the r ight lobe of the liver likely representing a small cyst.. Status post cholecystectomy. Pancreas: negative Spleen: Spleen at the upper limits of normal. Adrenal glands: negative Kidneys / retroperitoneum: Mildly prominent right extrarenal pelvis similar to the previous examinati on. No obstructive change noted. Pelvic structures: negative Bowel / peritoneum / mesenteries: Status post gastric bypass surgery. Anastomosis well-maintained. No evidence of any obstructive change. The biliary/ pancreatic limb is well-maintained. Vessels: negative Musculoskeletal / Body wall: negative Lymph node assessment: negative Lower chest: negative IMPRESSION: 1. No acute intra-abdominal or pelvic pathology. 2. Stable gastric bypass surgery. 3. Fatty infiltrative changes within the liver. Report Dictated By: Yannick Early MD at 09/02/2018 8:40 PM Report E-Signed By: Yannick Early MD at 09/02/2018 8:47 PM WSN:ROBERT-LINDA
[2018-09-02] MEDS ORDERED: KET10 PO (21:03)
[2018-09-02] MEDS ORDERED: KETOROLAC TROM 10 MG TAB TH PO ONE (21:05)
== END 2018-09-02 21:20 | disposition home or self-care (01) ==
LOC: ER 19:12
DX: R10.31 Right lower quadrant pain (principal)
CPT/HCPCS: 74177; 81001; 82150; 83690; 85025; 96361; 96374; 96376; 99284; J1885; J7030; Q9967; 82040; 82247; 82310; 82374; 82435; 82565; 82947; 84075; 84132; 84155; 84295; 84450; 84460; 84520

== ENCOUNTER → 2018-09-23 | Outpatient (CLI) | payer MEDICAID ==
[~2018-09-23] MED LIST changes: +KET10 PO; +MAGN250T5 PO; +MAGN400T23 PO
[2018-09-23 10:43] LABS: PLATELET COUNT, AUTOMATED 212 K/uL (150-450)
[2018-09-23 10:47] LABS: LDL CHOLESTEROL 79 mg/dl
== END ==
LOC: LAB 10:16
PROVIDERS: ATTEND Internal Medicine
DX: K22.70 Barrett's esophagus without dysplasia (principal); Z98.84 Bariatric surgery status; K21.9 Gastro-esophageal reflux disease without esophagitis; I10 Essential (primary) hypertension; E78.5 Hyperlipidemia, unspecified; G47.33 Obstructive sleep apnea (adult) (pediatric); Z86.39 Personal history of other endocrine, nutritional and metabolic disease; E11.9 Type 2 diabetes mellitus without complications
CPT/HCPCS: 36415; 81001; 82040; 82043; 82247; 82310; 82374; 82435; 82465; 82565; 82947; 83036; 83718; 83735; 84075; 84132; 84155; 84295; 84439; 84443; 84450; 84460; 84478; 84520; 85025

== ENCOUNTER → 2018-09-24 | Outpatient (CLI) | payer MEDICAID ==
[~2018-09-24] MED LIST changes: +CIPR-345 PO
== END ==
LOC: LAB 16:34
PROVIDERS: ATTEND Internal Medicine
DX: R30.9 Painful micturition, unspecified (principal); B96.89 Other specified bacterial agents as the cause of diseases classified elsewhere
CPT/HCPCS: 81001; 87077; 87088; 87186

== ENCOUNTER 2018-10-08 05:37 | Emergency (ER) | payer SELFPAY ==
[~2018-10-08 05:37] MED LIST changes: +MELA5TAB3 PO; -MELA5TAB6 PO; -RANI-366 PO; +RANI-54 PO
[2018-10-08 05:42] VITALS: BP 133/68
--- NOTE | 2018-10-08 05:43 | ER Report ---
History and Physical Time Seen By MD: 05:42 HPI/ROS CHIEF COMPLAINT: dysuria HISTORY OF PRESENT ILLNESS: This is a 48 year old female. She just finished antibiotics for UTI last week. Now with recurrent symtpoms. Suprapubic pain. Dysuria, Blood in urine. Denies fevers. No flank pain. No headache. H/o frequent UTIs. Many drug allergies as noted. Allergies: Coded Allergies: Sulfa (Sulfonamide Antibiotics) (Verified Allergy, Severe, NAUSEA/VOMITING, 10/08/18) lamotrigine (Verified Allergy, Severe, 10/08/18) onion (Verified Allergy, Severe, NAUSEA/VOMITING, 10/08/18) Penicillins (Verified Allergy, Unknown, 10/08/18) amoxicillin (Verified Allergy, Unknown, 10/08/18) cephalexin (Verified Allergy, Unknown, 10/08/18) clavulanic acid (Verified Allergy, Unknown, 10/08/18) fluticasone (Verified Allergy, Unknown, 10/08/18) gemfibrozil (Unverified Allergy, Unknown, 10/08/18) ibuprofen (Verified Allergy, Unknown, 10/08/18) nicotine (Verified Allergy, Unknown, 10/08/18) salmeterol (Verified Allergy, Unknown, 10/08/18) Home Meds Active Scripts Phenazopyridine Hcl (PHENAZOPYRIDINE HCL) 200 Mg Tablet, 200 MG PO TID PRN for PAIN, #12 TAB 0 Refills Prov:MAYUR IQBAL MD 10/08/18 Ciprofloxacin Hcl 500 Mg Tab (CIPRO 500 MG TAB) 500 Mg Tablet, 500 MG PO BID, #20 TAB 0 Refills Prov:MAYUR IQBAL MD 10/08/18 Magnesium Oxide (MAGNESIUM OXIDE) 250 Mg Tablet, 250 MG PO QDAY, #90 TAB 1 Refill Prov:LEILA CA MD 09/23/18 Ondansetron Hcl (ZOFRAN) 4 Mg Tablet, 4 MG PO Q8H for Nausea, #15 TAB 0 Refills Prov:JOSE KIMBALL MD 08/02/18 Blood Sugar Diagnostic (BLOOD GLUCOSE TEST STRIP) 1 Each Strip, 1 EACH MC TID, #100 STRIP 5 Refills patient to check blood glucose TID Prov:LEILA CA MD 07/29/18 Syringe and Needle,Insulin,1Ml (Insulin Syringe) 31 Gauge X 1/4" Disp.syrin, UNIT TOP DIRECTED, #100 5 Refills patient to use as directed to inject insulin Prov:LEILA CA MD 07/29/18 [place], Insulin Disposable (Bd Ultra-Fine Pen Needle) 1 Each Dis.needle, UNITS TOP DIRECTED, #100 5 Refills Patient to use up to three times daily to inject insulin Prov:LEILA CA MD 07/29/18 Insulin Aspart 100 Un/Ml Pen (NOVOLOG FLEXPEN) 100 Unit/1 Ml Insuln.pen, 10 UNIT SQ 2-3XD, #2 BOX 6 Refills with each meal, MAX 40 U/24 hours Prov:LEILA CA MD 07/29/18 Insulin Glargine (LANTUS) 100 Unit/Ml Soln, 30 UNIT SUBQ BID, #4 VIAL 6 Refills Prov:LEILA CA MD 07/29/18 Promethazine Hcl (PROMETHAZINE HCL) 25 Mg Tablet, 25 MG PO Q8H PRN for nausea,vomiting, #30 TAB 2 Refills Prov:LEILA CA MD 07/29/18 Tizanidine Hcl (TIZANIDINE HCL) 2 Mg Capsule, 2 MG PO QHS PRN for neck pain, #30 CAPSULE 6 Refills Prov:LEILA CA MD 07/29/18 Gabapentin (GABAPENTIN) 300 Mg Capsule, 300 MG PO TID, #90 CAPSULE 6 Refills TAKES ONE CAP AM AND TWO CAPS PM Prov:LEILA CA MD 07/29/18 Fluoxetine Hcl (FLUOXETINE HCL) 20 Mg Capsule, 20 MG PO QDAY for 30 Days, #30 CAPSULE 1 Refill Prov:LEILA CA MD 07/29/18 Pravastatin Sodium (PRAVACHOL) 20 Mg Tablet, 20 MG PO QDAY, #30 TAB 1 Refill Prov:LEILA CA MD 07/29/18 Aripiprazole (ABILIFY) 5 Mg Tablet, 5 MG PO QDAY, #30 TAB 1 Refill Prov:LEILA CA MD 07/29/18 Dexlansoprazole (DEXILANT) 60 Mg Cap., 60 MG PO BID, #60 TAB 6 Refills Prov:LEILA CA MD 06/23/18 Reported Medications Tramadol Hcl (TRAMADOL HCL) 50 Mg Tablet, 50-100 MG PO Q4-6H, TAB 10/08/18 Melatonin (MELATONIN) 5 Mg Tablet, 5 MG PO HS PRN for diff sleeping 07/29/18 Discontinued Scripts Ciprofloxacin 250 Mg (CIPROFLOXACIN 250 MG) 250 Mg Tablet, 250 MG PO BID for 5 Days, #10 TAB Prov:LEILA CA MD 09/25/18 Triamterene/Hydrochlorothiazid (TRIAMTERENE-HCTZ 37.5-25 MG TB) 1 Each Tablet, 1 EACH PO QDAY, #30 TAB 6 Refills Prov:LEILA CA MD 07/29/18 Reviewed Nurses Notes: Yes Hx Smoking: Yes Smoking Status: Former Smoker Hx Substance Use Disorder: No Hx Alcohol Use: No Constitutional Vital Sign - Last 24 Hours 10/08/18 05:42 Temp 97.9 Pulse 76 Resp 16 B/P (MAP) 133/68 Pulse Ox 91 O2 Delivery Room Air Physical Exam General Appearance: Alert, no distress. Eyes: Pupils equal and round no injection. ENT: Normal oral mucosa. Moist mucous membranes. Neck: Neck is supple and non tender. Respiratory: Chest is non tender, lungs are clear to auscultation. Cardiac: regular rate and rhythm Gastrointestinal: Abdomen with suprapubic pain, no flank pain. Musculoskeletal: Extremities have full range of motion. Skin: No rashes or lesions. DIFFERENTIAL DIAGNOSIS: After history and physical exam differential diagnosis was considered for likely recurrent urinary tract infection. Medical Decision Making Data Points Laboratory Hematology Test 10/08/18 05:43 Urine Color Yellow Urine Clarity Cloudy Urine pH 5.0 pH (4.8-9.5) Urine Specific [place] 1.016 Urine Protein 100 mg/dL (NEGATIVE) Urine Glucose (UA) 500 mg/dL (NEGATIVE) Urine Ketones Negative mg/dL (NEGATIVE) Urine Blood Large (NEGATIVE) Urine Nitrite Negative (NEGATIVE) Urine Bilirubin Negative (NEGATIVE) Urine Urobilinogen Negative mg/dL (0.2-1.9) Urine Leukocyte Esterase Large (NEGATIVE) Urine RBC 970 /HPF (0-2/HPF) Urine WBC 1516 /HPF (0-5/HPF) Urine WBC Clumps Mod /HPF Urine Squamous Epithelial Cells None /LPF (</=FEW) Urine Bacteria Negative /HPF (NONE-FEW) Urine Mucus None /HPF (NONE-FEW) Chemistry Test 10/08/18 05:43 Urine Color Yellow Urine Clarity Cloudy Urine pH 5.0 pH (4.8-9.5) Urine Specific [place] 1.016 Urine Protein 100 mg/dL (NEGATIVE) Urine Glucose (UA) 500 mg/dL (NEGATIVE) Urine Ketones Negative mg/dL (NEGATIVE) Urine Blood Large (NEGATIVE) Urine Nitrite Negative (NEGATIVE) Urine Bilirubin Negative (NEGATIVE) Urine Urobilinogen Negative mg/dL (0.2-1.9) Urine Leukocyte Esterase Large (NEGATIVE) Urine RBC 970 /HPF (0-2/HPF) Urine WBC 1516 /HPF (0-5/HPF) Urine WBC Clumps Mod /HPF Urine Squamous Epithelial Cells None /LPF (</=FEW) Urine Bacteria Negative /HPF (NONE-FEW) Urine Mucus None /HPF (NONE-FEW) Urinalysis Test 10/08/18 05:43 Urine Color Yellow Urine Clarity Cloudy Urine pH 5.0 pH (4.8-9.5) Urine Specific [place] 1.016 Urine Protein 100 mg/dL (NEGATIVE) Urine Glucose (UA) 500 mg/dL (NEGATIVE) Urine Ketones Negative mg/dL (NEGATIVE) Urine Blood Large (NEGATIVE) Urine Nitrite Negative (NEGATIVE) Urine Bilirubin Negative (NEGATIVE) Urine Urobilinogen Negative mg/dL (0.2-1.9) Urine Leukocyte Esterase Large (NEGATIVE) Urine RBC 970 /HPF (0-2/HPF) Urine WBC 1516 /HPF (0-5/HPF) Urine WBC Clumps Mod /HPF Urine Squamous Epithelial Cells None /LPF (</=FEW) Urine Bacteria Negative /HPF (NONE-FEW) Urine Mucus None /HPF (NONE-FEW) ED Course/Re-evaluation ED Course Urinalysis shows recurrent infection. Urine culture ordered. Limited abx options. Cultures done over last few months reviewed. Will repeat Cipro due to allergies and due to cost of medications, financial considerations. Follow-up recommended with PCP and recommended further eval with urology. Decision to Disposition Date: Oct 08, 2018 Decision to Disposition Time: 06:24 Depart Departure Latest Vital Signs Vital Signs Date Time Temp Pulse Resp B/P (MAP) Pulse Ox O2 Delivery O2 Flow Rate FiO2 10/08/18 05:42 97.9 76 16 133/68 91 Room Air Impression: Primary Impression: Urinary tract infection Condition: Improved Disposition: HOME OR SELF-CARE Referrals: LEILA CA MD (PCP) New Scripts Phenazopyridine Hcl (PHENAZOPYRIDINE HCL) 200 Mg Tablet 200 MG PO TID PRN for PAIN, #12 TAB 0 Refills Prov: MAYUR IQBAL MD 10/08/18 Ciprofloxacin Hcl 500 Mg Tab (CIPRO 500 MG TAB) 500 Mg Tablet 500 MG PO BID, #20 TAB 0 Refills Prov: MAYUR IQBAL MD 10/08/18 Patient Instructions: Urinary Tract Infection in Women (ED) Additional Instructions: Start Cipro 500mg twice a day for 10 days. Follow-up with Dr. Ca. Would recommend urology consultation for recurrent UTIs. Pyridium 200mg three times a day as needed for pain with urination. Increase fluid intake. Problem Qualifiers Primary Impression: Urinary tract infection Urinary tract infection type: acute cystitis Hematuria presence: with hematuria Qualified Codes: N30.01 - Acute cystitis with hematuria MAYUR IQBAL MD Oct 08, 2018 05:43
[2018-10-08] MEDS ORDERED: TRAM-420 PO (05:48)
[2018-10-08] MEDS ORDERED: CIPROFLOXACIN 500 MG TAB PO ONE (06:25)
[2018-10-08] MEDS ORDERED: PHEN200T32 PO (06:25)
[2018-10-08] MEDS ORDERED: CIPR-344 PO (06:25)
[2018-10-08] MEDS ORDERED: PHENAZOPYRIDINE 200 MG TAB TH 2 TAB/BOTTLE PO ONE (06:25)
== END 2018-10-08 06:35 | disposition home or self-care (01) ==
LOC: ER 05:50
DX: N30.01 Acute cystitis with hematuria (principal)
CPT/HCPCS: 81001; 87088; 99283

== ENCOUNTER 2018-10-15 21:06 | Emergency (ER) | payer SELFPAY ==
[~2018-10-15 21:06] MED LIST changes: +CIPR-344 PO; +PHEN200T32 PO
--- NOTE | 2018-10-15 21:49 | ER Report ---
History and Physical Time Seen By MD: 21:47 Hx. of Stated Complaint: PT REPORT RIGHT-SIDED CHEST PAIN THAT RADIATES INTO RIGHT ARM AND NECK THAT STARTED AN HOUR AGO. HPI/ROS CHIEF COMPLAINT: chest pain HISTORY OF PRESENT ILLNESS: This is a 48 year old female. She has chest pain, worse with breathing, on the right side with radiation to right arm. Started this evening about 1 hour ago. No cough or fevers. No recent illness, sore throat or runny nose. No abdominal pain. No nausea or vomiting. Nothing else makes it worse or better. Onset at rest. Allergies: Coded Allergies: Sulfa (Sulfonamide Antibiotics) (Verified Allergy, Severe, NAUSEA/VOMITING, 10/15/18) lamotrigine (Verified Allergy, Severe, 10/15/18) onion (Verified Allergy, Severe, NAUSEA/VOMITING, 10/15/18) Penicillins (Verified Allergy, Unknown, 10/15/18) amoxicillin (Verified Allergy, Unknown, 10/15/18) cephalexin (Verified Allergy, Unknown, 10/15/18) clavulanic acid (Verified Allergy, Unknown, 10/15/18) fluticasone (Verified Allergy, Unknown, 10/15/18) gemfibrozil (Unverified Allergy, Unknown, 10/15/18) ibuprofen (Verified Allergy, Unknown, 10/15/18) nicotine (Verified Allergy, Unknown, 10/15/18) salmeterol (Verified Allergy, Unknown, 10/15/18) Home Meds Active Scripts Prednisone (PREDNISONE) 20 Mg Tablet, 60 MG PO QDAY for 4 Days, #12 TAB 0 Refills Prov:MAYUR IQBAL MD 10/16/18 Phenazopyridine Hcl (PHENAZOPYRIDINE HCL) 200 Mg Tablet, 200 MG PO TID PRN for PAIN, #12 TAB 0 Refills Prov:MAYUR IQBAL MD 10/08/18 Ciprofloxacin Hcl 500 Mg Tab (CIPRO 500 MG TAB) 500 Mg Tablet, 500 MG PO BID, #20 TAB 0 Refills Prov:MAYUR IQBAL MD 10/08/18 Magnesium Oxide (MAGNESIUM OXIDE) 250 Mg Tablet, 250 MG PO QDAY, #90 TAB 1 Refill Prov:LEILA CA MD 09/23/18 Ondansetron Hcl (ZOFRAN) 4 Mg Tablet, 4 MG PO Q8H for Nausea, #15 TAB 0 Refills Prov:JOSE KIMBALL MD 08/02/18 Blood Sugar Diagnostic (BLOOD GLUCOSE TEST STRIP) 1 Each Strip, 1 EACH MC TID, #100 STRIP 5 Refills patient to check blood glucose TID Prov:LEILA CA MD 07/29/18 Syringe and Needle,Insulin,1Ml (Insulin Syringe) 31 Gauge X 1/4" Disp.syrin, UNIT TOP DIRECTED, #100 5 Refills patient to use as directed to inject insulin Prov:LEILA CA MD 07/29/18 [place], Insulin Disposable (Bd Ultra-Fine Pen Needle) 1 Each Dis.needle, UNITS TOP DIRECTED, #100 5 Refills Patient to use up to three times daily to inject insulin Prov:LEILA CA MD 07/29/18 Insulin Aspart 100 Un/Ml Pen (NOVOLOG FLEXPEN) 100 Unit/1 Ml Insuln.pen, 10 UNIT SQ 2-3XD, #2 BOX 6 Refills with each meal, MAX 40 U/24 hours Prov:LEILA CA MD 07/29/18 Insulin Glargine (LANTUS) 100 Unit/Ml Soln, 30 UNIT SUBQ BID, #4 VIAL 6 Refills Prov:LEILA CA MD 07/29/18 Promethazine Hcl (PROMETHAZINE HCL) 25 Mg Tablet, 25 MG PO Q8H PRN for nausea,vomiting, #30 TAB 2 Refills Prov:LEILA CA MD 07/29/18 Tizanidine Hcl (TIZANIDINE HCL) 2 Mg Capsule, 2 MG PO QHS PRN for neck pain, #30 CAPSULE 6 Refills Prov:LEILA CA MD 07/29/18 Gabapentin (GABAPENTIN) 300 Mg Capsule, 300 MG PO TID, #90 CAPSULE 6 Refills TAKES ONE CAP AM AND TWO CAPS PM Prov:LEILA CA MD 07/29/18 Fluoxetine Hcl (FLUOXETINE HCL) 20 Mg Capsule, 20 MG PO QDAY for 30 Days, #30 CAPSULE 1 Refill Prov:LEILA CA MD 07/29/18 Pravastatin Sodium (PRAVACHOL) 20 Mg Tablet, 20 MG PO QDAY, #30 TAB 1 Refill Prov:LEILA CA MD 07/29/18 Aripiprazole (ABILIFY) 5 Mg Tablet, 5 MG PO QDAY, #30 TAB 1 Refill Prov:LEILA CA MD 07/29/18 Dexlansoprazole (DEXILANT) 60 Mg Bala., 60 MG PO BID, #60 TAB 6 Refills Prov:LEILA CA MD 06/23/18 Reported Medications Tramadol Hcl (TRAMADOL HCL) 50 Mg Tablet, 50-100 MG PO Q4-6H, TAB 10/08/18 Melatonin (MELATONIN) 5 Mg Tablet, 5 MG PO HS PRN for diff sleeping 07/29/18 Reviewed Nurses Notes: Yes Hx Smoking: Yes Smoking Status: Former Smoker Hx Substance Use Disorder: No Hx Alcohol Use: No Constitutional Vital Sign - Last 24 Hours 10/15/18 10/15/18 10/15/18 10/15/18 21:21 21:22 21:30 21:36 Temp 97.9 Pulse 67 67 Resp 18 13 B/P (MAP) 121/53 (75) 121/53 118/67 (84) Pulse Ox 91 91 O2 Delivery Room Air 10/15/18 10/15/18 10/15/18 10/15/18 21:51 22:00 22:06 22:21 Pulse 68 66 67 Resp 13 13 17 B/P (MAP) 120/59 (79) Pulse Ox 93 90 90 10/15/18 10/15/18 10/15/18 10/15/18 22:26 22:30 22:41 22:56 Pulse 68 66 66 Resp 16 19 11 B/P (MAP) 108/68 (81) Pulse Ox 91 89 88 10/15/18 10/15/18 10/15/18 10/15/18 23:00 23:11 23:26 23:30 Pulse 70 70 Resp 16 13 B/P (MAP) 114/75 (88) 116/65 (82) Pulse Ox 90 90 10/15/18 10/15/18 10/16/18 10/16/18 23:54 23:56 00:00 00:11 Pulse 64 69 Resp 4 12 B/P (MAP) 112/55 (74) 107/64 (78) Pulse Ox 90 92 10/16/18 10/16/18 10/16/18 10/16/18 00:16 00:30 00:31 00:46 Pulse 61 67 65 Resp 17 25 11 B/P (MAP) 110/73 (85) Pulse Ox 91 89 92 Intake and Output 10/15/18 10/15/18 10/16/18 15:01 23:01 07:01 Intake Total 1000 ml Balance 1000 ml Physical Exam General Appearance: The patient is alert. No acute distress. Eyes: Pupils are equal, round. No pallor, injection or icterus. ENT: Mucous membranes are moist. Normal oral mucosa. Posterior oropharynx is normal. Neck: Supple and non tender. No lymphadenopathy. Respiratory: Lungs are clear to auscultation. Cardiovascular: Regular rate and rhythm. No murmurs, gallops or rubs. Normal capillary refill. No edema. Gastrointestinal: Abdomen is soft and non tender. Nondistended. Normal active bowel sounds. Neurological: Alert and oriented x3. No focal neurologic deficits Skin: Warm and dry. No rashes. Musculoskeletal: Extremities are nontender. No tenderness in palpation of the cervical, thoracic and lumbar spine. No pain with palpation of chest wall. DIFFERENTIAL DIAGNOSIS: After history and physical exam, differential diagnosis was considered for chest pain including but not limited to myocardial ischemia, pericarditis pulmonary embolus, chest wall pain, pleural inflammation and pulmonary infectious causes. Medical Decision Making Data Points Result Diagram: 10/15/18213910/15/182139 Laboratory Hematology Test 10/15/18 21:40 Red Blood Count 4.73 M/uL (4.17-5.56) Mean Corpuscular Volume 84.5 fL (80.0-96.0) Mean Corpuscular Hemoglobin 29.2 pg (26.0-33.0) Mean Corpuscular Hemoglobin Concent 34.6 g/dL (32.0-36.0) Red Cell Distribution Width 14.3 % (11.5-14.5) Mean Platelet Volume 8.4 fL (7.2-11.1) Neutrophils (%) (Auto) 58.1 % (39.4-72.5) Lymphocytes (%) (Auto) 31.0 % (17.6-49.6) Monocytes (%) (Auto) 8.0 % (4.1-12.4) Eosinophils (%) (Auto) 2.5 % (0.4-6.7) Basophils (%) (Auto) 0.4 % (0.3-1.4) Nucleated RBC Relative Count (auto) 0.0 /100WBC Neutrophils # (Auto) 6.1 K/uL (2.0-7.4) Lymphocytes # (Auto) 3.3 K/uL (1.3-3.6) Monocytes # (Auto) 0.8 K/uL (0.3-1.0) Eosinophils # (Auto) 0.3 K/uL (0.0-0.5) Basophils # (Auto) 0.0 K/uL (0.0-0.1) Nucleated RBC Absolute Count (auto) 0.01 K/uL D-Dimer Quantitative (PE/DVT) 1.18 ug/ml (0-0.50) Sodium Level 141 mmol/L (137-145) Potassium Level 3.9 mmol/L (3.5-5.0) Chloride Level 105 mmol/L (98-107) Carbon Dioxide Level 23 mmol/L (22-31) Blood Urea Nitrogen 8 mg/dl (7-18) Creatinine 0.50 mg/dl (0.52-1.04) Glomerular Filtration Rate Calc > 60.0 Random Glucose 221 mg/dl (75-110) Calcium Level 9.1 mg/dl (8.4-10.2) Total Bilirubin 0.6 mg/dl (0.2-1.3) Aspartate Amino Transf (AST/SGOT) 24 U/L (0-35) Alanine Aminotransferase (ALT/SGPT) 39 U/L (0-56) Alkaline Phosphatase 107 U/L (0-126) Troponin I < 0.012 ng/ml B-Type Natriuretic Peptide 15 pg/ml (0-100) Total Protein 6.6 g/dl (6.3-8.2) Albumin 3.9 g/dl (3.5-5.0) Chemistry Test 10/15/18 21:40 White Blood Count 10.5 k/uL (4.5-11.0) Red Blood Count 4.73 M/uL (4.17-5.56) Hemoglobin 13.8 g/dL (12.0-16.0) Hematocrit 40.0 % (34.0-47.0) Mean Corpuscular Volume 84.5 fL (80.0-96.0) Mean Corpuscular Hemoglobin 29.2 pg (26.0-33.0) Mean Corpuscular Hemoglobin Concent 34.6 g/dL (32.0-36.0) Red Cell Distribution Width 14.3 % (11.5-14.5) Platelet Count 217 K/uL (150-450) Mean Platelet Volume 8.4 fL (7.2-11.1) Neutrophils (%) (Auto) 58.1 % (39.4-72.5) Lymphocytes (%) (Auto) 31.0 % (17.6-49.6) Monocytes (%) (Auto) 8.0 % (4.1-12.4) Eosinophils (%) (Auto) 2.5 % (0.4-6.7) Basophils (%) (Auto) 0.4 % (0.3-1.4) Nucleated RBC Relative Count (auto) 0.0 /100WBC Neutrophils # (Auto) 6.1 K/uL (2.0-7.4) Lymphocytes # (Auto) 3.3 K/uL (1.3-3.6) Monocytes # (Auto) 0.8 K/uL (0.3-1.0) Eosinophils # (Auto) 0.3 K/uL (0.0-0.5) Basophils # (Auto) 0.0 K/uL (0.0-0.1) Nucleated RBC Absolute Count (auto) 0.01 K/uL D-Dimer Quantitative (PE/DVT) 1.18 ug/ml (0-0.50) Glomerular Filtration Rate Calc > 60.0 Calcium Level 9.1 mg/dl (8.4-10.2) Total Bilirubin 0.6 mg/dl (0.2-1.3) Aspartate Amino Transf (AST/SGOT) 24 U/L (0-35) Alanine Aminotransferase (ALT/SGPT) 39 U/L (0-56) Alkaline Phosphatase 107 U/L (0-126) Troponin I < 0.012 ng/ml B-Type Natriuretic Peptide 15 pg/ml (0-100) Total Protein 6.6 g/dl (6.3-8.2) Albumin 3.9 g/dl (3.5-5.0) Coagulation Test 10/15/18 21:40 D-Dimer Quantitative (PE/DVT) 1.18 ug/ml EKG/Imaging EKG Interpretation 12 lead EKG: Rhythm: Normal sinus rhythm, rate 64 [place]: normal QRS: normal ST segments: normal Imaging PORTABLE CHEST: Indication: Pain. Technique: A single frontal film was obtained. Comparison: 08/15/2018 Skeletal and soft tissue structures: Intact and unremarkable. Heart and mediastinum: Within normal limits. Lung subramanian: Well-expanded. There are chronic increased interstitial markings. No focal consolidation or volume loss is identified. Pleural spaces: Unremarkable. Impression: No acute process or significant change. Report Dictated By: Jhon Ross MD at 10/15/2018 10:[address] CTA CHEST W & W/O CON HISTORY: Chest pain and elevated d-dimer. TECHNIQUE: CTA chest with intravenous contrast attention to pulmonary arteries. Sagittal, coronal and slab 3D MIP coronal reconstructed images were also created for further evaluation and interpretation. One of the following dose optimization techniques was utilized in the performance of this exam: Automated exposure control; adjustment of the mA and/or kV according to the patient's size; or use of an iterative reconstruction technique. Specific details can be referenced in the facility's radiology CT exam operational policy. CONTRAST: 75 mL Isovue-370. COMPARISON: CT dated August 15, 2018. FINDINGS: Heart/vessels: Satisfactory opacification of the pulmonary arteries without visualized pulmonary embolus. Small tubular structure within the left subclavian vein which is unchanged and likely represents residual fractured central line (image 57 of series 6). Mild prominence of the main pulmonary artery measuring up to 3.4 cm which is nonspecific however can be seen in setting of pulmonary arterial hypertension. Otherwise negative. Mediastinum: Small hiatal hernia. Lymph nodes: Negative. Lungs/pleura: Mild atelectasis within the lung bases. Subpleural solid nodule within the left lower lobe measuring up to 3 mm (image 222 of series 6), unchanged and likely benign. Otherwise negative. No focal infiltrate or consolidation. Central airways are clear. Visualized upper abdomen: Small cyst within the right hepatic dome. Postoperative changes from gastric bypass without gross complication. Benign stable adenoma within the left adrenal gland. Otherwise negative. Bones/soft tissues: Negative. IMPRESSION: 1. No acute findings. Negative for pulmonary embolus. 2. Incidental note of a small tubular structure within the left subclavian vein which is unchanged and most compatible with residual fractured central line. 3. Unchanged 3 mm pulmonary nodule within the left lower lobe, favored benign however please see Fleischner guidelines below. 4. Additional incidental/chronic findings, as above. FLEISCHNER SOCIETY FOLLOW-UP GUIDELINES FOR NEWLY DETECTED INCIDENTAL NODULES IN PERSONS 35 YEARS OF AGE OR OLDER. *These recommendations do NOT apply to lung cancer screening, patients with immunosuppression or patients with a known primary malignancy. SOLITARY SOLID NODULE If nodule size is < 6 mm: * Low risk patient ? No routine follow-up. * High risk patient ? Optional CT at 12 months. LOW RISK PATIENT: Minimal or absent history of tobacco use and of other known risk factors. HIGH RISK PATIENT: Tobacco use, family history of lung cancer, upper pulmonary lobe location of nodule, presence of emphysema, pulmonary fibrosis, older age. Anne H, John DP, Carroll GARCIA, et al. Guidelines for Management of Incidental Pulmonary Nodules Detected on CT Images: From the Fleischner Society 2017. Radiology. Report Dictated By: Cliff Candelaria MD at 10/15/2018 11:54 PM ED Course/Re-evaluation Clinical Indication for ER IV: Hydration, IV Access ED Course Negative labs except for d-dimer. Negative chest x-ray and subsequent negative CTA chest. Normal EKG. Likely inflammatory cause, discussed with patient. Starting Prednisone burst and Tylenol for pain. Decision to Disposition Date: Oct 16, 2018 Decision to Disposition Time: 00:39 Depart Departure Latest Vital Signs Vital Signs Date Time Temp Pulse Resp B/P (MAP) Pulse Ox O2 Delivery O2 Flow Rate FiO2 10/16/18 00:46 65 11 92 10/16/18 00:30 110/73 (85) 10/15/18 21:22 97.9 Room Air Impression: Primary Impression: Chest pain Condition: Improved Disposition: HOME OR SELF-CARE Referrals: LEILA CA MD (PCP) New Scripts Prednisone (PREDNISONE) 20 Mg Tablet 60 MG PO QDAY for 4 Days, #12 TAB 0 Refills Prov: MAYUR IQBAL MD 10/16/18 Patient Instructions: Chest Pain (ED) Additional Instructions: Your chest pain is likely due to inflammation in the chest wall tissues. We did not find evidence on workup of other dangerous cause including pneumonia, blood clots, or heart attack. We would like you to use Tylenol as needed for pain. Take Prednisone 20mg tablets, 3 tablets once a day for 4 more days starting in the morning. Problem Qualifiers Primary Impression: Chest pain Chest pain type: unspecified Qualified Codes: R07.9 - Chest pain, unspecified MAYUR IQBAL MD Oct 15, 2018 21:49
[2018-10-15] MEDS ORDERED: NS(*) 0.9% 1000 ML BAG 1,000 ML IV ONE (21:52)
[2018-10-15] MEDS ORDERED: ASPIRIN 81 MG CHEW PO ONE (21:55)
[2018-10-15 22:11] LABS: PLATELET COUNT, AUTOMATED 217 K/uL (150-450)
--- NOTE | 2018-10-15 22:50 | RADIOLOGY IMAGING REPORT ---
FACILITY: [facility] PATIENT NAME: Zain Simons : 1970 MR: [id number] V: [id number] EXAM DATE: ORDERING PHYSICIAN: MAYUR IQBAL TECHNOLOGIST: [place] [facility] [place] Patient: Zain Simons : 1970 Visit/Account:[id number] Date of Sevice: 10/15/2018 PORTABLE CHEST: Indication: Pain. Technique: A single frontal film was obtained. Comparison: 08/15/2018 Skeletal and soft tissue structures: Intact and unremarkable. Heart and mediastinum: Within normal limits. Lung subramanian: Well-expanded. There are chronic increased interstitial markings. No focal consolidation or volume loss is identified. Pleural spaces: Unremarkable. Impression: No acute process or significant change. Report Dictated By: Jhon Ross MD at 10/15/2018 10:43 PM Report E-Signed By: Jhon Ross MD at 10/15/2018 10:44 PM WSN:[id number]
--- NOTE | 2018-10-15 23:30 | EKG ---
FACILITY: [facility] [place] PATIENT NAME: LEILANI VALENTINE : [id number] MR: [id number] V: [id number] EXAM DATE: ORDERING PHYSICIAN: MAYUR IQBAL TECHNOLOGIST: ANSHUL Test Reason : CARDIAC Blood Pressure : / mmHG Vent. Rate : 064 BPM Atrial Rate : 064 BPM P-R Int : 166 ms QRS Dur : 084 ms QT Int : 436 ms P-R-T Axes : 023 020 036 degrees QTc Int : 449 ms Normal sinus rhythm R wave progression consistent with old ant/sep NV vs lead placement When compared with ECG of 15-AUG-2018 21:01, Now with poor R wave progression vs lead placement Confirmed by MARVIN MCGREGOR ([id number]) on 10/15/2018 11:37:49 PM Referred By: Confirmed By:MARVIN MCGREGOR
[2018-10-15] MEDS ORDERED: IOPAMIDOL 76% 100 ML INFUS BTL 100 ML ONE (23:32)
[2018-10-15] MEDS ORDERED: NS(*) 0.9% 50 ML BAG 50 ML ONE (23:32)
--- NOTE | 2018-10-16 00:05 | RADIOLOGY IMAGING REPORT ---
FACILITY: [facility] [place] PATIENT NAME: Zain Simons : 1970 MR: [id number] V: [id number] EXAM DATE: ORDERING PHYSICIAN: MAYUR IQBAL TECHNOLOGIST: [place] [facility] [place] : 1970 Visit/Account:[id number] Date of Sevice: 10/15/2018 CT CTA CHEST W & W/O CON HISTORY: Chest pain and elevated d-dimer. TECHNIQUE: CTA chest with intravenous contrast attention to pulmonary arteries. Sagittal, coronal a nd slab 3D MIP coronal reconstructed images were also created for further evaluation and interpretati on. One of the following dose optimization techniques was utilized in the performance of this exam: Autom ated exposure control; adjustment of the mA and/or kV according to the patient's size; or use of an i terative reconstruction technique. Specific details can be referenced in the facility's radiology CT exam operational policy. CONTRAST: 75 mL Isovue-370. COMPARISON: CT dated August 15, 2018. FINDINGS: Heart/vessels: Satisfactory opacification of the pulmonary arteries without visualized pulmonary emb olus. Small tubular structure within the left subclavian vein which is unchanged and likely represent s residual fractured central line (image 57 of series 6). Mild prominence of the main pulmonary arter y measuring up to 3.4 cm which is nonspecific however can be seen in setting of pulmonary arterial hy pertension. Otherwise negative. Mediastinum: Small hiatal hernia. Lymph nodes: Negative. Lungs/pleura: Mild atelectasis within the lung bases. Subpleural solid nodule within the left lower lobe measuring up to 3 mm (image 222 of series 6), unchanged and likely benign. Otherwise negative. N o focal infiltrate or consolidation. Central airways are clear. Visualized upper abdomen: Small cyst within the right hepatic dome. Postoperative changes from gastr ic bypass without gross complication. Benign stable adenoma within the left adrenal gland. Otherwise negative. Bones/soft tissues: Negative. IMPRESSION: 1. No acute findings. Negative for pulmonary embolus. 2. Incidental note of a small tubular structure within the left subclavian vein which is unchanged an d most compatible with residual fractured central line. 3. Unchanged 3 mm pulmonary nodule within the left lower lobe, favored benign however please see Flei schner guidelines below. 4. Additional incidental/chronic findings, as above. FLEISCHNER SOCIETY FOLLOW-UP GUIDELINES FOR NEWLY DETECTED INCIDENTAL NODULES IN PERSONS 35 YEARS OF AGE OR OLDER. *These recommendations do NOT apply to lung cancer screening, patients with immunosuppression or melissa ents with a known primary malignancy. SOLITARY SOLID NODULE If nodule size is < 6 mm: * Low risk patient ? No routine follow-up. * High risk patient ? Optional CT at 12 months. LOW RISK PATIENT: Minimal or absent history of tobacco use and of other known risk factors. HIGH RISK PATIENT: Tobacco use, family history of lung cancer, upper pulmonary lobe location of nodul e, presence of emphysema, pulmonary fibrosis, older age. Anne H, John DP, Carroll JM, et al. Guidelines for Management of Incidental Pulmonary Nodules Dete cted on CT Images: From the Fleischner Society 2017. Radiology. [facility] Report Dictated By: Cliff Candelaria MD at 10/15/2018 11:54 PM Report E-Signed By: Cliff Candelaria MD at 10/15/2018 11:59 PM WSN:[id number]
[2018-10-16 00:30] VITALS: BP 110/73
[2018-10-16] MEDS ORDERED: predniSONE 20 MG TAB PO ONE (00:40)
[2018-10-16] MEDS ORDERED: ACETAMINOPHEN 500 MG TAB PO ONE (00:40)
[2018-10-16] MEDS ORDERED: PRED20TA6 PO (00:44)
== END 2018-10-16 00:56 | disposition home or self-care (01) ==
LOC: ER 21:40
DX: R07.9 Chest pain, unspecified (principal); D68.9 Coagulation defect, unspecified; R91.1 Solitary pulmonary nodule; K44.9 Diaphragmatic hernia without obstruction or gangrene
CPT/HCPCS: 71045; 71275; 83880; 84484; 85025; 85379; 93005; 96360; 99284; J7030; J7050; J7512; Q9967; 82040; 82247; 82310; 82374; 82435; 82565; 82947; 84075; 84132; 84155; 84295; 84450; 84460; 84520

== ENCOUNTER 2018-10-22 08:59 | Emergency (ER) | payer SELFPAY ==
--- NOTE | 2018-10-22 09:01 | ER Report ---
History and Physical Time Seen By MD: 08:59 HPI/ROS CHIEF COMPLAINT: Right flank pain, abdominal pain HISTORY OF PRESENT ILLNESS: Patient is a 48-year-old female here with complaints of right flank pain, abdominal pain which started days ago and seems to be worsening. Patient does report having a history of recent urinary tract infections status post course of Cipro now with flank pain. She also does have a history of nephrolithiasis. Denies fevers but endorses chills. REVIEW OF SYSTEMS: Constitutional: No fever, + chills. Eyes: No discharge. ENT: No sore throat. Cardiovascular: No chest pain, no palpitations. Respiratory: No cough, no shortness of breath. Gastrointestinal: + abdominal pain, no vomiting. Genitourinary: No hematuria, + burning with urination Musculoskeletal: + right flank pain Skin: + intertrigo of lower abdomen and below breasts Neurological: No headache. Allergies: Coded Allergies: Sulfa (Sulfonamide Antibiotics) (Verified Allergy, Severe, NAUSEA/VOMITING, 10/15/18) lamotrigine (Verified Allergy, Severe, 10/15/18) onion (Verified Allergy, Severe, NAUSEA/VOMITING, 10/15/18) Penicillins (Verified Allergy, Unknown, 10/15/18) amoxicillin (Verified Allergy, Unknown, 10/15/18) cephalexin (Verified Allergy, Unknown, 10/15/18) clavulanic acid (Verified Allergy, Unknown, 10/15/18) fluticasone (Verified Allergy, Unknown, 10/15/18) gemfibrozil (Unverified Allergy, Unknown, 10/15/18) ibuprofen (Verified Allergy, Unknown, 10/15/18) nicotine (Verified Allergy, Unknown, 10/15/18) salmeterol (Verified Allergy, Unknown, 10/15/18) Home Meds Active Scripts Ondansetron 4 Mg Odt (ONDANSETRON 4 MG ODT) 4 Mg Tab.rapdis, 4 MG PO ONCE, #30 TAB Prov:CAROLE MARIE DO 10/22/18 Tramadol Hcl (TRAMADOL HCL) 50 Mg Tablet, 50 MG PO Q6H PRN for PAIN, #12 TAB 0 Refills Prov:CAROLE MARIE DO 10/22/18 Nystatin 100,000 Unit/Gm Top Powder (NYSTATIN 100,000 UNIT/GM TOP POWDER) 15 Gm Powder, 15 GM TP Q8H PRN for RASH, #1 TUBE Prov:CAROLE MARIE DO 10/22/18 Prednisone (PREDNISONE) 20 Mg Tablet, 60 MG PO QDAY for 4 Days, #12 TAB 0 Refills Prov:MAYUR IQBAL MD 10/16/18 Phenazopyridine Hcl (PHENAZOPYRIDINE HCL) 200 Mg Tablet, 200 MG PO TID PRN for PAIN, #12 TAB 0 Refills Prov:MAYUR IQBAL MD 10/08/18 Magnesium Oxide (MAGNESIUM OXIDE) 250 Mg Tablet, 250 MG PO QDAY, #90 TAB 1 Refill Prov:LEILA CA MD 09/23/18 Ondansetron Hcl (ZOFRAN) 4 Mg Tablet, 4 MG PO Q8H for Nausea, #15 TAB 0 Refills Prov:JOSE KIMBALL MD 08/02/18 Blood Sugar Diagnostic (BLOOD GLUCOSE TEST STRIP) 1 Each Strip, 1 EACH MC TID, #100 STRIP 5 Refills patient to check blood glucose TID Prov:LEILA CA MD 07/29/18 Syringe and Needle,Insulin,1Ml (Insulin Syringe) 31 Gauge X 1/4" Disp.syrin, UNIT TOP DIRECTED, #100 5 Refills patient to use as directed to inject insulin Prov:LEILA CA MD 07/29/18 [place], Insulin Disposable (Bd Ultra-Fine Pen Needle) 1 Each Dis.needle, UNITS TOP DIRECTED, #100 5 Refills Patient to use up to three times daily to inject insulin Prov:LEILA CA MD 07/29/18 Insulin Aspart 100 Un/Ml Pen (NOVOLOG FLEXPEN) 100 Unit/1 Ml Insuln.pen, 10 UNIT SQ 2-3XD, #2 BOX 6 Refills with each meal, MAX 40 U/24 hours Prov:LEILA CA MD 07/29/18 Insulin Glargine (LANTUS) 100 Unit/Ml Soln, 30 UNIT SUBQ BID, #4 VIAL 6 Refills Prov:LEILA CA MD 07/29/18 Promethazine Hcl (PROMETHAZINE HCL) 25 Mg Tablet, 25 MG PO Q8H PRN for nausea,vomiting, #30 TAB 2 Refills Prov:LEILA CA MD 07/29/18 Tizanidine Hcl (TIZANIDINE HCL) 2 Mg Capsule, 2 MG PO QHS PRN for neck pain, #30 CAPSULE 6 Refills Prov:LEILA CA MD 07/29/18 Gabapentin (GABAPENTIN) 300 Mg Capsule, 300 MG PO TID, #90 CAPSULE 6 Refills TAKES ONE CAP AM AND TWO CAPS PM Prov:LEILA CA MD 07/29/18 Fluoxetine Hcl (FLUOXETINE HCL) 20 Mg Capsule, 20 MG PO QDAY for 30 Days, #30 CAPSULE 1 Refill Prov:LEILA CA MD 07/29/18 Pravastatin Sodium (PRAVACHOL) 20 Mg Tablet, 20 MG PO QDAY, #30 TAB 1 Refill Prov:LEILA CA MD 07/29/18 Aripiprazole (ABILIFY) 5 Mg Tablet, 5 MG PO QDAY, #30 TAB 1 Refill Prov:LEILA CA MD 07/29/18 Dexlansoprazole (DEXILANT) 60 Mg Cap., 60 MG PO BID, #60 TAB 6 Refills Prov:LEILA CA MD 06/23/18 Reported Medications Melatonin (MELATONIN) 5 Mg Tablet, 5 MG PO HS PRN for diff sleeping 07/29/18 Discontinued Reported Medications Tramadol Hcl (TRAMADOL HCL) 50 Mg Tablet, 50-100 MG PO Q4-6H, TAB 10/08/18 Discontinued Scripts Ciprofloxacin Hcl 500 Mg Tab (CIPRO 500 MG TAB) 500 Mg Tablet, 500 MG PO BID, #2 0 TAB 0 Refills Prov:MAYUR IQBAL MD 10/08/18 Hx Smoking: Yes Smoking Status: Former Smoker Hx Substance Use Disorder: No Hx Alcohol Use: No Constitutional Vital Sign - Last 24 Hours 10/22/18 10/22/18 10/22/18 10/22/18 08:59 09:02 09:02 09:19 Temp 97.7 Pulse 72 72 69 Resp 18 B/P (MAP) 121/58 121/58 (79) Pulse Ox 91 95 O2 Delivery Room Air 10/22/18 10/22/18 10/22/18 10/22/18 09:30 09:39 09:59 10:00 Pulse 72 63 B/P (MAP) 125/75 (92) 121/70 (87) Pulse Ox 93 90 Physical Exam General Appearance: The patient is alert, has no immediate need for airway protection and no signs of toxicity. uncomfortable appearing Eyes: Pupils equal and round no pallor or injection. ENT, Mouth: Mucous membranes are moist. Respiratory: There are no retractions, lungs are clear to auscultation. Cardiovascular: Regular rate and rhythm. Gastrointestinal: Abdomen is soft and + tender in the right side, no masses, bowel sounds normal. No rebound or guarding Neurological: No focal neuro deficits Skin: Warm and dry, no rashes. Musculoskeletal: Neck is supple non tender. Extremities are nontender, nonswollen and have full range of motion. DIFFERENTIAL DIAGNOSIS: After history and physical exam differential diagnosis was considered for abdominal pain including but not limited to appendicitis, cholecystitis, gastritis and urinary tract infection, pyelonephritis, nephrolithiasis Medical Decision Making Data Points Result Diagram: 10/22/18 0908 10/22/18 0908 Laboratory Hematology Test 10/22/18 09:02 10/22/18 09:08 Urine Color Yellow Urine Clarity Clear Urine pH 5.0 pH (4.8-9.5) Urine Specific Alvo 1.017 Urine Protein Negative mg/dL (NEGATIVE) Urine Glucose (UA) Negative mg/dL (NEGATIVE) Urine Ketones Negative mg/dL (NEGATIVE) Urine Blood Negative (NEGATIVE) Urine Nitrite Negative (NEGATIVE) Urine Bilirubin Negative (NEGATIVE) Urine Urobilinogen Negative mg/dL (0.2-1.9) Urine Leukocyte Esterase Trace (NEGATIVE) Urine RBC <1 /HPF (0-2/HPF) Urine WBC 2 /HPF (0-5/HPF) Urine Squamous Epithelial Cells Many /LPF (</=FEW) Urine Bacteria Negative /HPF (NONE-FEW) Urine Mucus None /HPF (NONE-FEW) Red Blood Count 4.78 M/uL (4.17-5.56) Mean Corpuscular Volume 84.1 fL (80.0-96.0) Mean Corpuscular Hemoglobin 28.6 pg (26.0-33.0) Mean Corpuscular Hemoglobin Concent 34.0 g/dL (32.0-36.0) Red Cell Distribution Width 14.4 % (11.5-14.5) Mean Platelet Volume 7.9 fL (7.2-11.1) Neutrophils (%) (Auto) 63.4 % (39.4-72.5) Lymphocytes (%) (Auto) 27.1 % (17.6-49.6) Monocytes (%) (Auto) 6.8 % (4.1-12.4) Eosinophils (%) (Auto) 2.1 % (0.4-6.7) Basophils (%) (Auto) 0.6 % (0.3-1.4) Nucleated RBC Relative Count (auto) 0.0 /100WBC Neutrophils # (Auto) 7.0 K/uL (2.0-7.4) Lymphocytes # (Auto) 3.0 K/uL (1.3-3.6) Monocytes # (Auto) 0.7 K/uL (0.3-1.0) Eosinophils # (Auto) 0.2 K/uL (0.0-0.5) Basophils # (Auto) 0.1 K/uL (0.0-0.1) Nucleated RBC Absolute Count (auto) 0.01 K/uL Sodium Level 139 mmol/L (137-145) Potassium Level 3.9 mmol/L (3.5-5.0) Chloride Level 103 mmol/L (98-107) Carbon Dioxide Level 27 mmol/L (22-31) Blood Urea Nitrogen 12 mg/dl (7-18) Creatinine 0.50 mg/dl (0.52-1.04) Glomerular Filtration Rate Calc > 60.0 Random Glucose 201 mg/dl (75-110) Lactate 1.9 mmol/L (0.7-2.1) Calcium Level 9.1 mg/dl (8.4-10.2) Total Bilirubin 0.8 mg/dl (0.2-1.3) Aspartate Amino Transf (AST/SGOT) 25 U/L (0-35) Alanine Aminotransferase (ALT/SGPT) 44 U/L (0-56) Alkaline Phosphatase 81 U/L (0-126) Total Protein 6.2 g/dl (6.3-8.2) Albumin 3.7 g/dl (3.5-5.0) Lipase 48 U/L (23-300) Chemistry Test 10/22/18 09:02 10/22/18 09:08 Urine Color Yellow Urine Clarity Clear Urine pH 5.0 pH (4.8-9.5) Urine Specific Alvo 1.017 Urine Protein Negative mg/dL (NEGATIVE) Urine Glucose (UA) Negative mg/dL (NEGATIVE) Urine Ketones Negative mg/dL (NEGATIVE) Urine Blood Negative (NEGATIVE) Urine Nitrite Negative (NEGATIVE) Urine Bilirubin Negative (NEGATIVE) Urine Urobilinogen Negative mg/dL (0.2-1.9) Urine Leukocyte Esterase Trace (NEGATIVE) Urine RBC <1 /HPF (0-2/HPF) Urine WBC 2 /HPF (0-5/HPF) Urine Squamous Epithelial Cells Many /LPF (</=FEW) Urine Bacteria Negative /HPF (NONE-FEW) Urine Mucus None /HPF (NONE-FEW) White Blood Count 11.0 k/uL (4.5-11.0) Red Blood Count 4.78 M/uL (4.17-5.56) Hemoglobin 13.7 g/dL (12.0-16.0) Hematocrit 40.2 % (34.0-47.0) Mean Corpuscular Volume 84.1 fL (80.0-96.0) Mean Corpuscular Hemoglobin 28.6 pg (26.0-33.0) Mean Corpuscular Hemoglobin Concent 34.0 g/dL (32.0-36.0) Red Cell Distribution Width 14.4 % (11.5-14.5) Platelet Count 210 K/uL (150-450) Mean Platelet Volume 7.9 fL (7.2-11.1) Neutrophils (%) (Auto) 63.4 % (39.4-72.5) Lymphocytes (%) (Auto) 27.1 % (17.6-49.6) Monocytes (%) (Auto) 6.8 % (4.1-12.4) Eosinophils (%) (Auto) 2.1 % (0.4-6.7) Basophils (%) (Auto) 0.6 % (0.3-1.4) Nucleated RBC Relative Count (auto) 0.0 /100WBC Neutrophils # (Auto) 7.0 K/uL (2.0-7.4) Lymphocytes # (Auto) 3.0 K/uL (1.3-3.6) Monocytes # (Auto) 0.7 K/uL (0.3-1.0) Eosinophils # (Auto) 0.2 K/uL (0.0-0.5) Basophils # (Auto) 0.1 K/uL (0.0-0.1) Nucleated RBC Absolute Count (auto) 0.01 K/uL Glomerular Filtration Rate Calc > 60.0 Lactate 1.9 mmol/L (0.7-2.1) Calcium Level 9.1 mg/dl (8.4-10.2) Total Bilirubin 0.8 mg/dl (0.2-1.3) Aspartate Amino Transf (AST/SGOT) 25 U/L (0-35) Alanine Aminotransferase (ALT/SGPT) 44 U/L (0-56) Alkaline Phosphatase 81 U/L (0-126) Total Protein 6.2 g/dl (6.3-8.2) Albumin 3.7 g/dl (3.5-5.0) Lipase 48 U/L (23-300) Urinalysis Test 10/22/18 09:02 Urine Color Yellow Urine Clarity Clear Urine pH 5.0 pH (4.8-9.5) Urine Specific [place] 1.017 Urine Protein Negative mg/dL (NEGATIVE) Urine Glucose (UA) Negative mg/dL (NEGATIVE) Urine Ketones Negative mg/dL (NEGATIVE) Urine Blood Negative (NEGATIVE) Urine Nitrite Negative (NEGATIVE) Urine Bilirubin Negative (NEGATIVE) Urine Urobilinogen Negative mg/dL (0.2-1.9) Urine Leukocyte Esterase Trace (NEGATIVE) Urine RBC <1 /HPF (0-2/HPF) Urine WBC 2 /HPF (0-5/HPF) Urine Squamous Epithelial Cells Many /LPF (</=FEW) Urine Bacteria Negative /HPF (NONE-FEW) Urine Mucus None /HPF (NONE-FEW) EKG/Imaging Imaging PATIENT NAME: Zain Simons : 1970 MR: [id number] V: [id number] EXAM DATE: ORDERING PHYSICIAN: CAROLE MARIE TECHNOLOGIST: Location: [facility] [place] Patient: Zain Simons : 1970 Visit/Account:[id number] Date of Sevice: 10/22/2018 CT ABDOMEN PELVIS W/ CON HISTORY: right flank pain x2 days, worse this morning TECHNIQUE: Following administration of IV contrast contiguous axial images acquired through the abdomen/pelvis. Coronal and sagittal reformatting also performed.Dose Lowering Technique One of the following dose optimization techniques was utilized in the performance of this exam: Automated exposure control; adjustment of the mA and/or kV according to the patient's size; or use of an iterative reconstruction technique. Specific details can be referenced in the facility's radiology CT exam operational policy. CONTRAST: 75 mL Isovue-370 COMPARISON: September 02, 2018 FINDINGS: Visualized lung bases: 3 mm pulmonary nodule lateral left lower lobe appears stable, best appreciated on image 43 series 3. Trace pericardial effusion Hepatobiliary: Postsurgical changes from a cholecystectomy. Several subcentimeter hypodensities in the right lobe of the liver appears stable Spleen: Borderline splenomegaly appears unchanged Adrenals: 1.5 x 1.6 cm left adrenal mass appears stable Pancreas: Negative. Kidneys ureters or bladder: No evidence of hydronephrosis or hydroureter. The bladder wall is mildly thickened Genitalia: Hysterectomy GI: Post surgical changes from gastric bypass surgery. . Additional small bowel anastomosis in the mid abdomen also appears stable Vessels/spaces/nodes: Negative Bones/soft tissues: There spondylotic changes of the lumbar spine Additional findings: None pertinent. IMPRESSION: There postsurgical changes from a cholecystectomy, gastric bypass, hysterectomy and additional small bowel anastomosis that appears stable 3 mm pulmonary nodule left lower lobe appears stable FLEISCHNER SOCIETY FOLLOW-UP GUIDELINES FOR NEWLY DETECTED INCIDENTAL NODULES IN PERSONS 35 YEARS OF AGE OR OLDER. *These recommendations do NOT apply to lung cancer screening, patients with immunosuppression or patients with a known primary malignancy. SOLITARY SOLID NODULE If nodule size is < 6 mm: * Low risk patient ? No routine follow-up. * High risk patient ? Optional CT at 12 months. If nodule size is 6-8 mm: * Low risk patient ? CT at 6-12 months, then consider CT at 18-24 months if no change. * High risk patient ? CT at 6-12 months, then CT at 18-24 months if no change. If nodule size is > 8 mm: * Low risk patient ? Consider CT at 3, 9 and 24 months (if no change), PET/CT, tissue sampling or a combination thereof. * High risk patient ? Consider CT at 3, 9 and 24 months (if no change), PET/CT, tissue sampling, or a combination thereof. LOW RISK PATIENT: Minimal or absent history of tobacco use and of other known risk factors. HIGH RISK PATIENT: Tobacco use, family history of lung cancer, upper pulmonary lobe location of nodule, presence of emphysema, pulmonary fibrosis, older age. Anne H, John DP, Carroll JM, et al. Guidelines for Management of Incidental Pulmonary Nodules Detected on CT Images: From the Fleischner Society 2017. Radiology. [facility] ED Course/Re-evaluation ED Course Patient is a 48-year-old female here with complaints of right flank pain, recent history of urinary tract infection status post Cipro course. Patient complains o f worsening right-sided abdominal pain and flank pain. CT imaging showed no acute findings aside from a pulmonary nodule which will need to be followed up on. Urinalysis was noninfectious, kidney function was intact, there is no hydronephrosis or signs of blockage. Patient did receive Toradol, fentanyl, lidocaine for analgesia. Normal saline bolus administered. Lactate normal. No leukocytosis was identified. Patient was given nystatin powder for intertrigo. Recommend PCP follow-up, return precautions were provided. Decision to Disposition Date: Oct 22, 2018 Decision to Disposition Time: 10:58 Depart Departure Latest Vital Signs Vital Signs Date Time Temp Pulse Resp B/P (MAP) Pulse Ox O2 Delivery O2 Flow Rate FiO2 10/22/18 10:00 121/70 (87) 10/22/18 09:59 63 90 10/22/18 09:02 97.7 18 Room Air Impression: Primary Impression: Flank pain Condition: Improved Disposition: HOME OR SELF-CARE Referrals: LEILA CA MD (PCP) New Scripts Ondansetron 4 Mg Odt (ONDANSETRON 4 MG ODT) 4 Mg Tab.rapdis 4 MG PO ONCE, #30 TAB Prov: CAROLE MARIE DO 10/22/18 Tramadol Hcl (TRAMADOL HCL) 50 Mg Tablet 50 MG PO Q6H PRN for PAIN, #12 TAB 0 Refills Prov: CAROLE MARIE DO 10/22/18 Nystatin 100,000 Unit/Gm Top Powder (NYSTATIN 100,000 UNIT/GM TOP POWDER) 15 Gm Powder 15 GM TP Q8H PRN for RASH, #1 TUBE Prov: CAROLE MARIE DO 10/22/18 Patient Instructions: Abdominal Pain (ED) Additional Instructions: You may apply nystatin powder to your rash every 8 hours as needed for itching. You may take tramadol 1 tablet every 6-8 hours as needed for breakthrough pain control. Your urine was not infected today, your kidneys were not blocked of kidney stones. Your kidney function was intact. Please follow-up with her family provider in the next 2-4 days as needed. Please return promptly if you develop fevers, chills, worsening abdominal pain, inability keep down food or fluids. You may take Zofran 1 tablet every 4-6 hours as needed for nausea and vomiting. CAROLE MARIE DO Oct 22, 2018 09:01
[2018-10-22] MEDS ORDERED: NS(*) 0.9% 1000 ML BAG 1,000 ML IV ONE (09:13)
[2018-10-22] MEDS ORDERED: ONDANSETRON 4 MG/2 ML VIAL IVP ONE (09:15)
[2018-10-22] MEDS ORDERED: KETOROLAC 30 MG/ML VIAL IVP ONE (09:15)
[2018-10-22] MEDS ORDERED: LIDOCAINE 2% IV 100 MG/5ML SYR IVP ONE (09:20)
[2018-10-22 09:25] LABS: PLATELET COUNT, AUTOMATED 210 K/uL (150-450)
[2018-10-22] MEDS ORDERED: IOPAMIDOL 76% 100 ML INFUS BTL 100 ML ONE (09:30)
[2018-10-22] MEDS ORDERED: fentaNYL CITR 100 MCG/2 ML AMP IVP ONE (10:30)
--- NOTE | 2018-10-22 10:42 | RADIOLOGY IMAGING REPORT ---
FACILITY: [facility] [place] PATIENT NAME: Zain Simons : 1970 MR: [id number] V: [id number] EXAM DATE: ORDERING PHYSICIAN: CAROLE MARIE TECHNOLOGIST: Location: [facility] [place] Patient: Zain Simons : 1970 Visit/Account:[id number] Date of Sevice: 10/22/2018 CT ABDOMEN PELVIS W/ CON HISTORY: right flank pain x2 days, worse this morning TECHNIQUE: Following administration of IV contrast contiguous axial images acquired through the abdom en/pelvis. Coronal and sagittal reformatting also performed.Dose Lowering Technique One of the following dose optimization techniques was utilized in the performance of this exam: Autom ated exposure control; adjustment of the mA and/or kV according to the patient's size; or use of an i terative reconstruction technique. Specific details can be referenced in the facility's radiology C T exam operational policy. CONTRAST: 75 mL Isovue-370 COMPARISON: September 02, 2018 FINDINGS: Visualized lung bases: 3 mm pulmonary nodule lateral left lower lobe appears stable, best appreciate d on image 43 series 3. Trace pericardial effusion Hepatobiliary: Postsurgical changes from a cholecystectomy. Several subcentimeter hypodensities in the right lobe of the liver appears stable Spleen: Borderline splenomegaly appears unchanged Adrenals: 1.5 x 1.6 cm left adrenal mass appears stable Pancreas: Negative. Kidneys ureters or bladder: No evidence of hydronephrosis or hydroureter. The bladder wall is mildly thickened Genitalia: Hysterectomy GI: Post surgical changes from gastric bypass surgery. . Additional small bowel anastomosis in the mid abdomen also appears stable Vessels/spaces/nodes: Negative Bones/soft tissues: There spondylotic changes of the lumbar spine Additional findings: None pertinent. IMPRESSION: There postsurgical changes from a cholecystectomy, gastric bypass, hysterectomy and additional small bowel anastomosis that appears stable 3 mm pulmonary nodule left lower lobe appears stable [employer] FOLLOW-UP GUIDELINES FOR NEWLY DETECTED INCIDENTAL NODULES IN PERSONS 35 YEARS OF AGE OR OLDER. *These recommendations do NOT apply to lung cancer screening, patients with immunosuppression or melissa ents with a known primary malignancy. SOLITARY SOLID NODULE If nodule size is < 6 mm: * Low risk patient ? No routine follow-up. * High risk patient ? Optional CT at 12 months. If nodule size is 6-8 mm: * Low risk patient ? CT at 6-12 months, then consider CT at 18-24 months if no change. * High risk patient ? CT at 6-12 months, then CT at 18-24 months if no change. If nodule size is > 8 mm: * Low risk patient ? Consider CT at 3, 9 and 24 months (if no change), PET/CT, tissue sampling or a combination thereof. * High risk patient ? Consider CT at 3, 9 and 24 months (if no change), PET/CT, tissue sampling, or a combination thereof. LOW RISK PATIENT: Minimal or absent history of tobacco use and of other known risk factors. HIGH RISK PATIENT: Tobacco use, family history of lung cancer, upper pulmonary lobe location of nodul e, presence of emphysema, pulmonary fibrosis, older age. Anne H, John DP, Kevino JM, et al. Guidelines for Management of Incidental Pulmonary Nodules Dete cted on CT Images: From the Fleischner Society 2017. [facility]. [facility] Borderline splenomegaly. 1.5 x 1.6 and meter left adrenal mass appears stable Bladder wall is mildly thickened Trace pericardial effusion No evidence of hydronephrosis or urolithiasis Report Dictated By: Aure Iglesias MD at 10/22/2018 10:14 AM Report E-Signed By: Aure Iglesias MD at 10/22/2018 10:37 AM JORGE LUISN:[id number]
[2018-10-22 11:00] VITALS: BP 105/64
[2018-10-22] MEDS ORDERED: NYST15PO4 TP (11:02)
[2018-10-22] MEDS ORDERED: TRAM-420 PO (11:02)
[2018-10-22] MEDS ORDERED: ONDA4TAB9 PO (11:04)
== END 2018-10-22 11:23 | disposition home or self-care (01) ==
LOC: ER 09:01
DX: R10.9 Unspecified abdominal pain (principal)
CPT/HCPCS: 74177; 81001; 83605; 83690; 85025; 96361; 96374; 96375; 99284; J1885; J2001; J2405; J3010; J7030; Q9967; 82040; 82247; 82310; 82374; 82435; 82565; 82947; 84075; 84132; 84155; 84295; 84450; 84460; 84520

== ENCOUNTER → 2018-10-24 | Outpatient (CLI) | payer SELFPAY ==
[2018-10-24 11:24] LABS: PLATELET COUNT, AUTOMATED 181 K/uL (150-450)
== END ==
LOC: LAB 10:40
PROVIDERS: ATTEND Nurse Practitioner
DX: R10.9 Unspecified abdominal pain (principal); R30.0 Dysuria
CPT/HCPCS: 36415; 82040; 82247; 82310; 82374; 82435; 82565; 82947; 84075; 84132; 84155; 84295; 84450; 84460; 84520; 85025

== ENCOUNTER 2018-11-02 07:05 | Emergency (ER) | payer SELFPAY ==
--- NOTE | 2018-11-02 07:30 | ER Report ---
History and Physical Time Seen By MD: 07:28 Hx. of Stated Complaint: PATIENT REPORTS FLANK PAIN. HAS BEEN GOING ON FOR A COUPLE WEEKS. SUPPOSED TO SEE DR. HARDIN. PATIENT REPORTS " WANTS A 100 DOLLAR DEPOSIT TO SEE HIM AND I CANT AFFORD IT." HPI/ROS Flank pain for 4 weeks. No changes. Has been seen and worked up for same multiple times. Has not been able to follow up as directed, b/c she has been having issues with her Medicaid. Seeing the [facility] currently. Says they are working on her Medicaid problem. Has been taking oxycodone for pain, but ran out. No abdominal pain. No vomiting/diarrhea. No fever/chills. No dysuria. No hematuria. s/p gastric bypass. Remainder of the 14 system rev: Yes Allergies: Coded Allergies: Sulfa (Sulfonamide Antibiotics) (Verified Allergy, Severe, NAUSEA/VOMITING, 10/15/18) lamotrigine (Verified Allergy, Severe, 10/15/18) onion (Verified Allergy, Severe, NAUSEA/VOMITING, 10/15/18) Penicillins (Verified Allergy, Unknown, 10/15/18) amoxicillin (Verified Allergy, Unknown, 10/15/18) cephalexin (Verified Allergy, Unknown, 10/15/18) clavulanic acid (Verified Allergy, Unknown, 10/15/18) fluticasone (Verified Allergy, Unknown, 10/15/18) gemfibrozil (Unverified Allergy, Unknown, 10/15/18) ibuprofen (Verified Allergy, Unknown, 10/15/18) nicotine (Verified Allergy, Unknown, 10/15/18) salmeterol (Verified Allergy, Unknown, 10/15/18) Home Meds Active Scripts Ondansetron 4 Mg Odt (ONDANSETRON 4 MG ODT) 4 Mg Tab.rapdis, 4 MG PO ONCE, #30 TAB Prov:CAROLE MARIE DO 10/22/18 Tramadol Hcl (TRAMADOL HCL) 50 Mg Tablet, 50 MG PO Q6H PRN for PAIN, #12 TAB 0 Refills Prov:CAROLE MARIE DO 10/22/18 Nystatin 100,000 Unit/Gm Top Powder (NYSTATIN 100,000 UNIT/GM TOP POWDER) 15 Gm Powder, 15 GM TP Q8H PRN for RASH, #1 TUBE Prov:CAROLE MARIE DO 10/22/18 Prednisone (PREDNISONE) 20 Mg Tablet, 60 MG PO QDAY for 4 Days, #12 TAB 0 Refills Prov:MAYUR IQBAL MD 10/16/18 Phenazopyridine Hcl (PHENAZOPYRIDINE HCL) 200 Mg Tablet, 200 MG PO TID PRN for PAIN, #12 TAB 0 Refills Prov:MAYUR IQBAL MD 10/08/18 Magnesium Oxide (MAGNESIUM OXIDE) 250 Mg Tablet, 250 MG PO QDAY, #90 TAB 1 Refill Prov:LEILA CA MD 09/23/18 Ondansetron Hcl (ZOFRAN) 4 Mg Tablet, 4 MG PO Q8H for Nausea, #15 TAB 0 Refills Prov:JOSE KIMBALL MD 08/02/18 Blood Sugar Diagnostic (BLOOD GLUCOSE TEST STRIP) 1 Each Strip, 1 EACH MC TID, #100 STRIP 5 Refills patient to check blood glucose TID Prov:LEILA CA MD 07/29/18 Syringe and Needle,Insulin,1Ml (Insulin Syringe) 31 Gauge X 1/4" Disp.syrin, UNIT TOP DIRECTED, #100 5 Refills patient to use as directed to inject insulin Prov:LEILA CA MD 07/29/18 [place], Insulin Disposable (Bd Ultra-Fine Pen Needle) 1 Each Dis.needle, UNITS TOP DIRECTED, #100 5 Refills Patient to use up to three times daily to inject insulin Prov:LEILA CA MD 07/29/18 Insulin Aspart 100 Un/Ml Pen (NOVOLOG FLEXPEN) 100 Unit/1 Ml Insuln.pen, 10 UNIT SQ 2-3XD, #2 BOX 6 Refills with each meal, MAX 40 U/24 hours Prov:LEILA CA MD 07/29/18 Insulin Glargine (LANTUS) 100 Unit/Ml Soln, 30 UNIT SUBQ BID, #4 VIAL 6 Refills Prov:LEILA CA MD 07/29/18 Promethazine Hcl (PROMETHAZINE HCL) 25 Mg Tablet, 25 MG PO Q8H PRN for nausea,vomiting, #30 TAB 2 Refills Prov:LEILA CA MD 07/29/18 Tizanidine Hcl (TIZANIDINE HCL) 2 Mg Capsule, 2 MG PO QHS PRN for neck pain, #30 CAPSULE 6 Refills Prov:LEILA CA MD 07/29/18 Gabapentin (GABAPENTIN) 300 Mg Capsule, 300 MG PO TID, #90 CAPSULE 6 Refills TAKES ONE CAP AM AND TWO CAPS PM Prov:LEILA CA MD 07/29/18 Fluoxetine Hcl (FLUOXETINE HCL) 20 Mg Capsule, 20 MG PO QDAY for 30 Days, #30 CAPSULE 1 Refill Prov:LEILA CA MD 07/29/18 Pravastatin Sodium (PRAVACHOL) 20 Mg Tablet, 20 MG PO QDAY, #30 TAB 1 Refill Prov:LEILA CA MD 07/29/18 Aripiprazole (ABILIFY) 5 Mg Tablet, 5 MG PO QDAY, #30 TAB 1 Refill Prov:LEILA CA MD 07/29/18 Dexlansoprazole (DEXILANT) 60 Mg Cap., 60 MG PO BID, #60 TAB 6 Refills Prov:LEILA CA MD 06/23/18 Reported Medications Melatonin (MELATONIN) 5 Mg Tablet, 5 MG PO HS PRN for diff sleeping 07/29/18 Reviewed Nurses Notes: Yes Old Medical Records Reviewed: Yes Hx Smoking: Yes Smoking Status: Former Smoker Hx Substance Use Disorder: No Hx Alcohol Use: No Constitutional Vital Sign - Last 24 Hours 11/02/18 07:13 Temp 98.4 Pulse 64 Resp 16 B/P (MAP) 122/60 Pulse Ox 93 O2 Delivery Room Air Physical Exam General Appearance: The patient is alert, has no immediate need for airway protection and no current signs of toxicity. Eyes: Pupils equal and round no injection. Respiratory: Chest is non tender, lungs are clear to auscultation. Cardiac: regular rate and rhythm Gastrointestinal: Abdomen is soft and non tender, no masses, bowel sounds normal. Musculoskeletal: No flank TTP Extremities have full range of motion and are non tender. Skin: No rashes or lesions. DIFFERENTIAL DIAGNOSIS: After history and physical exam differential diagnosis was considered for flank pain including but not limited to musculoskeletal causes, kidney stone, pyelonephritis, shingles, and intra-abdominal causes such as diverticulitis and appendicitis. Medical Decision Making Data Points Result Diagram: 11/02/18 0744 11/02/18 0744 Laboratory Hematology Test 11/02/18 07:13 11/02/18 07:44 Urine Color Yellow Urine Clarity Clear Urine pH 5.0 pH (4.8-9.5) Urine Specific [place] 1.020 Urine Protein Negative mg/dL (NEGATIVE) Urine Glucose (UA) Negative mg/dL (NEGATIVE) Urine Ketones Negative mg/dL (NEGATIVE) Urine Blood Negative (NEGATIVE) Urine Nitrite Negative (NEGATIVE) Urine Bilirubin Negative (NEGATIVE) Urine Urobilinogen Negative mg/dL (0.2-1.9) Urine Leukocyte Esterase Trace (NEGATIVE) Urine RBC 1 /HPF (0-2/HPF) Urine WBC 2 /HPF (0-5/HPF) Urine Squamous Epithelial Cells Many /LPF (</=FEW) Urine Bacteria Few /HPF (NONE-FEW) Urine Mucus Few /HPF (NONE-FEW) Red Blood Count 4.59 M/uL (4.17-5.56) Mean Corpuscular Volume 85.1 fL (80.0-96.0) Mean Corpuscular Hemoglobin 28.4 pg (26.0-33.0) Mean Corpuscular Hemoglobin Concent 33.4 g/dL (32.0-36.0) Red Cell Distribution Width 13.9 % (11.5-14.5) Mean Platelet Volume 8.4 fL (7.2-11.1) Neutrophils (%) (Auto) 64.1 % (39.4-72.5) Lymphocytes (%) (Auto) 25.8 % (17.6-49.6) Monocytes (%) (Auto) 7.6 % (4.1-12.4) Eosinophils (%) (Auto) 1.9 % (0.4-6.7) Basophils (%) (Auto) 0.6 % (0.3-1.4) Nucleated RBC Relative Count (auto) 0.0 /100WBC Neutrophils # (Auto) 6.0 K/uL (2.0-7.4) Lymphocytes # (Auto) 2.4 K/uL (1.3-3.6) Monocytes # (Auto) 0.7 K/uL (0.3-1.0) Eosinophils # (Auto) 0.2 K/uL (0.0-0.5) Basophils # (Auto) 0.1 K/uL (0.0-0.1) Nucleated RBC Absolute Count (auto) 0.00 K/uL Sodium Level 141 mmol/L (137-145) Potassium Level 3.8 mmol/L (3.5-5.0) Chloride Level 103 mmol/L (98-107) Carbon Dioxide Level 24 mmol/L (22-31) Blood Urea Nitrogen 11 mg/dl (7-18) Creatinine 0.40 mg/dl (0.52-1.04) Glomerular Filtration Rate Calc > 60.0 Random Glucose 224 mg/dl (75-110) Calcium Level 9.4 mg/dl (8.4-10.2) Total Bilirubin 0.6 mg/dl (0.2-1.3) Aspartate Amino Transf (AST/SGOT) 28 U/L (0-35) Alanine Aminotransferase (ALT/SGPT) 47 U/L (0-56) Alkaline Phosphatase 91 U/L (0-126) Total Protein 6.6 g/dl (6.3-8.2) Albumin 4.0 g/dl (3.5-5.0) Chemistry Test 11/02/18 07:13 11/02/18 07:44 Urine Color Yellow Urine Clarity Clear Urine pH 5.0 pH (4.8-9.5) Urine Specific [place] 1.020 Urine Protein Negative mg/dL (NEGATIVE) Urine Glucose (UA) Negative mg/dL (NEGATIVE) Urine Ketones Negative mg/dL (NEGATIVE) Urine Blood Negative (NEGATIVE) Urine Nitrite Negative (NEGATIVE) Urine Bilirubin Negative (NEGATIVE) Urine Urobilinogen Negative mg/dL (0.2-1.9) Urine Leukocyte Esterase Trace (NEGATIVE) Urine RBC 1 /HPF (0-2/HPF) Urine WBC 2 /HPF (0-5/HPF) Urine Squamous Epithelial Cells Many /LPF (</=FEW) Urine Bacteria Few /HPF (NONE-FEW) Urine Mucus Few /HPF (NONE-FEW) White Blood Count 9.4 k/uL (4.5-11.0) Red Blood Count 4.59 M/uL (4.17-5.56) Hemoglobin 13.0 g/dL (12.0-16.0) Hematocrit 39.1 % (34.0-47.0) Mean Corpuscular Volume 85.1 fL (80.0-96.0) Mean Corpuscular Hemoglobin 28.4 pg (26.0-33.0) Mean Corpuscular Hemoglobin Concent 33.4 g/dL (32.0-36.0) Red Cell Distribution Width 13.9 % (11.5-14.5) Platelet Count 189 K/uL (150-450) Mean Platelet Volume 8.4 fL (7.2-11.1) Neutrophils (%) (Auto) 64.1 % (39.4-72.5) Lymphocytes (%) (Auto) 25.8 % (17.6-49.6) Monocytes (%) (Auto) 7.6 % (4.1-12.4) Eosinophils (%) (Auto) 1.9 % (0.4-6.7) Basophils (%) (Auto) 0.6 % (0.3-1.4) Nucleated RBC Relative Count (auto) 0.0 /100WBC Neutrophils # (Auto) 6.0 K/uL (2.0-7.4) Lymphocytes # (Auto) 2.4 K/uL (1.3-3.6) Monocytes # (Auto) 0.7 K/uL (0.3-1.0) Eosinophils # (Auto) 0.2 K/uL (0.0-0.5) Basophils # (Auto) 0.1 K/uL (0.0-0.1) Nucleated RBC Absolute Count (auto) 0.00 K/uL Glomerular Filtration Rate Calc > 60.0 Calcium Level 9.4 mg/dl (8.4-10.2) Total Bilirubin 0.6 mg/dl (0.2-1.3) Aspartate Amino Transf (AST/SGOT) 28 U/L (0-35) Alanine Aminotransferase (ALT/SGPT) 47 U/L (0-56) Alkaline Phosphatase 91 U/L (0-126) Total Protein 6.6 g/dl (6.3-8.2) Albumin 4.0 g/dl (3.5-5.0) Urinalysis Test 11/02/18 07:13 Urine Color Yellow Urine Clarity Clear Urine pH 5.0 pH (4.8-9.5) Urine Specific [place] 1.020 Urine Protein Negative mg/dL (NEGATIVE) Urine Glucose (UA) Negative mg/dL (NEGATIVE) Urine Ketones Negative mg/dL (NEGATIVE) Urine Blood Negative (NEGATIVE) Urine Nitrite Negative (NEGATIVE) Urine Bilirubin Negative (NEGATIVE) Urine Urobilinogen Negative mg/dL (0.2-1.9) Urine Leukocyte Esterase Trace (NEGATIVE) Urine RBC 1 /HPF (0-2/HPF) Urine WBC 2 /HPF (0-5/HPF) Urine Squamous Epithelial Cells Many /LPF (</=FEW) Urine Bacteria Few /HPF (NONE-FEW) Urine Mucus Few /HPF (NONE-FEW) ED Course/Re-evaluation ED Course No evidence of infection. Same pain for 3 weeks to 1 month. Has had multiple workups including a CT scan recently. I do not think she needs additional imaging. Labs and urine are normal. No fever chills. Able to take by mouth. I spoke with her at length about the importance of following up at the [facility] to sort out her Medicaid issues so that she can follow-up. She voices understanding. I'm not going to give her any more narcotic pain medication today. I told her she could take Tylenol for the pain. She is unable to take NSAIDs due to history of gastric bypass. I gave her a work note for [employer], so she can follow-up with the clinic tomorrow. Decision to Disposition Date: Nov 02, 2018 Decision to Disposition Time: 09:32 Depart Departure Latest Vital Signs Vital Signs Date Time Temp Pulse Resp B/P (MAP) Pulse Ox O2 Delivery O2 Flow Rate FiO2 11/02/18 07:13 98.4 64 16 122/60 93 Room Air Impression: Primary Impression: Flank pain Condition: Improved Disposition: HOME OR SELF-CARE Referrals: LEILA CA MD (PCP) Patient Instructions: Flank Pain (ED) SAMSON HUGO MD Nov 02, 2018 07:30
[2018-11-02 08:21] LABS: PLATELET COUNT, AUTOMATED 189 K/uL (150-450)
[2018-11-02] MEDS ORDERED: ONDANSETRON 4 MG/2 ML VIAL IVP ONE (09:10)
[2018-11-02] MEDS ORDERED: traMADol 50 MG TAB PO ONE (09:10)
[2018-11-02 09:49] VITALS: BP 142/92
[2018-11-05] MEDS ORDERED: RANI-318 PO (17:07)
== END 2018-11-02 09:55 | disposition home or self-care (01) ==
LOC: ER 07:33
DX: R10.9 Unspecified abdominal pain (principal); Z87.891 Personal history of nicotine dependence; Z79.899 Other long term (current) drug therapy
CPT/HCPCS: 81001; 85025; 96374; 99283; J2405; 82040; 82247; 82310; 82374; 82435; 82565; 82947; 84075; 84132; 84155; 84295; 84450; 84460; 84520

== ENCOUNTER 2018-11-03 16:32 | Emergency (ER) | payer SELFPAY ==
--- NOTE | 2018-11-03 16:41 | ER Report ---
History and Physical Time Seen By MD: 16:39 HPI/ROS CHIEF COMPLAINT: Left upper quadrant abdominal pain HISTORY OF PRESENT ILLNESS: 48-year-old female patient presents to emergency room with complaint of left upper quadrant abdominal pain. Patient states she's been having this pain since yesterday. She states it started in the afternoon and has progressively worsened throughout the day. She states she has had some diarrhea today. She did states she's also been nauseated and had vomiting yesterday. She states she's not had any vomiting today. She states she is taken Tylenol, Zofran which have seemed to help with the nausea but has not affected the pain. Patient states that there is nothing seems to make the pain better, although any type of movement seems to make the pain worse. Patient denies any fevers, but she states she's felt warm. REVIEW OF SYSTEMS: Respiratory: No cough, no dyspnea. Cardiovascular: No chest pain, no palpitations. Gastrointestinal: As noted above Musculoskeletal: No back pain. Allergies: Coded Allergies: Sulfa (Sulfonamide Antibiotics) (Verified Allergy, Severe, NAUSEA/VOMI TING, 11/03/18) lamotrigine (Verified Allergy, Severe, 11/03/18) onion (Verified Allergy, Severe, NAUSEA/VOMITING, 11/03/18) Penicillins (Verified Allergy, Unknown, 11/03/18) amoxicillin (Verified Allergy, Unknown, 11/03/18) cephalexin (Verified Allergy, Unknown, 11/03/18) clavulanic acid (Verified Allergy, Unknown, 11/03/18) fluticasone (Verified Allergy, Unknown, 11/03/18) gemfibrozil (Unverified Allergy, Unknown, 11/03/18) ibuprofen (Verified Allergy, Unknown, 11/03/18) nicotine (Verified Allergy, Unknown, 11/03/18) salmeterol (Verified Allergy, Unknown, 11/03/18) Home Meds Active Scripts Ondansetron 4 Mg Odt (ONDANSETRON 4 MG ODT) 4 Mg Tab.rapdis, 4 MG PO ONCE, #30 TAB Prov:CAROLE MARIE DO 10/22/18 Tramadol Hcl (TRAMADOL HCL) 50 Mg Tablet, 50 MG PO Q6H PRN for PAIN, #12 TAB 0 Refills Prov:CAROLE MARIE DO 10/22/18 Nystatin 100,000 Unit/Gm Top Powder (NYSTATIN 100,000 UNIT/GM TOP POWDER) 15 Gm Powder, 15 GM TP Q8H PRN for RASH, #1 TUBE Prov:CAROLE MARIE DO 10/22/18 Prednisone (PREDNISONE) 20 Mg Tablet, 60 MG PO QDAY for 4 Days, #12 TAB 0 Refills Prov:MAYUR IQBAL MD 10/16/18 Phenazopyridine Hcl (PHENAZOPYRIDINE HCL) 200 Mg Tablet, 200 MG PO TID PRN for PAIN, #12 TAB 0 Refills Prov:MAYUR IQBAL MD 10/08/18 Magnesium Oxide (MAGNESIUM OXIDE) 250 Mg Tablet, 250 MG PO QDAY, #90 TAB 1 Refill Prov:LEILA CA MD 09/23/18 Ondansetron Hcl (ZOFRAN) 4 Mg Tablet, 4 MG PO Q8H for Nausea, #15 TAB 0 Refills Prov:JOSE KIMBALL MD 08/02/18 Blood Sugar Diagnostic (BLOOD GLUCOSE TEST STRIP) 1 Each Strip, 1 EACH MC TID, #100 STRIP 5 Refills patient to check blood glucose TID Prov:LEILA CA MD 07/29/18 Syringe and Needle,Insulin,1Ml (Insulin Syringe) 31 Gauge X 1/4" Disp.syrin, UNIT TOP DIRECTED, #100 5 Refills patient to use as directed to inject insulin Prov:LEILA CA MD 07/29/18 Francis, Insulin Disposable (Bd Ultra-Fine Pen Needle) 1 Each Dis.needle, UNITS TOP DIRECTED, #100 5 Refills Patient to use up to three times daily to inject insulin Prov:LEILA CA MD 07/29/18 Insulin Aspart 100 Un/Ml Pen (NOVOLOG FLEXPEN) 100 Unit/1 Ml Insuln.pen, 10 UNIT SQ 2-3XD, #2 BOX 6 Refills with each meal, MAX 40 U/24 hours Prov:LEILA CA MD 07/29/18 Insulin Glargine (LANTUS) 100 Unit/Ml Soln, 30 UNIT SUBQ BID, #4 VIAL 6 Refills Prov:LEILA CA MD 07/29/18 Promethazine Hcl (PROMETHAZINE HCL) 25 Mg Tablet, 25 MG PO Q8H PRN for nausea,vomiting, #30 TAB 2 Refills Prov:LEILA CA MD 07/29/18 Tizanidine Hcl (TIZANIDINE HCL) 2 Mg Capsule, 2 MG PO QHS PRN for neck pain, #30 CAPSULE 6 Refills Prov:LEILA CA MD 07/29/18 Gabapentin (GABAPENTIN) 300 Mg Capsule, 300 MG PO TID, #90 CAPSULE 6 Refills TAKES ONE CAP AM AND TWO CAPS PM Prov:LEILA CA MD 07/29/18 Fluoxetine Hcl (FLUOXETINE HCL) 20 Mg Capsule, 20 MG PO QDAY for 30 Days, #30 CAPSULE 1 Refill Prov:LEILA CA MD 07/29/18 Pravastatin Sodium (PRAVACHOL) 20 Mg Tablet, 20 MG PO QDAY, #30 TAB 1 Refill Prov:LEILA CA MD 07/29/18 Aripiprazole (ABILIFY) 5 Mg Tablet, 5 MG PO QDAY, #30 TAB 1 Refill Prov:LEILA CA MD 07/29/18 Dexlansoprazole (DEXILANT) 60 Mg Cap., 60 MG PO BID, #60 TAB 6 Refills Prov:LEILA CA MD 06/23/18 Reported Medications Melatonin (MELATONIN) 5 Mg Tablet, 5 MG PO HS PRN for diff sleeping 07/29/18 Past Medical/Surgical History Patient has a past medical history of Mnire's, migraines, obstructive sleep apnea, asthma, COPD, reflux, urinary and bowel incontinence, left shoulder arthritis, right ankle fracture, type 2 diabetes, depression, anxiety, PTSD, bipolar, cervical cancer, lymphoma. Patient has surgical history of abdominal surgery, appendectomy, cholecystectomy, hysterectomy, right ankle surgery, left shoulder surgery, tonsillectomy, carpal tunnel, gastric bypass. Reviewed Nurses Notes: Yes Hx Smoking: Yes Smoking Status: Former Smoker Hx Substance Use Disorder: No Hx Alcohol Use: No Constitutional Vital Sign - Last 24 Hours 11/03/18 11/03/18 16:37 17:59 Temp 98.4 Pulse 70 70 Resp 18 18 B/P (MAP) 146/70 113/63 (80) Pulse Ox 90 98 O2 Delivery Room Air Room Air Physical Exam General Appearance: The patient is alert, has no immediate need for airway protection and no current signs of toxicity. Respiratory: Chest is non tender, lungs are clear to auscultation. Cardiac: regular rate and rhythm Gastrointestinal: Abdomen is soft and mildly tender in the left upper quadrant, no masses, bowel sounds normal. Musculoskeletal: Neck: Neck is supple and non tender. Extremities have full range of motion and are non tender. Skin: No rashes or lesions. DIFFERENTIAL DIAGNOSIS: After history and physical exam differential diagnosis was considered for abdominal pain including but not limited to appendicitis, cholecystitis, gastritis and urinary tract infection. Medical Decision Making Data Points Result Diagram: 11/03/18 1700 11/03/18 1700 Laboratory Hematology Test 11/03/18 16:45 11/03/18 17:00 Urine Color Yellow Urine Clarity Clear Urine pH 6.0 pH (4.8-9.5) Urine Specific Joanna 1.011 Urine Protein Negative mg/dL (NEGATIVE) Urine Glucose (UA) Negative mg/dL (NEGATIVE) Urine Ketones Negative mg/dL (NEGATIVE) Urine Blood Negative (NEGATIVE) Urine Nitrite Negative (NEGATIVE) Urine Bilirubin Negative (NEGATIVE) Urine Urobilinogen Negative mg/dL (0.2-1.9) Urine Leukocyte Esterase Negative (NEGATIVE) Urine RBC None /HPF (0-2/HPF) Urine WBC 2 /HPF (0-5/HPF) Urine Squamous Epithelial Cells Many /LPF (</=FEW) Urine Bacteria Few /HPF (NONE-FEW) Urine Mucus None /HPF (NONE-FEW) Red Blood Count 4.72 M/uL (4.17-5.56) Mean Corpuscular Volume 84.6 fL (80.0-96.0) Mean Corpuscular Hemoglobin 28.9 pg (26.0-33.0) Mean Corpuscular Hemoglobin Concent 34.1 g/dL (32.0-36.0) Red Cell Distribution Width 14.1 % (11.5-14.5) Mean Platelet Volume 8.4 fL (7.2-11.1) Neutrophils (%) (Auto) 59.8 % (39.4-72.5) Lymphocytes (%) (Auto) 30.4 % (17.6-49.6) Monocytes (%) (Auto) 7.1 % (4.1-12.4) Eosinophils (%) (Auto) 2.0 % (0.4-6.7) Basophils (%) (Auto) 0.7 % (0.3-1.4) Nucleated RBC Relative Count (auto) 0.1 /100WBC Neutrophils # (Auto) 6.1 K/uL (2.0-7.4) Lymphocytes # (Auto) 3.1 K/uL (1.3-3.6) Monocytes # (Auto) 0.7 K/uL (0.3-1.0) Eosinophils # (Auto) 0.2 K/uL (0.0-0.5) Basophils # (Auto) 0.1 K/uL (0.0-0.1) Nucleated RBC Absolute Count (auto) 0.01 K/uL Prothrombin Time 12.9 seconds (12.0-14.4) Prothromb Time International Ratio 0.97 Activated Partial Thromboplast Time 28 seconds (23-35) Sodium Level 140 mmol/L (137-145) Potassium Level 3.9 mmol/L (3.5-5.0) Chloride Level 105 mmol/L (98-107) Carbon Dioxide Level 25 mmol/L (22-31) Blood Urea Nitrogen 10 mg/dl (7-18) Creatinine 0.50 mg/dl (0.52-1.04) Glomerular Filtration Rate Calc > 60.0 Random Glucose 197 mg/dl (75-110) Calcium Level 9.3 mg/dl (8.4-10.2) Total Bilirubin 0.5 mg/dl (0.2-1.3) Aspartate Amino Transf (AST/SGOT) 24 U/L (0-35) Alanine Aminotransferase (ALT/SGPT) 39 U/L (0-56) Alkaline Phosphatase 89 U/L (0-126) Total Protein 6.6 g/dl (6.3-8.2) Albumin 4.0 g/dl (3.5-5.0) Amylase Level 59 U/L (0-110) Lipase 53 U/L (23-300) Helicobacter pylori IgG Antibody Negative (NEGATIVE) Chemistry Test 11/03/18 16:45 11/03/18 17:00 Urine Color Yellow Urine Clarity Clear Urine pH 6.0 pH (4.8-9.5) Urine Specific Joanna 1.011 Urine Protein Negative mg/dL (NEGATIVE) Urine Glucose (UA) Negative mg/dL (NEGATIVE) Urine Ketones Negative mg/dL (NEGATIVE) Urine Blood Negative (NEGATIVE) Urine Nitrite Negative (NEGATIVE) Urine Bilirubin Negative (NEGATIVE) Urine Urobilinogen Negative mg/dL (0.2-1.9) Urine Leukocyte Esterase Negative (NEGATIVE) Urine RBC None /HPF (0-2/HPF) Urine WBC 2 /HPF (0-5/HPF) Urine Squamous Epithelial Cells Many /LPF (</=FEW) Urine Bacteria Few /HPF (NONE-FEW) Urine Mucus None /HPF (NONE-FEW) White Blood Count 10.2 k/uL (4.5-11.0) Red Blood Count 4.72 M/uL (4.17-5.56) Hemoglobin 13.6 g/dL (12.0-16.0) Hematocrit 40.0 % (34.0-47.0) Mean Corpuscular Volume 84.6 fL (80.0-96.0) Mean Corpuscular Hemoglobin 28.9 pg (26.0-33.0) Mean Corpuscular Hemoglobin Concent 34.1 g/dL (32.0-36.0) Red Cell Distribution Width 14.1 % (11.5-14.5) Platelet Count 195 K/uL (150-450) Mean Platelet Volume 8.4 fL (7.2-11.1) Neutrophils (%) (Auto) 59.8 % (39.4-72.5) Lymphocytes (%) (Auto) 30.4 % (17.6-49.6) Monocytes (%) (Auto) 7.1 % (4.1-12.4) Eosinophils (%) (Auto) 2.0 % (0.4-6.7) Basophils (%) (Auto) 0.7 % (0.3-1.4) Nucleated RBC Relative Count (auto) 0.1 /100WBC Neutrophils # (Auto) 6.1 K/uL (2.0-7.4) Lymphocytes # (Auto) 3.1 K/uL (1.3-3.6) Monocytes # (Auto) 0.7 K/uL (0.3-1.0) Eosinophils # (Auto) 0.2 K/uL (0.0-0.5) Basophils # (Auto) 0.1 K/uL (0.0-0.1) Nucleated RBC Absolute Count (auto) 0.01 K/uL Prothrombin Time 12.9 seconds (12.0-14.4) Prothromb Time International Ratio 0.97 Activated Partial Thromboplast Time 28 seconds (23-35) Glomerular Filtration Rate Calc > 60.0 Calcium Level 9.3 mg/dl (8.4-10.2) Total Bilirubin 0.5 mg/dl (0.2-1.3) Aspartate Amino Transf (AST/SGOT) 24 U/L (0-35) Alanine Aminotransferase (ALT/SGPT) 39 U/L (0-56) Alkaline Phosphatase 89 U/L (0-126) Total Protein 6.6 g/dl (6.3-8.2) Albumin 4.0 g/dl (3.5-5.0) Amylase Level 59 U/L (0-110) Lipase 53 U/L (23-300) Helicobacter pylori IgG Antibody Negative (NEGATIVE) Coagulation Test 11/03/18 17:00 Prothrombin Time 12.9 seconds Prothromb Time International Ratio 0.97 Activated Partial Thromboplast Time 28 seconds Urinalysis Test 11/03/18 16:45 Urine Color Yellow Urine Clarity Clear Urine pH 6.0 pH (4.8-9.5) Urine Specific Joanna 1.011 Urine Protein Negative mg/dL (NEGATIVE) Urine Glucose (UA) Negative mg/dL (NEGATIVE) Urine Ketones Negative mg/dL (NEGATIVE) Urine Blood Negative (NEGATIVE) Urine Nitrite Negative (NEGATIVE) Urine Bilirubin Negative (NEGATIVE) Urine Urobilinogen Negative mg/dL (0.2-1.9) Urine Leukocyte Esterase Negative (NEGATIVE) Urine RBC None /HPF (0-2/HPF) Urine WBC 2 /HPF (0-5/HPF) Urine Squamous Epithelial Cells Many /LPF (</=FEW) Urine Bacteria Few /HPF (NONE-FEW) Urine Mucus None /HPF (NONE-FEW) EKG/Imaging Imaging Exam type: ACUTE ABDOMEN SERIES 3 VIEW History: Left-sided abdomen pain and vomiting, history of pancreatitis Comparison: Single view chest October 15, 2018 and acute abdomen series August 03, [address] abdomen and pelvis October 22, 2018. Findings: Bowel gas pattern is nonspecific. There are surgical clips in the upper a bdomen. And left lower quadrant. There is no free air beneath hemidiaphragms. There are moderate degenerative changes lumbar spine. Suggestion of mild splenomegaly. There is mild interstitial prominence peribronchial thickening bilaterally that appears chronic. Cardiac silhouette appears stable. IMPRESSION: 1. Nonspecific bowel gas pattern Stable mild interstitial prominence throughout the lungs and chronic peribronchial thickening Report Dictated By: Aure Iglesias MD at 11/03/2018 5:35 PM Report E-Signed By: Aure Iglesias MD at 11/03/2018 5:38 PM ED Course/Re-evaluation ED Course Patient was admitted to an exam room, history and physical were obtained. Differential diagnoses were considered. On examination lungs clear, heart is regular, abdomen soft and mildly tender left upper quadrant. A CBC, CMP, urinalysis, acute abdominal x-rays were done. Lab results were unremarkable. Patient had no acute findings on the acute abdominal x-ray. We did seem to be a significant amount of gas in the left upper quadrant. I believe that is likely the underlying cause of her pain. We will go ahead and give her some simethicone here. We'll discharge her home. She may take Gas-X as needed for pain. She is return to emergency room if condition worsens. She's to follow-up with the [facility] this week. Patient verbalized understanding and agreement with plan. Decision to Disposition Date: Nov 03, 2018 Decision to Disposition Time: 17:51 Depart Departure Latest Vital Signs Vital Signs Date Time Temp Pulse Resp B/P (MAP) Pulse Ox O2 Delivery O2 Flow Rate FiO2 11/03/18 17:59 70 18 113/63 (80) 98 Room Air 11/03/18 16:37 98.4 Impression: Primary Impression: Left upper quadrant pain Additional Impression: Gas pain Condition: Improved Disposition: HOME OR SELF-CARE Referrals: LEILA CA MD (PCP) Patient Instructions: Abdominal Pain (ED) Additional Instructions: Increase fluid intake. Get plenty of rest. Follow up with your primary care provider at the [facility]. Return to the ER if condition worsens. Make sure that you are getting enough fluids, you are exercising. Take Gas-X to help with the pain. Problem Qualifiers MICHELLE CHRISTIAN Nov 03, 2018 16:41
[2018-11-03 17:08] LABS: PLATELET COUNT, AUTOMATED 195 K/uL (150-450)
[2018-11-03 17:33] LABS: INR 0.97
--- NOTE | 2018-11-03 17:44 | RADIOLOGY IMAGING REPORT ---
FACILITY: [facility] [place]IENT NAME: Zain Simons : 1970 MR: [id number] V: [id number] EXAM DATE: ORDERING PHYSICIAN: MICHELLE CHRISTIAN TECHNOLOGIST: Location: [facility] Patient: Zain Simons : 1970 Visit/Account:[id number] Date of Sevice: 11/03/2018 Exam type: ACUTE ABDOMEN SERIES 3 VIEW History: Left-sided abdomen pain and vomiting, history of pancreatitis Comparison: Single view chest October 15, 2018 and acute abdomen series August 03, [address] abdomen and pelvis October 22, 2018. Findings: Bowel gas pattern is nonspecific. There are surgical clips in the upper abdomen. And left lower gustavo drant. There is no free air beneath hemidiaphragms. There are moderate degenerative changes lumbar spine. Suggestion of mild splenomegaly. There is mild interstitial prominence peribronchial thickening bilaterally that appears chronic. Car diac silhouette appears stable. IMPRESSION: 1. Nonspecific bowel gas pattern Stable mild interstitial prominence throughout the lungs and chronic peribronchial thickening Report Dictated By: Aure Iglesias MD at 11/03/2018 5:35 PM Report E-Signed By: Aure Iglesias MD at 11/03/2018 5:38 PM WSN:[email or web address]
[2018-11-03 17:59] VITALS: BP 113/63
[2018-11-03] MEDS ORDERED: SIMETHICONE 80 MG CHEW CHEW ONE (18:00)
[2018-11-05] MEDS ORDERED: RANI-318 PO (17:07)
== END 2018-11-03 18:09 | disposition home or self-care (01) ==
LOC: ER 16:40
DX: R10.12 Left upper quadrant pain (principal); R14.1 Gas pain
CPT/HCPCS: 74022; 81001; 82040; 82150; 82247; 82310; 82374; 82435; 82565; 82947; 83690; 84075; 84132; 84155; 84295; 84450; 84460; 84520; 85025; 85610; 85730; 86677; 99283

== ENCOUNTER → 2018-11-10 | Outpatient (CLI) | payer MEDICAID ==
[~2018-11-10] MED LIST changes: +ALBU2.5V36 INH; +GUAI120L3 PO; +RANI-318 PO
--- NOTE | 2018-11-10 14:38 | RADIOLOGY IMAGING REPORT ---
FACILITY: [facility] - [place] PATIENT NAME: Zain Simons : 1970 MR: [id number] V: [id number] EXAM DATE: ORDERING PHYSICIAN: NAHED GUERRA TECHNOLOGIST: Location: [facility] [place] Patient: Zain Simons : 1970 Visit/Account:[id number] Date of Sevice: 11/10/2018 CHEST PA LAT INDICATION: Cough, wheezing, shortness of breath COMPARISON: None available FINDINGS: Heart size within normal limits. There is increased pulmonary vascular congestion There is no focal infiltrate or lobar consolidation. There is no pneumothorax or pleural effusion. IMPRESSION: 1. No acute cardiopulmonary process. Report Dictated By: Jacek Lizarraga at 11/10/2018 2:30 PM Report E-Signed By: Jacek Lizarraga at 11/10/2018 2:31 PM WSN:[email or web address]
== END ==
LOC: RAD 13:55
PROVIDERS: ATTEND Nurse Practitioner Primary Care
DX: R05 Cough (principal)
CPT/HCPCS: 71046

== ENCOUNTER 2018-11-17 08:43 | Emergency (ER) | payer MEDICAID ==
[2018-11-17] MEDS ORDERED: IOPAMIDOL 76% 100 ML INFUS BTL 100 ML ONE (10:29)
[2018-11-17 10:39] LABS: PLATELET COUNT, AUTOMATED 227 K/uL (150-450)
[2018-11-17 10:42] LABS: INR 0.93
--- NOTE | 2018-11-17 11:26 | RADIOLOGY IMAGING REPORT ---
FACILITY: [facility] - [place] PATIENT NAME: Zain Simons : 1970 MR: [id number] V: [id number] EXAM DATE: ORDERING PHYSICIAN: CAROLE MARIE TECHNOLOGIST: Location: [facility] [place] Patient: Zain Simons : 1970 Visit/Account:[id number] Date of Sevice: 11/17/2018 CT ABDOMEN PELVIS W/ CON HISTORY: Right upper quadrant abdominal pain TECHNIQUE: Axial images were obtained through the abdomen and pelvis with intravenous contrast . One of the following dose optimization techniques was utilized in the performance of this exam: automate d exposure control; adjustment of the mA and/or kv according to patient size; or use of iterative rec onstruction technique. Specific details can be referenced in the facility's radiology CT exam operati onal policy. CONTRAST: 75 mL of Isovue-370 COMPARISON: CT abdomen/pelvis 10/22/2018 FINDINGS: Visualized lung bases: Negative. Hepatobiliary: Geographic hepatic steatosis. Stable subcentimeter hepatic cysts. Nodular hepatic c ontour. Cholecystectomy without biliary ductal dilatation. Spleen: Negative. Adrenals: Stable 1.5 x 1.1 cm left adrenal gland nodule. Right adrenal is normal. Pancreas: Negative. Kidneys/ureters/bladder: Negative. Bowel/peritoneum/mesentery: Postoperative changes from Chantelle-en-Y gastric bypass. No bowel obstructi on, free air or ascites. Vessels: Negative. Lymph nodes: Negative. Pelvic genitourinary: Hysterectomy Bones/body wall: Mild to moderate degenerative disc disease from L3-S1. Other findings: None significant IMPRESSION: 1. No acute inflammatory process within the abdomen or pelvis. 2. Stable 1.5 x 1.1 cm left adrenal gland nodule, statistically most likely an adenoma. 3. Stable postoperative changes from gastric bypass. 4. Hepatic steatosis with nodular hepatic contour. Recommend clinical correlation for cirrhosis. Report Dictated By: David Carey MD at 11/17/2018 11:10 AM Report E-Signed By: David Carey MD at 11/17/2018 11:19 AM WSN:[email or web address]
[2018-11-17] MEDS ORDERED: fentaNYL 50 MCG TDSY TD ONE (11:35)
[2018-11-17] MEDS ORDERED: MAG HYD/AL HYD/SIMETH 30ML UDC PO ONE (11:35)
[2018-11-17] MEDS ORDERED: LIDOCAINE 2% VISC SLN 15ML UDC PO ONE (11:35)
[2018-11-17] MEDS ORDERED: fentaNYL CITR 100 MCG/2 ML AMP ONE (11:38)
[2018-11-17] MEDS ORDERED: SUCR1TAB85 PO (11:48)
--- NOTE | 2018-11-17 11:49 | ER Report ---
History and Physical Time Seen By MD: 08:57 Hx. of Stated Complaint: INCREASING RUQ PAIN. STATES "IT FEELS LIKE MY ULCER ALWAYS DOES, ITS JUST WORSE NOW" HPI/ROS CHIEF COMPLAINT: Right upper quadrant abdominal pain HISTORY OF PRESENT ILLNESS: Patient is a 48-year-old female here with complaints of chronic the progress of right upper quadrant abdominal pain which she attributes to her PPI not being covered because of a lapse in Medicaid. Patient describes burning right upper quadrant abdominal pain which she feels is due to her ulcer. Patient is afebrile, hemodynamically stable at time of evaluation. REVIEW OF SYSTEMS: Constitutional: No fever, no chills. Eyes: No discharge. ENT: No sore throat. Cardiovascular: No chest pain, no palpitations. Respiratory: No cough, no shortness of breath. Gastrointestinal: + Right upper and midepigastric abdominal pain, no vomiting. Genitourinary: No hematuria. Musculoskeletal: No back pain. Skin: No rashes. Neurological: No headache. Allergies: Coded Allergies: Sulfa (Sulfonamide Antibiotics) (Verified Allergy, Severe, NAUSEA/VOMITING, 11/17/18) lamotrigine (Verified Allergy, Severe, 11/17/18) onion (Verified Allergy, Severe, NAUSEA/VOMITING, 11/17/18) Penicillins (Verified Allergy, Unknown, 11/17/18) amoxicillin (Verified Allergy, Unknown, 11/17/18) cephalexin (Verified Allergy, Unknown, 11/17/18) clavulanic acid (Verified Allergy, Unknown, 11/17/18) fluticasone (Verified Allergy, Unknown, 11/17/18) gemfibrozil (Unverified Allergy, Unknown, 11/17/18) ibuprofen (Verified Allergy, Unknown, 11/17/18) nicotine (Verified Allergy, Unknown, 11/17/18) salmeterol (Verified Allergy, Unknown, 11/17/18) ipratropium (Verified Adverse Reaction, Mild, lower extremity edema, 11/17) Home Meds Active Scripts Sucralfate (CARAFATE) 1 Gm Tablet, 1 GM PO QID for 7 Days, #28 TAB Prov:CAROLE MARIE DO 11/17/18 Pravastatin Sodium (PRAVACHOL) 20 Mg Tablet, 20 MG PO QDAY, #90 TAB 1 Refill Prov:LEILA CA MD 11/12/18 Albuterol Sulfate 0.083% (ALBUTEROL SULFATE 0.083%) 2.5 Mg/3 Ml Vial.neb, 2.5 MG INH Q4-6H PRN for WHEEZING, #1 BOX 0 Refills Prov:NAHED GUERRA DNP [facility] 11/10/18 Prednisone (PREDNISONE) 20 Mg Tablet, 1 TAB PO BID for 5 Days, #10 TAB 0 Refills Prov:NAHED GUERRA DNP [facility] 11/10/18 Ranitidine Hcl (RANITIDINE HCL) 150 Mg Tablet, 1 TAB PO QHS, #14 TAB 0 Refills Prov:NAHED GUERRA DNP [facility] 11/05/18 Ondansetron 4 Mg Odt (ONDANSETRON 4 MG ODT) 4 Mg Tab.rapdis, 4 MG PO ONCE, #30 TAB Prov:CAROLE MARIE DO 10/22/18 Tramadol Hcl (TRAMADOL HCL) 50 Mg Tablet, 50 MG PO Q6H PRN for PAIN, #12 TAB 0 Refills Prov:CAROLE MARIE DO 10/22/18 Nystatin 100,000 Unit/Gm Top Powder (NYSTATIN 100,000 UNIT/GM TOP POWDER) 15 Gm Powder, 15 GM TP Q8H PRN for RASH, #1 TUBE Prov:CAROLE MARIE DO 10/22/18 Magnesium Oxide (MAGNESIUM OXIDE) 250 Mg Tablet, 250 MG PO QDAY, #90 TAB 1 Refill Prov:LEILA CA MD 09/23/18 Blood Sugar Diagnostic (BLOOD GLUCOSE TEST STRIP) 1 Each Strip, 1 EACH MC TID, #100 STRIP 5 Refills patient to check blood glucose TID Prov:LEILA CA MD 07/29/18 Syringe and Needle,Insulin,1Ml (Insulin Syringe) 31 Gauge X 1/4" Disp.syrin, UNIT TOP DIRECTED, #100 5 Refills patient to use as directed to inject insulin Prov:LEILA CA MD 07/29/18 [place], Insulin Disposable (Bd Ultra-Fine Pen Needle) 1 Each Dis.needle, UNITS TOP DIRECTED, #100 5 Refills Patient to use up to three times daily to inject insulin Prov:LEILA CA MD 07/29/18 Insulin Aspart 100 Un/Ml Pen (NOVOLOG FLEXPEN) 100 Unit/1 Ml Insuln.pen, 10 UNIT SQ 2-3XD, #2 BOX 6 Refills with each meal, MAX 40 U/24 hours Prov:LEILA CA MD 07/29/18 Insulin Glargine (LANTUS) 100 Unit/Ml Soln, 30 UNIT SUBQ BID, #4 VIAL 6 Refills Prov:LEILA CA MD 07/29/18 Gabapentin (GABAPENTIN) 300 Mg Capsule, 300 MG PO TID, #90 CAPSULE 6 Refills TAKES ONE CAP AM AND TWO CAPS PM Prov:LEILA CA MD 07/29/18 Fluoxetine Hcl (FLUOXETINE HCL) 20 Mg Capsule, 20 MG PO QDAY for 30 Days, #30 CA PSULE 1 Refill Prov:LEILA CA MD 07/29/18 Aripiprazole (ABILIFY) 5 Mg Tablet, 5 MG PO QDAY, #30 TAB 1 Refill Prov:LEILA CA MD 07/29/18 Dexlansoprazole (DEXILANT) 60 Mg Cap., 60 MG PO BID, #60 TAB 6 Refills Prov:LEILA CA MD 06/23/18 Reported Medications Melatonin (MELATONIN) 5 Mg Tablet, 5 MG PO HS PRN for diff sleeping 07/29/18 Discontinued Scripts Guaifenesin/Codeine Phosphate (Codeine-Guaifen 10-100 mg/5 ml) 120 Ml Liquid, 1- 2 TSP PO Q6H PRN for COUGH, #120 ML 0 Refills Prov:NAHED GUERRA DNP, [employer] 11/10/18 Hx Smoking: Yes (quit 2002) Smoking Status: Former Smoker Hx Substance Use Disorder: No Hx Alcohol Use: No Constitutional Vital Sign - Last 24 Hours 11/17/18 11/17/18 11/17/18 08:55 11:56 11:58 Temp 98.5 Pulse 68 73 68 Resp 20 14 14 B/P (MAP) 138/70 (92) 130/71 (90) Pulse Ox 93 93 92 O2 Delivery Room Air Room Air Room Air Physical Exam General Appearance: The patient is alert, has no immediate need for airway protection and no signs of toxicity. Uncomfortable appearing Eyes: Pupils equal and round no pallor or injection. ENT, Mouth: Mucous membranes are moist. Respiratory: There are no retractions, lungs are clear to auscultation. Cardiovascular: Regular rate and rhythm. Gastrointestinal: Tenderness on palpation of the right upper quadrant, midepigastrium, no rebound or guarding Neurological: No focal neurological deficit Skin: Warm and dry, no rashes. Musculoskeletal: Neck is supple non tender. Extremities are nontender, nonswollen and have full range of motion. DIFFERENTIAL DIAGNOSIS: After history and physical exam differential diagnosis was considered for abdominal pain including but not limited to appendicitis, cholecystitis, gastritis and urinary tract infection. Medical Decision Making Data Points Result Diagram: 11/17/18 1008 11/17/18 1008 Laboratory Hematology Test 11/17/18 10:08 White Blood Count 16.2 k/uL (4.5-11.0) H Red Blood Count 4.85 M/uL (4.17-5.56) Hemoglobin 13.9 g/dL (12.0-16.0) Hematocrit 40.3 % (34.0-47.0) Mean Corpuscular Volume 83.0 fL (80.0-96.0) Mean Corpuscular Hemoglobin 28.6 pg (26.0-33.0) Mean Corpuscular Hemoglobin Concent 34.4 g/dL (32.0-36.0) Red Cell Distribution Width 14.1 % (11.5-14.5) Platelet Count 227 K/uL (150-450) Mean Platelet Volume 8.1 fL (7.2-11.1) Neutrophils (%) (Auto) 62.8 % (39.4-72.5) Lymphocytes (%) (Auto) 27.8 % (17.6-49.6) Monocytes (%) (Auto) 7.3 % (4.1-12.4) Eosinophils (%) (Auto) 1.5 % (0.4-6.7) Basophils (%) (Auto) 0.6 % (0.3-1.4) Nucleated RBC Relative Count (auto) 0.1 /100WBC Neutrophils # (Auto) 10.2 K/uL (2.0-7.4) H Lymphocytes # (Auto) 4.5 K/uL (1.3-3.6) H Monocytes # (Auto) 1.2 K/uL (0.3-1.0) H Eosinophils # (Auto) 0.2 K/uL (0.0-0.5) Basophils # (Auto) 0.1 K/uL (0.0-0.1) Nucleated RBC Absolute Count (auto) 0.02 K/uL Chemistry Test 11/17/18 10:08 Sodium Level 140 mmol/L (137-145) Potassium Level 3.1 mmol/L (3.5-5.0) Chloride Level 100 mmol/L (98-107) Carbon Dioxide Level 27 mmol/L (22-31) Blood Urea Nitrogen 12 mg/dl (7-18) Creatinine 0.70 mg/dl (0.52-1.04) Glomerular Filtration Rate Calc > 60.0 Random Glucose 163 mg/dl (75-110) Lactate 1.7 mmol/L (0.7-2.1) Calcium Level 9.5 mg/dl (8.4-10.2) Total Bilirubin 0.5 mg/dl (0.2-1.3) Aspartate Amino Transf (AST/SGOT) 35 U/L (0-35) Alanine Aminotransferase (ALT/SGPT) 41 U/L (0-56) Alkaline Phosphatase 105 U/L (0-126) Total Protein 6.7 g/dl (6.3-8.2) Albumin 4.0 g/dl (3.5-5.0) Lipase 39 U/L (23-300) Coagulation Test 11/17/18 10:08 Prothrombin Time 12.5 seconds (12.0-14.4) Prothromb Time International Ratio 0.93 Activated Partial Thromboplast Time 24 seconds (23-35) Urinalysis Test 11/17/18 10:08 Urine Color Yellow Urine Clarity Slightly-cloudy Urine pH 6.0 pH (4.8-9.5) Urine Specific [place] 1.015 Urine Protein Negative mg/dL (NEGATIVE) Urine Glucose (UA) Negative mg/dL (NEGATIVE) Urine Ketones Negative mg/dL (NEGATIVE) Urine Blood Negative (NEGATIVE) Urine Nitrite Negative (NEGATIVE) Urine Bilirubin Negative (NEGATIVE) Urine Urobilinogen Negative mg/dL (0.2-1.9) Urine Leukocyte Esterase Trace (NEGATIVE) Urine RBC None /HPF (0-2/HPF) Urine WBC 4 /HPF (0-5/HPF) Urine Squamous Epithelial Cells None /LPF (</=FEW) Urine Calcium Oxalate Crystals Few /HPF (NONE) Urine Bacteria Negative /HPF (NONE-FEW) Urine Mucus None /HPF (NONE-FEW) EKG/Imaging Imaging [place] [facility] [place] NAME: Zain Simons : 1970 MR: [id number] V: [id number] EXAM DATE: ORDERING PHYSICIAN: CAROLE MARIE TECHNOLOGIST: Location: [facility] Patient: Zain Simons : 1970 Visit/Account:[id number] Date of Sevice: 11/17/2018 CT ABDOMEN PELVIS W/ CON HISTORY: Right upper quadrant abdominal pain TECHNIQUE: Axial images were obtained through the abdomen and pelvis with intravenous contrast . One of the following dose optimization techniques was utilized in the performance of this exam: automated exposure control; adjustment of the mA and/or kv according to patient size; or use of iterative reconstruction technique. Specific details can be referenced in the facility's radiology CT exam operational policy. CONTRAST: 75 mL of Isovue-370 COMPARISON: CT abdomen/pelvis 10/22/2018 FINDINGS: Visualized lung bases: Negative. Hepatobiliary: Geographic hepatic steatosis. Stable subcentimeter hepatic cysts. Nodular hepatic contour. Cholecystectomy without biliary ductal dilatation. Spleen: Negative. Adrenals: Stable 1.5 x 1.1 cm left adrenal gland nodule. Right adrenal is normal. Pancreas: Negative. Kidneys/ureters/bladder: Negative. Bowel/peritoneum/mesentery: Postoperative changes from [place]-en-Y gastric bypass. No bowel obstruction, free air or ascites. Vessels: Negative. Lymph nodes: Negative. Pelvic genitourinary: Hysterectomy Bones/body wall: Mild to moderate degenerative disc disease from L3-S1. Other findings: None significant IMPRESSION: 1. No acute inflammatory process within the abdomen or pelvis. 2. Stable 1.5 x 1.1 cm left adrenal gland nodule, statistically most likely an adenoma. 3. Stable postoperative changes from gastric bypass. 4. Hepatic steatosis with nodular hepatic contour. Recommend clinical correlation for cirrhosis. Report Dictated By: David Carey MD at 11/17/2018 11:10 AM ED Course/Re-evaluation ED Course Patient is a 48-year-old female here with complaints of right upper quadrant and midepigastric abdominal pain which she attributes to her peptic ulcer. Patient reports that her PPI was not covered when her Medicaid lapsed which she feels is the reason for her current pain. Patient reports worsening pain prompting evaluation. Labs were remarkable for mild leukocytosis, lactate was negative. CT imaging of the abdomen and pelvis were completed and was unremarkable. Patient was given analgesics, GI cocktail with significant relief of symptoms. Prescription provided for Carafate for outpatient treatment. Close PCP follow-up recommended. Return precautions provided. Decision to Disposition Date: Nov 17, 2018 Decision to Disposition Time: 11:42 Depart Departure Latest Vital Signs Vital Signs Date Time Temp Pulse Resp B/P (MAP) Pulse Ox O2 Delivery O2 Flow Rate FiO2 11/17/18 11:58 68 14 130/71 (90) 92 Room Air 11/17/18 08:55 98.5 Impression: Primary Impression: Abdominal pain Condition: Improved Disposition: HOME OR SELF-CARE Referrals: LELIA CA MD (PCP) New Scripts Sucralfate (CARAFATE) 1 Gm Tablet 1 GM PO QID for 7 Days, #28 TAB Prov: CAROLE MARIE DO 11/17/18 Patient Instructions: Abdominal Pain (ED) Additional Instructions: Please drink plenty of water. Please take Carafate 1 tablet 4 times daily for 7 days. Please continue your current medications as prescribed. Please follow-up with her family provider in the next 24-48 hours. Please return promptly if you develop worsening pain fevers, inability to keep down food or fluids, chest pain, shortness breath CAROLE MARIE DO Nov 17, 2018 11:49
[2018-11-17 11:58] VITALS: BP 130/71
[2018-11-18] MEDS ORDERED: SUMA50TA35 PO (09:09)
== END 2018-11-17 11:49 | disposition home or self-care (01) ==
LOC: ER 09:02
DX: R10.11 Right upper quadrant pain (principal); Z87.891 Personal history of nicotine dependence; Z79.899 Other long term (current) drug therapy
CPT/HCPCS: 74177; 81001; 83605; 83690; 85025; 85610; 85730; 99284; J3010; Q9967; 82040; 82247; 82310; 82374; 82435; 82565; 82947; 84075; 84132; 84155; 84295; 84450; 84460; 84520

== ENCOUNTER → 2018-11-18 | Outpatient (CLI) | payer MEDICAID ==
[2018-11-18 09:36] LABS: PLATELET COUNT, AUTOMATED 223 K/uL (150-450)
[2018-11-18 10:25] LABS: LDL CHOLESTEROL 54 mg/dl
== END ==
LOC: LAB 09:15
PROVIDERS: ATTEND Internal Medicine
DX: R10.9 Unspecified abdominal pain (principal); I10 Essential (primary) hypertension; K22.70 Barrett's esophagus without dysplasia; Z98.84 Bariatric surgery status; K21.9 Gastro-esophageal reflux disease without esophagitis; E78.5 Hyperlipidemia, unspecified; E11.9 Type 2 diabetes mellitus without complications
CPT/HCPCS: 36415; 81001; 82040; 82043; 82247; 82310; 82374; 82435; 82465; 82565; 82947; 83036; 83718; 83735; 84075; 84132; 84155; 84295; 84443; 84450; 84460; 84478; 84520; 85025

== ENCOUNTER 2018-11-20 01:36 | Day surgery (SDC) | payer MEDICAID ==
[~2018-11-20] VITALS: Ht 165.1 cm; Wt 107.5 kg
[2018-11-20] MEDS ORDERED: PROPOFOL EMUL(*) 10MG/ML 20 ML 40 ML ONE (07:16)
[2018-11-20 07:37] VITALS: BP 113/78
[2018-11-20] MEDS ORDERED: NORMOSOL R SOLN(*) 1000 ML BAG 1,000 ML IV PRN (08:00)
[2018-11-20] MEDS ORDERED: LIDOCAINE/SOD BICARB 8.4% SYR ID ONE (08:00)
[2018-11-20 09:45] VITALS: BP 110/67
--- NOTE | 2018-11-20 09:45 | NUR ---
Patient oxygen rate adjusted. reduced to 5 L/min. Patient tolerating well sats maintaining above 97%
--- NOTE | 2018-11-20 09:50 | NUR ---
Patient oxygen flow reduced to 3.5 L/min. Patient tolerating well, O2 saturation maintaining above 97%. Will continue to monitor.
--- NOTE | 2018-11-20 10:01 | NUR ---
Patient supplemental oxygen removed. patient tolerating well. Oxygen saturation maintaining above 94%. Will continue to monitor and assess.
--- NOTE | 2018-11-20 10:20 | NUR ---
Orthostatic vital signs taken. sitting BP 106/70, O2 sats 94%. Standing BP 110/72, O2 sats 95%. Patient tolerated ambulation well. up to bathroom with minimal assistance. patient states she is ready to head home. Friend Alaina is on her way for a ride home.
[2018-11-20 10:25] VITALS: BP 110/72
[2018-11-21] MEDS ORDERED: PROM-110 PO (06:00)
[2018-11-21] MEDS ORDERED: ONDA4TAB9 PO (06:00)
== END 2018-11-20 10:45 | disposition home or self-care (01) ==
LOC: OR 01:36
PROVIDERS: ATTEND Internal Medicine Gastroenterology
DX: K20.9 Esophagitis, unspecified (principal); K29.70 Gastritis, unspecified, without bleeding; K31.7 Polyp of stomach and duodenum
CPT/HCPCS: 36416; 43239; 82948; 88305; 88313; 88342; J2704

== ENCOUNTER 2018-11-21 04:20 | Emergency (ER) | payer MEDICAID ==
[2018-11-21] MEDS ORDERED: NS(*) 0.9% 1000 ML BAG 1,000 ML IV ONE (04:34)
--- NOTE | 2018-11-21 04:34 | ER Report ---
History and Physical Time Seen By MD: 04:24 HPI/ROS CHIEF COMPLAINT: Vomiting and diarrhea HISTORY OF PRESENT ILLNESS: 48-year-old female presents with vomiting and diarrhea all night long. Patient had undergone EGD yesterday. She's also been on antibiotics recently. Patient denies consumption of bad food or exposure to ill contacts. She denies fever or chills. She denies blood in the emesis or diarrhea. REVIEW OF SYSTEMS: Respiratory: No cough, no dyspnea. Cardiovascular: No chest pain, no palpitations. Gastrointestinal: As above Musculoskeletal: No back pain. Allergies: Coded Allergies: Sulfa (Sulfonamide Antibiotics) (Verified Allergy, Severe, NAUSEA/VOMITING, 11/21/18) lamotrigine (Verified Allergy, Severe, 11/21/18) onion (Verified Allergy, Severe, NAUSEA/VOMITING, 11/21/18) Penicillins (Verified Allergy, Unknown, 11/21/18) amoxicillin (Verified Allergy, Unknown, 11/21/18) cephalexin (Verified Allergy, Unknown, 11/21/18) clavulanic acid (Verified Allergy, Unknown, 11/21/18) fluticasone (Verified Allergy, Unknown, 11/21/18) gemfibrozil (Unverified Allergy, Unknown, 11/21/18) ibuprofen (Verified Allergy, Unknown, 11/21/18) nicotine (Verified Allergy, Unknown, 11/21/18) salmeterol (Verified Allergy, Unknown, 11/21/18) ipratropium (Verified Adverse Reaction, Mild, lower extremity edema, 11/21/18) Home Meds Active Scripts Promethazine Hcl (PROMETHAZINE HCL) 25 Mg Tablet, 25 MG PO Q6H PRN for NAUSEA/VOMITING, #12 TAB Prov:CHRISTA ANDRADE DO 11/21/18 Ondansetron 4 Mg Odt (ONDANSETRON 4 MG ODT) 4 Mg Tab.rapdis, 4 MG PO Q6H PRN for NAUSEA/VOMITING, #12 TAB Prov:CHRISTA ANDRADE DO 11/21/18 Sumatriptan Succinate (SUMATRIPTAN SUCCINATE) 50 Mg Tablet, 50 MG PO DIRECTED, #9 TAB 3 Refills may repeat in 2 hours x 1 Prov:LEILA CA MD 11/18/18 Sucralfate (CARAFATE) 1 Gm Tablet, 1 GM PO QID for 7 Days, #28 TAB Prov:MARIECAROLE DO 11/17/18 Pravastatin Sodium (PRAVACHOL) 20 Mg Tablet, 20 MG PO QDAY, #90 TAB 1 Refill Prov:LEILA CA MD 11/12/18 Albuterol Sulfate 0.083% (ALBUTEROL SULFATE 0.083%) 2.5 Mg/3 Ml Vial.neb, 2.5 MG INH Q4-6H PRN for WHEEZING, #1 BOX 0 Refills Prov:NAHED GUERRA DNP, [employer] 11/10/18 Ondansetron 4 Mg Odt (ONDANSETRON 4 MG ODT) 4 Mg Tab.rapdis, 4 MG PO ONCE, #30 TAB Prov:CAROLE MARIE DO 10/22/18 Nystatin 100,000 Unit/Gm Top Powder (NYSTATIN 100,000 UNIT/GM TOP POWDER) 15 Gm Powder, 15 GM TP Q8H PRN for RASH, #1 TUBE Prov:CAROLE MARIE DO 10/22/18 Blood Sugar Diagnostic (BLOOD GLUCOSE TEST STRIP) 1 Each Strip, 1 EACH MC TID, #100 STRIP 5 Refills patient to check blood glucose TID Prov:LEILA CA MD 07/29/18 Syringe and Needle,Insulin,1Ml (Insulin Syringe) 31 Gauge X 1/4" Disp.syrin, UNIT TOP DIRECTED, #100 5 Refills patient to use as directed to inject insulin Prov:LEILA CA MD 07/29/18 [place], Insulin Disposable (Bd Ultra-Fine Pen Needle) 1 Each Dis.needle, UNITS TOP DIRECTED, #100 5 Refills Patient to use up to three times daily to inject insulin Prov:LEILA CA MD 07/29/18 Insulin Aspart 100 Un/Ml Pen (NOVOLOG FLEXPEN) 100 Unit/1 Ml Insuln.pen, 10 UNIT SQ 2-3XD, #2 BOX 6 Refills with each meal, MAX 40 U/24 hours Prov:LEILA CA MD 07/29/18 Insulin Glargine (LANTUS) 100 Unit/Ml Soln, 30 UNIT SUBQ BID, #4 VIAL 6 Refills Prov:LEILA CA MD 07/29/18 Gabapentin (GABAPENTIN) 300 Mg Capsule, 300 MG PO TID, #90 CAPSULE 6 Refills TAKES ONE CAP AM AND TWO CAPS PM Prov:LEILA CA MD 07/29/18 Fluoxetine Hcl (FLUOXETINE HCL) 20 Mg Capsule, 20 MG PO QDAY for 30 Days, #30 CAPSULE 1 Refill Prov:LEILA CA MD 07/29/18 Aripiprazole (ABILIFY) 5 Mg Tablet, 5 MG PO QDAY, #30 TAB 1 Refill Prov:LEILA CA MD 07/29/18 Dexlansoprazole (DEXILANT) 60 Mg Cap., 60 MG PO BID, #60 TAB 6 Refills Prov:LEILA CA MD 06/23/18 Reported Medications Melatonin (MELATONIN) 5 Mg Tablet, 5 MG PO HS PRN for diff sleeping 07/29/18 Discontinued Scripts Prednisone (PREDNISONE) 20 Mg Tablet, 1 TAB PO BID for 5 Days, #10 TAB 0 Refills Prov:NAHED GUERRA DNP [facility]- 11/10/18 Ranitidine Hcl (RANITIDINE HCL) 150 Mg Tablet, 1 TAB PO QHS, #14 TAB 0 Refills Prov:NAHED GUERRA DNP [facility]- 11/05/18 Tramadol Hcl (TRAMADOL HCL) 50 Mg Tablet, 50 MG PO Q6H PRN for PAIN, #12 TAB 0 Refills Prov:CAROLE MARIE DO 10/22/18 Magnesium Oxide (MAGNESIUM OXIDE) 250 Mg Tablet, 250 MG PO QDAY, #90 TAB 1 Refill Prov:LEILA CA MD 09/23/18 Guaifenesin/Codeine Phosphate (Codeine-Guaifen 10-100 mg/5 ml) 120 Ml Liquid, 1-2 TSP PO Q6H PRN for COUGH, #120 ML 0 Refills Prov:NAHED GUERRA DNP [facility]- 11/10/18 Past Medical/Surgical History Past Medical History Cardiovascular: Reports hx of: hyperlipidemia hypertension Respiratory: Reports hx of: asthma COPD sleep apnea Gastrointestinal: Reports hx of: GERD other GI history (HISTORY OF ULCERS) Psychiatric: Reports hx of: anxiety bipolar disorder depression PTSD Endocrine: Reports hx of: diabetes type 2 obesity Hematology/oncology: Reprots hx of: 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 2014.2017) This patient is a 48-year-old female with multiple medical problems who came in today to see me for the emergency room follow-up patient has history of chronic abdominal pain and has been seen in the emergency room multiple times in last 6 months she has had 6 CT scans of the abdomen and pelvis done since 06/21/2018. Past medical history significant for GERD/Hill's esophagus according to patient because she was unable to get her Dexilant filled in her symptoms got worse. He has temporary lapse in her Medicaid. She is back on Dexilant 60 mg twice a day and recently started on Carafate. Most of the other PPIs are not e ffective for her symptoms? She is currently following up with Dr. 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 professor Past medical history significant for morbid obesity and has undergone gastric bypass surgery in July/2014 according to patient she has lost at least 200 po unds since then Medical history significant for insulin-requiring diabetes mellitus she is currently on Lantus insulin at 30 units twice a day and NovoLog according to sliding scale which includes 10 units before meals along with a correction factor for high blood sugars high blood sugar appears to be stable at this time plan is to recheck labs today Past medical history significant for diabetic neuropathy is currently on gabapentin Past medical history significant for hyperlipidemia for which she is currently on pravastatin 20 mg daily Past medical history significant for depression and anxiety, PTSD and bipolar disorder and is currently on Abilify and fluoxetine she is currently following [facility] History of chronic migraines but does not get those episodes more than once or twice a month Past medical history significant for obstructive sleep apnea and is using CPAP Hx Smoking: Yes (quit 2002) Smoking Status: Former Smoker Hx Substance Use Disorder: No Hx Alcohol Use: No Constitutional Vital Sign - Last 24 Hours 11/21/18 11/21/18 11/21/18 11/21/18 04:24 04:25 04:30 04:35 Temp 97.5 Pulse 72 69 Resp 22 B/P (MAP) 121/62 (81) 121/62 109/75 (86) Pulse Ox 94 94 O2 Delivery Room Air 11/21/18 11/21/18 11/21/18 11/21/18 05:00 05:05 05:10 05:25 Pulse 65 68 67 B/P (MAP) 109/63 (78) Pulse Ox 90 90 90 11/21/18 11/21/18 11/21/18 11/21/18 05:30 05:40 05:55 06:00 Pulse 68 B/P (MAP) 117/69 (85) 117/69 (85) Pulse Ox 90 89 11/21/18 11/21/18 06:09 06:10 Pulse 69 B/P (MAP) 103/50 (67) Pulse Ox 87 Physical Exam General Appearance: The patient is alert, has no immediate need for airway protection and no current signs of toxicity. Vital signs stable, afebrile, pulse ox normal HEENT: Pupils equal and round no injection. Oropharynx with moist mucous. Membranes, no erythema Respiratory: Chest is non tender, lungs are clear to auscultation. Cardiac: regular rate and rhythm Gastrointestinal: Abdomen is soft and non tender, no masses, bowel sounds hyperactive Musculoskeletal: Neck: Neck is supple and non tender. Extremities have full range of motion and are non tender. Skin: No rashes or lesions. DIFFERENTIAL DIAGNOSIS: After history and physical exam differential diagnosis was considered for abdominal pain including but not limited to appendicitis, cholecystitis, gastritis , gastroenteritis, food poisoning, viral syndrome, Clostridium difficile diarrhea and urinary tract infection. Medical Decision Making Data Points Result Diagram: 11/21/18 0454 11/21/18 0454 Laboratory Hematology Test 11/21/18 04:54 White Blood Count 11.3 k/uL (4.5-11.0) H Red Blood Count 5.03 M/uL (4.17-5.56) Hemoglobin 14.3 g/dL (12.0-16.0) Hematocrit 42.4 % (34.0-47.0) Mean Corpuscular Volume 84.2 fL (80.0-96.0) Mean Corpuscular Hemoglobin 28.3 pg (26.0-33.0) Mean Corpuscular Hemoglobin Concent 33.6 g/dL (32.0-36.0) Red Cell Distribution Width 14.1 % (11.5-14.5) Platelet Count 208 K/uL (150-450) Mean Platelet Volume 8.1 fL (7.2-11.1) Neutrophils (%) (Auto) 62.1 % (39.4-72.5) Lymphocytes (%) (Auto) 27.8 % (17.6-49.6) Monocytes (%) (Auto) 7.1 % (4.1-12.4) Eosinophils (%) (Auto) 2.4 % (0.4-6.7) Basophils (%) (Auto) 0.6 % (0.3-1.4) Nucleated RBC Relative Count (auto) 0.0 /100WBC Neutrophils # (Auto) 7.0 K/uL (2.0-7.4) Lymphocytes # (Auto) 3.1 K/uL (1.3-3.6) Monocytes # (Auto) 0.8 K/uL (0.3-1.0) Eosinophils # (Auto) 0.3 K/uL (0.0-0.5) Basophils # (Auto) 0.1 K/uL (0.0-0.1) Nucleated RBC Absolute Count (auto) 0.01 K/uL Chemistry Test 11/21/18 04:54 Sodium Level 139 mmol/L (137-145) Potassium Level 4.0 mmol/L (3.5-5.0) Chloride Level 106 mmol/L (98-107) Carbon Dioxide Level 23 mmol/L (22-31) Blood Urea Nitrogen 11 mg/dl (7-18) Creatinine 0.50 mg/dl (0.52-1.04) Glomerular Filtration Rate Calc > 60.0 Random Glucose 178 mg/dl (75-110) Calcium Level 9.3 mg/dl (8.4-10.2) Total Bilirubin 0.5 mg/dl (0.2-1.3) Aspartate Amino Transf (AST/SGOT) 26 U/L (0-35) Alanine Aminotransferase (ALT/SGPT) 44 U/L (0-56) Alkaline Phosphatase 102 U/L (0-126) Total Protein 6.7 g/dl (6.3-8.2) Albumin 3.9 g/dl (3.5-5.0) Amylase Level 79 U/L (0-110) Lipase 46 U/L (23-300) Urinalysis Test 11/21/18 04:21 Urine Color Yellow Urine Clarity Clear Urine pH 5.0 pH (4.8-9.5) Urine Specific [place] 1.020 Urine Protein Negative mg/dL (NEGATIVE) Urine Glucose (UA) 50 mg/dL (NEGATIVE) Urine Ketones Negative mg/dL (NEGATIVE) Urine Blood Negative (NEGATIVE) Urine Nitrite Negative (NEGATIVE) Urine Bilirubin Negative (NEGATIVE) Urine Urobilinogen Negative mg/dL (0.2-1.9) Urine Leukocyte Esterase Negative (NEGATIVE) Urine RBC 1 /HPF (0-2/HPF) Urine WBC 4 /HPF (0-5/HPF) Urine Squamous Epithelial Cells Many /LPF (</=FEW) Urine Bacteria Negative /HPF (NONE-FEW) Urine Hyaline Casts Few /LPF (NONE-FEW) Urine Mucus Few /HPF (NONE-FEW) ED Course/Re-evaluation Clinical Indication for ER IV: Hydration, IV Access ED Course Patient was admitted to an examination room. H&P was done. The differential diagnoses was considered. Patient with acute abdominal pain in the upper region. She has a long history. Yesterday she underwent endoscopy with biopsies 4. She's had vomiting and diarrhea. Patient's treated with IV Zofran and Phenergan and IV fluids. Diagnostic evaluation is unremarkable. Patient's able to tolerate by mouth liquids. She is discharged home on Zofran and Phenergan. She is advised a clear liquid diet for 48 hours. Patient advised to follow-up with her primary care doctor David next week if unimproved. Decision to Disposition Date: Nov 21, 2018 Decision to Disposition Time: 05:34 Depart Departure Latest Vital Signs Vital Signs Date Time Temp Pulse Resp B/P (MAP) Pulse Ox O2 Delivery O2 Flow Rate FiO2 11/21/18 06:10 69 87 11/21/18 06:09 103/50 (67) 11/21/18 04:25 97.5 22 Room Air Impression: Primary Impression: Vomiting and diarrhea Additional Impression: Abdominal pain Condition: Improved Disposition: HOME OR SELF-CARE Referrals: LEILA CA MD (PCP) New Scripts Promethazine Hcl (PROMETHAZINE HCL) 25 Mg Tablet 25 MG PO Q6H PRN for NAUSEA/VOMITING, #12 TAB Prov: CHRISTA ANDRADE DO 11/21/18 Ondansetron 4 Mg Odt (ONDANSETRON 4 MG ODT) 4 Mg Tab.rapdis 4 MG PO Q6H PRN for NAUSEA/VOMITING, #12 TAB Prov: CHRISTA ANDRADE DO 11/21/18 Patient Instructions: Acute Diarrhea (ED), Acute Nausea and Vomiting (ED), Clear Liquid Diet (ED) Additional Instructions: Follow clear liquid diet for 24-48 hours and advance as tolerate the brat diet, bananas, rice, applesauce and toast Continue all medications as prescribed by your primary care doctor and specialists Follow-up with primary care if you're unimproved in 2-3 days. Problem Qualifiers Additional Impression: Abdominal pain Abdominal location: generalized Qualified Codes: R10.84 - Generalized abdominal pain CHRISTA ANDRADE DO Nov 21, 2018 04:34
[2018-11-21] MEDS ORDERED: ONDANSETRON 4 MG/2 ML VIAL IVP ONE (04:35)
[2018-11-21] MEDS ORDERED: PROMETHAZINE 25 MG/ML 1 ML AMP IVP ONE (04:35)
[2018-11-21 05:09] LABS: PLATELET COUNT, AUTOMATED 208 K/uL (150-450)
[2018-11-21] MEDS ORDERED: ONDA4TAB9 PO (06:00)
[2018-11-21] MEDS ORDERED: PROM-110 PO (06:00)
[2018-11-21] MEDS ORDERED: ONDANSETRON 4 MG ODT TH SL ONE (06:05)
[2018-11-21] MEDS ORDERED: PROMETHAZINE HCL 25 MG TAB TH 2 TAB/BOTTLE PO ONE (06:05)
[2018-11-21 06:09] VITALS: BP 103/50
== END 2018-11-21 06:20 | disposition home or self-care (01) ==
LOC: ER 05:10
DX: R10.84 Generalized abdominal pain (principal); R11.10 Vomiting, unspecified; R19.7 Diarrhea, unspecified
CPT/HCPCS: 81001; 82150; 83690; 85025; 96374; 96375; 99284; J2405; J2550; J7030; S0119; 82040; 82247; 82310; 82374; 82435; 82565; 82947; 84075; 84132; 84155; 84295; 84450; 84460; 84520; 96361

== ENCOUNTER 2018-11-23 18:59 | Emergency (ER) | payer MEDICAID ==
--- NOTE | 2018-11-23 19:02 | ER Report ---
History and Physical Time Seen By MD: 18:58 HPI/ROS CHIEF COMPLAINT: Abdominal pain, vomiting HISTORY OF PRESENT ILLNESS: 48-year-old female presents to the ER complaining of continued nausea and vomiting. She tried to take a Phenergan. She has continued upper abdominal pain in the epigastrium without radiation. She has a long history of chronic abdominal pain. She's had an extensive evaluation which included endoscopy with biopsies 4 days ago. Patient describes wrapping bloaty upper epigastric pain 10/06 without radiation. She notes no alleviating or exacerbating factors. Patient was seen here 2 days ago and had an extensive evaluation which was unremarkable. She was discharged home on Zofran and Phenergan. Patient was advised a clear liquid diet. Patient notes her blood sugars have been out of control over 310 nearly 500. REVIEW OF SYSTEMS: Respiratory: No cough, no dyspnea. Cardiovascular: No chest pain, no palpitations. Gastrointestinal: No vomiting, no abdominal pain. Musculoskeletal: No back pain. Allergies: Coded Allergies: Sulfa (Sulfonamide Antibiotics) (Verified Allergy, Severe, NAUSEA/VOMITING, 11/21/18) lamotrigine (Verified Allergy, Severe, 11/21/18) onion (Verified Allergy, Severe, NAUSEA/VOMITING, 11/21/18) Penicillins (Verified Allergy, Unknown, 11/21/18) amoxicillin (Verified Allergy, Unknown, 11/21/18) cephalexin (Verified Allergy, Unknown, 11/21/18) clavulanic acid (Verified Allergy, Unknown, 11/21/18) fluticasone (Verified Allergy, Unknown, 11/21/18) gemfibrozil (Unverified Allergy, Unknown, 11/21/18) ibuprofen (Verified Allergy, Unknown, 11/21/18) nicotine (Verified Allergy, Unknown, 11/21/18) salmeterol (Verified Allergy, Unknown, 11/21/18) ipratropium (Verified Adverse Reaction, Mild, lower extremity edema, 11/21/18) Home Meds Active Scripts Promethazine Hcl (PROMETHAZINE HCL) 25 Mg Tablet, 25 MG PO Q6H PRN for NAUSEA/VOMITING, #12 TAB Prov:CHRISTA ANDRADE DO 11/21/18 Ondansetron 4 Mg Odt (ONDANSETRON 4 MG ODT) 4 Mg Tab.rapdis, 4 MG PO Q6H PRN for NAUSEA/VOMITING, #12 TAB Prov:CHRISTA ANDRADE DO 11/21/18 Sumatriptan Succinate (SUMATRIPTAN SUCCINATE) 50 Mg Tablet, 50 MG PO DIRECTED, #9 TAB 3 Refills may repeat in 2 hours x 1 Prov:LEILA HERNANDEZ MD 11/18/18 Sucralfate (CARAFATE) 1 Gm Tablet, 1 GM PO QID for 7 Days, #28 TAB Prov:CAROLE MARIE DO 11/17/18 Pravastatin Sodium (PRAVACHOL) 20 Mg Tablet, 20 MG PO QDAY, #90 TAB 1 Refill Prov:LEILA HERNANDEZ MD 11/12/18 Albuterol Sulfate 0.083% (ALBUTEROL SULFATE 0.083%) 2.5 Mg/3 Ml Vial.neb, 2.5 MG INH Q4-6H PRN for WHEEZING, #1 BOX 0 Refills Prov:NAHED GUERRA DNP, [employer] 11/10/18 Ondansetron 4 Mg Odt (ONDANSETRON 4 MG ODT) 4 Mg Tab.rapdis, 4 MG PO ONCE, #30 TAB Prov:CAROLE MARIE DO 10/22/18 Nystatin 100,000 Unit/Gm Top Powder (NYSTATIN 100,000 UNIT/GM TOP POWDER) 15 Gm Powder, 15 GM TP Q8H PRN for RASH, #1 TUBE Prov:CAROLE MARIE DO 10/22/18 Blood Sugar Diagnostic (BLOOD GLUCOSE TEST STRIP) 1 Each Strip, 1 EACH MC TID, #100 STRIP 5 Refills patient to check blood glucose TID Prov:LEILA HERNANDEZ MD 07/29/18 Syringe and Needle,Insulin,1Ml (Insulin Syringe) 31 Gauge X 1/4" Disp.syrin, UNIT TOP DIRECTED, #100 5 Refills patient to use as directed to inject insulin Prov:LEILA HERNANDEZ MD 07/29/18 [place], Insulin Disposable (Bd Ultra-Fine Pen Needle) 1 Each Dis.needle, UNITS TOP DIRECTED, #100 5 Refills Patient to use up to three times daily to inject insulin Prov:LEILA HERNANDEZ MD 07/29/18 Insulin Aspart 100 Un/Ml Pen (NOVOLOG FLEXPEN) 100 Unit/1 Ml Insuln.pen, 10 UNIT SQ 2-3XD, #2 BOX 6 Refills with each meal, MAX 40 U/24 hours Prov:LEILA HERNANDEZ MD 07/29/18 Insulin Glargine (LANTUS) 100 Unit/Ml Soln, 30 UNIT SUBQ BID, #4 VIAL 6 Refills Prov:LEILA HERNANDEZ MD 07/29/18 Gabapentin (GABAPENTIN) 300 Mg Capsule, 300 MG PO TID, #90 CAPSULE 6 Refills TAKES ONE CAP AM AND TWO CAPS PM Prov:LEILA HERNANDEZ MD 07/29/18 Fluoxetine Hcl (FLUOXETINE HCL) 20 Mg Capsule, 20 MG PO QDAY for 30 Days, #30 CAPSULE 1 Refill Prov:LEILA HERNANDEZ MD 07/29/18 Aripiprazole (ABILIFY) 5 Mg Tablet, 5 MG PO QDAY, #30 TAB 1 Refill Prov:LEILA HERNANDEZ MD 07/29/18 Dexlansoprazole (DEXILANT) 60 Mg Cap., 60 MG PO BID, #60 TAB 6 Refills Prov:LEILA HERNANDEZ MD 06/23/18 Reported Medications Melatonin (MELATONIN) 5 Mg Tablet, 5 MG PO HS PRN for diff sleeping 07/29/18 Discontinued Scripts Prednisone (PREDNISONE) 20 Mg Tablet, 1 TAB PO BID for 5 Days, #10 TAB 0 Refills Prov:NAHED GUERRA DNP, [facility] 11/10/18 Ranitidine Hcl (RANITIDINE HCL) 150 Mg Tablet, 1 TAB PO QHS, #14 TAB 0 Refills Prov:NAHED GUERRA DNP, [facility] 11/05/18 Tramadol Hcl (TRAMADOL HCL) 50 Mg Tablet, 50 MG PO Q6H PRN for PAIN, #12 TAB 0 Refills Prov:CAROLE MARIE DO 10/22/18 Magnesium Oxide (MAGNESIUM OXIDE) 250 Mg Tablet, 250 MG PO QDAY, #90 TAB 1 Refill Prov:LEILA HERNANDEZ MD 09/23/18 Guaifenesin/Codeine Phosphate (Codeine-Guaifen 10-100 mg/5 ml) 120 Ml Liquid, 1- 2 TSP PO Q6H PRN for COUGH, #120 ML 0 Refills Prov:NAHED GUERRA DNP, [employer] OFFICER-BC 11/10/18 Past Medical/Surgical History Past Medical History Cardiovascular: Reports hx of: hyperlipidemia hypertension Respiratory: Reports hx of: asthma COPD sleep apnea Gastrointestinal: Reports hx of: GERD other GI history (HISTORY OF ULCERS) Psychiatric: Reports hx of: anxiety bipolar disorder depression PTSD Endocrine: Reports hx of: diabetes type 2 obesity Hematology/oncology: Reprots hx of: 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 2013.2017) This patient is a 48-year-old female with multiple medical problems who came in today to see me for the emergency room follow-up patient has history of chronic abdominal pain and has been seen in the emergency room multiple times in last 6 months she has had 6 CT scans of the abdomen and pelvis done since 06/21/2018. Past medical history significant for GERD/Hill's esophagus according to patient because she was unable to get her Dexilant filled in her symptoms got worse. He has temporary lapse in her Medicaid. She is back on Dexilant 60 mg twice a day and recently started on Carafate. Most of the other PPIs are not effective for her symptoms? She is currently following up with Dr. Sage and this is scheduled to have EGD done within next 1 week she also has history of gastric bypass surgery along with appendectomy and cholecystectomy in the past History of chronic diarrhea I suspect it is functional and will continue to follow up with certified hyperbaric technician Past medical history significant for morbid obesity and has undergone gastric bypass surgery in July/2014 according to patient she has lost at least 200 pounds since then Medical history significant for insulin-requiring diabetes mellitus she is currently on Lantus insulin at 30 units twice a day and NovoLog according to sliding scale which includes 10 units before meals along with a correction f actor for high blood sugars high blood sugar appears to be stable at this time plan is to recheck labs today Past medical history significant for diabetic neuropathy is currently on gabapentin Past medical history significant for hyperlipidemia for which she is currently on pravastatin 20 mg daily Past medical history significant for depression and anxiety, PTSD and bipolar disorder and is currently on Abilify and fluoxetine she is currently following up at [facility] History of chronic migraines but does not get those episodes more than once or twice a month Past medical history significant for obstructive sleep apnea and is using CPAP Reviewed Nurses Notes: Yes Old Medical Records Reviewed: Yes Hx Smoking: Yes (quit 2002) Smoking Status: Former Smoker Hx Substance Use Disorder: No Hx Alcohol Use: No Constitutional Vital Sign - Last 24 Hours 11/23/18 11/23/18 19:07 20:00 Temp 97.9 Pulse 81 Resp 16 18 B/P (MAP) 138/72 146/80 (102) Pulse Ox 91 O2 Delivery Room Air Intake and Output 11/23/18 11/23/18 11/24/18 15:03 23:03 07:03 Intake Total 1000 ml Balance 1000 ml Physical Exam General Appearance: The patient is alert, has no immediate need for airway protection and no current signs of toxicity. Vital signs stable, afebrile, pulse ox normal, slowly pale appearing, skin warm and dry Eyes: Pupils equal and round no injection. Respiratory: Chest is non tender, lungs are clear to auscultation. Cardiac: regular rate and rhythm Gastrointestinal: Abdomen is soft, mild epigastric tenderness, no masses, bowel sounds normal. Musculoskeletal: Neck: Neck is supple and non tender. No lymphadenopathy Extremities have full range of motion and are non tender. Skin: No rashes or lesions. DIFFERENTIAL DIAGNOSIS: After history and physical exam differential diagnosis was considered for abdominal pain including but not limited to appendicitis, cholecystitis, gastritis and urinary tract infection. Medical Decision Making Data Points Result Diagram: 11/23/18190311/23/181903 Laboratory Hematology Test 11/23/18 19:04 White Blood Count 11.4 k/uL (4.5-11.0) H Red Blood Count 5.09 M/uL (4.17-5.56) Hemoglobin 14.7 g/dL (12.0-16.0) Hematocrit 43.1 % (34.0-47.0) Mean Corpuscular Volume 84.7 fL (80.0-96.0) Mean Corpuscular Hemoglobin 28.9 pg (26.0-33.0) Mean Corpuscular Hemoglobin Concent 34.1 g/dL (32.0-36.0) Red Cell Distribution Width 14.4 % (11.5-14.5) Platelet Count 218 K/uL (150-450) Mean Platelet Volume 8.2 fL (7.2-11.1) Neutrophils (%) (Auto) 64.7 % (39.4-72.5) Lymphocytes (%) (Auto) 24.8 % (17.6-49.6) Monocytes (%) (Auto) 8.0 % (4.1-12.4) Eosinophils (%) (Auto) 1.9 % (0.4-6.7) Basophils (%) (Auto) 0.6 % (0.3-1.4) Nucleated RBC Relative Count (auto) 0.0 /100WBC Neutrophils # (Auto) 7.4 K/uL (2.0-7.4) Lymphocytes # (Auto) 2.8 K/uL (1.3-3.6) Monocytes # (Auto) 0.9 K/uL (0.3-1.0) Eosinophils # (Auto) 0.2 K/uL (0.0-0.5) Basophils # (Auto) 0.1 K/uL (0.0-0.1) Nucleated RBC Absolute Count (auto) 0.00 K/uL Chemistry Test 11/23/18 19:04 Sodium Level 139 mmol/L (137-145) Potassium Level 4.3 mmol/L (3.5-5.0) Chloride Level 104 mmol/L (98-107) Carbon Dioxide Level 25 mmol/L (22-31) Blood Urea Nitrogen 11 mg/dl (7-18) Creatinine 0.50 mg/dl (0.52-1.04) Glomerular Filtration Rate Calc > 60.0 Random Glucose 268 mg/dl (75-110) Calcium Level 9.2 mg/dl (8.4-10.2) Total Bilirubin 0.7 mg/dl (0.2-1.3) Aspartate Amino Transf (AST/SGOT) 36 U/L (0-35) Alanine Aminotransferase (ALT/SGPT) 44 U/L (0-56) Alkaline Phosphatase 126 U/L (0-126) Total Protein 7.1 g/dl (6.3-8.2) Albumin 4.1 g/dl (3.5-5.0) Amylase Level 99 U/L (0-110) Lipase 56 U/L (23-300) Urinalysis Test 11/23/18 19:00 Urine Color Yellow Urine Clarity Clear Urine pH 6.0 pH (4.8-9.5) Urine Specific [place] 1.016 Urine Protein Negative mg/dL (NEGATIVE) Urine Glucose (UA) 500 mg/dL (NEGATIVE) Urine Ketones Trace mg/dL (NEGATIVE) Urine Blood Negative (NEGATIVE) Urine Nitrite Negative (NEGATIVE) Urine Bilirubin Negative (NEGATIVE) Urine Urobilinogen Negative mg/dL (0.2-1.9) Urine Leukocyte Esterase Negative (NEGATIVE) Urine RBC None /HPF (0-2/HPF) Urine WBC <1 /HPF (0-5/HPF) Urine Squamous Epithelial Cells Many /LPF (</=FEW) Urine Bacteria Negative /HPF (NONE-FEW) Urine Mucus None /HPF (NONE-FEW) ED Course/Re-evaluation Clinical Indication for ER IV: Hydration, IV Access ED Course Patient was admitted to an examination room. H&P was done. The differential diagnoses was considered. Patient's diagnostic studies are unremarkable. She is treated with IV fluid hydration, Zofran and Phenergan. She is given also morphine 4 mg for pain relief. She takes a GI cocktail without emesis. She takes this improved her symptoms. She'll be discharged home, advised to alternate Zofran and Phenergan. Patient advised to continue clear liquid diets and given to see Dr. Hernandez her primary care doctor early this week. Patient's blood sugar was documented at 268. Decision to Disposition Date: Nov 23, 2018 Decision to Disposition Time: 19:56 Depart Departure Latest Vital Signs Vital Signs Date Time Temp Pulse Resp B/P (MAP) Pulse Ox O2 Delivery O2 Flow Rate FiO2 11/23/18 20:00 18 146/80 (102) 11/23/18 19:07 97.9 81 91 Room Air Impression: Primary Impression: Abdominal pain Additional Impressions: Vomiting and diarrhea Hyperglycemia Condition: Improved Disposition: HOME OR SELF-CARE Referrals: LEILA HERNANDEZ MD (PCP) Patient Instructions: Clear Liquid Diet (ED) Additional Instructions: Alternate Zofran and Phenergan to control your nausea and vomiting Continue to take all your medications as prescribed Follow-up with Dr. Hernandez early this week Problem Qualifiers Primary Impression: Abdominal pain Abdominal location: epigastric Qualified Codes: R10.13 - Epigastric pain CHRISTA ANDRADE DO Nov 23, 2018 19:02
[2018-11-23] MEDS ORDERED: NS(*) 0.9% 1000 ML BAG 1,000 ML IV ONE (19:11)
[2018-11-23] MEDS ORDERED: ONDANSETRON 4 MG/2 ML VIAL IVP ONE (19:15)
[2018-11-23] MEDS ORDERED: MORPHINE 4 MG/ML SDV IVP ONE (19:15)
[2018-11-23] MEDS ORDERED: PROMETHAZINE 25 MG/ML 1 ML AMP IVP ONE (19:15)
[2018-11-23] MEDS ORDERED: LIDOCAINE 2% VISC SLN 15ML UDC PO ONE (19:15)
[2018-11-23] MEDS ORDERED: MAG HYD/AL HYD/SIMETH 30ML UDC PO ONE (19:15)
[2018-11-23 19:18] LABS: PLATELET COUNT, AUTOMATED 218 K/uL (150-450)
[2018-11-23 20:00] VITALS: BP 146/80
[2018-11-26] MEDS ORDERED: HYOS-50 SL (08:31)
[2018-11-26] MEDS ORDERED: LANI SUBQ (08:31)
[2018-11-26] MEDS ORDERED: FLUO40CA67 PO (08:33)
== END 2018-11-23 20:10 | disposition home or self-care (01) ==
LOC: ER 19:02
DX: E11.65 Type 2 diabetes mellitus with hyperglycemia (principal); R10.13 Epigastric pain; R11.2 Nausea with vomiting, unspecified; R19.7 Diarrhea, unspecified
CPT/HCPCS: 81001; 82150; 83690; 85025; 96361; 96374; 96375; 99284; J2270; J2405; J2550; J7030; 82040; 82247; 82310; 82374; 82435; 82565; 82947; 84075; 84132; 84155; 84295; 84450; 84460; 84520

== ENCOUNTER 2018-11-25 16:42 | Emergency (ER) | payer MEDICAID ==
--- NOTE | 2018-11-25 18:07 | ER Report ---
History and Physical Time Seen By MD: 18:04 Hx. of Stated Complaint: ABDOMINAL PAIN, DIZZINESS HPI/ROS CHIEF COMPLAINT: Abdominal pain, dizziness HISTORY OF PRESENT ILLNESS: 48-year-old female patient presents to emergency room with complaint of abdominal pain and dizziness. Patient states that she's been having symptoms for the past several days. She states that she has had persistent vomiting as well as abdominal pain. She states that there is nothing seems to help. She states she's been taking Zofran and Phenergan as needed for nausea and vomiting. She states she is not had anything seems to help for the pain. Patient did have a CT scan done on the which showed no acute findings. Patients had persistent pain for the past month and has not had any changes since that time. Patient sedation having several bouts of diarrhea. Up to 3-4 times a day. REVIEW OF SYSTEMS: Respiratory: No cough, no dyspnea. Cardiovascular: No chest pain, no palpitations. Gastrointestinal: As noted above Musculoskeletal: No back pain. Allergies: Coded Allergies: Sulfa (Sulfonamide Antibiotics) (Verified Allergy, Severe, NAUSEA/VOMITING, 11/25/18) lamotrigine (Verified Allergy, Severe, 11/25/18) onion (Verified Allergy, Severe, NAUSEA/VOMITING, 11/25/18) Penicillins (Verified Allergy, Unknown, 11/25/18) amoxicillin (Verified Allergy, Unknown, 11/25/18) cephalexin (Verified Allergy, Unknown, 11/25/18) clavulanic acid (Verified Allergy, Unknown, 11/25/18) fluticasone (Verified Allergy, Unknown, 11/25/18) gemfibrozil (Unverified Allergy, Unknown, 11/25/18) ibuprofen (Verified Allergy, Unknown, 11/25/18) nicotine (Verified Allergy, Unknown, 11/25/18) salmeterol (Verified Allergy, Unknown, 11/25/18) ipratropium (Verified Adverse Reaction, Mild, lower extremity edema, 11/25/18) Home Meds Active Scripts Promethazine Hcl (PROMETHAZINE HCL) 25 Mg Tablet, 25 MG PO Q6H PRN for NAUSEA/VOMITING, #12 TAB Prov:CHRISTA ANDRADE DO 11/21/18 Ondansetron 4 Mg Odt (ONDANSETRON 4 MG ODT) 4 Mg Tab.rapdis, 4 MG PO Q6H PRN for NAUSEA/VOMITING, #12 TAB Prov:CHRISTA ANDRADE DO 11/21/18 Sumatriptan Succinate (SUMATRIPTAN SUCCINATE) 50 Mg Tablet, 50 MG PO DIRECTED, #9 TAB 3 Refills may repeat in 2 hours x 1 Prov:LEILA CA MD 11/18/18 Sucralfate (CARAFATE) 1 Gm Tablet, 1 GM PO QID for 7 Days, #28 TAB Prov:CAROLE MARIE DO 11/17/18 Pravastatin Sodium (PRAVACHOL) 20 Mg Tablet, 20 MG PO QDAY, #90 TAB 1 Refill Prov:LEILA CA MD 11/12/18 Albuterol Sulfate 0.083% (ALBUTEROL SULFATE 0.083%) 2.5 Mg/3 Ml Vial.neb, 2.5 MG INH Q4-6H PRN for WHEEZING, #1 BOX 0 Refills Prov:NAHED GUERRA DNP, EDUCATION DIRECTOR-BC 11/10/18 Ondansetron 4 Mg Odt (ONDANSETRON 4 MG ODT) 4 Mg Tab.rapdis, 4 MG PO ONCE, #30 TAB Prov:CAROLE MARIE DO 10/22/18 Nystatin 100,000 Unit/Gm Top Powder (NYSTATIN 100,000 UNIT/GM TOP POWDER) 15 Gm Powder, 15 GM TP Q8H PRN for RASH, #1 TUBE Prov:CAROLE MARIE DO 10/22/18 Blood Sugar Diagnostic (BLOOD GLUCOSE TEST STRIP) 1 Each Strip, 1 EACH MC TID, #100 STRIP 5 Refills patient to check blood glucose TID Prov:LEILA CA MD 07/29/18 Syringe and Needle,Insulin,1Ml (Insulin Syringe) 31 Gauge X 1/4" Disp.syrin, UNIT TOP DIRECTED, #100 5 Refills patient to use as directed to inject insulin Prov:LEILA CA MD 07/29/18 [place], Insulin Disposable (Bd Ultra-Fine Pen Needle) 1 Each Dis.needle, UNITS TOP DIRECTED, #100 5 Refills Patient to use up to three times daily to inject insulin Prov:LEILA CA MD 07/29/18 Insulin Aspart 100 Un/Ml Pen (NOVOLOG FLEXPEN) 100 Unit/1 Ml Insuln.pen, 10 UNIT SQ 2-3XD, #2 BOX 6 Refills with each meal, MAX 40 U/24 hours Prov:LEILA CA MD 07/29/18 Insulin Glargine (LANTUS) 100 Unit/Ml Soln, 30 UNIT SUBQ BID, #4 VIAL 6 Refills Prov:LEILA CA MD 07/29/18 Gabapentin (GABAPENTIN) 300 Mg Capsule, 300 MG PO TID, #90 CAPSULE 6 Refills TAKES ONE CAP AM AND TWO CAPS PM Prov:LEILA CA MD 07/29/18 Fluoxetine Hcl (FLUOXETINE HCL) 20 Mg Capsule, 20 MG PO QDAY for 30 Days, #30 CAPSULE 1 Refill Prov:LEILA CA MD 07/29/18 Aripiprazole (ABILIFY) 5 Mg Tablet, 5 MG PO QDAY, #30 TAB 1 Refill Prov:LEILA CA MD 07/29/18 Dexlansoprazole (DEXILANT) 60 Mg Cap., 60 MG PO BID, #60 TAB 6 Refills Prov:LEILA CA MD 06/23/18 Reported Medications Melatonin (MELATONIN) 5 Mg Tablet, 5 MG PO HS PRN for diff sleeping 07/29/18 Discontinued Scripts Prednisone (PREDNISONE) 20 Mg Tablet, 1 TAB PO BID for 5 Days, #10 TAB 0 Refills Prov:NAHDE GUERRA DNP, [facility]- 11/10/18 Ranitidine Hcl (RANITIDINE HCL) 150 Mg Tablet, 1 TAB PO QHS, #14 TAB 0 Refills Prov:NAHED GUERRA DNP, [facility]- 11/05/18 Tramadol Hcl (TRAMADOL HCL) 50 Mg Tablet, 50 MG PO Q6H PRN for PAIN, #12 TAB 0 Refills Prov:CAROLE MARIE DO 10/22/18 Magnesium Oxide (MAGNESIUM OXIDE) 250 Mg Tablet, 250 MG PO QDAY, #90 TAB 1 Refill Prov:LEILA CA MD 09/23/18 Past Medical/Surgical History Patient has a past medical history of Mnire's, migraines, obstructive sleep apnea, asthma, COPD, reflux, urinary and bowel incontinence, left shoulder arthritis, right ankle fracture, type 2 diabetes, depression, anxiety, PTSD, bipolar, cervical cancer, lymphoma. Patient has surgical history of abdominal surgery, appendectomy, cholecystectomy, hysterectomy, right ankle surgery, left shoulder surgery, tonsillectomy, carpal tunnel, gastric bypass. Reviewed Nurses Notes: Yes Hx Smoking: Yes (quit 2002) Smoking Status: Former Smoker Hx Substance Use Disorder: No Hx Alcohol Use: No Constitutional Vital Sign - Last 24 Hours 11/25/18 11/25/18 11/25/18 11/25/18 17:23 17:48 17:53 18:00 Temp 98.2 Pulse 76 75 77 Resp 18 B/P (MAP) 129/82 110/57 (74) 110/57 (74) Pulse Ox 93 86 89 O2 Delivery Room Air Room Air O2 Flow Rate 2.0 11/25/18 11/25/18 11/25/18 11/25/18 18:30 18:46 18:51 19:00 Pulse 73 63 B/P (MAP) 118/76 (90) 116/68 (84) Pulse Ox 93 92 11/25/18 11/25/18 11/25/18 11/25/18 19:06 19:21 19:30 19:36 Pulse 62 65 71 B/P (MAP) 115/59 (77) Pulse Ox 92 93 94 11/25/18 11/25/18 11/25/18 19:51 20:00 20:06 Pulse 75 62 B/P (MAP) 127/71 (89) Pulse Ox 92 96 Physical Exam General Appearance: The patient is alert, has no immediate need for airway protection and no current signs of toxicity. Respiratory: Chest is non tender, lungs are clear to auscultation. Cardiac: regular rate and rhythm Gastrointestinal: Abdomen is soft and tender in the left upper quadrant, no masses, bowel sounds normal. Musculoskeletal: Neck: Neck is supple and non tender. Extremities have full range of motion and are non tender. Skin: No rashes or lesions. DIFFERENTIAL DIAGNOSIS: After history and physical exam differential diagnosis was considered for abdominal pain including but not limited to appendicitis, cholecystitis, gastritis and urinary tract infection. Medical Decision Making Data Points Result Diagram: 11/25/18 1754 11/25/18 1754 Laboratory Hematology Test 11/25/18 17:54 White Blood Count 11.1 k/uL (4.5-11.0) H Red Blood Count 5.33 M/uL (4.17-5.56) Hemoglobin 15.1 g/dL (12.0-16.0) Hematocrit 44.9 % (34.0-47.0) Mean Corpuscular Volume 84.3 fL (80.0-96.0) Mean Corpuscular Hemoglobin 28.4 pg (26.0-33.0) Mean Corpuscular Hemoglobin Concent 33.7 g/dL (32.0-36.0) Red Cell Distribution Width 13.9 % (11.5-14.5) Platelet Count 216 K/uL (150-450) Mean Platelet Volume 8.3 fL (7.2-11.1) Neutrophils (%) (Auto) 62.4 % (39.4-72.5) Lymphocytes (%) (Auto) 28.2 % (17.6-49.6) Monocytes (%) (Auto) 6.6 % (4.1-12.4) Eosinophils (%) (Auto) 2.1 % (0.4-6.7) Basophils (%) (Auto) 0.7 % (0.3-1.4) Nucleated RBC Relative Count (auto) 0.0 /100WBC Neutrophils # (Auto) 6.9 K/uL (2.0-7.4) Lymphocytes # (Auto) 3.1 K/uL (1.3-3.6) Monocytes # (Auto) 0.7 K/uL (0.3-1.0) Eosinophils # (Auto) 0.2 K/uL (0.0-0.5) Basophils # (Auto) 0.1 K/uL (0.0-0.1) Nucleated RBC Absolute Count (auto) 0.01 K/uL Chemistry Test 11/25/18 17:54 Sodium Level 138 mmol/L (137-145) Potassium Level 4.0 mmol/L (3.5-5.0) Chloride Level 102 mmol/L (98-107) Carbon Dioxide Level 26 mmol/L (22-31) Blood Urea Nitrogen 10 mg/dl (7-18) Creatinine 0.50 mg/dl (0.52-1.04) Glomerular Filtration Rate Calc > 60.0 Random Glucose 200 mg/dl (75-110) Calcium Level 9.7 mg/dl (8.4-10.2) Total Bilirubin 0.4 mg/dl (0.2-1.3) Aspartate Amino Transf (AST/SGOT) 38 U/L (0-35) Alanine Aminotransferase (ALT/SGPT) 49 U/L (0-56) Alkaline Phosphatase 106 U/L (0-126) Total Protein 7.6 g/dl (6.3-8.2) Albumin 4.4 g/dl (3.5-5.0) Amylase Level 97 U/L (0-110) Lipase 56 U/L (23-300) Urinalysis Test 11/25/18 18:41 Urine Color Yellow Urine Clarity Clear Urine pH 7.0 pH (4.8-9.5) Urine Specific [place] 1.010 Urine Protein Negative mg/dL (NEGATIVE) Urine Glucose (UA) Negative mg/dL (NEGATIVE) Urine Ketones Negative mg/dL (NEGATIVE) Urine Blood Moderate (NEGATIVE) Urine Nitrite Negative (NEGATIVE) Urine Bilirubin Negative (NEGATIVE) Urine Urobilinogen Negative mg/dL (0.2-1.9) Urine Leukocyte Esterase Negative (NEGATIVE) Urine RBC None /HPF (0-2/HPF) Urine WBC 2 /HPF (0-5/HPF) Urine Squamous Epithelial Cells Many /LPF (</=FEW) Urine Bacteria Few /HPF (NONE-FEW) Urine Mucus None /HPF (NONE-FEW) ED Course/Re-evaluation ED Course Patient was admitted to examine, history and physical were obtained. Differential diagnoses were considered. On examination lungs are clear, heart is regular, abdomen is soft and tender in left upper quadrant. With patient having a recent CT scan, on November 17, I did defer a CT scan this time. A CBC, CMP, urinalysis were obtained. The lab results were unremarkable. Patient had a white count 11.1. I discussed findings with the patient. With the negative lab work I'll see any use in getting a CT scan at this time. Patient does have an appointment with her primary care provider tomorrow. With her persistent vomiting and diarrhea patient has not had any change neurological eyes. As result of that I think at this point time will be safe to go ahead and treat her pain overnight and then defer further treatment with her primary care provider. Discusses patient who verbalized understanding of plan. Decision to Disposition Date: Nov 25, 2018 Decision to Disposition Time: 20:09 Depart Departure Latest Vital Signs Vital Signs Date Time Temp Pulse Resp B/P (MAP) Pulse Ox O2 Delivery O2 Flow Rate FiO2 11/25/18 20:06 62 96 11/25/18 20:00 127/71 (89) 11/25/18 17:53 98.2 Room Air 2.0 11/25/18 17:23 18 Impression: Primary Impression: Left upper quadrant pain Condition: Improved Disposition: HOME OR SELF-CARE Referrals: LEILA CA MD (PCP) Patient Instructions: Abdominal Pain (ED) Additional Instructions: Limit activity by pain. Get plenty of rest. Increase fluid intake. Take your medication as prescribed. Follow up with your primary care provider tomorrow as scheduled. MICHELLE CHRISTIAN Nov 25, 2018 18:07
[2018-11-25] MEDS ORDERED: NS(*) 0.9% 1000 ML BAG 1,000 ML IV ONE (18:13)
[2018-11-25] MEDS ORDERED: ONDANSETRON 4 MG/2 ML VIAL IVP ONE (18:15)
[2018-11-25 18:26] LABS: PLATELET COUNT, AUTOMATED 216 K/uL (150-450)
[2018-11-25 20:00] VITALS: BP 127/71
[2018-11-25] MEDS ORDERED: traMADol 50 MG TAB TH 2 TAB/BOTTLE PO ONE (20:15)
[2018-11-26] MEDS ORDERED: LANI SUBQ (08:31)
[2018-11-26] MEDS ORDERED: HYOS-50 SL (08:31)
[2018-11-26] MEDS ORDERED: FLUO40CA67 PO (08:33)
== END 2018-11-25 20:27 | disposition home or self-care (01) ==
LOC: ER 17:34
DX: R10.12 Left upper quadrant pain (principal)
CPT/HCPCS: 81001; 82150; 83690; 85025; 96361; 96374; 99284; C9399; J2405; J7030; 82040; 82247; 82310; 82374; 82435; 82565; 82947; 84075; 84132; 84155; 84295; 84450; 84460; 84520

== ENCOUNTER → 2018-12-03 | Outpatient (CLI) | payer MEDICAID ==
[~2018-12-03] MED LIST changes: +FLUO40CA67 PO; +HYOS-50 SL; +METH-543 PO
--- NOTE | 2018-12-03 16:28 | RADIOLOGY IMAGING REPORT ---
FACILITY: [facility] - [place] PATIENT NAME: Zain Simons : 1970 MR: [id number] V: [id number] EXAM DATE: ORDERING PHYSICIAN: LEILA CA TECHNOLOGIST: Location: [facility] [place] Patient: Zain Simons : 1970 Visit/Account:[id number] Date of Sevice: 12/03/2018 Exam type: SHOULDER MIN 2 VIEWS RIGHT History: Acute pain in right shoulder Comparison: None. Findings: Three views were submitted. There are mild degenerative changes of the right AC joint. There is no evidence of acute fracture-di slocation of the right shoulder. Small peritendinous calcification projects adjacent to the bicipita l groove. IMPRESSION: 1. Peritendinous calcifications adjacent to the bicipital groove Mild degenerative changes of the right AC joint No evidence of acute fracture or dislocation involving the right shoulder Report Dictated By: Aure Iglesias MD at 12/03/2018 4:18 PM Report E-Signed By: Aure Iglesias MD at 12/03/2018 4:19 PM [id number]:[email or web address]
== END ==
LOC: RAD 15:48
PROVIDERS: ATTEND Internal Medicine
DX: M25.511 Pain in right shoulder (principal); E11.9 Type 2 diabetes mellitus without complications

== ENCOUNTER 2018-12-06 18:31 | Emergency (ER) | payer MEDICAID ==
--- NOTE | 2018-12-06 18:28 | ER Report ---
History and Physical Time Seen By MD: 18:24 HPI/ROS CHIEF COMPLAINT: Back pain HISTORY OF PRESENT ILLNESS: 48-year-old female brought in by EMS complaining of low back pain for 2 days. Patient recalls no specific injury or exacerbating factors. Patient was recently seen by her primary care on 12/03/18. Patient's had an extensive history of chronic abdominal pain over the last 6 months. She's had 6 CT scans of her abdomen. She recently was evaluated with endoscopy by Dr. Sage. She has history of gastric bypass. Patient states she has a distant history of degenerative disc disease of her lumbar spine. She notes no radiation of symptoms down her legs. She denies incontinence. Patient denies fever or chills, but notes some dysuria. Patient denies nausea or vomiting. Patient denies chest pain or shortness of breath. REVIEW OF SYSTEMS: Respiratory: No cough, no dyspnea. Cardiovascular: No chest pain, no palpitations. Gastrointestinal: No vomiting, no abdominal pain. Musculoskeletal: As above Allergies: Coded Allergies: Sulfa (Sulfonamide Antibiotics) (Verified Allergy, Severe, NAUSEA/VOMITING, 11/25/18) lamotrigine (Verified Allergy, Severe, 11/25/18) onion (Verified Allergy, Severe, NAUSEA/VOMITING, 11/25/18) Penicillins (Verified Allergy, Unknown, 11/25/18) amoxicillin (Verified Allergy, Unknown, 11/25/18) cephalexin (Verified Allergy, Unknown, 11/25/18) clavulanic acid (Verified Allergy, Unknown, 11/25/18) fluticasone (Verified Allergy, Unknown, 11/25/18) gemfibrozil (Unverified Allergy, Unknown, 11/25/18) ibuprofen (Verified Allergy, Unknown, 11/25/18) nicotine (Verified Allergy, Unknown, 11/25/18) salmeterol (Verified Allergy, Unknown, 11/25/18) ipratropium (Verified Adverse Reaction, Mild, lower extremity edema, 11/25/18) Home Meds Active Scripts Methocarbamol (ROBAXIN-750) 750 Mg Tablet, 1 TAB PO TID PRN for muscle spasm relief, #15 Prov:CHRISTA ANDRADE DO 12/06/18 Hyoscyamine Sulfate (LEVSIN-SL) 0.125 Mg Tab.subl, 0.125 MG SL ACHS PRN for d iarhea, #60 TAB 3 Refills Prov:LEILA HERNANDEZ MD 11/26/18 Insulin Glargine (LANTUS) 100 Unit/Ml Soln, 34 UNIT SUBQ BID, #4 VIAL 6 Refills increase by 2 units every 3 days until FBS less than 120 MAX 80 units Prov:LEILA HERNANDEZ MD 11/26/18 Promethazine Hcl (PROMETHAZINE HCL) 25 Mg Tablet, 25 MG PO Q6H PRN for NAUSEA/VOMITING, #12 TAB Prov:CHRISTA ANDRADE DO 11/21/18 Ondansetron 4 Mg Odt (ONDANSETRON 4 MG ODT) 4 Mg Tab.rapdis, 4 MG PO Q6H PRN for NAUSEA/VOMITING, #12 TAB Prov:CHRISTA ANDRADE DO 11/21/18 Sumatriptan Succinate (SUMATRIPTAN SUCCINATE) 50 Mg Tablet, 50 MG PO DIRECTED, #9 TAB 3 Refills may repeat in 2 hours x 1 Prov:LEILA HERNANDEZ MD 11/18/18 Sucralfate (CARAFATE) 1 Gm Tablet, 1 GM PO QID for 7 Days, #28 TAB Prov:CAROLE MARIE DO 11/17/18 Pravastatin Sodium (PRAVACHOL) 20 Mg Tablet, 20 MG PO QDAY, #90 TAB 1 Refill Prov:LEILA HERNANDEZ MD 11/12/18 Albuterol Sulfate 0.083% (ALBUTEROL SULFATE 0.083%) 2.5 Mg/3 Ml Vial.neb, 2.5 MG INH Q4-6H PRN for WHEEZING, #1 BOX 0 Refills Prov:NAHED GUERRA DNP, WELDER PIPE MAKING-BC 11/10/18 Ondansetron 4 Mg Odt (ONDANSETRON 4 MG ODT) 4 Mg Tab.rapdis, 4 MG PO ONCE, #30 TAB Prov:CAROLE MARIE DO 10/22/18 Nystatin 100,000 Unit/Gm Top Powder (NYSTATIN 100,000 UNIT/GM TOP POWDER) 15 Gm Powder, 15 GM TP Q8H PRN for RASH, #1 TUBE Prov:CAROLE MARIE DO 10/22/18 Blood Sugar Diagnostic (BLOOD GLUCOSE TEST STRIP) 1 Each Strip, 1 EACH MC TID, #100 STRIP 5 Refills patient to check blood glucose TID Prov:LEILA HERNANDEZ MD 07/29/18 Syringe and Needle,Insulin,1Ml (Insulin Syringe) 31 Gauge X 1/4" Disp.syrin, UNIT TOP DIRECTED, #100 5 Refills patient to use as directed to inject insulin Prov:LEILA HERNANDEZ MD 07/29/18 [place], Insulin Disposable (Bd Ultra-Fine Pen Needle) 1 Each Dis.needle, UNITS TOP DIRECTED, #100 5 Refills Patient to use up to three times daily to inject insulin Prov:LEILA HERNANDEZ MD 07/29/18 Insulin Aspart 100 Un/Ml Pen (NOVOLOG FLEXPEN) 100 Unit/1 Ml Insuln.pen, 10 UNIT SQ 2-3XD, #2 BOX 6 Refills with each meal, MAX 40 U/24 hours Prov:LEILA HERNANDEZ MD 07/29/18 Gabapentin (GABAPENTIN) 300 Mg Capsule, 300 MG PO TID, #90 CAPSULE 6 Refills TAKES ONE CAP AM AND TWO CAPS PM Prov:LEILA HERNANDEZ MD 07/29/18 Aripiprazole (ABILIFY) 5 Mg Tablet, 5 MG PO QDAY, #30 TAB 1 Refill Prov:LEILA HERNANDEZ MD 07/29/18 Dexlansoprazole (DEXILANT) 60 Mg Cap., 60 MG PO BID, #60 TAB 6 Refills Prov:LEILA HERNANDEZ MD 06/23/18 Reported Medications Fluoxetine Hcl (FLUOXETINE HCL) 40 Mg Capsule, 40 MG PO QDAY, CAPSULE 11/26/18 Melatonin (MELATONIN) 5 Mg Tablet, 5 MG PO HS PRN for diff sleeping 07/29/18 Reviewed Nurses Notes: Yes Old Medical Records Reviewed: Yes Hx Smoking: Yes (quit 2002) Smoking Status: Former Smoker Hx Substance Use Disorder: No Hx Alcohol Use: No Constitutional Vital Sign - Last 24 Hours 12/06/18 12/06/18 18:33 20:00 Temp 97.6 Pulse 87 Resp 24 B/P (MAP) 141/61 118/71 (87) O2 Delivery Room Air Physical Exam General Appearance: The patient is alert, has no immediate need for airway protection and no current signs of toxicity. Vital signs stable, afebrile, pulse ox normal, mild distress Eyes: Pupils equal and round no injection. Respiratory: Chest is non tender, lungs are clear to auscultation. Cardiac: regular rate and rhythm Gastrointestinal: Abdomen is soft and non tender, no masses, bowel sounds normal. Musculoskeletal: Neck: Neck is supple and non tender. Back: There is tenderness over the lumbar paraspinous muscles. The SI joints are unremarkable. There is no tenderness in the midline. Straight leg raise is negative bilaterally Extremities have full range of motion and are non tender. No edema Skin: No rashes or lesions. [ ] DIFFERENTIAL DIAGNOSIS: After history and physical exam differential diagnosis was considered for back pain including but not limited to muscular pain, herniated disc, spine fracture, intra-abdominal causes and urinary tract infection. Medical Decision Making Data Points Laboratory Urinalysis Test 12/06/18 19:25 Urine Color Yellow Urine Clarity Clear Urine pH 5.0 pH (4.8-9.5) Urine Specific [place] 1.017 Urine Protein Negative mg/dL (NEGATIVE) Urine Glucose (UA) 500 mg/dL (NEGATIVE) Urine Ketones Negative mg/dL (NEGATIVE) Urine Blood Negative (NEGATIVE) Urine Nitrite Negative (NEGATIVE) Urine Bilirubin Negative (NEGATIVE) Urine Urobilinogen Negative mg/dL (0.2-1.9) Urine Leukocyte Esterase Negative (NEGATIVE) Urine RBC <1 /HPF (0-2/HPF) Urine WBC 1 /HPF (0-5/HPF) Urine Squamous Epithelial Cells Many /LPF (</=FEW) Urine Bacteria Few /HPF (NONE-FEW) Urine Mucus Few /HPF (NONE-FEW) EKG/Imaging Imaging X-ray: Lumbar spine x-ray 3 views was obtained. I viewed the images myself on the PACS system. My interpretation of the images is: Distal he says are well- maintained, there are minimal degenerative changes, the L5-S1 disc spaces decreased by one half.. The radiologist interpretation had no clinically significant variation from this interpretation. ED Course/Re-evaluation ED Course Patient was admitted to an examination room. H&P was done. The differential diagnoses was considered. Patient with 2 days of low back pain. Patient has history of chronic abdominal pain. She had no back pain, which he was seen by her primary care doctor 2 days ago. Diagnostic x-rays are unremarkable of the lumbar spine. Urinalysis is unremarkable. Patient's medicated with Toradol 60 motor grams IM, Norflex 60 mg IM, and tramadol 50 motor grams by mouth. Patient reports improvement of her pain but still having significant back spasms. She'll be discharged home on Robaxin. She is advised to follow-up with Dr. Hernandez if unimproved on Saturday or Saturday. Decision to Disposition Date: Dec 06, 2018 Decision to Disposition Time: 19:56 Depart Departure Latest Vital Signs Vital Signs Date Time Temp Pulse Resp B/P (MAP) Pulse Ox O2 Delivery O2 Flow Rate FiO2 12/06/18 20:00 118/71 (87) 12/06/18 18:33 97.6 87 24 Room Air Impression: Primary Impression: Low back pain Additional Impressions: History of degenerative disc disease Chronic abdominal pain Condition: Improved Disposition: HOME OR SELF-CARE Referrals: LEILA HERNANDEZ MD (PCP) New Scripts Methocarbamol (ROBAXIN-750) 750 Mg Tablet 1 TAB PO TID PRN for muscle spasm relief, #15 Prov: CHRISTA ANDRADE DO 12/06/18 Patient Instructions: Acute Low Back Pain (ED) Additional Instructions: Use Tylenol for pain relief Apply heating pad to your back muscles to help him relax Use Robaxin muscle relaxant for muscle spasm relief Follow-up with Dr. Hernandez if unimproved in 3-5 days. Problem Qualifiers Primary Impression: Low back pain Chronicity: acute Back pain laterality: midline Sciatica presence: without sciatica Qualified Codes: M54.5 - Low back pain CHRISTA ANDRADE DO Dec 06, 2018 18:28
[~2018-12-06 18:31] MED LIST changes: -ACIPHX20PT PO; -METH-543 PO; -NITR-1 PO
[2018-12-06] MEDS ORDERED: traMADol 50 MG TAB PO ONE (18:40)
[2018-12-06] MEDS ORDERED: ORPHENADRINE 60MG/2ML INJ IVP ONE (18:40)
[2018-12-06] MEDS ORDERED: ORPHENADRINE 60MG/2ML INJ IM ONE (18:40)
[2018-12-06] MEDS ORDERED: KETOROLAC 60 MG/2 ML VIAL IM ONE (18:40)
--- NOTE | 2018-12-06 19:31 | RADIOLOGY IMAGING REPORT ---
FACILITY: [facility] PATIENT NAME: Zain Simons : 1970 MR: [id number] V: [id number] EXAM DATE: ORDERING PHYSICIAN: CHRISTA ANDRADE TECHNOLOGIST: Location: [facility] Patient: Zain Simons : 1970 Visit/Account:[id number] Date of Sevice: 12/06/2018 Exam type: 3 views lumbosacral spine History: LBP, HX of DDD Comparison: CT scan 11/17/2018. Findings: Surgical clips overlie the abdomen particularly the left upper quadrant, left lower quadrant and near the gallbladder fossa. There is no acute fracture of lumbar spine. Loss of disc space height L4-5 is noted. AP alignment appears within normal limits. Patient has a mild rightward scoliosis. IMPRESSION: 1. Mild rightward scoliosis with degenerative changes involving the L4-5 disc space. No acute fractur e. Report Dictated By: Dawit Carmichael MD at 12/06/2018 7:22 PM Report E-Signed By: Dawit Carmichael MD at 12/06/2018 7:23 PM WSN:[id number]
[2018-12-06 20:00] VITALS: BP 118/71
[2018-12-06] MEDS ORDERED: METH-543 PO (20:02)
[2018-12-06] MEDS ORDERED: METHOCARBAMOL 500 MG TAB PO ONE (20:05)
== END 2018-12-06 20:08 | disposition home or self-care (01) ==
LOC: ER 18:35
DX: M54.5 Low back pain (principal); R10.9 Unspecified abdominal pain
CPT/HCPCS: 72100; 81001; 96372; 99284; J1885; J2360

== ENCOUNTER → 2018-12-06 | Outpatient (CLI) | payer MEDICAID ==
[~2018-12-06] MED LIST changes: +ACIPHX20PT PO; +NITR-1 PO
== END ==
LOC: AMB 18:13
PROVIDERS: ATTEND Nurse Practitioner
DX: M54.5 Low back pain (principal)
CPT/HCPCS: A0425; A0429

== ENCOUNTER 2018-12-14 18:59 | Emergency (ER) | payer MEDICAID ==
[~2018-12-14 18:59] MED LIST changes: -ACIPHX20PT PO; -NITR-1 PO
--- NOTE | 2018-12-14 19:07 | ER Report ---
History and Physical Time Seen By MD: 19:03 Hx. of Stated Complaint: HEART RACING WITH SOB AND CP HPI/ROS CHIEF COMPLAINT: Chest pain HISTORY OF PRESENT ILLNESS: This is a 48-year-old female, well-known to the emergency department, who presents to the emergency department for chest pain. Patient states that she woke up around 5 PM this evening, she worked last night and was getting ready to work today, she suddenly developed anterior chest pain, with a racing heart that she could "feel all over her body", had some nausea, felt flushed decided to call the ambulance for transfer to the emergency department. Patient arrives somnolent, she states she did take some Phenergan around 5:30 when she felt nauseous. No shortness of breath, no fevers, no abdominal pain or dysuria. REVIEW OF SYSTEMS: Constitutional: No fever, no chills. Eyes: No discharge. ENT: No sore throat. Cardiovascular: As above. Respiratory: No cough, no shortness of breath. Gastrointestinal: No abdominal pain, no vomiting. Genitourinary: No hematuria. Musculoskeletal: No back pain. Skin: No rashes. Neurological: No headache. Allergies: Coded Allergies: Sulfa (Sulfonamide Antibiotics) (Verified Allergy, Severe, NAUSEA/VOMITING, 12/14/18) lamotrigine (Verified Allergy, Severe, 12/14/18) onion (Verified Allergy, Severe, NAUSEA/VOMITING, 12/14/18) Penicillins (Verified Allergy, Unknown, 12/14/18) amoxicillin (Verified Allergy, Unknown, 12/14/18) cephalexin (Verified Allergy, Unknown, 12/14/18) clavulanic acid (Verified Allergy, Unknown, 12/14/18) fluticasone (Verified Allergy, Unknown, 12/14/18) gemfibrozil (Unverified Allergy, Unknown, 12/14/18) ibuprofen (Verified Allergy, Unknown, 12/14/18) nicotine (Verified Allergy, Unknown, 12/14/18) salmeterol (Verified Allergy, Unknown, 12/14/18) ipratropium (Verified Adverse Reaction, Mild, lower extremity edema, 12/14/18) Home Meds Active Scripts Methocarbamol (ROBAXIN-750) 750 Mg Tablet, 1 TAB PO TID PRN for muscle spasm relief, #15 Prov:CHRISTA ANDRADE DO 12/06/18 Hyoscyamine Sulfate (LEVSIN-SL) 0.125 Mg Tab.subl, 0.125 MG SL ACHS PRN for diarhea, #60 TAB 3 Refills Prov:LEILA CA MD 11/26/18 Insulin Glargine (LANTUS) 100 Unit/Ml Soln, 34 UNIT SUBQ BID, #4 VIAL 6 Refills increase by 2 units every 3 days until FBS less than 120 MAX 80 units Prov:LEILA CA MD 11/26/18 Promethazine Hcl (PROMETHAZINE HCL) 25 Mg Tablet, 25 MG PO Q6H PRN for NAUSEA/VOMITING, #12 TAB Prov:CHRISTA ANDRADE DO 11/21/18 Ondansetron 4 Mg Odt (ONDANSETRON 4 MG ODT) 4 Mg Tab.rapdis, 4 MG PO Q6H PRN for NAUSEA/VOMITING, #12 TAB Prov:CHRISTA ANDARDE DO 11/21/18 Sumatriptan Succinate (SUMATRIPTAN SUCCINATE) 50 Mg Tablet, 50 MG PO DIRECTED, #9 TAB 3 Refills may repeat in 2 hours x 1 Prov:LEILA CA MD 11/18/18 Sucralfate (CARAFATE) 1 Gm Tablet, 1 GM PO QID for 7 Days, #28 TAB Prov:CAROLE MARIE DO 11/17/18 Pravastatin Sodium (PRAVACHOL) 20 Mg Tablet, 20 MG PO QDAY, #90 TAB 1 Refill Prov:LEILA CA MD 11/12/18 Albuterol Sulfate 0.083% (ALBUTEROL SULFATE 0.083%) 2.5 Mg/3 Ml Vial.neb, 2.5 MG INH Q4-6H PRN for WHEEZING, #1 BOX 0 Refills Prov:NAHED UGERRA DNP, SEARCH ENGINE OPTIMIZATION ANALYST-BC 11/10/18 Ondansetron 4 Mg Odt (ONDANSETRON 4 MG ODT) 4 Mg Tab.rapdis, 4 MG PO ONCE, #30 TAB Prov:CAROLE MARIE DO 10/22/18 Nystatin 100,000 Unit/Gm Top Powder (NYSTATIN 100,000 UNIT/GM TOP POWDER) 15 Gm Powder, 15 GM TP Q8H PRN for RASH, #1 TUBE Prov:CAROLE MARIE DO 10/22/18 Blood Sugar Diagnostic (BLOOD GLUCOSE TEST STRIP) 1 Each Strip, 1 EACH MC TID, #100 STRIP 5 Refills patient to check blood glucose TID Prov:LEILA CA MD 07/29/18 Syringe and Needle,Insulin,1Ml (Insulin Syringe) 31 Gauge X 1/4" Disp.syrin, UNIT TOP DIRECTED, #100 5 Refills patient to use as directed to inject insulin Prov:LEILA CA MD 07/29/18 [place], Insulin Disposable (Bd Ultra-Fine Pen Needle) 1 Each Dis.needle, UNITS TOP DIRECTED, #100 5 Refills Patient to use up to three times daily to inject insulin Prov:LEILA CA MD 07/29/18 Insulin Aspart 100 Un/Ml Pen (NOVOLOG FLEXPEN) 100 Unit/1 Ml Insuln.pen, 10 UNIT SQ 2-3XD, #2 BOX 6 Refills with each meal, MAX 40 U/24 hours Prov:LEILA CA MD 07/29/18 Gabapentin (GABAPENTIN) 300 Mg Capsule, 300 MG PO TID, #90 CAPSULE 6 Refills TAKES ONE CAP AM AND TWO CAPS PM Prov:LEILA CA MD 07/29/18 Aripiprazole (ABILIFY) 5 Mg Tablet, 5 MG PO QDAY, #30 TAB 1 Refill Prov:LEILA CA MD 07/29/18 Dexlansoprazole (DEXILANT) 60 Mg Cap., 60 MG PO BID, #60 TAB 6 Refills Prov:LEILA CA MD 06/23/18 Reported Medications Fluoxetine Hcl (FLUOXETINE HCL) 40 Mg Capsule, 40 MG PO QDAY, CAPSULE 11/26/18 Melatonin (MELATONIN) 5 Mg Tablet, 5 MG PO HS PRN for diff sleeping 07/29/18 Past Medical/Surgical History The patient has a past medical and surgical history of headaches, hypertension, hypercholesterolemia, asthma, COPD, gastric bypass, severe acid reflux, left shoulder and knee arthritis, wears glasses, type II diabetes, insulin-dependent, bipolar, PTSD, depression, cervical cancer in remission, gastric bypass, appendectomy, cholecystectomy, hysterectomy, right ankle and left shoulder surgery, tonsillectomy. Reviewed Nurses Notes: Yes Hx Smoking: Yes (quit 2002) Smoking Status: Former Smoker Hx Substance Use Disorder: No Hx Alcohol Use: No Constitutional Vital Sign - Last 24 Hours 12/14/18 12/14/18 12/14/18 12/14/18 18:59 19:00 19:01 19:09 Temp 98.1 Pulse ??? 71 Resp 25 16 B/P (MAP) 136/71 (92) Pulse Ox 97 O2 Delivery Nasal Cannula O2 Flow Rate 2.0 12/14/18 12/14/18 12/14/18 12/14/18 19:14 19:29 19:30 19:44 Pulse 70 ??? 72 Resp 19 26 B/P (MAP) ???/??? (1665) Pulse Ox 97 89 12/14/18 12/14/18 12/14/18 12/14/18 19:59 20:00 20:14 20:29 Pulse 68 69 71 Resp 23 18 19 B/P (MAP) 130/66 (87) Pulse Ox 87 87 90 12/14/18 12/14/18 12/14/18 12/14/18 20:34 20:49 21:00 21:04 Pulse 70 65 70 Resp 7 10 11 B/P (MAP) 126/73 (90) Pulse Ox 89 91 90 12/14/18 12/14/18 12/14/18 12/14/18 21:19 21:30 21:34 21:49 Pulse 68 61 ??? Resp 12 17 B/P (MAP) 132/70 (90) Pulse Ox 91 88 Intake and Output 12/14/18 12/14/18 12/15/18 15:04 23:04 07:04 Intake Total 1000 ml Balance 1000 ml Physical Exam General Appearance: The patient is alert, has no immediate need for airway protection and no signs of toxicity. Eyes: Pupils equal and round no pallor or injection. ENT, Mouth: Mucous membranes are moist. Respiratory: There are no retractions, lungs are clear to auscultation. Cardiovascular: Regular rate and rhythm. No murmurs, clicks or rubs. Reproducible anterior chest pain with firm palpation. Gastrointestinal: Abdomen is soft and non tender, no masses, bowel sounds normal. Neurological: Alert and oriented 4. Moving oximetry. Following all commands. No focal neuro deficits. Skin: Warm and dry, no rashes. Musculoskeletal: Neck is supple non tender. Extremities are nontender, nonswollen and have full range of motion. DIFFERENTIAL DIAGNOSIS: After history and physical exam differential diagnosis was considered for chest pain including but not limited to myocardial ischemia, pericarditis pulmonary embolus, chest wall pain, pleural inflammation and pulmonary infectious causes. Medical Decision Making Data Points Result Diagram: 12/14/18 1850 12/14/18 1850 Laboratory Hematology Test 12/14/18 18:50 White Blood Count 10.1 k/uL (4.5-11.0) Red Blood Count 4.95 M/uL (4.17-5.56) Hemoglobin 14.1 g/dL (12.0-16.0) Hematocrit 41.7 % (34.0-47.0) Mean Corpuscular Volume 84.3 fL (80.0-96.0) Mean Corpuscular Hemoglobin 28.5 pg (26.0-33.0) Mean Corpuscular Hemoglobin Concent 33.9 g/dL (32.0-36.0) Red Cell Distribution Width 14.2 % (11.5-14.5) Platelet Count 196 K/uL (150-450) Mean Platelet Volume 8.5 fL (7.2-11.1) Neutrophils (%) (Auto) % (39.4-72.5) Lymphocytes (%) (Auto) % (17.6-49.6) Monocytes (%) (Auto) % (4.1-12.4) Eosinophils (%) (Auto) % (0.4-6.7) Basophils (%) (Auto) % (0.3-1.4) Nucleated RBC Relative Count (auto) /100WBC Neutrophils # (Auto) K/uL (2.0-7.4) Lymphocytes # (Auto) K/uL (1.3-3.6) Monocytes # (Auto) K/uL (0.3-1.0) Eosinophils # (Auto) K/uL (0.0-0.5) Basophils # (Auto) K/uL (0.0-0.1) Nucleated RBC Absolute Count (auto) K/uL Neutrophils % (Manual) 64 % (39.4-72.5) Lymphocytes % (Manual) 31 % (17.6-49.6) Monocytes % (Manual) 2 % (4.1-12.4) L Eosinophils % (Manual) 3 % (0.4-6.7) Basophils % (Manual) 0 % (0.3-1.4) L Chemistry Test 12/14/18 18:50 12/14/18 21:00 Sodium Level 139 mmol/L (137-145) Potassium Level 3.9 mmol/L (3.5-5.0) Chloride Level 107 mmol/L (98-107) Carbon Dioxide Level 23 mmol/L (22-31) Blood Urea Nitrogen 14 mg/dl (7-18) Creatinine 0.60 mg/dl (0.52-1.04) Glomerular Filtration Rate Calc > 60.0 Random Glucose 226 mg/dl (75-110) Calcium Level 9.2 mg/dl (8.4-10.2) Total Bilirubin 0.4 mg/dl (0.2-1.3) Aspartate Amino Transf (AST/SGOT) 43 U/L (0-35) Alanine Aminotransferase (ALT/SGPT) 55 U/L (0-56) Alkaline Phosphatase 88 U/L (0-126) Total Protein 6.5 g/dl (6.3-8.2) Albumin 3.9 g/dl (3.5-5.0) Troponin I < 0.012 ng/ml EKG/Imaging EKG Interpretation 12 lead EKG: Time of EKG 1906. Rhythm: Normal sinus rhythm, ventricular rate 70 bpm. [place]: normal QRS: normal ST segments: No ST depression or elevation identified. No significant changes from the 10/15/2018 EKG other than flattened T waves in V1 today. [place] [facility] [place] NAME: Zain Simons : 1970 MR: [id number] V: [id number] EXAM DATE: ORDERING PHYSICIAN: TALIA HOWARD TECHNOLOGIST: Location: [facility] [place] Patient: Zain Simons : 1970 Visit/Account:[id number] Date of Sevice: 12/14/2018 2 VIEWS CHEST INDICATION: Chest pain. COMPARISON: 11/10/2018. FINDINGS: Cardiomediastinal silhouette and pulmonary vessels within normal limits. There is no focal infiltrate or lobar consolidation. There is no pneumothorax or pleural effusion. No nodule. Upper abdomen is unremarkable. Surgical clips seen in the GE junction region. No acute bony abnormality. IMPRESSION: 1. No acute cardiopulmonary process. Report Dictated By: Dawit Beltre at 12/14/2018 8:12 PM Report E-Signed By: Dawit Beltre at 12/14/2018 8:13 PM WSN:[id number] ED Course/Re-evaluation Clinical Indication for ER IV: Hydration, IV Access ED Course The patient was admitted to room. A history and physical were obtained. Differen tial diagnoses were considered. An IV was started. A CBC, CMP, troponin were obtained. EKG showing normal sinus rhythm.CBC unremarkable, chemistry showing glucose 226, negative troponin 2. Two-view chest x-ray negative for any acute cardiopulmonary process. After 1 L of fluid, the patient states she is feeling significant better, I did reassure her that the reproducible chest pain she is experiencing this evening is not cardiac related, she's had 2 negative troponins, I did advise the patient to follow-up with her primary care provider for reevaluation in 2-5 days. I did tell the patient this is likely muscular in nature. Patient had no other questions or concerns at this time was agreeable with this plan of care and discharged home. Decision to Disposition Date: Dec 14, 2018 Decision to Disposition Time: 21:44 Depart Departure Latest Vital Signs Vital Signs Date Time Temp Pulse Resp B/P (MAP) Pulse Ox O2 Delivery O2 Flow Rate FiO2 12/14/18 21:49 ??? 12/14/18 21:34 17 88 12/14/18 21:30 132/70 (90) 12/14/18 19:09 2.0 12/14/18 19:01 98.1 Nasal Cannula Impression: Primary Impression: Anterior chest wall pain Condition: Improved Disposition: HOME OR SELF-CARE Referrals: LEILA CA MD (PCP) 5 Days Patient Instructions: Chest Wall Pain (ED) Additional Instructions: There were no concerning findings on your laboratory studies, EKG or troponin and blood work today. Please follow up with your primary care provider within 5 days for reevaluation. Return to the emergency department for any concerns or worsening symptoms. Drink plenty of water. Get plenty of rest. He can take ibuprofen or Tylenol as needed for pain. TALIA HOWARD SEARCH ENGINE OPTIMIZATION ANALYST-BC Dec 14, 2018 19:07
[2018-12-14] MEDS ORDERED: NS(*) 0.9% 1000 ML BAG 1,000 ML IV ONE (19:16)
[2018-12-14] MEDS ORDERED: ASPIRIN 81 MG CHEW PO ONE (19:20)
--- NOTE | 2018-12-14 19:27 | EKG ---
FACILITY: [facility] PATIENT NAME: LEILANI VALENTINE : [id number] MR: [id number] V: [id number] EXAM DATE: ORDERING PHYSICIAN: TALIA HOWARD TECHNOLOGIST: GABI Test Reason : CP Blood Pressure : / mmHG Vent. Rate : 070 BPM Atrial Rate : 070 BPM P-R Int : 158 ms QRS Dur : 084 ms QT Int : 436 ms P-R-T Axes : 012 028 048 degrees QTc Int : 470 ms Sinus rhythm No acute appearing findings Confirmed by VIKKI MORENO ([id number]) on 12/14/2018 9:02:35 PM Referred By: Confirmed By:VIKKI MORENO
[2018-12-14 19:54] LABS: PLATELET COUNT, AUTOMATED 196 K/uL (150-450)
--- NOTE | 2018-12-14 20:21 | RADIOLOGY IMAGING REPORT ---
FACILITY: [facility] [place] PATIENT NAME: Zain Simons : 1970 MR: [id number] V: [id number] EXAM DATE: ORDERING PHYSICIAN: TALIA HOWARD TECHNOLOGIST: Location: Patient: Zain Simons : 1970 Visit/Account:[id number] Date of Sevice: 12/14/2018 2 VIEWS CHEST INDICATION: Chest pain. COMPARISON: 11/10/2018. FINDINGS: Cardiomediastinal silhouette and pulmonary vessels within normal limits. There is no focal infiltrate or lobar consolidation. There is no pneumothorax or pleural effusion. No nodule. Upper abdomen is unremarkable. Surgical clips seen in the GE junction region. No acute bony abnormali ty. IMPRESSION: 1. No acute cardiopulmonary process. Report Dictated By: Dawit Beltre at 12/14/2018 8:12 PM Report E-Signed By: Dawit Beltre at 12/14/2018 8:13 PM WSN:[id number]
[2018-12-14 21:30] VITALS: BP 132/70
[2018-12-16] MEDS ORDERED: ACIPHX20PT PO (14:22)
== END 2018-12-14 21:50 | disposition home or self-care (01) ==
LOC: ER 19:07
DX: R07.89 Other chest pain (principal)
CPT/HCPCS: 71046; 84484; 85025; 93005; 96360; 96361; 99284; J7030; 82040; 82247; 82310; 82374; 82435; 82565; 82947; 84075; 84132; 84155; 84295; 84450; 84460; 84520

== ENCOUNTER → 2018-12-14 | Outpatient (CLI) | payer MEDICAID ==
[~2018-12-14] MED LIST changes: +ACIPHX20PT PO; +METH-543 PO; +NITR-1 PO
== END ==
LOC: AMB 18:35
PROVIDERS: ATTEND Nurse Practitioner
DX: R53.1 Weakness (principal); R42 Dizziness and giddiness; R06.00 Dyspnea, unspecified
CPT/HCPCS: A0425; A0427

== ENCOUNTER 2018-12-17 21:08 | Emergency (ER) | payer MEDICAID ==
[~2018-12-17 21:08] MED LIST changes: +ACIPHX20PT PO
[2018-12-17] MEDS ORDERED: NITR-1 PO (21:16)
--- NOTE | 2018-12-17 21:24 | ER Report ---
History and Physical Time Seen By MD: 21:20 Hx. of Stated Complaint: pt took nitrofurantoin 100mg capsule at 8pm. started throwing up right away. feels like she has labored breathing HPI/ROS CHIEF COMPLAINT: vomiting HISTORY OF PRESENT ILLNESS: This is a 48 year old female. She started having vomiting tonight as well as some abdominal discomfort. Central and diffuse. Vomiting started right after taking a dose of Nitrofurantoin 100mg. She is worried it was a reaction to the medicine. Tried taking Phenergan, but threw that up as well. No rash or itching. She says she feel like she is having some difficulty breathing. This is not shortness of breath, but some burning with breathing. No problems swallowing. She has had the medicine in the past, and does not think she has had any problems with it in the past. She is on it from Dr. Jay, urology, after a cystoscopy today for ongoing urinary problems. REVIEW OF SYSTEMS: Respiratory: No cough, no dyspnea. Cardiovascular: No chest pain, no palpitations. Gastrointestinal: as above. Genitourinary: As above. Musculoskeletal: No back pain. No musculoskeletal pain. Allergies: Coded Allergies: Sulfa (Sulfonamide Antibiotics) (Verified Allergy, Severe, NAUSEA/VOMITING, 12/14/18) lamotrigine (Verified Allergy, Severe, 12/14/18) onion (Verified Allergy, Severe, NAUSEA/VOMITING, 12/14/18) Penicillins (Verified Allergy, Unknown, 12/14/18) amoxicillin (Verified Allergy, Unknown, 12/14/18) cephalexin (Verified Allergy, Unknown, 12/14/18) clavulanic acid (Verified Allergy, Unknown, 12/14/18) fluticasone (Verified Allergy, Unknown, 12/14/18) gemfibrozil (Unverified Allergy, Unknown, 12/14/18) ibuprofen (Verified Allergy, Unknown, 12/14/18) nicotine (Verified Allergy, Unknown, 12/14/18) salmeterol (Verified Allergy, Unknown, 12/14/18) ipratropium (Verified Adverse Reaction, Mild, lower extremity edema, 12/14/18) Home Meds Active Scripts Methocarbamol (ROBAXIN-750) 750 Mg Tablet, 1 TAB PO TID PRN for muscle spasm relief, #15 Prov:CHRISTA ANDRADE DO 12/06/18 Hyoscyamine Sulfate (LEVSIN-SL) 0.125 Mg Tab.subl, 0.125 MG SL ACHS PRN for diarhea, #60 TAB 3 Refills Prov:LEILA CA MD 11/26/18 Insulin Glargine (LANTUS) 100 Unit/Ml Soln, 34 UNIT SUBQ BID, #4 VIAL 6 Refills increase by 2 units every 3 days until FBS less than 120 MAX 80 units Prov:LEILA CA MD 11/26/18 Promethazine Hcl (PROMETHAZINE HCL) 25 Mg Tablet, 25 MG PO Q6H PRN for NAUSEA/VOMITING, #12 TAB Prov:CHRISTA ANDRADE DO 11/21/18 Ondansetron 4 Mg Odt (ONDANSETRON 4 MG ODT) 4 Mg Tab.rapdis, 4 MG PO Q6H PRN for NAUSEA/VOMITING, #12 TAB Prov:CHRISTA ANDRADE DO 11/21/18 Sumatriptan Succinate (SUMATRIPTAN SUCCINATE) 50 Mg Tablet, 50 MG PO DIRECTED, #9 TAB 3 Refills may repeat in 2 hours x 1 Prov:LEILA CA MD 11/18/18 Sucralfate (CARAFATE) 1 Gm Tablet, 1 GM PO QID for 7 Days, #28 TAB Prov:CAROLE MARIE DO 11/17/18 Pravastatin Sodium (PRAVACHOL) 20 Mg Tablet, 20 MG PO QDAY, #90 TAB 1 Refill Prov:LEILA CA MD 11/12/18 Albuterol Sulfate 0.083% (ALBUTEROL SULFATE 0.083%) 2.5 Mg/3 Ml Vial.neb, 2.5 MG INH Q4-6H PRN for WHEEZING, #1 BOX 0 Refills Prov:NAHED GUERRA DNP, [employer] ADMINISTRATOR-BC 11/10/18 Ondansetron 4 Mg Odt (ONDANSETRON 4 MG ODT) 4 Mg Tab.rapdis, 4 MG PO ONCE, #30 TAB Prov:CAROLE MARIE DO 10/22/18 Nystatin 100,000 Unit/Gm Top Powder (NYSTATIN 100,000 UNIT/GM TOP POWDER) 15 Gm Powder, 15 GM TP Q8H PRN for RASH, #1 TUBE Prov:CAROLE MARIE DO 10/22/18 Blood Sugar Diagnostic (BLOOD GLUCOSE TEST STRIP) 1 Each Strip, 1 EACH MC TID, #100 STRIP 5 Refills patient to check blood glucose TID Prov:LEILA CA MD 07/29/18 Syringe and Needle,Insulin,1Ml (Insulin Syringe) 31 Gauge X 1/4" Disp.syrin, UNIT TOP DIRECTED, #100 5 Refills patient to use as directed to inject insulin Prov:LEILA CA MD 07/29/18 [place], Insulin Disposable (Bd Ultra-Fine Pen Needle) 1 Each Dis.needle, UNITS TOP DIRECTED, #100 5 Refills Patient to use up to three times daily to inject insulin Prov:LEILA CA MD 07/29/18 Insulin Aspart 100 Un/Ml Pen (NOVOLOG FLEXPEN) 100 Unit/1 Ml Insuln.pen, 10 UNIT SQ 2-3XD, #2 BOX 6 Refills with each meal, MAX 40 U/24 hours Prov:LEILA CA MD 07/29/18 Gabapentin (GABAPENTIN) 300 Mg Capsule, 300 MG PO TID, #90 CAPSULE 6 Refills TAKES ONE CAP AM AND TWO CAPS PM Prov:LEILA CA MD 07/29/18 Aripiprazole (ABILIFY) 5 Mg Tablet, 5 MG PO QDAY, #30 TAB 1 Refill Prov:LEILA CA MD 07/29/18 Reported Medications Nitrofurantoin Macrocrystal (NITROFURANTOIN) 100 Mg Capsule, 100 MG PO BID, CAPSULE 12/17/18 Rabeprazole Sodium (ACIPHEX) 20 Mg Tablet.dr, 20 MG PO BID 12/16/18 Fluoxetine Hcl (FLUOXETINE HCL) 40 Mg Capsule, 40 MG PO QDAY, CAPSULE 11/26/18 Melatonin (MELATONIN) 5 Mg Tablet, 5 MG PO HS PRN for diff sleeping 07/29/18 Discontinued Scripts Dexlansoprazole (DEXILANT) 60 Mg Cap., 60 MG PO BID, #60 TAB 6 Refills Prov:LEILA CA MD 06/23/18 Reviewed Nurses Notes: Yes Hx Smoking: Yes (quit 2002) Smoking Status: Former Smoker Hx Substance Use Disorder: No Hx Alcohol Use: No Constitutional Vital Sign - Last 24 Hours 12/17/18 12/17/18 12/17/18 21:11 22:00 22:30 Temp 98.0 Pulse 93 91 Resp 16 B/P (MAP) 126/78 138/72 (94) 142/80 (100) Pulse Ox 91 O2 Delivery Room Air Physical Exam General Appearance: The patient is alert. No acute distress. Non-toxic in appearance. Eyes: Pupils are equal, round. No pallor, injection or icterus. ENT: Mucous membranes are moist. Normal oral mucosa. Posterior oropharynx is normal. Neck: Supple and non tender. Respiratory: Lungs are clear to auscultation. Cardiovascular: Regular rate and rhythm. No murmurs, gallops or rubs. Normal capillary refill. No edema. Gastrointestinal: Abdomen is soft, diffuse discomfort, no focal tenderness. Nondistended. No rebound or guarding. No masses or organomegaly. Normal active bowel sounds. No costovertebral angle tenderness with percussion. Neurological: Alert and oriented x3. No focal neurologic deficits Skin: Warm and dry. No rashes. DIFFERENTIAL DIAGNOSIS: After history and physical exam, differential diagnosis was considered for a patient with onset of abdominal pain and nausea/vomiting after taking nitrofurantoin, with a cystoscopy earlier today. Nitrofurantoin preventative for infection. Will want to see if there is an infection. Does not seem like and allergic reaction, and having the vomiting right after taking the medicine would make me think not due to the medicine, but difficult to determine the exact timing, so adverse effect of medicine is possible. Other GI causes also possible. Medical Decision Making Data Points Result Diagram: 12/17/18214712/17/182147 Laboratory Hematology Test 12/17/18 21:48 White Blood Count 12.1 k/uL (4.5-11.0) H Red Blood Count 4.82 M/uL (4.17-5.56) Hemoglobin 13.6 g/dL (12.0-16.0) Hematocrit 40.1 % (34.0-47.0) Mean Corpuscular Volume 83.1 fL (80.0-96.0) Mean Corpuscular Hemoglobin 28.1 pg (26.0-33.0) Mean Corpuscular Hemoglobin Concent 33.9 g/dL (32.0-36.0) Red Cell Distribution Width 14.0 % (11.5-14.5) Platelet Count 208 K/uL (150-450) Mean Platelet Volume 8.1 fL (7.2-11.1) Neutrophils (%) (Auto) 70.2 % (39.4-72.5) Lymphocytes (%) (Auto) 19.9 % (17.6-49.6) Monocytes (%) (Auto) 7.7 % (4.1-12.4) Eosinophils (%) (Auto) 1.8 % (0.4-6.7) Basophils (%) (Auto) 0.4 % (0.3-1.4) Nucleated RBC Relative Count (auto) 0.1 /100WBC Neutrophils # (Auto) 8.5 K/uL (2.0-7.4) H Lymphocytes # (Auto) 2.4 K/uL (1.3-3.6) Monocytes # (Auto) 0.9 K/uL (0.3-1.0) Eosinophils # (Auto) 0.2 K/uL (0.0-0.5) Basophils # (Auto) 0.0 K/uL (0.0-0.1) Nucleated RBC Absolute Count (auto) 0.01 K/uL Chemistry Test 12/17/18 21:48 Sodium Level 140 mmol/L (137-145) Potassium Level 3.5 mmol/L (3.5-5.0) Chloride Level 110 mmol/L (98-107) Carbon Dioxide Level 22 mmol/L (22-31) Blood Urea Nitrogen 19 mg/dl (7-18) Creatinine 0.40 mg/dl (0.52-1.04) Glomerular Filtration Rate Calc > 60.0 Random Glucose 200 mg/dl (75-110) Calcium Level 9.0 mg/dl (8.4-10.2) Total Bilirubin 0.4 mg/dl (0.2-1.3) Aspartate Amino Transf (AST/SGOT) 34 U/L (0-35) Alanine Aminotransferase (ALT/SGPT) 49 U/L (0-56) Alkaline Phosphatase 97 U/L (0-126) Total Protein 6.7 g/dl (6.3-8.2) Albumin 3.9 g/dl (3.5-5.0) Urinalysis Test 12/17/18 21:52 Urine Color Yellow Urine Clarity Slightly-cloudy Urine pH 5.0 pH (4.8-9.5) Urine Specific [place] 1.019 Urine Protein Negative mg/dL (NEGATIVE) Urine Glucose (UA) 50 mg/dL (NEGATIVE) Urine Ketones 80 mg/dL (NEGATIVE) Urine Blood Negative (NEGATIVE) Urine Nitrite Negative (NEGATIVE) Urine Bilirubin Negative (NEGATIVE) Urine Urobilinogen Negative mg/dL (0.2-1.9) Urine Leukocyte Esterase Moderate (NEGATIVE) Urine RBC 9 /HPF (0-2/HPF) Urine WBC 22 /HPF (0-5/HPF) Urine Squamous Epithelial Cells Many /LPF (</=FEW) Urine Bacteria Few /HPF (NONE-FEW) Urine Mucus None /HPF (NONE-FEW) EKG/Imaging Imaging EXAMINATION: Frontal chest with 2 views of the abdomen HISTORY: Vomiting, abdominal pain, shortness of breath COMPARISON: Chest radiograph 12/14/2018 CT abdomen/pelvis 11/17/2018 FINDINGS: The lungs are clear. No focal consolidation or pleural fluid. Normal heart size and pulmonary vascularity, with normal cardiomediastinal contours. There is gaseous distention of the transverse colon measuring up to 7 cm. Small bowel loops are normal in caliber with a nonobstructive bowel gas pattern. Minimal scattered colonic stool density. No free intraperitoneal air. Surgical clips in the abdomen. No evidence of organomegaly or abnormal calcification. Visualized osseous structures are unremarkable. IMPRESSION: 1. No evidence of acute cardiopulmonary disease. 2. Nonobstructive bowel gas pattern, with gaseous distention of the transverse colon. Report Dictated By: Renny Almazan MD at 12/17/2018 10:34 PM ED Course/Re-evaluation Clinical Indication for ER IV: Hydration, IV Access ED Course IV placed, given ns and Phenergan. [place] better. Cellular changes on urinalysis which could be from instrumentation earlier, culture ordered. Recommended continuing the Nitrofurantoin and calling Dr. Jay office tomorrow. Decision to Disposition Date: Dec 17, 2018 Decision to Disposition Time: 22:49 Depart Departure Latest Vital Signs Vital Signs Date Time Temp Pulse Resp B/P (MAP) Pulse Ox O2 Delivery O2 Flow Rate FiO2 12/17/18 22:30 91 142/80 (100) 12/17/18 21:11 98.0 16 91 Room Air Impression: Primary Impression: Nausea & vomiting Condition: Improved Disposition: HOME OR SELF-CARE Referrals: LEILA CA MD (PCP) Patient Instructions: Acute Nausea and Vomiting (ED) Additional Instructions: At this time, we do not know what cause the nausea and vomiting. We would recommend continuing the nitrofurantoin and do not think that the medicine was the cause of your symptoms. Call Dr. Jay's office tomorrow to check with them and see if they would want you to continue this medicine. Rest and increase fluid intake. Take the phenergan that you have at home as needed for nausea and vomiting. Problem Qualifiers Primary Impression: Nausea & vomiting Vomiting type: unspecified Vomiting Intractability: non-intractable Qualified Codes: R11.2 - Nausea with vomiting, unspecified MAYUR IQBAL MD Dec 17, 2018 21:24
[2018-12-17] MEDS ORDERED: NS(*) 0.9% 1000 ML BAG 1,000 ML IV ONE (21:35)
[2018-12-17] MEDS ORDERED: PROMETHAZINE 25 MG/ML 1 ML AMP IVP ONE (21:35)
[2018-12-17 22:07] LABS: PLATELET COUNT, AUTOMATED 208 K/uL (150-450)
[2018-12-17 22:30] VITALS: BP 142/80
--- NOTE | 2018-12-17 22:48 | RADIOLOGY IMAGING REPORT ---
FACILITY: [facility] - [place] PATIENT NAME: Zain Simons : 1970 MR: [id number] V: [id number] EXAM DATE: ORDERING PHYSICIAN: MAYUR IQBAL TECHNOLOGIST: Location: [facility] [place] Patient: Zain Simons : 1970 Visit/Account:[id number] Date of Sevice: 12/17/2018 EXAMINATION: Frontal chest with 2 views of the abdomen HISTORY: Vomiting, abdominal pain, shortness of breath COMPARISON: Chest radiograph 12/14/2018 CT abdomen/pelvis 11/17/2018 FINDINGS: The lungs are clear. No focal consolidation or pleural fluid. Normal heart size and pulmonary vascula rity, with normal cardiomediastinal contours. There is gaseous distention of the transverse colon measuring up to 7 cm. Small bowel loops are norm al in caliber with a nonobstructive bowel gas pattern. Minimal scattered colonic stool density. No fr ee intraperitoneal air. Surgical clips in the abdomen. No evidence of organomegaly or abnormal calcification. Visualized osse ous structures are unremarkable. IMPRESSION: 1. No evidence of acute cardiopulmonary disease. 2. Nonobstructive bowel gas pattern, with gaseous distention of the transverse colon. Report Dictated By: Renny Almazan MD at 12/17/2018 10:34 PM Report E-Signed By: Renny Almazan MD at 12/17/2018 10:39 PM WSN:[id number]
== END 2018-12-17 22:56 | disposition home or self-care (01) ==
LOC: ER 21:55
DX: R11.2 Nausea with vomiting, unspecified (principal); R39.198 Other difficulties with micturition
CPT/HCPCS: 74022; 81001; 85025; 87088; 96361; 96374; 99284; J2550; J7030; 82040; 82247; 82310; 82374; 82435; 82565; 82947; 84075; 84132; 84155; 84295; 84450; 84460; 84520